=== PATIENT | female | born 1955 | race Caucasian/White ===

== ENCOUNTER 2020-05-20 12:22 | Outpatient (REF) | payer MEDICAID, SELFPAY ==
--- NOTE | 2020-05-20 12:29 | XR_ITS ---
EXAMINATION: XR KNEE, LEFT CLINICAL INFORMATION: Left knee pain COMPARISON: Radiographs left knee 01/16/2016 TECHNIQUE: Four views of the left knee. FINDINGS: There is no fracture, dislocation, or destructive process. There are some small marginal osteophytes femoral condyles and tibial plateau. No joint narrowing or erosive change or visible chondrocalcinosis. Mild thickening distal quadriceps tendon suggested on lateral view with some spurring at the quadriceps insertion. No visible suprapatellar effusion. Hoffa's fat pad appears normal. Again, there is a small mineralized ossicle at the deep infrapatellar recess. Recess preserved XR/XR knee LT 4V IMPRESSION: 1. Small marginal osteophytes without joint narrowing or erosive change. 2. Mild thickening distal quadriceps tendon with spurring at the patellar insertion.
== END 2020-05-20 12:23 | disposition home or self-care (01) ==
LOC: HO.XRAY 12:22
PROVIDERS: Visit Provider Emergency Medicine
DX: M25.562 Pain in left knee (principal)
CPT/HCPCS: 73564

== ENCOUNTER 2020-05-23 10:41 | Outpatient (REF) | payer MEDICAID, SELFPAY | END 2020-05-23 10:42 | disposition home or self-care (01) | LOC: HO.LAB 10:41 | PROVIDERS: Visit Provider Internal Medicine | DX: Z20.822 Contact with and (suspected) exposure to COVID-19 (principal) | CPT/HCPCS: 36415; C9803; U0003 ==

== ENCOUNTER 2020-08-16 09:11 | Emergency (ER) | payer MEDICAID, SELFPAY ==
--- NOTE | ~2020-08-16 | CT_ITS ---
EXAMINATION: CT ANGIOGRAM OF THE CHEST WITH AND WITHOUT CONTRAST (CT PULMONARY ANGIOGRAM FOR PE) CLINICAL INFORMATION: Reason for Exam right sided cp, d dimer >4000, r/o pe COMPARISON: Chest x-ray 08/16/2020 TECHNIQUE: Prior to contrast administration, noncontrast localization images were obtained. Subsequently, multidetector volumetric imaging was performed from the thoracic inlet to below the diaphragms following the administration of 65 mL Omnipaque 350 intravenous contrast. No contrast reaction reported Sagittal, coronal, and MIP oblique sagittal reformatted images were obtained on the CT workstation, uploaded to PACS, and reviewed. This CT examination was performed using dose optimization techniques as appropriate, variously including the following: *Automated exposure control *Adjustment of mA and/or kV according to patient size (this includes techniques or standardized protocols for targeted exams where dose is matched to indication/reason for exam; i.e. extremities or head) *Use of iterative reconstruction technique Total exam dose-length product 213 mGy-cm FINDINGS: QUALITY OF STUDY/CONTRAST BOLUS: Satisfactory. PULMONARY ARTERIES: No central or segmental pulmonary emboli. THORACIC AORTA: No aneurysm or dissection. LUNG: There is a calcified granuloma in the right lower lobe (series 7, image 251). There are subtle groundglass opacities in the right lower lobe. PLEURA: There is a trace right pleural effusion. No pneumothorax. MEDIASTINUM: Normal heart size. No pericardial effusion. No hilar or mediastinal lymphadenopathy. No evidence of septal bowing or right heart strain. CHEST WALL/AXILLA: No axillary or internal mammary lymphadenopathy. OSSEOUS STRUCTURES: No acute or suspicious osseous abnormality. UPPER ABDOMEN:. No reflux of contrast into the hepatic veins to suggest elevated right heart pressures. The spleen appears mildly enlarged, although it is not fully imaged on this study. The maximum transverse dimension of the spleen is 15.[address]/CT angio chest PE protocol IMPRESSION: 1. No evidence of pulmonary embolism. 2. Trace right pleural effusion with associated atelectasis or mild infiltrate at the right lung base. 3. The spleen appears mildly enlarged, although is not fully imaged on current study. VTE: negative
--- NOTE | ~2020-08-16 | XR_ITS ---
EXAMINATION: XR chest 2V CLINICAL INFORMATION: Chest pain COMPARISON: Prior chest x-ray 07/22/2019 TECHNIQUE: XR chest 2V Tubes and lines: None Lungs and Flora: Mild prominence of the pulmonary vasculature without nicolas failure. There is a density projecting over the right lower lobe could be a nipple shadow. Pleura: Normal. Costophrenic angles are sharp. No pneumothorax. Heart and mediastinum: The mediastinum is within normal limits.. Bones: Skeletal structures included are normal for patient's age. XR/XR chest 2V IMPRESSION: Mild vascular congestion without nicolas failure or pleural effusion. Density projecting over the right lower lobe probably a nipple shadow.
[2020-08-16 09:18] VITALS: BP 165/80; PULSE 103; RESP 18; TEMP 37.1; O2SAT 99; BMI 24.2
--- NOTE | 2020-08-16 10:44 | ECG_ITS ---
Test Reason : CHEST PAIN Blood Pressure : / mmHG Vent. Rate : 088 BPM Atrial Rate : 088 BPM P-R Int : 106 ms QRS Dur : 076 ms QT Int : 354 ms P-R-T Axes : 073 048 053 degrees QTc Int : 428 ms Sinus rhythm with short MA Nonspecific ST abnormality Abnormal ECG When compared with ECG of 23-JUL-2019 10:38, No significant change was found Referred By: Katherine Jackson Electronically Signed By:Roverto Allen
--- NOTE | 2020-08-16 10:44 | ED_ITS ---
HPI - General Adult General Chief complaint: General Medical Stated complaint: SHOULDER CHEST NECK PAIN Time Seen by Provider: 08/16/20 10:39 Source: patient Mode of arrival: ambulatory Limitations: no limitations History of Present Illness HPI narrative: 65 yo female with past medical history of asthma, renal colic, RA here with complaints of right sided CP with waking. No heavy lifting or bending. No pain noted yesterday. No shortness of breath, cough, leg swelling or pain. No fevers or chills. No recent travel. No sick contact. Pain is worsened with palpation and movement of the right arm. Unrelieved with home Motrin and tramadol. Related Data Previous Rx's Medication Instructions Recorded azithromycin See Rx Instructions .ROUTE 08/16/20 .COMPLEX #6 tab cyclobenzaprine 10 mg PO TID PRN #10 tab 08/16/20 lidocaine [Lidoderm] 1 patch TOPICAL DAILY #1 ea 08/16/20 Allergies Allergy/AdvReac Type Severity Reaction Status Date / Time No Known Allergies Allergy Verified 08/16/20 09:21 [No Known Allergies*] Review of Systems Review of Systems: Yes all other systems are reviewed and are negative Constitutional: Constitutional: Reports no additional constitutional complaints, Denies body ache(s), Denies chills, Denies fever(s), Denies headache(s) and Denies weakness Eyes: Eyes: Reports no additional eye complaints and Denies change in vision ENT: Reports system reviewed and no additional complaints, except as documente d, Denies dizziness, Denies headache(s), Denies nasal congestion, Denies nasal discharge and Denies neck pain Cardiovascular: Cardiovascular: Reports no additional cardiovascular complaints, Reports chest pain, Denies leg edema and Denies dyspnea Respiratory: Respiratory: Reports no additional respiratory complaints, Denies cough and Denies dyspnea Gastrointestinal: Gastrointestinal: Reports no additional gastrointestinal complaints, Denies abdominal pain, Denies diarrhea, Denies nausea and Denies vomiting Genitourinary: Genitourinary: Reports no additional female genitourinary complaints and Denies urinary incontinence Musculoskeletal: Musculoskeletal: Reports no additional musculoskeletal complaints, Denies back pain, Denies arthralgias, Denies joint swelling, Denies neck pain, Denies numbness and Denies tingling Integumentary/Breasts: Skin/Breast: Reports system reviewed and no additional complaints, except as docu and Denies rash Neurologic: Reports system reviewed and no additional complaints, except as documented, Denies Abnormal speech present, Denies dizziness, Denies headache(s), Denies numbness, Denies tingling and Denies weakness PMFSH Past Medical History Attestation statement: The following information was validated with the patient. Source: old records reviewed and nursing notes reviewed Medical History Asthma Kidney stones Neutropenia Rheumatoid arthritis Surgical History H/O left breast biopsy Family History Family History Sister Hypercholesterolemia HTN (hypertension) Arthritis Brother Pacemaker Social History Social History (Updated 04/02/20 @ 10:26 by Mago Patel) Alcohol intake: never Smoking Status: Never smoker Use of substances other than those prescribed or required for medical reasons: No Advance Directives: Yes Advance Directives Information Provided: No Advance Directives on File: No Physical Exam Vital Signs: Vital Signs: Last Vital Signs Temp 98.5 F 08/16/20 11:21 Pulse 98 08/16/20 14:56 Resp 16 08/16/20 14:56 BP 161/80 H 08/16/20 14:56 Pulse Ox 97 08/16/20 14:56 Body Mass Index 24.2 Const: General: cooperative, healthy appearing, comfortable and no acute distress Orientation/consciousness: patient oriented x3 Limitations: no limitations HENMT: Head: Yes normal to inspection Ears: hearing grossly normal bilaterally General nose exam: Normal external nose present Face and sinus: Yes normal facial exam Mouth: Normal oral and palatal mucosa present Throat: Yes posterior oropharynx normal Eyes: General: appearance normal, both eyes and all related structures Pupils: Equal, round and reactive pupils present Neck: Neck: Yes normal visual inspection Chest: Other: Right-sided chest wall anteriorly tender to palpate, worsened with right arm movement and deep breathing Chest palpation & inspection: normal inspection of the chest Resp: Effort & Inspection: normal respiratory effort Auscultation: clear to auscultation bilaterally Cardio: Rate: regular rate Rhythm: regular rhythm Peripheral pulses: Peripheral pulses 2+ throughout GI: Inspection: Yes normal to inspection Palpation (GI): Soft to palpation and nontender Auscultation: normal bowel sounds Back/Spine/Pelvis: Thoracic/Lumbar Spine: thoracic and lumbar spine normal to inspection Skin: General skin exam: no rashes or lesions noted Neuro: General: patient oriented x3, no focal motor deficits and normal sensation to monofilament Cranial nerves: Yes Equal, round and reactive pupils present Cognition (Neuro): normal cognition Speech: No Abnormal spe ech present Gait exam (Neuro): Normal gait present Motor exam (neuro): 5/5 motor strength present throughout Extrem: General: Yes normal to inspection, Yes no pedal edema and Yes no calf tenderness Course Course Course Narrative: 65-year-old female here with right-sided chest pain which is worsened with deep breathing, movement and palpation since waking this morning. No other associated symptoms. Pain is more musculoskeletal on exam. However due to age will check labs, chest x-ray, EKG. 1220-pain and nausea are improving. D-dimer greater than 4000. Will check CTA to rule out PE. 1500-CTA negative for PE. Shows trace right pleural effusion with a infiltrate at the right lung base. No leukocytosis, fever, tachycardia or tachypnea. No systemic signs symptoms of infection. Stable oxygen saturation greater than 98% on room air. Discussed findings with the patient. Will treat with course of antibiotics. Reviewed worrisome signs and symptoms such as shortness of breath, severe chest pain, fever which is not respond to Motrin Tylenol and when to return to the emergency department. Comfortable discharge home. Medical Decision Making MDM Narrative Medical decision making narrative: ACS, PE, chest wall strain, pneumonia, pneumothorax Less likely ACS with symptoms greater than 8 hours, troponin negative and EKG which shows no ischemic changes. Lab Data Result diagrams: 08/16/20 11:34 08/16/20 11:34 Labs: Lab Results 08/16/20 08/16/20 08/16/20 Range/Units 11:34 11:34 11:34 WBC 4.9 (4.8-10.8) X10*3/uL RBC 5.24 (4.20-5.50) X10*6/uL Hgb 12.6 (12.0-16.0) g/dl Hct 40.2 (37-47) % MCV 76.7 L (80-98) fL MCH 24.0 L (27.0-33.0) pg MCHC 31.3 (31.0-35.0) g/dl RDW 19.8 H (11.0-16.0) % Plt Count 168 (160-400) X10*3/uL MPV 8.2 L (9.4-12.3) fL Immature Gran % (Auto) 0.2 (0.0-0.4) % Neut % (Auto) 16.8 L (45-73) % Lymph % (Auto) 66.6 H (20-40) % [place] % (Auto) 16.0 H (2-11) % Eos % (Auto) 0.0 (0-4) % Baso % (Auto) 0.4 (0-2) % Lymph # (Auto) 3.3 (1.2-4.9) X10*3/uL [place] # (Auto) 0.8 (0.1-1.2) X10*3/uL Eos # (Auto) 0.0 (0.0-0.4) X10*3/uL Baso # (Auto) 0.0 (0.0-0.2) X10*3/uL Abs Immat Gran (auto) 0.01 (0.00-0.03) X10*3/uL Absolute Neuts (auto) 0.8 L (2.0-8.3) X10*3/uL Absolute Nucleated RBC 0.000 (0.0-0.012) X10*3/uL Nucleated RBC % (auto) 0.0 (0.0-0.2) /100WBC PT 11.8 (10.8-13.0) SEC INR 1.0 (0.9-1.1) D-Dimer 4224 NG/ML Sodium 136 (135-145) mmol/L Potassium 3.9 (3.3-5.1) mmol/L Chloride 103 (96-108) mmol/L Carbon Dioxide 24 (22-29) mmol/L Anion Gap 13 (12-20) BUN 11 (9-16) mg/dL Creatinine 0.70 (0.5-1.4) mg/dL Estim Creat Clear Calc 71.0 Estimated GFR > 60 Random Glucose 101 (60-115) mg/dL Calcium 8.9 (8.4-10.2) mg/dL Magnesium 1.9 (1.6-2.6) mg/dL Total Bilirubin 0.6 (0.0-1.0) mg/dL Direct Bilirubin 0.3 (0.0-0.5) mg/dL AST 40 H (5-31) U/L ALT 24 (0-31) U/L Alkaline Phosphatase 146 H (39-117) U/L Troponin I High Sens (<3.5-17.0) ng/L Total Protein 9.1 H (6.5-8.0) g/dL Albumin 3.6 (3.5-5.0) g/dL COVID-19 ([facility]) (Negative) COVID-19 Clin Com 08/16/20 08/16/20 Range/Units 11:34 11:45 WBC (4.8-10.8) X10*3/uL RBC (4.20-5.50) X10*6/uL Hgb (12.0-16.0) g/dl Hct (37-47) % MCV (80-98) fL MCH (27.0-33.0) pg MCHC (31.0-35.0) g/dl RDW (11.0-16.0) % Plt Count (160-400) X10*3/uL MPV (9.4-12.3) fL Immature Gran % (Auto) (0.0-0.4) % Neut % (Auto) (45-73) % Lymph % (Auto) (20-40) % [place] % (Auto) (2-11) % Eos % (Auto) (0-4) % Baso % (Auto) (0-2) % Lymph # (Auto) (1.2-4.9) X10*3/uL [place] # (Auto) (0.1-1.2) X10*3/uL Eos # (Auto) (0.0-0.4) X10*3/uL Baso # (Auto) (0.0-0.2) X10*3/uL Abs Immat Gran (auto) (0.00-0.03) X10*3/uL Absolute Neuts (auto) (2.0-8.3) X10*3/uL Absolute Nucleated RBC (0.0-0.012) X10*3/uL Nucleated RBC % (auto) (0.0-0.2) /100WBC PT (10.8-13.0) SEC INR (0.9-1.1) D-Dimer NG/ML Sodium (135-145) mmol/L Potassium (3.3-5.1) mmol/L Chloride (96-108) mmol/L Carbon Dioxide (22-29) mmol/L Anion Gap (12-20) BUN (9-16) mg/dL Creatinine (0.5-1.4) mg/dL Estim Creat Clear Calc Estimated GFR Random Glucose (60-115) mg/dL Calcium (8.4-10.2) mg/dL Magnesium (1.6-2.6) mg/dL Total Bilirubin (0.0-1.0) mg/dL Direct Bilirubin (0.0-0.5) mg/dL AST (5-31) U/L ALT (0-31) U/L Alkaline Phosphatase (39-117) U/L Troponin I High Sens < 3.5 (<3.5-17.0) ng/L Total Protein (6.5-8.0) g/dL Albumin (3.5-5.0) g/dL COVID-19 ([facility]) Negative (Negative) COVID-19 Clin Com See Note Imaging Data Chest x-ray: Attestation: I personally reviewed and interpreted this imaging study as follows: Radiologist's impression: CLINICAL INFORMATION: Chest pain COMPARISON: Prior chest x-ray 07/22/2019 TECHNIQUE: XR chest 2V Tubes and lines: None Lungs and Flora: Mild prominence of the pulmonary vasculature without nicolas failure. There is a density projecting over the right lower lobe could be a nipple shadow. Pleura: Normal. Costophrenic angles are sharp. No pneumothorax. Heart and mediastinum: The mediastinum is within normal limits.. Bones: Skeletal structures included are normal for patient's age. XR/XR chest 2V IMPRESSION: Mild vascular congestion without nicolas failure or pleural effusion. Density projecting over the right lower lobe probably a nipple shadow. CT scan - chest: Attestation: I personally reviewed and interpreted this imaging study as follows: Radiologist's impression: 1. No evidence of pulmonary embolism. 2. Trace right pleural effusion with associated atelectasis or mild infiltrate at the right lung base. 3. The spleen appears mildly enlarged, although is not fully imaged on current study. ECG Data Attestation: I personally reviewed and interpreted this ECG as follows: Interpretation: SR with short ND, rate 88, normal qrs, normal qtc, nonspecific ST changes Discharge Plan Discharge Clinical Impression: Chest wall muscle strain Pneumonia Qualifiers: Pneumonia type: due to unspecified organism Laterality: right Patient Disposition: Home, Self-Care Instructions: Bacterial Pneumonia (ED), Chest Wall Pain (ED) Additional Instructions: Increase fluids, rest Follow-up with primary care doctor if your symptoms do not improve after several days Prescriptions: New azithromycin 250 mg tablet See Rx Instructions .ROUTE .COMPLEX Qty: 6 RF: 0 cyclobenzaprine 10 mg tablet 10 mg PO TID PRN (Reason: muscle spasm) Qty: 10 RF: 0 lidocaine [Lidoderm] 5 % adhesive patch,medicated 1 patch topical DAILY Qty: 1 RF: 0 Referrals: Physician,Unknown [Primary Care Provider] - 2 days Stand Alone Forms: Work/School Release
[2020-08-16 11:21] VITALS: BP 179/76; PULSE 91; RESP 12; TEMP 36.9; O2SAT 97
[2020-08-16 11:41] VITALS: RESP 18
[2020-08-16] MEDS: 0.9 % Sodium Chloride 1,000 ML 999 ML IV (11:41)
[2020-08-16] MEDS: Morphine Sulfate 4 MG/ML CARTRIDGE IVPUSH (11:41)
[2020-08-16] MEDS: ondansetron HCL 4 MG/2 ML VIAL IVPUSH (11:41)
[2020-08-16 11:44] LABS: Basophils Percent Auto 0.4 % (0-2); Hematocrit 40.2 % (37-47); Hemoglobin 12.6 g/dl (12.0-16.0); Imm Gran Abs Auto 0.01 X10*3/uL (0.00-0.03); Imm Gran Pct Auto 0.2 % (0.0-0.4); Lymphocytes Absolute Auto 3.3 X10*3/uL (1.2-4.9); Lymphocytes Percent Auto 66.6 % (20-40); MANUAL DIFF FLAG NO; Mean Corpuscular HGB Conc 31.3 g/dl (31.0-35.0); Mean Corpuscular Volume 76.7 fL (80-98); Mean Platelet Volume 8.2 fL (9.4-12.3); Monocytes Absolute Auto 0.8 X10*3/uL (0.1-1.2); Neutrophils Absolute Auto 0.8 X10*3/uL (2.0-8.3); Neutrophils Percent Auto 16.8 % (45-73); Platelet Count 168 X10*3/uL (160-400); Red Blood Count 5.24 X10*6/uL (4.20-5.50); Red Cell Distribution Width 19.8 % (11.0-16.0); SCAN SMEAR FLAG 1; White Blood Count 4.9 X10*3/uL (4.8-10.8)
[2020-08-16 11:56] LABS: Prothrombin Time 11.8 SEC (10.8-13.0)
[2020-08-16 12:10] LABS: COVID-19 Test Negative (Negative)
[2020-08-16 12:12] LABS: Alanine Aminotransferase 24 U/L (0-31); Albumin Level 3.6 g/dL (3.5-5.0); Alkaline Phosphatase 146 U/L (39-117); Anion Gap 13 (12-20); Aspartate Amino Transferase 40 U/L (5-31); Bilirubin Direct 0.3 mg/dL (0.0-0.5); Bilirubin Total 0.6 mg/dL (0.0-1.0); Blood Urea Nitrogen 11 mg/dL (9-16); Calcium 8.9 mg/dL (8.4-10.2); Carbon Dioxide 24 mmol/L (22-29); Chloride 103 mmol/L (96-108); D Dimer 4224 NG/ML; Estimated Glomerular Filt Rate > 60; Glucose Random 101 mg/dL (60-115); Magnesium 1.9 mg/dL (1.6-2.6); Potassium 3.9 mmol/L (3.3-5.1); Sodium 136 mmol/L (135-145); Total Protein 9.1 g/dL (6.5-8.0)
[2020-08-16 12:17] LABS: Troponin-I High Sensitivity < 3.5 ng/L (<3.5-17.0)
[2020-08-16] MEDS: iohexoL 350 MG/ML 75 ML INFUS..BTL IV (14:14)
[2020-08-16 14:56] VITALS: BP 161/80; PULSE 98; RESP 16; O2SAT 97
== END 2020-08-16 15:23 | disposition home or self-care (01) ==
PROVIDERS: Nurse Practitioner Family; Emergency Provider Emergency Medicine
DX: J15.9 Unspecified bacterial pneumonia (principal); R07.89 Other chest pain; M54.2 Cervicalgia; M54.5 Low back pain; Z79.899 Other long term (current) drug therapy
CPT/HCPCS: 36415; 71046; 71275; 80048; 80076; 83735; 84484; 85025; 85379; 85610; 87635; 93005; 96361; 96365; 96375; 99284; J2270; J2405; Q9967

== ENCOUNTER 2020-09-25 14:00 | Outpatient (RCR) | payer MEDICAID, SELFPAY | END 2020-09-25 15:27 | disposition other institution (70) | LOC: HO.PT 14:00 | PROVIDERS: PCP Family Medicine; Visit Provider Family Medicine | DX: M25.562 Pain in left knee (principal) | CPT/HCPCS: 97110; 97161; 97530 ==

== ENCOUNTER 2020-12-29 13:28 | Emergency (ER) | payer MEDICAID, SELFPAY ==
--- NOTE | ~2020-12-29 | XR_ITS ---
EXAMINATION: XR CHEST CLINICAL INFORMATION: Question food bolus stuck in esophagus. COMPARISON: Chest x-ray 08/16/2020 TECHNIQUE: Frontal view of the chest was obtained. FINDINGS: The lungs are well-expanded and clear. The heart size and pulmonary vascularity is normal. No soft tissue or radiopaque density seen in the midline.. No gross bony abnormality. XR/XR chest 1V IMPRESSION: Unremarkable chest exam.
[2020-12-29 14:44] VITALS: BP 160/85; PULSE 98; RESP 18; TEMP 36.9; O2SAT 98; BMI 23.4
--- NOTE | 2020-12-29 14:47 | ECG_ITS ---
Test Reason : CHEST PAIN Blood Pressure : / mmHG Vent. Rate : 103 BPM Atrial Rate : 103 BPM P-R Int : 122 ms QRS Dur : 074 ms QT Int : 344 ms P-R-T Axes : 075 043 038 degrees QTc Int : 450 ms Sinus tachycardia with Premature supraventricular complexes Possible Left atrial enlargement Nonspecific ST and T wave abnormality Abnormal ECG When compared with ECG of 16-AUG-2020 11:13, Premature supraventricular complexes are now Present Referred By: Generic ED Physician Electronically Signed By:ERICA QUACH
[2020-12-29 16:01] LABS: Basophils Percent Auto 0.4 % (0-2); Eosinophils Percent Auto 0.1 % (0-4); Hematocrit 38.3 % (37-47); Hemoglobin 11.9 g/dl (12.0-16.0); Lymphocytes Absolute Auto 5.6 X10*3/uL (1.2-4.9); Lymphocytes Percent Auto 83.1 % (20-40); MANUAL DIFF FLAG SCAN; Mean Corpuscular HGB Conc 31.1 g/dl (31.0-35.0); Mean Corpuscular Hemoglobin 23.2 pg (27.0-33.0); Mean Corpuscular Volume 74.8 fL (80-98); Monocytes Absolute Auto 0.9 X10*3/uL (0.1-1.2); Neutrophils Absolute Auto 0.2 X10*3/uL (2.0-8.3); Neutrophils Percent Auto 2.4 % (45-73); Platelet Count 132 X10*3/uL (160-400); Red Blood Count 5.12 X10*6/uL (4.20-5.50); Red Cell Distribution Width 18.2 % (11.0-16.0); SCAN SMEAR FLAG 1; White Blood Count 6.7 X10*3/uL (4.8-10.8)
[2020-12-29 16:20] LABS: SLIDE REVIEW VERIFIED
[2020-12-29 16:21] LABS: Anion Gap 11 (12-20); Blood Urea Nitrogen 7 mg/dL (9-16); Calcium 9.1 mg/dL (8.4-10.2); Carbon Dioxide 24 mmol/L (22-29); Chloride 103 mmol/L (96-108); Creatinine Clr Calc Pharmacy 67.2; Estimated Glomerular Filt Rate > 60; Glucose Random 98 mg/dL (60-115); Potassium 3.5 mmol/L (3.3-5.1); Sodium 134 mmol/L (135-145)
[2020-12-29 16:26] LABS: Troponin-I High Sensitivity < 3.5 ng/L (<3.5-17.0)
--- NOTE | 2020-12-29 18:51 | ED_ITS ---
HPI - General Adult General Chief complaint: General Medical Stated complaint: heartburn Time Seen by Provider: 12/29/20 18:46 Source: patient Mode of arrival: ambulatory Limitations: no limitations History of Present Illness HPI narrative: Patient with difficulty swallowing with food and drink starting 4 days ago. Has not had that problem prior. No vomiting with the problem. Patient is on omeprazol for the problem. Onset (ago): day(s) Severity: moderate Quality: burning Pain Consistency: intermittent Exacerbating factors: eating Related Data Previous Rx's Medication Instructions Recorded azithromycin 250 mg tablet See Rx Instructions .ROUTE 08/16/20 .COMPLEX #6 tab cyclobenzaprine 10 mg tablet 10 mg PO TID PRN #10 tab 08/16/20 lidocaine 5 % topical patch 1 patch TOPICAL DAILY #1 ea 08/16/20 (Lidoderm) sucralfate 100 mg/mL oral 10 ml PO BID #1000 ml 12/29/20 suspension (Carafate) Allergies Allergy/AdvReac Type Severity Reaction Status Date / Time No Known Allergies Allergy Verified 08/16/20 09:21 [No Known Allergies*] Review of Systems Constitutional: Constitutional: Reports no additional constitutional complaints Eyes: Eyes: Reports no additional eye complaints ENT: Denies dizziness Cardiovascular: Cardiovascular: Reports no additional cardiovascular complaints Respiratory: Respiratory: Reports as per HPI Gastrointestinal: Gastrointestinal: Reports no additional gastrointestinal complaints Genitourinary: Genitourinary: Reports no additional female genitourinary complaints Musculoskeletal: Musculoskeletal: Reports no additional musculoskeletal complaints Integumentary/Breasts: Skin/Breast: Denies rash Neurologic: Reports system reviewed and no additional complaints, except as documented, Denies dizziness and Denies Sensory deficit (Neuro) Psychiatric: Psychiatric: Denies anxiety PMFSH Past Medical History Medical History Asthma Kidney stones Neutropenia Rheumatoid arthritis Surgical History H/O left breast biopsy Family History Family History Sister Hypercholesterolemia HTN (hypertension) Arthritis Brother Pacemaker Social History Social History Alcohol intake: never Advance Directives: No Advance Directives Information Provided: Yes Patient : No Physical Exam Vital Signs: Vital Signs: Last Vital Signs Temp 98.4 F 12/29/20 14:44 Pulse 98 12/29/20 14:44 Resp 18 12/29/20 14:44 BP 160/85 H 12/29/20 14:44 Pulse Ox 98 12/29/20 14:44 Body Mass Index 23.4 Const: General: healthy appearing Nutritional Appearance: average body habitus Orientation/consciousness: oriented to person and patient oriented x3 Limitations: no limitations HENMT: Head: Yes normal to inspection Ears: external ears normal General nose exam: Normal external nose present Mouth: Normal oral and palatal mucosa present and oropharynx normal Throat: Yes posterior oropharynx normal Eyes: General: appearance normal, both eyes and all related structures Neck: Other: supple Neck: Yes normal visual inspection Chest: Chest palpation & inspection: normal inspection of the chest Resp: Auscultation: clear to auscultation bilaterally Cardio: Jugular venous distension: no JVD Rate: regular rate Rhythm: regular rhythm Heart sounds: S1 normal heart sound present and S2 normal heart sound present GI: Inspection: Yes normal to inspection Palpation (GI): Soft to palpation, nontender and No hepatosplenomegaly present Auscultation: normal bowel sounds : General: Yes no CVA tenderness Back/Spine/Pelvis: Back: no CVA tenderness Skin: General skin exam: no rashes or lesions noted Neuro: General: oriented to person and patient oriented x3 Cranial nerves: Yes CN's II-XII intact bilaterally Motor exam (neuro): 5/5 motor strength present throughout Sensory Exam: No Sensory deficit (Neuro) Extrem: General: Yes normal to inspection Psych: Appearance: grossly normal Course Course Course Narrative: patient sounds by history to have an esophageal stricture, no evidence of heart related issues. Will refer to GI Medical Decision Making Lab Data Result diagrams: 12/29/20 15:56 12/29/20 15:55 Labs: Lab Results 12/29/20 12/29/20 12/29/20 Range/Units 15:55 15:56 15:56 WBC 6.7 (4.8-10.8) X10*3/uL RBC 5.12 (4.20-5.50) X10*6/uL Hgb 11.9 L (12.0-16.0) g/dl Hct 38.3 (37-47) % MCV 74.8 L (80-98) fL MCH 23.2 L (27.0-33.0) pg MCHC 31.1 (31.0-35.0) g/dl RDW 18.2 H (11.0-16.0) % Plt Count 132 L (160-400) X10*3/uL MPV 8.0 L (9.4-12.3) fL Immature Gran % (Auto) 0.0 (0.0-0.4) % Neut % (Auto) 2.4 L (45-73) % Lymph % (Auto) 83.1 H (20-40) % [place] % (Auto) 14.0 H (2-11) % Eos % (Auto) 0.1 (0-4) % Baso % (Auto) 0.4 (0-2) % Lymph # (Auto) 5.6 H (1.2-4.9) X10*3/uL [place] # (Auto) 0.9 (0.1-1.2) X10*3/uL Eos # (Auto) 0.0 (0.0-0.4) X10*3/uL Baso # (Auto) 0.0 (0.0-0.2) X10*3/uL Abs Immat Gran (auto) 0.00 (0.00-0.03) X10*3/uL Absolute Neuts (auto) 0.2 L (2.0-8.3) X10*3/uL Absolute Nucleated RBC 0.000 (0.0-0.012) X10*3/uL Nucleated RBC % (auto) 0.0 (0.0-0.2) /100WBC Smear Tech's Comments VERIFIED Sodium 134 L (135-145) mmol/L Potassium 3.5 (3.3-5.1) mmol/L Chloride 103 (96-108) mmol/L Carbon Dioxide 24 (22-29) mmol/L Anion Gap 11 L (12-20) BUN 7 L (9-16) mg/dL Creatinine 0.74 (0.5-1.4) mg/dL Estim Creat Clear Calc 67.2 Estimated GFR > 60 Random Glucose 98 (60-115) mg/dL Calcium 9.1 (8.4-10.2) mg/dL Troponin I High Sens < 3.5 (<3.5-17.0) ng/L ECG Data Attestation: I personally reviewed and interpreted this ECG as follows: Interpretation: sinus rate 100, no st or twave changes Discharge Plan Discharge Clinical Impression: Chest pain due to GERD, Esophageal stricture Patient Disposition: Home, Self-Care Instructions: Gastroesophageal Reflux Disease (ED), Esophageal Stricture (ED) Prescriptions: New sucralfate [Carafate] 100 mg/mL suspension 10 ml PO BID Qty: 1000 RF: 0 No Action azithromycin 250 mg tablet See Rx Instructions .ROUTE .COMPLEX Qty: 6 RF: 0 cyclobenzaprine 10 mg tablet 10 mg PO TID PRN (Reason: muscle spasm) Qty: 10 RF: 0 lidocaine [Lidoderm] 5 % adhesive patch,medicated 1 patch topical DAILY Qty: 1 RF: 0 Referrals: Milagros De Leon MD [Primary Care Provider] - 5 days Jose Mcneal MD [Physician] - 5 days
[2020-12-29] MEDS: Sucralfate Oral Suspension 1 GM/10 ML ORAL.SUSP PO (19:14)
== END 2020-12-29 19:27 | disposition home or self-care (01) ==
PROVIDERS: Emergency Provider Emergency Medicine; PCP Internal Medicine
DX: R07.89 Other chest pain (principal); K21.9 Gastro-esophageal reflux disease without esophagitis
CPT/HCPCS: 36415; 71045; 80048; 84484; 85025; 93005; 99283

== ENCOUNTER 2021-02-17 15:35 | Emergency (ER) | payer MEDICAID, SELFPAY ==
--- NOTE | ~2021-02-17 | XR_ITS ---
EXAMINATION: XR TIBIA AND FIBULA, RIGHT CLINICAL INFORMATION: Trauma and pain. COMPARISON: No similar priors. TECHNIQUE: AP and lateral views of the right tibia and fibula were obtained. FINDINGS: No acute fractures or malalignment. Moderate osteoarthritis of the right knee. No radiopaque foreign bodies. XR/XR tibia fibula RT 2V IMPRESSION: No acute fractures or malalignment within the right tibia or fibula.
[2021-02-17 17:36] VITALS: BP 159/81; PULSE 116; RESP 20; TEMP 37.3; O2SAT 100; BMI 22.8
--- NOTE | 2021-02-17 19:59 | ED_ITS ---
HPI - Extremity Injury (Lower) General Chief Complaint: Extremity Injury, Lower Stated Complaint: Leg injury Time Seen by Provider: 02/17/21 18:55 Source: patient Mode of arrival: ambulatory Limitations: no limitations History of Present Illness HPI Narrative: 65-year-old female came in for evaluation of right leg injury. About 30 lb AC fell on the patient leg, causing pain, patient noticed there was redness and hotness in the area, declined any fever chills. Patient otherwise feels fine. Related Data Previous Rx's Medication Instructions Recorded azithromycin 250 mg tablet See Rx Instructions .ROUTE 08/16/20 .COMPLEX #6 tab cyclobenzaprine 10 mg tablet 10 mg PO TID PRN #10 tab 08/16/20 lidocaine 5 % topical patch 1 patch TOPICAL DAILY #1 ea 08/16/20 (Lidoderm) sucralfate 100 mg/mL oral 10 ml PO BID #1000 ml 12/29/20 suspension (Carafate) doxycycline hyclate 100 mg tablet 100 mg PO BID #14 tab 02/17/21 Allergies Allergy/AdvReac Type Severity Reaction Status Date / Time No Known Allergies Allergy Verified 08/16/20 09:21 [No Known Allergies*] Review of Systems Review of Systems: All other systems are reviewed and are negative Constitutional: Reports as per HPI and Reports no additional constitutional complaints Eyes: Reports as per HPI and Reports no additional eye complaints Reports system reviewed and no additional complaints, except as documented Cardiovascular: Reports as per HPI and Reports no additional cardiovascular complaints Respiratory: Reports as per HPI and Reports no additional respiratory complaints Gastrointestinal: Reports as per HPI and Reports no additional gastrointestinal complaints Genitourinary: Reports no additional female genitourinary complaints Musculoskeletal: Reports no additional musculoskeletal complaints Skin/Breast: Reports system reviewed and no additional complaints, except as docu Psychiatric: Reports no additional psychiatric complaints Endocrine: Reports no additional endocrine complaints Hematologic/Lymphatic: Reports no additional hematologic/lymphatic complaints Allergic/Immunologic: Reports no additional allergic/immunologic complaints Reports system reviewed and no additional complaints, except as documented and Reports Abnormal speech present [facility] Past Medical History Medical History Asthma Kidney stones Neutropenia Rheumatoid arthritis Surgical History H/O left breast biopsy Family History Family History Sister Hypercholesterolemia HTN (hypertension) Arthritis Brother Pacemaker Social History Social History Alcohol intake: never Advance Directives: No Advance Directives Information Provided: No Patient : No Physical Exam Vital Signs: Vital Signs: Last Vital Signs Temp 99.1 F 02/17/21 17:36 Pulse 116 H 02/17/21 17:36 Resp 20 02/17/21 17:36 BP 159/81 H 02/17/21 17:36 Pulse Ox 100 02/17/21 17:36 Body Mass Index 22.8 Vital signs have been reviewed as appeared to be correct. Blood pressure normal. Heart rate elevated. Respiration rate normal. Temperature normal. Oxygen saturation normal. Appearance: Alert. Oriented X3. No acute distress. Head: Normal external exam. Normocephalic. Atraumatic. No Valverde signs noted. No raccoon eyes noted Eyes: PERRLA. EOMI. Conjunctiva and sclera normal. Eyelids normal. ENT: TM's Normal. Pharynx normal. Uvula midline. Moist mucous membranes. No trismus noted. No drooling noted. No muffled voice noted. Neck: Normal inspection. Neck supple. FROM. No adenopathy. Thyroid Normal. No meningeal signs. No neck mass noted. CVS: Normal heart rate and rhythm. Heart sound normal. No murmurs noted. Pulses normal throughout. Respiratory: No respiratory distress. Painless inspiration. Breath sounds normal. No wheezes/rales/rhonchi noted. Chest nontender. No accessory muscle usage noted or decreased air movement noted. Abdomen: Soft and nontender. Bowel sounds normal in all 4 quadrants. No distention noted. No organomegaly noted. No visible injury noted. Back: No CVA tenderness. Full range of motion noted. Skin: Skin warm and dry. Normal skin color. Normal skin turgor. No rashes/lesions/lacerations noted. Extremities: Right leg exam: 5 x 5 cm area of redness and hotness and tenderness just below the right knee, not involving the knee joint. No fluctuation, no abscess. Neuro: Oriented X 3. Cranial nerve exam: II-XII are grossly intact No motor deficit. No sensory deficit. Reflexes normal. Course Course Course Narrative: Assessment and plan. 65-year-old female came in with right leg cellulitis start patient on clindamycin. MDM - Extremity Injury (Lower) Imaging Data Right leg x-ray.: Radiologist's impression: No acute fractures or malalignment within the right tibia or fibula. Discharge Plan Discharge Clinical Impression: Cellulitis Qualifiers: Site of cellulitis of extremity: lower extremity Laterality: right Patient Disposition: Home, Self-Care Instructions: Cellulitis (ED) Prescriptions: New doxycycline hyclate 100 mg tablet 100 mg PO BID Qty: 14 RF: 0 No Action sucralfate [Carafate] 100 mg/mL suspension 10 ml PO BID Qty: 1000 RF: 0 azithromycin 250 mg tablet See Rx Instructions .ROUTE .COMPLEX Qty: 6 RF: 0 cyclobenzaprine 10 mg tablet 10 mg PO TID PRN (Reason: muscle spasm) Qty: 10 RF: 0 lidocaine [Lidoderm] 5 % adhesive patch,medicated 1 patch topical DAILY Qty: 1 RF: 0 Referrals: [facility] [Primary Care Provider] - 2 days Stand Alone Forms: Work/School Release
== END 2021-02-17 20:19 | disposition home or self-care (01) ==
PROVIDERS: Emergency Provider Emergency Medicine
DX: L03.115 Cellulitis of right lower limb (principal)
CPT/HCPCS: 73590; 99283

== ENCOUNTER 2021-12-07 13:40 | Outpatient (REF) | payer MEDICAID, SELFPAY ==
--- NOTE | ~2021-12-07 | MM_ITS ---
EXAMINATION: BONE DENSITOMETRY CLINICAL INDICATION: Menopausal. COMPARISON: Baseline BD dated 12/17/2013. TECHNIQUE: Using a [employer] DXA System (software version: 13.1) manufactured by [employer], dual-energy x-ray absorptiometry was performed of the lumbar spine and left hip. The images are of good technical quality. Summary results are attached. FINDINGS: AP SPINE L1-L4: Current: BMD 0.834 g/cm2, Z-score -1.0, T-score -2.9, osteoporosis, 12.2% decrease from baseline (<5% change is not significant). Baseline: BMD 0.950 g/cm2. LEFT FEMUR, NECK: Current: BMD 0.723 g/cm2, Z-score -0.6, T-score -2.3, osteopenia. Baseline: BMD 0.872 g/cm2. LEFT FEMUR, TOTAL: Current: BMD 0.807 g/cm2, Z-score -0.2, T-score -1.6, osteopenia, 12.9% decrease from baseline (<5% change is not significant). Baseline: BMD 0.927 g/cm2. IDENTIFIED RISK FACTORS: Height loss, low body weight, rheumatoid arthritis, menopause. HISTORY OF FRACTURE: None listed. MEDICATIONS: Calcium or multivitamin. MM/XR DEXA axial skeleton IMPRESSION: 1. DIAGNOSIS: Osteoporosis based on the lowest T-score value of -2.9 in the lumbar spine applying World Health Organization criteria. 2. 10-YEAR FRACTURE RISK PREDICTION, FRAX: According to the guidelines, FRAX calculation should only be performed on patients in the osteopenia bone density category. Therefore, FRAX was not performed on this patient. 3. Treatment Recommendations: NOF guidelines recommend consideration for treatment in postmenopausal women and men age 50 and older presenting with the following: -A hip or vertebral (clinical or morphometric) fracture. -T-score less than or equal to -2.5 at the femoral neck or spine after appropriate evaluation to exclude secondary causes. -Low bone mass at the hip or spine and a 10-year fracture probability by FRAX of greater than or equal to 3% for hip fracture or greater than or equal to 20% for major osteoporotic fracture based on the [place] adapted WHO algorithm. 4. Other Recommendations: All treatment decisions require clinical judgment and consideration of individual patient factors, including patient preferences, comorbidities, previous drug use, risk factors not captured in the FRAX model (e.g. frailty, falls, vitamin D deficiency, increased bone turnover, interval significant decline in bone density) and possible under or overestimation of fracture risk by FRAX. Additional medical evaluation for secondary cause of low bone mineral density may be appropriate. FUTURE SCAN RECOMMENDATION: People with diagnosed cases of osteoporosis or at high risk for fracture should have regular bone mineral density tests. For patients eligible for Medicare, routine testing is allowed once every 2 years. The testing frequency can be increased to one year for patients who have rapidly progressing disease, those who are receiving or discontinuing medical therapy to restore bone mass, or have additional risk factors.
--- NOTE | ~2021-12-07 | MM_ITS ---
EXAMINATION: MM SCREENING DIGITAL BREAST TOMOSYNTHESIS, BILATERAL CLINICAL INFORMATION: Screening. Asymptomatic. The lifetime risk of breast cancer based on the Tyrer-Cuzick Model is 4.3%. COMPARISON: Mammography: July 27, 2017 and studies dating back to November 12, 2010 TECHNIQUE: Digital breast tomosynthesis is performed in both the craniocaudal and mediolateral oblique views along with computer-aided detection (CAD). Synthesized 2D images are generated from the tomosynthesis. FINDINGS: The breasts are heterogeneously dense, which may obscure small masses (ACR BI-RADS breast composition Category c). There are no significant masses, abnormal calcifications, or other abnormalities. MM/MM tomosynthesis screening BI IMPRESSION: There are no significant changes from prior study. ASSESSMENT: BI-RADS 1: Negative RECOMMENDATION: Routine annual mammography screening. This patient's information was entered into a reminder system with a target due date for their next mammogram.
== END 2021-12-07 13:41 | disposition home or self-care (01) ==
LOC: HO.MAMMO 13:40
PROVIDERS: PCP Nurse Practitioner Family; Visit Provider Nurse Practitioner Family
DX: Z12.31 Encounter for screening mammogram for malignant neoplasm of breast (principal); Z13.820 Encounter for screening for osteoporosis; Z78.0 Asymptomatic menopausal state
CPT/HCPCS: 77063; 77067; 77080

== ENCOUNTER 2021-12-24 08:46 | Outpatient (REF) | payer MEDICAID, SELFPAY ==
--- NOTE | ~2021-12-24 | US_ITS ---
EXAMINATION: US ABDOMEN COMPLETE CLINICAL INFORMATION: Elevated LFTs. COMPARISON: Renals only ultrasound dated 12/20/2018 and 12/07/2017. CT abdomen and pelvis without contrast dated 03/30/2018. KUB dated 11/02/2011. TECHNIQUE: Real-time imaging of the abdominal viscera. FINDINGS: PANCREAS: Normal. ABDOMINAL AORTA: The proximal, mid, and distal segments are normal in caliber. INFERIOR VENA CAVA: Unremarkable, LIVER: There is a hyperechoic lesion in the right hepatic lobe measuring 1.0 x 1.0 x 1.0 cm likely a small hemangioma. The liver is normal in size. The liver contour is normal. Parenchymal echogenicity is normal. There is no intrahepatic biliary duct dilatation seen. GALLBLADDER: Normal. The gallbladder is physiologically distended without evidence of stones, sludge, polyps, wall thickening or pericholecystic fluid. COMMON BILE DUCT: Normal in caliber measuring 0.5 cm in diameter. RIGHT KIDNEY: There are echogenic stones without caliectasis in the upper pole measuring 0.6 cm and the lower pole measuring 0.3 cm. No hydronephrosis or renal calculi. The kidney measures 11.8 cm in maximum dimension. LEFT KIDNEY: There is echogenic stones without caliectasis in midpole measuring 0.6 cm, 0.2 cm, lower pole measuring 0.2 cm and 0.3 cm. No hydronephrosis or renal calculi. The kidney measures 11.0 cm in maximum dimension. There is an anechoic cyst with septation and slight increased peripheral blood flow suggestive of a complex cyst. It measures 2.3 x 2.1 x 2.5 cm. SPLEEN: The spleen is enlarged and homogeneous in echotexture. The spleen measures 19.7 cm in maximum dimension. FREE FLUID: None. US/US abdomen complete IMPRESSION: Hemangioma right hepatic lobe. No additional lesions seen. Bilateral nonobstructive echogenic renal calculi. No hydronephrosis. Complex cyst upper pole left kidney.
== END 2021-12-24 08:47 | disposition home or self-care (01) ==
LOC: HO.US 08:46
PROVIDERS: Visit Provider Nurse Practitioner Family
DX: R74.01 Elevation of levels of liver transaminase levels (principal)
CPT/HCPCS: 76700

== ENCOUNTER 2022-02-11 06:51 | Emergency (ER) | payer MEDICAID, SELFPAY ==
--- NOTE | ~2022-02-11 | XR_ITS ---
EXAMINATION: XR CHEST CLINICAL INFORMATION: Dyspnea. COMPARISON: 12/29/2020 chest radiograph. Chest CTA dated 08/16/2020 TECHNIQUE: Frontal view of the chest was obtained. FINDINGS: The lungs are clear. Small right lower lung calcified granuloma without interval change. The heart and mediastinal structures are unremarkable. XR/XR chest 1V IMPRESSION: No acute cardiopulmonary process.
--- NOTE | ~2022-02-11 | CT_ITS ---
EXAMINATION: CT ANGIOGRAM OF THE CHEST WITH AND WITHOUT CONTRAST (CT PULMONARY ANGIOGRAM FOR PE) CLINICAL INFORMATION: Reason for Exam dyspnea, elevated ddimer COMPARISON: 08/16/2020 TECHNIQUE: Prior to contrast administration, noncontrast localization images were obtained. Subsequently, multidetector volumetric imaging was performed from the thoracic inlet to below the diaphragms following the administration of 65 mL Omnipaque 350 intravenous contrast. No contrast reaction reported Sagittal, coronal, and MIP oblique sagittal reformatted images were obtained on the CT workstation, uploaded to PACS, and reviewed. This CT examination was performed using dose optimization techniques as appropriate, variously including the following: *Automated exposure control *Adjustment of mA and/or kV according to patient size (this includes techniques or standardized protocols for targeted exams where dose is matched to indication/reason for exam; i.e. extremities or head) *Use of iterative reconstruction technique Total exam dose-length product 199 mGy-cm FINDINGS: QUALITY OF STUDY/CONTRAST BOLUS: Satisfactory. PULMONARY ARTERIES: The main pulmonary artery appears dilated to approximately 3.4 cm, which can be associated with pulmonary artery hypertension. No central or segmental pulmonary emboli. THORACIC AORTA: No aneurysm or dissection. LUNG: Suboptimal parenchymal assessment in some regions due to respiratory motion artifact. No regions of consolidation bilaterally. There is a calcified granuloma in the anterior right lower lobe. PLEURA: No pleural effusion or pneumothorax. MEDIASTINUM: Visualized thyroid gland is grossly unremarkable. No mediastinal lymphadenopathy is seen. Cardiac size appears at the upper limits of normal. No significant pericardial effusion. CHEST WALL/AXILLA: No axillary or internal mammary lymphadenopathy. OSSEOUS STRUCTURES: No acute or suspicious osseous abnormality. UPPER ABDOMEN: Included portion of the spleen appears enlarged. No reflux of contrast into the hepatic veins to suggest elevated right heart pressures. CT/CT angio chest PE protocol IMPRESSION: 1. No pulmonary embolus identified. 2. Dilated main pulmonary artery, which can be seen with pulmonary artery hypertension. 3. Visualized portion of the spleen is enlarged. VTE: negative
--- NOTE | 2022-02-11 06:58 | ECG_ITS ---
Test Reason : sob Blood Pressure : / mmHG Vent. Rate : 098 BPM Atrial Rate : 098 BPM P-R Int : 108 ms QRS Dur : 090 ms QT Int : 336 ms P-R-T Axes : 077 057 050 degrees QTc Int : 428 ms Sinus rhythm with short [place] with Premature atrial complexes Possible Left atrial enlargement Nonspecific ST and T wave abnormality Abnormal ECG When compared with ECG of 29-DEC-2020 15:47, No significant change was found Referred By: Generic ED Physician Electronically Signed By:ERICA QUACH
[2022-02-11 07:00] VITALS: BP 171/90; PULSE 84; RESP 16; TEMP 36.3; O2SAT 97
--- NOTE | 2022-02-11 07:11 | ED.SOB ---
HPI - SOB/Dyspnea General Chief Complaint: Dyspnea Stated Complaint: chest pain Time Seen by Provider: 02/11/22 07:04 Source: patient Mode of arrival: ambulatory Limitations: no limitations History of Present Illness HPI Narrative: 66 yo female with hx of RA, anemia/neutropenia, asthma has been having mucous in her chest, shortness of breath and feels her asthma is worsening since Monday. Tried steroids with little relief took 20mg starting Monday. She was sent by her PCP to the ED for a CXR. She has no chest pain MD elicited complaint: shortness of breath Pertinent past history: asthma Onset (ago): day(s) (5) Context: recent illness Timing: constant Severity: moderate Exacerbating factors: exertion and coughing Relieving factors: bronchodilators Known history of: asthma Associated symptoms: cough and wheezing Treatment prior to arrival: bronchodilator and other (prednisone) Related Data Previous Rx's Medication Instructions Recorded azithromycin 250 mg tablet See Rx Instructions PO .COMPLEX #6 08/16/20 tabs cyclobenzaprine 10 mg tablet 10 mg PO TID PRN muscle spasm #10 08/16/20 tabs lidocaine 5 % topical patch 1 patch topical DAILY #1 ea 08/16/20 (Lidoderm) sucralfate 100 mg/mL oral 10 ml PO BID #1,000 mL 12/29/20 suspension (Carafate) doxycycline hyclate 100 mg tablet 100 mg PO BID #14 tabs 02/17/21 azithromycin 250 mg tablet See Rx Instructions PO .COMPLEX #6 02/11/22 tabs Allergies Allergy/AdvReac Type Severity Reaction Status Date / Time No Known Allergies Allergy Verified 08/16/20 09:21 [No Known Allergies*] Review of Systems Review of Systems: Constitutional : No Fever, No Chills ENT/Mouth : No sore throat, No Rhinorrhea, No Swallowing Difficulty Eyes: No Eye Pain, No Swelling, No Redness Cardiovascular : No Chest Pain, positive SOB, No Orthopnea, no Edema Respiratory : pos Cough, No Sputum, No Wheezing, positive dyspnea Gastrointestinal : No Nausea, No Vomiting, No Diarrhea, No abdominal Pain, No Hematochezia, No Melena Genitourinary : No Dysuria, No Urinary Frequency, No Hematuria Musculoskeletal : No joint pain, No Myalgias Skin : No Skin Lesions, No rash Neuro : No Weakness, No Numbness, No Dizziness, No Headache Psych : No Anxiety/Panic, No Depression Heme/Lymph: No Bruising, No Lymphadenopathy Endocrine : No Polyuria, No Polydipsia All other systems reviewed and are negative [facility] Past Medical History Attestation statement: The following information was validated with the patient. Medical History Asthma Kidney stones Neutropenia Rheumatoid arthritis Surgical History H/O left breast biopsy Family History Family History Sister Hypercholesterolemia HTN (hypertension) Arthritis Brother Pacemaker Social History Social History (Updated 02/11/22 @ 07:11 by Birdie De La Fuente DO) Alcohol intake: never Patient Tobacco Use Status: Never used Tobacco Advance Directives: No Advance Directives Information Provided: Yes Patient : No Physical Exam Vital Signs: Vital Signs: Last Vital Signs Temp 97.4 F 02/11/22 07:00 Pulse 90 02/11/22 07:25 Resp 20 02/11/22 07:25 BP 171/90 H 02/11/22 07:00 Pulse Ox 97 02/11/22 07:00 O2 Del Method 02/11/22 07:00 BMI result Body Mass Index 20.0 Appearance: Alert. Oriented X3. No acute distress. Eyes: Pupils equal, round and reactive to light. ENT: Pharynx normal. Neck: Normal inspection. Neck supple. CVS: Normal heart rate and rhythm. Pulses normal. Respiratory: No respiratory distress. Breath sounds slightly diminished Abdomen: Soft and nontender. Skin: Skin warm and dry. Normal skin color. Normal skin turgor. Extremities: No lower extremity edema. No calf ttp Neuro: Oriented X 3. No motor deficit. No sensory deficit. Course Course Course Narrative: ddimer high - CTA PE ordered no blood clot seen enlarged spleen possibly pulm HTN will refer to oncology and pulmonology MDM - SOB/Dyspnea MDM Narrative Medical decision making narrative: 66 yo female with hx of RA, anemia/neutropenia, asthma here with 5 days of dyspnea and cough. At this time will need labs, EKG, CXR, troponin - will give neb treatment. She has no hypoxia, tachycardia, CP or signs of DVT to suggest PE she has no prior VTE as well. Possible bronchitis vs pneumonia vs RAD. Dispo per results and findings. Lab Data Result diagrams: 02/11/22 07:48 02/11/22 07:48 Labs: Lab Results 02/11/22 02/11/22 02/11/22 Range/Units 07:48 07:48 07:48 WBC 3.3 L (4.8-10.8) X10*3/uL RBC 4.56 (4.20-5.50) X10*6/uL Hgb 11.0 L (12.0-16.0) g/dl Hct 35.5 L (37.0-47.0) % MCV 77.9 L (80.0-98.0) fL MCH 24.1 L (27.0-33.0) pg MCHC 31.0 (31.0-35.0) g/dl RDW 20.4 H (11.0-16.0) % Plt Count 169 (160-400) X10*3/uL MPV 8.1 L (9.4-12.3) fL Immature Gran % (Auto) 0.3 (0.0-0.4) % Neut % (Auto) 23.3 L (45-73) % Lymph % (Auto) 58.3 H (20-40) % Crowley % (Auto) 18.1 H (2-11) % Eos % (Auto) 0.0 (0-4) % Baso % (Auto) 0.0 (0-2) % Lymph # (Auto) 1.9 (1.2-4.9) X10*3/uL Crowley # (Auto) 0.6 (0.1-1.2) X10*3/uL Eos # (Auto) 0.0 (0.0-0.4) X10*3/uL Baso # (Auto) 0.0 (0.0-0.2) X10*3/uL Abs Immat Gran (auto) 0.01 (0.00-0.03) X10*3/uL Absolute Neuts (auto) 0.8 L (2.0-8.3) x10*3/uL Absolute Nucleated RBC 0.000 (0.0-0.012) X10*3/uL Nucleated RBC % (auto) 0.0 (0.0-0.2) /100WBC Smear Tech's Comments VERIFIED PT 10.6 (10.0-13.1) SEC INR 0.9 (0.9-1.1) D-Dimer High Sensitivty Cancelled Sodium 137 (135-145) mmol/L Potassium 3.4 (3.3-5.1) mmol/L Chloride 107 (96-108) mmol/L Carbon Dioxide 21 L (22-29) mmol/L Anion Gap 12 (12-20) BUN 11 (9-16) mg/dL Creatinine 0.68 (0.5-1.4) mg/dL Estim Creat Clear Calc 70.0 Estimated GFR > 60 Random Glucose 84 (60-115) mg/dL Calcium 8.9 (8.4-10.2) mg/dL Magnesium 1.7 (1.6-2.6) mg/dL Total Bilirubin 0.6 (0.0-1.0) mg/dL Direct Bilirubin 0.3 (0.0-0.5) mg/dL AST 49 H (5-31) U/L ALT 29 (0-31) U/L Alkaline Phosphatase 154 H (39-117) U/L Troponin I High Sens (<3.5-17.0) ng/L B-Natriuretic Peptide (<100) pg/mL Total Protein 8.6 H (6.5-8.0) g/dL Albumin 2.8 L D (3.5-5.0) g/dL COVID-19 (MANI) (Negative) COVID-19 Clin Com 02/11/22 02/11/22 02/11/22 Range/Units 07:48 07:48 10:05 WBC (4.8-10.8) X10*3/uL RBC (4.20-5.50) X10*6/uL Hgb (12.0-16.0) g/dl Hct (37.0-47.0) % MCV (80.0-98.0) fL MCH (27.0-33.0) pg MCHC (31.0-35.0) g/dl RDW (11.0-16.0) % Plt Count (160-400) X10*3/uL MPV (9.4-12.3) fL Immature Gran % (Auto) (0.0-0.4) % Neut % (Auto) (45-73) % Lymph % (Auto) (20-40) % Crowley % (Auto) (2-11) % Eos % (Auto) (0-4) % Baso % (Auto) (0-2) % Lymph # (Auto) (1.2-4.9) X10*3/uL Crowley # (Auto) (0.1-1.2) X10*3/uL Eos # (Auto) (0.0-0.4) X10*3/uL Baso # (Auto) (0.0-0.2) X10*3/uL Abs Immat Gran (auto) (0.00-0.03) X10*3/uL Absolute Neuts (auto) (2.0-8.3) x10*3/uL Absolute Nucleated RBC (0.0-0.012) X10*3/uL Nucleated RBC % (auto) (0.0-0.2) /100WBC Smear Tech's Comments PT (10.0-13.1) SEC INR (0.9-1.1) D-Dimer High Sensitivty 2118 Sodium (135-145) mmol/L Potassium (3.3-5.1) mmol/L Chloride (96-108) mmol/L Carbon Dioxide (22-29) mmol/L Anion Gap (12-20) BUN (9-16) mg/dL Creatinine (0.5-1.4) mg/dL Estim Creat Clear Calc Estimated GFR Random Glucose (60-115) mg/dL Calcium (8.4-10.2) mg/dL Magnesium (1.6-2.6) mg/dL Total Bilirubin (0.0-1.0) mg/dL Direct Bilirubin (0.0-0.5) mg/dL AST (5-31) U/L ALT (0-31) U/L Alkaline Phosphatase (39-117) U/L Troponin I High Sens 6.8 (<3.5-17.0) ng/L B-Natriuretic Peptide 145 H (<100) pg/mL Total Protein (6.5-8.0) g/dL Albumin (3.5-5.0) g/dL COVID-19 (MANI) Negative (Negative) COVID-19 Clin Com See Note ECG Data Attestation: I personally reviewed and interpreted this ECG as follows: ECG interpretation date: 02/11/22 ECG interpretation time: 07:14 Interpretation: Rate: 98 Rhythm: NSR with PACs [place]: normal Normal P waves. Normal LUL. Normal QRS complex. ST T wave : normal no RENEE inverted V1 and V2 qTC: normal prior studies: no acute ischemia The study has been interpreted contemporaneously by me. . Discharge Plan Discharge Clinical Impression: Bronchitis Patient Disposition: Home, Self-Care Instructions: Acute Bronchitis (ED) Additional Instructions: return to ED for any worsening symptoms or concerns please follow up with your doctor you should be seeing a lung doctor and a blood doctor given blood clots of chronic anemia and low wbc count with enlarged spleen possible pulmonary hypertension FINDINGS: QUALITY OF STUDY/CONTRAST BOLUS: Satisfactory. PULMONARY ARTERIES: The main pulmonary artery appears dilated to approximately 3.4 cm, which can be associated with pulmonary artery hypertension. No central or segmental pulmonary emboli.? THORACIC AORTA: No aneurysm or dissection. LUNG: Suboptimal parenchymal assessment in some regions due to respiratory motion artifact. No regions of consolidation bilaterally. There is a calcified granuloma in the anterior right lower lobe. PLEURA: No pleural effusion or pneumothorax. MEDIASTINUM: Visualized thyroid gland is grossly unremarkable. No mediastinal lymphadenopathy is seen. Cardiac size appears at the upper limits of normal. No significant pericardial effusion. CHEST WALL/AXILLA: No axillary or internal mammary lymphadenopathy. OSSEOUS STRUCTURES: No acute or suspicious osseous abnormality.? UPPER ABDOMEN: Included portion of the spleen appears enlarged. No reflux of contrast into the hepatic veins to suggest elevated right heart pressures. CT/CT angio chest PE protocol IMPRESSION: 1.? No pulmonary embolus identified. 2.? Dilated main pulmonary artery, which can be seen with pulmonary artery hypertension. 3.? Visualized portion of the spleen is enlarged. ? VTE: negative Prescriptions: New azithromycin 250 mg tablet See Rx Instructions .ROUTE .COMPLEX Qty: 6 0RF Rx Instructions: For 250 mg dose pack: take 500 mg today (day 1), then 250 mg for 4 days (days 2-5) No Action sucralfate [Carafate] 100 mg/mL suspension 10 ml PO BID Qty: 1000 0RF azithromycin 250 mg tablet See Rx Instructions .ROUTE .COMPLEX Qty: 6 0RF Rx Instructions: take 500 mg today (day 1), then 250 mg for 4 days (days 2-5) cyclobenzaprine 10 mg tablet 10 mg PO TID PRN (Reason: muscle spasm) Qty: 10 0RF lidocaine [Lidoderm] 5 % adhesive patch,medicated 1 patch topical DAILY Qty: 1 0RF Rx Instructions: leave on most painful area for up to 12 hrs doxycycline hyclate 100 mg tablet 100 mg PO BID Qty: 14 0RF Referrals: Physician,Unknown J [Primary Care Provider] - 02/14/22 Stand Alone Forms: Work/School Release
[2022-02-11] MEDS: Albuterol/Iprat 2.5/0.5MG 3 ML AMPUL.NEB INHALE (07:23)
[2022-02-11 07:25] VITALS: PULSE 90; RESP 20; O2SAT 100
[2022-02-11 07:54] LABS: Hematocrit 35.5 % (37.0-47.0); Imm Gran Abs Auto 0.01 X10*3/uL (0.00-0.03); Imm Gran Pct Auto 0.3 % (0.0-0.4); Lymphocytes Absolute Auto 1.9 X10*3/uL (1.2-4.9); Lymphocytes Percent Auto 58.3 % (20-40); MANUAL DIFF FLAG SCAN; Mean Corpuscular Hemoglobin 24.1 pg (27.0-33.0); Mean Corpuscular Volume 77.9 fL (80.0-98.0); Mean Platelet Volume 8.1 fL (9.4-12.3); Monocytes Absolute Auto 0.6 X10*3/uL (0.1-1.2); Monocytes Percent Auto 18.1 % (2-11); Neutrophils Absolute Auto 0.8 x10*3/uL (2.0-8.3); Neutrophils Percent Auto 23.3 % (45-73); Platelet Count 169 X10*3/uL (160-400); Red Blood Count 4.56 X10*6/uL (4.20-5.50); Red Cell Distribution Width 20.4 % (11.0-16.0); SCAN SMEAR FLAG 1; White Blood Count 3.3 X10*3/uL (4.8-10.8)
[2022-02-11 08:01] LABS: INTERNATIONAL NORM RATIO 0.9 (0.9-1.1); Prothrombin Time 10.6 SEC (10.0-13.1)
[2022-02-11 08:09] LABS: Alanine Aminotransferase 29 U/L (0-31); Albumin Level 2.8 g/dL (3.5-5.0); Alkaline Phosphatase 154 U/L (39-117); Anion Gap 12 (12-20); Aspartate Amino Transferase 49 U/L (5-31); Bilirubin Direct 0.3 mg/dL (0.0-0.5); Bilirubin Total 0.6 mg/dL (0.0-1.0); Blood Urea Nitrogen 11 mg/dL (9-16); Calcium 8.9 mg/dL (8.4-10.2); Carbon Dioxide 21 mmol/L (22-29); Chloride 107 mmol/L (96-108); Estimated Glomerular Filt Rate > 60; Glucose Random 84 mg/dL (60-115); Magnesium 1.7 mg/dL (1.6-2.6); Potassium 3.4 mmol/L (3.3-5.1); Sodium 137 mmol/L (135-145); Total Protein 8.6 g/dL (6.5-8.0)
[2022-02-11 08:15] LABS: IDNOW Serial# 9DB6401D
[2022-02-11 08:16] LABS: B Type Natriuretic Peptide 145 pg/mL (<100); COVID-19 Test Negative (Negative); Troponin-I High Sensitivity 6.8 ng/L (<3.5-17.0)
[2022-02-11 08:21] LABS: SLIDE REVIEW VERIFIED
[2022-02-11 10:30] LABS: D Dimer High Sensitivity 2118 NG/ML
[2022-02-11] MEDS: iohexoL 350 MG/ML 100 ML INFUS..BTL 65 ML IV (11:28)
--- NOTE | 2022-02-11 12:00 | PC.NURSE ---
Pt V/S are stable, Pt is a/o x4.
[2022-02-11 12:22] VITALS: BP 141/81; PULSE 89; RESP 16; TEMP 36.8; O2SAT 98
== END 2022-02-11 12:29 | disposition home or self-care (01) ==
PROVIDERS: Emergency Provider Emergency Medicine
DX: R06.02 Shortness of breath (principal); R07.89 Other chest pain; Z20.822 Contact with and (suspected) exposure to COVID-19; Z79.899 Other long term (current) drug therapy
CPT/HCPCS: 36415; 71045; 71275; 80048; 80076; 83735; 83880; 84484; 85025; 85379; 85610; 87635; 93005; 94640; 99284; 99285; Q9967

== ENCOUNTER 2022-02-14 02:22 | Inpatient (IN) | payer MEDICAID, SELFPAY ==
[2022-02-14] VITALS (23 sets, daily range): BP systolic 84–168; BP diastolic 48–114; PULSE 90–167; RESP 19–46; TEMP 36.9–41.5; O2SAT 91–100; BMI 22.5
--- NOTE | ~2022-02-14 | US_ITS ---
EXAMINATION: ULTRASOUND RENAL LEFT. CLINICAL INFORMATION: Septic shock and left kidney mass. COMPARISON: CT abdomen 02/14/2022 TECHNIQUE: Routine retroperitoneal ultrasound imaging of left kidney is performed. FINDINGS: The left kidney measures 12.1 cm in length, 6.4 cm in AP and 7.6 cm in transverse dimension. There is a complex septated cystic areas seen within the upper midpole posterior cortex left kidney with increased vascularity measuring 3.8 x 4.5 x 4.2 cm about same size seen on CT. There are 2 echogenic calculi in midpole measuring 2.2 x 2.7 x 2.8 cm and 3.8 x 2.8 x 0.36 cm. The upper pole calculi measures 2.7 x 2.5 x 3.4 cm. There is no caliectasis or hydronephrosis. US/US renal LT IMPRESSION: Complex cystic septated mass with increased vascularity upper/midpole posterior cortex left kidney concordant with CT findings. Differential diagnoses includes complex cyst, mass or an abscess in view of pyelonephritis of the left kidney suspected on CT. Nonobstructive radiopaque calculi upper and midpole left kidney. No hydronephrosis. Right kidney was not imaged.
--- NOTE | ~2022-02-14 | CT_ITS ---
EXAMINATION: CT ABDOMEN WITHOUT AND WITH CONTRAST CLINICAL INFORMATION: Complex left renal cyst workup COMPARISON: Previous CT of the abdomen and pelvis without IV contrast and renal ultrasound from yesterday older CT of the abdomen and pelvis and renal ultrasound from 2018 and 2019. TECHNIQUE: Contiguous axial thin section helical images of the abdomen were performed before and after the administration of oral contrast and 85 mL of Omnipaque 350 intravenous contrast. The data set was reformatted in the coronal and sagittal planes and reviewed on an independent workstation. This CT examination was performed using dose optimization techniques as appropriate, variously including the following: *Automated exposure control *Adjustment of mA and/or kV according to patient size (this includes techniques or standardized protocols for targeted exams where dose is matched to indication/reason for exam; i.e. extremities or head) *Use of iterative reconstruction technique DLP: 5-0 mGy-cm FINDINGS: LUNG BASES: The heart is enlarged. The lung bases are clear. LIVER, GALLBLADDER, AND BILIARY TREE: The liver is enlarged. No focal liver lesion. Normal gallbladder. No biliary duct dilatation. Small amount of ascites. Varices. PANCREAS: Normal SPLEEN: The spleen is enlarged and measures 14 cm in length. ADRENAL GLANDS AND KIDNEYS: The adrenal glands are normal. There is a 4.2 cm complex cyst in the lower pole of the left kidney. This demonstrates wall thickening, wall enhancement and there is abnormal enhancement of the adjacent lower pole of the left kidney. There is also increased perinephric fat stranding. Septations seen by ultrasound are not clearly appreciated by CT. This demonstrates no internal enhancement. This demonstrates a thick enhancing wall. Wall thickness measures up to 1 cm. This is increased in size from 2.5 x 2 x 2.1 cm on previous abdominal ultrasound December 2021. This is new from previous CT March 2018. Given rapid increasing size in a short period of time, this probably represents a renal abscess. There are small bilateral renal stones. There are small simple bilateral renal cysts. BOWEL LOOPS: LYMPH NODES: Normal. VASCULAR: Unremarkable. BONES: Unremarkable. CT/CT abdomen wo/w IV con IMPRESSION: Indeterminant Bosniak type III cystic mass in the posterior left kidney. Given rapid increase in size and history of sepsis, this most likely represents a renal abscess. This would be amenable to aspiration/biopsy if clinically indicated. Small nonobstructing bilateral renal stones. Small simple bilateral renal cysts. Enlarged liver and spleen. Varices. Small amount of ascites. Fleischner guidelines were followed.
--- NOTE | ~2022-02-14 | CT_ITS ---
EXAMINATION CT CHEST, ABDOMEN AND PELVIS WITHOUT CONTRAST CLINICAL INFORMATION: Looking for source of septic shock. COMPARISON: CTA chest dated 02/11/2022 CT abdomen/pelvis dated 03/30/2018 TECHNIQUE: Multidetector volumetric CT imaging of the chest, abdomen and pelvis was obtained without the use of intravenous contrast. Coronal and sagittal reformats were reviewed. This CT examination was performed using dose optimization techniques as appropriate, variously including the following: *Automated exposure control *Adjustment of mA and/or kV according to patient size (this includes techniques or standardized protocols for targeted exams where dose is matched to indication/reason for exam; i.e. extremities or head) *Use of iterative reconstruction technique DLP: 852 mGy-cm. FINDINGS: CHEST LUNGS/PLEURA: The lungs are clear with no evidence of inflammation or nodules. There is no pleural effusion. No pleural mass or thickening. MEDIASTINUM/FABIANA: Mild cardiomegaly. No pericardial effusion. Great vessels normal caliber. Minimal coronary calcifications. CHEST WALL/AXILLA: Unremarkable. ABDOMEN/PELVIS HEPATOBILIARY: Liver normal in size, contour and morphology. No suspicious lesions. No intra or extrahepatic biliary dilation. Gallbladder unremarkable. PANCREAS: Unremarkable. SPLEEN: Enlarged measuring up to 16.7 cm long axis, slightly increased in size since August 2020 but significant size since March 2018.. ADRENAL GLANDS: Unremarkable. KIDNEYS, URETERS AND BLADDER: Left kidney is engorged/edematous associated with perinephric fat stranding. There is a 4.2 cm hypodense structure within the posterior upper pole of the left kidney which was not present March 2018. Stable benign cyst in the lower pole left kidney. A previous left nephroureteral stent has been removed. Multiple bilateral punctate nonobstructive intrarenal calculi are present. No ureteral calculi. Bladder decompressed around a Ortega catheter with nondependent gas. GASTROINTESTINAL TRACT: Scattered left colonic diverticula. No evidence of diverticulitis. Small sliding-type hiatal hernia. Stomach otherwise unremarkable. Normal small bowel. Normal appendix. PELVIC VISCERA: There are couple small uterine fibroid. Uterus and adnexa otherwise unremarkable. Previous tubal ligation. LYMPH NODES: No lymphadenopathy. PERITONEUM/BODY WALL: Unremarkable. VASCULAR STRUCTURES: Aorta is mildly atherosclerotic but normal caliber. OSSEOUS STRUCTURES No acute or suspicious osseous abnormalities. CT/CT abdomen pelvis wo IV con IMPRESSION: * The left kidney is engorged with perinephric fat stranding suspicious for pyelonephritis. There is a 4.2 cm hypodense structure in the posterior upper pole of left kidney which was not present in March 2018. No intervening comparison studies. This could represent a new benign cyst, however focal pyelonephritis/renal abscess is also considered. Consider renal ultrasound for further evaluation. * Bilateral punctate nonobstructive intrarenal calculi. * Splenomegaly increase in size since August 2020 and new since March 2018. * Scattered left colonic diverticula without evidence of diverticulitis. * No source of infection evident within the chest.
--- NOTE | ~2022-02-14 | CT_ITS ---
PROCEDURE: CT-GUIDED DRAINAGE, RETROPERITONEAL ABSCESS CLINICAL INFORMATION: Liver abscess. COMPARISON: Previous CT of the abdomen and pelvis and left renal ultrasound from earlier this month. TECHNIQUE: Procedure and risks and benefits including bleeding, infection and injury to the kidney were discussed with the patient and informed consent was obtained. The patient was positioned in the prone position. Limited axial images through the kidneys were performed. The left flank was prepped and draped in the usual sterile fashion. The skin and soft tissues were anesthetized with 1% lidocaine plain. Using a 4 [employer] catheter, access to the cystic lesion in the lower pole of the left kidney was obtained. 40 mL of brown cloudy fluid was removed. Diagnostic specimen was sent for Gram stain and culture and cytology. The patient received Versed 0.5 mg and fentanyl 25 mcg intravenously during the procedure. Conscious sedation was provided by a registered nurse under my direct supervision. Total sedation time was [address] examination was performed using dose optimization techniques as appropriate, variously including the following: *Automated exposure control *Adjustment of mA and/or kV according to patient size (this includes techniques or standardized protocols for targeted exams where dose is matched to indication/reason for exam; i.e. extremities or head) *Use of iterative reconstruction technique DLP: 141 mGy-cm FINDINGS: There is a 5 x 6 cm cystic lesion in the lower pole of the left kidney that was targeted for aspiration. CT/CT guided aspiration renal IMPRESSION: CT-guided left renal aspiration.
--- NOTE | ~2022-02-14 | CT_ITS ---
EXAMINATION: CT HEAD WITHOUT CONTRAST CLINICAL INFORMATION: Mental status changes COMPARISON: None TECHNIQUE: Contiguous axial imaging was performed from the skull base to vertex without intravenous administration of contrast. This CT examination was performed using dose optimization techniques as appropriate, variously including the following: *Automated exposure control *Adjustment of mA and/or kV according to patient size (this includes techniques or standardized protocols for targeted exams where dose is matched to indication/reason for exam; i.e. extremities or head) *Use of iterative reconstruction technique DLP: 660 mGy-cm FINDINGS: There is no evidence of acute intracranial hemorrhage or territorial infarction. No abnormal mass effect or midline shift is seen. Zimmerman to white matter differentiation is well preserved. No extra-axial fluid collections are identified. No hydrocephalus. No significant volume loss. There is no abnormal attenuation within the brain parenchyma. No acute osseous or soft tissue abnormality. Secretions nearly completely opacified bilateral maxillary sinuses. Scattered secretions throughout the ethmoid air cells chamber. Mastoid air cells are clear. CT/CT head/brain wo IV con IMPRESSION: No acute intracranial pathology.
--- NOTE | 2022-02-14 02:32 | ECG_ITS ---
Test Reason : sepsis Blood Pressure : / mmHG Vent. Rate : 119 BPM Atrial Rate : 119 BPM P-R Int : 122 ms QRS Dur : 078 ms QT Int : 340 ms P-R-T Axes : 084 044 060 degrees QTc Int : 478 ms Sinus tachycardia with Premature atrial complexes Otherwise normal ECG When compared with ECG of 11-FEB-2022 07:00, Heart rate has increased Referred By: Shahnaz Calhoun Electronically Signed By:ERICA QUACH
--- NOTE | 2022-02-14 02:36 | ED.GENADULT ---
HPI - General Adult General Chief complaint: General Medical Stated complaint: Ams/found on floor/?uro sepsis Time Seen by Provider: 02/14/22 02:32 Source: family (Daughter) and EMS Mode of arrival: EMS Limitations: altered mental status History of Present Illness HPI narrative: 66-year-old female brought in by EMS for acute change of mental status. 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 Family called EMS to transport to the hospital for further evaluation. On arrival to the ED patient is incoherent, confused, agitated at times, shivering, appear dry and dehydrated. With a fever above 106. Tylenol was given rectally and ice was applied to her body. Related Data Previous Rx's Medication Instructions Recorded azithromycin 250 mg tablet See Rx Instructions PO .COMPLEX #6 08/16/20 tabs cyclobenzaprine 10 mg tablet 10 mg PO TID PRN muscle spasm #10 08/16/20 tabs lidocaine 5 % topical patch 1 patch topical DAILY #1 ea 08/16/20 (Lidoderm) sucralfate 100 mg/mL oral 10 ml PO BID #1,000 mL 12/29/20 suspension (Carafate) doxycycline hyclate 100 mg tablet 100 mg PO BID #14 tabs 02/17/21 azithromycin 250 mg tablet See Rx Instructions PO .COMPLEX #6 02/11/22 tabs Allergies Allergy/AdvReac Type Severity Reaction Status Date / Time No Known Allergies Allergy Verified 08/16/20 09:21 [No Known Allergies*] Review of Systems Review of Systems: Yes Unobtainable due to mental status PMFSH Past Medical History Medical History Asthma Kidney stones Neutropenia Rheumatoid arthritis Surgical History H/O left breast biopsy Family History Family History Sister Hypercholesterolemia HTN (hypertension) Arthritis Brother Pacemaker Social History Social History Alcohol intake: unknown Patient Tobacco Use Status: Never used Tobacco Use of substances other than those prescribed or required for medical reasons: Unknown Advance Directives: No Physical Exam ED Vital Signs: Vital Signs - 24 hr 02/14/22 02:29 02/14/22 03:01 02/14/22 03:14 Temperature 105 F H 105.6 F H 106.5 F H Pulse Rate 167 H 158 H Respiratory Rate 40 H 38 H Blood Pressure 159/89 H 168/77 H Pulse Oximetry 95 93 Oxygen Delivery Method Room Air Room Air 02/14/22 03:29 02/14/22 03:53 02/14/22 03:58 Temperature 106.7 F H 106.0 F H 105.8 F H Pulse Rate 156 H 150 H 147 H Respiratory Rate 46 H 39 H 24 H Blood Pressure 153/100 H 146/66 H 158/71 H Pulse Oximetry 91 L 96 96 Oxygen Delivery Method Room Air Room Air Room Air 02/14/22 04:13 02/14/22 04:29 02/14/22 04:57 Temperature 105.1 F H 103.6 F H 104.0 F H Pulse Rate 144 H 155 H 133 H Respiratory Rate 29 H 34 H 34 H Blood Pressure 166/70 H 151/114 H 122/64 Pulse Oximetry 96 95 93 Oxygen Delivery Method Room Air Room Air Room Air 02/14/22 05:12 02/14/22 05:27 Temperature 103.6 F H 103.1 F H Pulse Rate 120 H 119 H Respiratory Rate 27 H 25 H Blood Pressure 108/56 L 126/63 Pulse Oximetry 94 97 Oxygen Delivery Method Room Air Nasal Cannula BMI result Body Mass Index 22.5 Vital signs have been reviewed as appeared to be correct. Blood pressure normal. Heart rate normal. Respiration rate normal. Temperature normal. Oxygen saturation normal. Appearance: Mild acute distress. Confused and agitated which is limiting the physical exam. Head: Normal external exam. Normocephalic. Atraumatic. No [place] signs noted. No raccoon eyes noted Eyes: Limited, PERRLA. EOMI. Conjunctiva and sclera normal. Eyelids normal. ENT: Limited, TM's Normal. Pharynx normal. Uvula midline. Moist mucous membranes. No trismus noted. No drooling noted. No muffled voice noted. Neck: Limited, Normal inspection. Neck supple. FROM. No adenopathy. Thyroid Normal. No meningeal signs. No neck mass noted. CVS: Normal heart rate and rhythm. Heart sound normal. No murmurs noted. Pulses normal throughout. Respiratory: Limited, No respiratory distress. Painless inspiration. Breath sounds normal. No wheezes/rales/rhonchi noted. Chest nontender. No accessory muscle usage noted or decreased air movement noted. Abdomen: Limited, Soft and nontender. Bowel sounds normal in all 4 quadrants. No distention noted. No organomegaly noted. No visible injury noted. Back: Limited, left CVA tenderness (facial grimacing). Full range of motion noted. Skin: Skin warm and dry. Normal skin color. Normal skin turgor. No rashes/lesions/lacerations noted. Extremities: No lower extremity edema. Extremities exhibit normal range of motion. Extremities nontender. Neuro: Limited, Disoriented and confused. Course Course Course Narrative: 66-year-old female came in with confusion and severe lactic acidosis meeting criteria for septic shock recently treated with Z-Eduar for bronchitis, patient found to have urosepsis CT of the abdomen pelvis revealed possible left pyelonephritis versus renal abscess. Patient required LP to rule out meningitis. Case discussed with Dr. Astudillo who will consult on the patient. Continue with IV hydration and IV antibiotic. Applying ice to axilla and the groin area and the forehead which is successfully treating the severe hyperthermia. Reevaluation(s) Reevaluation #1: FOCUSED EXAM: PATIENT RECEIVED1,569 cc of normal saline, Zosyn, vancomycin with significant improvement of the lactic acidosis, patient also showed significant improvement in her mental status, patient is more coherent. Continue with the current management awaiting for Urology consult. Time: 05:00 Procedures Lumbar Puncture Time Out Performed: Yes Patient Position: left lateral decubitus Skin Prep: Povidone-Iodine 1% Local Anesthetic: lidocaine 1% Amount of anesthesia used (mL): 3 Spinal Needle Gauge: 20G Interspace Used: L4-L5 Fluid Initially Obtained: bloody Complications: traumatic tap Additional Comments: Do to change mental status and patient's confusion the procedure was difficult, required multiple personal to hold the patient after multiple attempt was successful to accomplish the procedure. No major complication. Medical Decision Making Lab Data Lab results reviewed: Yes I reviewed the patient's lab results. Result diagrams: 02/14/22 02:41 02/14/22 02:42 Labs: Lab Results 02/14/22 02/14/22 02/14/22 Range/Units 02:41 02:41 02:42 WBC 14.7 H (4.8-10.8) X10*3/uL RBC 5.72 H D (4.20-5.50) X10*6/uL Hgb 13.7 D (12.0-16.0) g/dl Hct 43.6 D (37.0-47.0) % MCV 76.2 L (80.0-98.0) fL MCH 24.0 L (27.0-33.0) pg MCHC 31.4 (31.0-35.0) g/dl RDW 20.7 H (11.0-16.0) % Plt Count 166 (160-400) X10*3/uL MPV 8.8 L (9.4-12.3) fL Immature Gran % (Auto) 0.7 H (0.0-0.4) % Neut % (Auto) 67.1 (45-73) % Lymph % (Auto) 27.0 (20-40) % [place] % (Auto) 4.9 (2-11) % Eos % (Auto) 0.0 (0-4) % Baso % (Auto) 0.3 (0-2) % Lymph # (Auto) 4.0 (1.2-4.9) X10*3/uL [place] # (Auto) 0.7 (0.1-1.2) X10*3/uL Eos # (Auto) 0.0 (0.0-0.4) X10*3/uL Baso # (Auto) 0.0 (0.0-0.2) X10*3/uL Abs Immat Gran (auto) 0.11 H (0.00-0.03) X10*3/uL Absolute Neuts (auto) 9.9 H (2.0-8.3) x10*3/uL Absolute Nucleated RBC 0.000 (0.0-0.012) X10*3/uL Nucleated RBC % (auto) 0.0 (0.0-0.2) /100WBC Sodium 132 L (135-145) mmol/L Potassium 4.3 D (3.3-5.1) mmol/L Chloride 95 L (96-108) mmol/L Carbon Dioxide 18 L (22-29) mmol/L Anion Gap 23 H (12-20) BUN 15 (9-16) mg/dL Creatinine 0.87 (0.5-1.4) mg/dL Estim Creat Clear Calc 46.9 Estimated GFR > 60 Random Glucose 138 H (60-115) mg/dL Lactic Acid 11.6 H* (0.5-2.0) mmol/L Lactic Acid F/U @ 2Hr (0.5-2.0) mmol/L Calcium 8.8 (8.4-10.2) mg/dL Total Bilirubin 1.6 H (0.0-1.0) mg/dL Direct Bilirubin 0.9 H (0.0-0.5) mg/dL AST 39 H (5-31) U/L ALT 26 (0-31) U/L Alkaline Phosphatase 124 H (39-117) U/L Troponin I High Sens (<3.5-17.0) ng/L B-Natriuretic Peptide (<100) pg/mL Total Protein 9.4 H (6.5-8.0) g/dL Albumin 3.2 L (3.5-5.0) g/dL Lipase 22 (8-78) U/L Urine Color Urine Appearance Urine pH (5.0-9.0) Ur Specific [place] (1.005-1.025) Urine Protein (Neg-Trace) mg/dL Urine Glucose (UA) (Negative) mg/dL Urine Ketones (Negative) mg/dL Urine Blood (Negative) Urine Nitrite (Negative) Ur Leukocyte Esterase (Negative) Urine RBC (0-2) /HPF Urine WBC (0-5) /HPF Ur Squamous Epith Cells (0-2) /HPF Urine Bacteria (None Seen) Hyaline Casts (0-2) /LPF CSF Tube Number CSF Volume ML CSF Appearance CSF Color CSF WBC MM*3 CSF RBC MM*3 CSF Neutrophils % CSF Lymphocytes % CSF Monocytes % % CSF Appearance (b) CSF Glucose mg/dL CSF Total Protein (15-45) mg/dL CSF C.neoform/gat PCR (Not Detect.) CSF CMV DNA (PCR) (Not Detect.) CSF Enterovirus (PCR) (Not Detect.) CSF E. coli K1 (PCR) (Not Detect.) CSF H. influenzae (PCR) (Not Detect.) CSF HSV I (PCR) (Not Detect.) CSF HSV II (PCR) (Not Detect.) CSF HHV 6 (PCR) (Not Detect.) CSF L.monocytogenes PCR (Not Detect.) CSF N. meningitidis PCR (Not Detect.) CSF Parechovirus (PCR) (Not Detect.) CSF S. agalactiae (PCR) (Not Detect.) CSF S. pneumoniae (PCR) (Not Detect.) CSF VZV (PCR) (Not Detect.) Influenza Type A (PCR) (Negative) Influenza Type B (PCR) (Negative) RSV RNA Qual (PCR) (Negative) SARS-CoV-2 RNA (RT-PCR) (Negative) 02/14/22 02/14/22 02/14/22 Range/Units 02:42 02:42 02:59 WBC (4.8-10.8) X10*3/uL RBC (4.20-5.50) X10*6/uL Hgb (12.0-16.0) g/dl Hct (37.0-47.0) % MCV (80.0-98.0) fL MCH (27.0-33.0) pg MCHC (31.0-35.0) g/dl RDW (11.0-16.0) % Plt Count (160-400) X10*3/uL MPV (9.4-12.3) fL Immature Gran % (Auto) (0.0-0.4) % Neut % (Auto) (45-73) % Lymph % (Auto) (20-40) % [place] % (Auto) (2-11) % Eos % (Auto) (0-4) % Baso % (Auto) (0-2) % Lymph # (Auto) (1.2-4.9) X10*3/uL [place] # (Auto) (0.1-1.2) X10*3/uL Eos # (Auto) (0.0-0.4) X10*3/uL Baso # (Auto) (0.0-0.2) X10*3/uL Abs Immat Gran (auto) (0.00-0.03) X10*3/uL Absolute Neuts (auto) (2.0-8.3) x10*3/uL Absolute Nucleated RBC (0.0-0.012) X10*3/uL Nucleated RBC % (auto) (0.0-0.2) /100WBC Sodium (135-145) mmol/L Potassium (3.3-5.1) mmol/L Chloride (96-108) mmol/L Carbon Dioxide (22-29) mmol/L Anion Gap (12-20) BUN (9-16) mg/dL Creatinine (0.5-1.4) mg/dL Estim Creat Clear Calc Estimated GFR Random Glucose (60-115) mg/dL Lactic Acid (0.5-2.0) mmol/L Lactic Acid F/U @ 2Hr (0.5-2.0) mmol/L Calcium (8.4-10.2) mg/dL Total Bilirubin (0.0-1.0) mg/dL Direct Bilirubin (0.0-0.5) mg/dL AST (5-31) U/L ALT (0-31) U/L Alkaline Phosphatase (39-117) U/L Troponin I High Sens 31.8 H D (<3.5-17.0) ng/L B-Natriuretic Peptide 556 H (<100) pg/mL Total Protein (6.5-8.0) g/dL Albumin (3.5-5.0) g/dL Lipase (8-78) U/L Urine Color Dark Yellow Urine Appearance Clear Urine pH 6.5 (5.0-9.0) Ur Specific [place] 1.015 (1.005-1.025) Urine Protein 300 (3+) H (Neg-Trace) mg/dL Urine Glucose (UA) Negative (Negative) mg/dL Urine Ketones Negative (Negative) mg/dL Urine Blood Small (1+) H (Negative) Urine Nitrite Negative (Negative) Ur Leukocyte Esterase Trace H (Negative) Urine RBC 6-10 H (0-2) /HPF Urine WBC 11-20 H (0-5) /HPF Ur Squamous Epith Cells 0-2 (0-2) /HPF Urine Bacteria 4+ (None Seen) Hyaline Casts 0-2 (0-2) /LPF CSF Tube Number CSF Volume ML CSF Appearance CSF Color CSF WBC MM*3 CSF RBC MM*3 CSF Neutrophils % CSF Lymphocytes % CSF Monocytes % % CSF Appearance (b) CSF Glucose mg/dL CSF Total Protein (15-45) mg/dL CSF C.neoform/gat PCR (Not Detect.) CSF CMV DNA (PCR) (Not Detect.) CSF Enterovirus (PCR) (Not Detect.) CSF E. coli K1 (PCR) (Not Detect.) CSF H. influenzae (PCR) (Not Detect.) CSF HSV I (PCR) (Not Detect.) CSF HSV II (PCR) (Not Detect.) CSF HHV 6 (PCR) (Not Detect.) CSF L.monocytogenes PCR (Not Detect.) CSF N. meningitidis PCR (Not Detect.) CSF Parechovirus (PCR) (Not Detect.) CSF S. agalactiae (PCR) (Not Detect.) CSF S. pneumoniae (PCR) (Not Detect.) CSF VZV (PCR) (Not Detect.) Influenza Type A (PCR) NEGATIVE (Negative) Influenza Type B (PCR) NEGATIVE (Negative) RSV RNA Qual (PCR) NEGATIVE (Negative) SARS-CoV-2 RNA (RT-PCR) NEGATIVE (Negative) 02/14/22 02/14/22 02/14/22 Range/Units 03:51 03:51 03:51 WBC (4.8-10.8) X10*3/uL RBC (4.20-5.50) X10*6/uL Hgb (12.0-16.0) g/dl Hct (37.0-47.0) % MCV (80.0-98.0) fL MCH (27.0-33.0) pg MCHC (31.0-35.0) g/dl RDW (11.0-16.0) % Plt Count (160-400) X10*3/uL MPV (9.4-12.3) fL Immature Gran % (Auto) (0.0-0.4) % Neut % (Auto) (45-73) % Lymph % (Auto) (20-40) % [place] % (Auto) (2-11) % Eos % (Auto) (0-4) % Baso % (Auto) (0-2) % Lymph # (Auto) (1.2-4.9) X10*3/uL [place] # (Auto) (0.1-1.2) X10*3/uL Eos # (Auto) (0.0-0.4) X10*3/uL Baso # (Auto) (0.0-0.2) X10*3/uL Abs Immat Gran (auto) (0.00-0.03) X10*3/uL Absolute Neuts (auto) (2.0-8.3) x10*3/uL Absolute Nucleated RBC (0.0-0.012) X10*3/uL Nucleated RBC % (auto) (0.0-0.2) /100WBC Sodium (135-145) mmol/L Potassium (3.3-5.1) mmol/L Chloride (96-108) mmol/L Carbon Dioxide (22-29) mmol/L Anion Gap (12-20) BUN (9-16) mg/dL Creatinine (0.5-1.4) mg/dL Estim Creat Clear Calc Estimated GFR Random Glucose (60-115) mg/dL Lactic Acid (0.5-2.0) mmol/L Lactic Acid F/U @ 2Hr (0.5-2.0) mmol/L Calcium (8.4-10.2) mg/dL Total Bilirubin (0.0-1.0) mg/dL Direct Bilirubin (0.0-0.5) mg/dL AST (5-31) U/L ALT (0-31) U/L Alkaline Phosphatase (39-117) U/L Troponin I High Sens (<3.5-17.0) ng/L B-Natriuretic Peptide (<100) pg/mL Total Protein (6.5-8.0) g/dL Albumin (3.5-5.0) g/dL Lipase (8-78) U/L Urine Color Urine Appearance Urine pH (5.0-9.0) Ur Specific [place] (1.005-1.025) Urine Protein (Neg-Trace) mg/dL Urine Glucose (UA) (Negative) mg/dL Urine Ketones (Negative) mg/dL Urine Blood (Negative) Urine Nitrite (Negative) Ur Leukocyte Esterase (Negative) Urine RBC (0-2) /HPF Urine WBC (0-5) /HPF Ur Squamous Epith Cells (0-2) /HPF Urine Bacteria (None Seen) Hyaline Casts (0-2) /LPF CSF Tube Number 2 1 CSF Volume 1.0 ML CSF Appearance HAZY CSF Color PINK CSF WBC 5 MM*3 CSF RBC 1500 MM*3 CSF Neutrophils 90 % CSF Lymphocytes % CSF Monocytes % 10 % CSF Appearance (b) Clear, Colorless CSF Glucose 46 mg/dL CSF Total Protein 28.2 (15-45) mg/dL CSF C.neoform/gat PCR Not Detected (Not Detect.) CSF CMV DNA (PCR) Not Detected (Not Detect.) CSF Enterovirus (PCR) Not Detected (Not Detect.) CSF E. coli K1 (PCR) Not Detected (Not Detect.) CSF H. influenzae (PCR) Not Detected (Not Detect.) CSF HSV I (PCR) Not Detected (Not Detect.) CSF HSV II (PCR) Not Detected (Not Detect.) CSF HHV 6 (PCR) Not Detected (Not Detect.) CSF L.monocytogenes PCR Not Detected (Not Detect.) CSF N. meningitidis PCR Not Detected (Not Detect.) CSF Parechovirus (PCR) Not Detected (Not Detect.) CSF S. agalactiae (PCR) Not Detected (Not Detect.) CSF S. pneumoniae (PCR) Not Detected (Not Detect.) CSF VZV (PCR) Not Detected (Not Detect.) Influenza Type A (PCR) (Negative) Influenza Type B (PCR) (Negative) RSV RNA Qual (PCR) (Negative) SARS-CoV-2 RNA (RT-PCR) (Negative) 02/14/22 02/14/22 Range/Units 03:51 04:55 WBC (4.8-10.8) X10*3/uL RBC (4.20-5.50) X10*6/uL Hgb (12.0-16.0) g/dl Hct (37.0-47.0) % MCV (80.0-98.0) fL MCH (27.0-33.0) pg MCHC (31.0-35.0) g/dl RDW (11.0-16.0) % Plt Count (160-400) X10*3/uL MPV (9.4-12.3) fL Immature Gran % (Auto) (0.0-0.4) % Neut % (Auto) (45-73) % Lymph % (Auto) (20-40) % [place] % (Auto) (2-11) % Eos % (Auto) (0-4) % Baso % (Auto) (0-2) % Lymph # (Auto) (1.2-4.9) X10*3/uL [place] # (Auto) (0.1-1.2) X10*3/uL Eos # (Auto) (0.0-0.4) X10*3/uL Baso # (Auto) (0.0-0.2) X10*3/uL Abs Immat Gran (auto) (0.00-0.03) X10*3/uL Absolute Neuts (auto) (2.0-8.3) x10*3/uL Absolute Nucleated RBC (0.0-0.012) X10*3/uL Nucleated RBC % (auto) (0.0-0.2) /100WBC Sodium (135-145) mmol/L Potassium (3.3-5.1) mmol/L Chloride (96-108) mmol/L Carbon Dioxide (22-29) mmol/L Anion Gap (12-20) BUN (9-16) mg/dL Creatinine (0.5-1.4) mg/dL Estim Creat Clear Calc Estimated GFR Random Glucose (60-115) mg/dL Lactic Acid (0.5-2.0) mmol/L Lactic Acid F/U @ 2Hr 2.7 H* (0.5-2.0) mmol/L Calcium (8.4-10.2) mg/dL Total Bilirubin (0.0-1.0) mg/dL Direct Bilirubin (0.0-0.5) mg/dL AST (5-31) U/L ALT (0-31) U/L Alkaline Phosphatase (39-117) U/L Troponin I High Sens (<3.5-17.0) ng/L B-Natriuretic Peptide (<100) pg/mL Total Protein (6.5-8.0) g/dL Albumin (3.5-5.0) g/dL Lipase (8-78) U/L Urine Color Urine Appearance Urine pH (5.0-9.0) Ur Specific [place] (1.005-1.025) Urine Protein (Neg-Trace) mg/dL Urine Glucose (UA) (Negative) mg/dL Urine Ketones (Negative) mg/dL Urine Blood (Negative) Urine Nitrite (Negative) Ur Leukocyte Esterase (Negative) Urine RBC (0-2) /HPF Urine WBC (0-5) /HPF Ur Squamous Epith Cells (0-2) /HPF Urine Bacteria (None Seen) Hyaline Casts (0-2) /LPF CSF Tube Number 4 CSF Volume 1.0 ML CSF Appearance CLEAR CSF Color COLORLESS CSF WBC 5 MM*3 CSF RBC 30 MM*3 CSF Neutrophils 50 % CSF Lymphocytes 50 % CSF Monocytes % % CSF Appearance (b) CSF Glucose mg/dL CSF Total Protein (15-45) mg/dL CSF C.neoform/gat PCR (Not Detect.) CSF CMV DNA (PCR) (Not Detect.) CSF Enterovirus (PCR) (Not Detect.) CSF E. coli K1 (PCR) (Not Detect.) CSF H. influenzae (PCR) (Not Detect.) CSF HSV I (PCR) (Not Detect.) CSF HSV II (PCR) (Not Detect.) CSF HHV 6 (PCR) (Not Detect.) CSF L.monocytogenes PCR (Not Detect.) CSF N. meningitidis PCR (Not Detect.) CSF Parechovirus (PCR) (Not Detect.) CSF S. agalactiae (PCR) (Not Detect.) CSF S. pneumoniae (PCR) (Not Detect.) CSF VZV (PCR) (Not Detect.) Influenza Type A (PCR) (Negative) Influenza Type B (PCR) (Negative) RSV RNA Qual (PCR) (Negative) SARS-CoV-2 RNA (RT-PCR) (Negative) Imaging Data CT scan - head: Attestation: I personally reviewed and interpreted this imaging study as follows: Radiologist's impression: No acute intracranial pathology. Chest CT: Attestation: I personally reviewed and interpreted this imaging study as follows: Radiologist's impression: No intrathoracic pathology. Abdomen and pelvis CT: Attestation: I personally reviewed and interpreted this imaging study as follows: Radiologist's impression: *? The left kidney is engorged with perinephric fat stranding suspicious for pyelonephritis. There is a 4.2 cm hypodense structure in the posterior upper pole of left kidney which was not present in March 2018. No intervening comparison studies. This could represent a new benign cyst, however focal pyelonephritis/renal abscess is also considered. Consider renal ultrasound for further evaluation. *? Bilateral punctate nonobstructive intrarenal calculi. *? Splenomegaly increase in size since August 2020 and new since March 2018. *? Scattered left colonic diverticula without evidence of diverticulitis. *? No source of infection evident within the chest. Critical Care Time Critical Care Time Critical Care Time: Yes Total Critical Care Time: 75 Attestation: I spent 75 minutes providing critical care service to the patient, this including time spent at the bedside to evaluate the patient, reassess the patient, monitoring vital signs, review labs, and radiographic studies, counseling the patient/family, discussing the case with consultants, disposition the patient. Discharge Plan Discharge Clinical Impression: Septic shock, UTI (urinary tract infection), Abscess of left kidney Patient Disposition: Admitted As Inpatient Prescriptions: No Action sucralfate [Carafate] 100 mg/mL suspension 10 ml PO BID Qty: 1000 0RF azithromycin 250 mg tablet See Rx Instructions .ROUTE .COMPLEX Qty: 6 0RF Rx Instructions: take 500 mg today (day 1), then 250 mg for 4 days (days 2-5) cyclobenzaprine 10 mg tablet 10 mg PO TID PRN (Reason: muscle spasm) Qty: 10 0RF lidocaine [Lidoderm] 5 % adhesive patch,medicated 1 patch topical DAILY Qty: 1 0RF Rx Instructions: leave on most painful area for up to 12 hrs doxycycline hyclate 100 mg tablet 100 mg PO BID Qty: 14 0RF azithromycin 250 mg tablet See Rx Instructions .ROUTE .COMPLEX Qty: 6 0RF Rx Instructions: For 250 mg dose pack: take 500 mg today (day 1), then 250 mg for 4 days (days 2-5)
[2022-02-14 02:48] LABS: MANUAL DIFF FLAG NO
[2022-02-14 02:52] LABS: Basophils Percent Auto 0.3 % (0-2); Hematocrit 43.6 % (37.0-47.0); Hemoglobin 13.7 g/dl (12.0-16.0); Imm Gran Abs Auto 0.11 X10*3/uL (0.00-0.03); Imm Gran Pct Auto 0.7 % (0.0-0.4); Mean Corpuscular HGB Conc 31.4 g/dl (31.0-35.0); Mean Corpuscular Volume 76.2 fL (80.0-98.0); Mean Platelet Volume 8.8 fL (9.4-12.3); Monocytes Absolute Auto 0.7 X10*3/uL (0.1-1.2); Monocytes Percent Auto 4.9 % (2-11); Neutrophils Absolute Auto 9.9 x10*3/uL (2.0-8.3); Neutrophils Percent Auto 67.1 % (45-73); Platelet Count 166 X10*3/uL (160-400); Red Blood Count 5.72 X10*6/uL (4.20-5.50); Red Cell Distribution Width 20.7 % (11.0-16.0); White Blood Count 14.7 X10*3/uL (4.8-10.8)
[2022-02-14 03:09] LABS: Appearance Urine Clear; Color Urine Dark Yellow; Glucose Urine UA Negative (Negative); Leukocyte Esterase Urine Trace (Negative); Nitrite Urine Negative (Negative); PH 6.5 (5.0-9.0); Specific Gravity - Urine 1.015 (1.005-1.025); UMIC TRIGGER UACC YES; Urine Blood Small (1+) (Negative); Urine Ketones Negative (Negative); Urine Protein 300 (3+) mg/dL (Neg-Trace)
[2022-02-14 03:09] LABS: Lactic Acid 11.6 mmol/L (0.5-2.0)
[2022-02-14 03:10] LABS: Alanine Aminotransferase 26 U/L (0-31); Albumin Level 3.2 g/dL (3.5-5.0); Alkaline Phosphatase 124 U/L (39-117); Anion Gap 23 (12-20); Aspartate Amino Transferase 39 U/L (5-31); Bilirubin Direct 0.9 mg/dL (0.0-0.5); Bilirubin Total 1.6 mg/dL (0.0-1.0); Blood Urea Nitrogen 15 mg/dL (9-16); Calcium 8.8 mg/dL (8.4-10.2); Carbon Dioxide 18 mmol/L (22-29); Chloride 95 mmol/L (96-108); Creatinine Clr Calc Pharmacy 46.9; Estimated Glomerular Filt Rate > 60; Glucose Random 138 mg/dL (60-115); Lipase 22 U/L (8-78); Potassium 4.3 mmol/L (3.3-5.1); Sodium 132 mmol/L (135-145); Total Protein 9.4 g/dL (6.5-8.0)
[2022-02-14] MEDS: Piperacillin Sodium/Tazobactam 3.375 GM in 0.9 % Sodium Chloride 50 ML IV ×2 (03:11→07:47)
[2022-02-14 03:12] LABS: B Type Natriuretic Peptide 556 pg/mL (<100); Troponin-I High Sensitivity 31.8 ng/L (<3.5-17.0)
[2022-02-14 03:14] LABS: Bacteria Urine 4+ (None Seen); Hyaline Casts Urine 0-2 /LPF (0-2); Squamous Epithelial Cell Urine 0-2 /HPF (0-2); UACC Culture Trigger YES
[2022-02-14 03:26] LABS: Influenza A PCR NEGATIVE (Negative); Influenza B PCR NEGATIVE (Negative); Resp Syncy Virus RNA Qual PCR NEGATIVE (Negative); SARS COV2 PCR INHOUSE NEGATIVE (Negative)
--- NOTE | 2022-02-14 04:13 | PC.NURSE ---
Addendum entered by Gurinder Mcneill RN 02/14/22 05:19: While preparing pt for CT she continues to behave restless and agitated in response to any physical stimulation; pushing staff away from her, pulling at tubes and wires. MD Unique notified and due to urgent need for CT studies he requested IVP Ketamine to be given to assist with CT. This was given and pt was transported to and from CT fully monitored with RN and Caron. At this time she has returned to bed 5. Core temp has to 103.6 via temp sensing Ortega. HR 116, Sinus tach. Room air sat's remain 94% or better. RR 24, non-labored. No cyanosis. Again, family remains at the bedside and has been periodically updated on results and plan of care. Original Note: I assumed nursing care of Jose upon her arrival to ED bed 5 via EMS from home for evaluation of altered mental status and, per EMS, possibly urosepsis. On arrival pt is restless, awake, makes eye contact with staff but is unable to follow commands. there are obvious rigors on arrival, skin cool to the touch and dry, mottling noted to extremities. RR mid 30's, shallow and fast. Room air sat's are 92-95%. No auditory wheezing, no retractions. On arrival pt had one EMS IV access, we obtained 2 additional IV's and labs. Pt was placed on all bedside monitors and MD came to bedside STAT and EKG was obtained. Temp sensing Ortega catheter was placed and core temp was revealed to be 105 on arrival. Within 30 minutes of arrival her core temp increased to 106. Unique CRENSHAW aware and decided to perform LP. This was performed but was very difficult due to pt's inability to follow commands - it took multiple staff members to hold her still in the stretcher. HR 140's-150's, regular rate and rhythm. Icepacks applied to groins, axilla and behind her neck. Pt is resting in bed at this time - she remains still and sleeps unless she is stimulated. Will prepare pt for CT.
[2022-02-14] MEDS: vancomycin HCL 1,000 MG in 0.9 % Sodium Chloride 250 ML 270 MG IV (04:25)
[2022-02-14 04:29] LABS: Appearance CSF HAZY
[2022-02-14 04:30] LABS: Appearance CSF CLEAR; CSF Tube # 1; CSF Tube # 4; Color CSF COLORLESS; Color CSF PINK; Red Blood Cell CSF 1500 MM*3; Red Blood Cell CSF 30 MM*3; White Blood Cell CSF 5 MM*3
[2022-02-14 04:37] LABS: Glucose CSF 46 mg/dL; Total Protein CSF 28.2 mg/dL (15-45)
[2022-02-14 04:43] LABS: CSF Appearance Clear, Colorless; CSF Tube # 2
[2022-02-14 04:45] LABS: CSF Monos 10 %; Lymphocytes CSF 50 %; Neutrophils CSF 50 %; Neutrophils CSF 90 %
[2022-02-14 04:46] LABS: Reflex Lactate? Lactic Acid Added
[2022-02-14] MEDS: Ketamine HCl/NS 50 MG/5 ML SYRINGE 52.3 MG IVPUSH (04:58)
[2022-02-14] MEDS: 0.9 % Sodium Chloride 1,000 ML 999 ML IV (05:00)
[2022-02-14 05:15] LABS: ~Lactic Acid-LAB USE ONLY 2.7 mmol/L (0.5-2.0)
[2022-02-14 05:26] LABS: Cryptococcus neoformans/gattii Not Detected (Not Detect.); Enterovirus Not Detected (Not Detect.); Escherichia coli K1 Not Detected (Not Detect.); Haemophilus influenzae Not Detected (Not Detect.); Herpes simplex virus 1 Not Detected (Not Detect.); Herpes simplex virus 2 Not Detected (Not Detect.); Human herpesvirus 6 Not Detected (Not Detect.); Human parechovirus Not Detected (Not Detect.); Listeria monocytogenes Not Detected (Not Detect.); Neisseria meningitidis Not Detected (Not Detect.); Streptococcus agalactiae Not Detected (Not Detect.); Streptococcus pneumoniae Not Detected (Not Detect.); Varicella zoster virus Not Detected (Not Detect.)
[2022-02-14 06:58] LABS: Reflex Lactate? 2 Y
--- NOTE | 2022-02-14 07:45 | PC.NURSE ---
Pt is A AND O X3, pupils are PERRLA, neuros within normal limit, speech is coherent, speech in full sentences and respiration is even. Lung sounds clear. Skin is warm to touch, no edema noted, large discoloration on the left lower leg noted, which daughter states is old. Bowel sounds positive in all 4 quads. Able to move all extremities, Pt has 500 cc waqar urine in the ch bag. CORE TEMP IS 100.9. Antibiotic hanged. Family at bedside. Pt and family aware of plan of care.
--- NOTE | 2022-02-14 07:46 | PHA.PROG ---
Admission Date/Time: Indication: Weight in k.3 kg Adjusted body weight in K.2 KG Eads body weight in K.5 KG Obesity Dosing Indication % IBW: Serum Creatinine - Last 168 Hours 02/14/22 02:42 Creatinine 0.87 Estimated CrCl and GFR - Last 168 Hours 02/14/22 02:42 Estim Creat Clear Calc 46.9 Estimated GFR > 60 Vancomycin Loading Dose: 1000 MG Current Vancomycin Dosing Regimen: 1250 MG Q24H Vancomycin Monitoring using AUC goal of 400 - 600 range with trough as surrogate marker: PREDICTED AUC 512 Date and Time for next Vancomycin Level to be drawn: RANDOM 02/15/22 @2100 Pharmacist Comments on Vancomycin Plan: Vancomycin dosing will take advantage of [employer] as a clinical decision support tool that uses Bayesian modeling to calculate individual patient's pharmacokinetic parameters and forecast the patient's drug concentration time course with the target goal AUC 24 range of 400 - 600 mg/L/hr.
--- NOTE | 2022-02-14 08:11 | PC.NURSE ---
Bedside ultra sound done.
[2022-02-14 08:14] LABS: ~Lactic Acid-LAB USE ONLY 1.1 mmol/L (0.5-2.0)
--- NOTE | 2022-02-14 08:54 | PM.IMHP ---
History of Present Illness Date of Service: 02/14/22 Chief Complaint: changes in mental status This is a 66 year old female with a PMH of RA on treatment with biologics, prior nephrolithasis, osteoporosis, asthma who presents to ED [facility] in by ambulance. The history is obtained from the ED chart, patients daughter and significant who are bedside as well as from the patient. The patient, who reports she feels fine, appears to be minizing her symptoms. Her daughter reprots that her mother has been losing weight with a decrease in appetite over the last 2 months. She reports that she was seen in the ED several days ago for respiratory / cardiac symptoms and was diagnosed with acute bronchitis. She was doing fairly well, but 2 days prior to admission, the family began noticing that she was starting to deteriorate. She was eating less, had less energy and on the day prior to hospitalization she was found laying on the ground and was confused thinking she was in her bed. Family reports rigors. The patient does not endorse any flank pain, dysuria, frequency, urgeny or other symptoms. The patient was profoundly hypothermic for the first 6 hours of her ED stay with temps greater than 106F. She as given cooling blankets, tylenol and work up was initiated. This included a CT of the abd/pelvis which showed a grossly abnormal L kidney with signs of pyelonephritis and cyst vs abscess. She underwent LP (Meningitis/Encephalitis PCR negative thus far). She met severe sepsis criteria with lactate significant elevated. She was given IVF/IV antibiotics and the ED provider discussed the case with urology who recommended admission to medicine and they will consult. Review of Systems Review of Systems: negative except HPI PMFSH Medical History Asthma Kidney stones Neutropenia Rheumatoid arthritis Family History Sister Hypercholesterolemia HTN (hypertension) Arthritis Brother Pacemaker Surgical History H/O left breast biopsy Social History (Updated 02/14/22 @ 09:21 by Barney Eduardo MD) Alcohol intake: never Patient Tobacco Use Status: Never used Tobacco Use of substances other than those prescribed or required for medical reasons: Unknown Advance Directives: No Meds Allergies Allergy/AdvReac Type Severity Reaction Status Date / Time No Known Allergies Allergy Verified 08/16/20 09:21 [No Known Allergies*] Active Medications: Current Medications Vancomycin HCl 1,250 mg/ (Sodium Chloride) 250 mls @ 166.667 mls/hr IV Q24H [facility] Piperacillin Sod/Tazobactam (Sod 4.5 gm/ Sodium Chloride) 100 mls @ 200 mls/hr IV Q6H [facility] Pharmacy Consult (Consult Rx Perform Med Rec) 1 each MISCELLANE ONCE PRN PRN Reason: Consult order Pharmacy Consult (Consult Rx Vancomycin Dosing) 1 each MISCELLANE DAILY PRN PRN Reason: Consult order Home Medications Medication Instructions Recorded Confirmed Last Taken Type albuterol sulfate 90 mcg/actuation 2 puff inhalation Q6H PRN Wheezing 02/14/22 Unknown History aerosol inhaler alendronate 70 mg tablet 1 tab PO QWEEK 02/14/22 Unknown History benzonatate 100 mg capsule 1 cap PO TID PRN cough 02/14/22 Unknown History calcium carbonate 600 mg-vitamin 1 tab PO DAILY 02/14/22 Unknown History D3 10 mcg (400 unit) tablet ferrous sulfate 325 mg (65 mg 1 tab PO Q OTHER DAY anemia 02/14/22 Unknown History iron) tablet hydroxychloroquine 200 mg tablet 1 tab PO BID 02/14/22 Unknown History ibuprofen 800 mg tablet 1 tab PO TID 02/14/22 Unknown History mometasone 100 mcg/actuation HFA 2 puff inhalation 02/14/22 Unknown History aerosol inhaler (Asmanex HFA) montelukast 10 mg tablet 1 tab PO QPM 02/14/22 Unknown History omeprazole 20 mg capsule,delayed 1 cap PO DAILY 02/14/22 Unknown History release tramadol 50 mg tablet 1 - 2 tab PO TID PRN pain 02/14/22 Unknown History triamcinolone acetonide 0.1 % appl topical BID 02/14/22 Unknown History topical cream Physical Exam Vital Signs and Narrative: Vital Signs: Last Vital Signs Temp 100.4 F 02/14/22 08:46 Pulse 106 H 02/14/22 08:46 Resp 25 H 02/14/22 08:46 BP 101/58 L 02/14/22 08:46 Pulse Ox 98 02/14/22 08:46 O2 Del Method 02/14/22 08:46 BMI result Body Mass Index 22.5 Const: Other: Constitutional - somnolent but arouses to verbal stimuli; slow to respond, but after multiple prompts -- oriented to location, time and self Eyes - PERRLA, EOMI Cardiovascular - S1S2; rates in the 110s Respiratory - dim sounds, RR mid 20s Gastrointestinal - NT / ND; +BS; No rebound or guarding - No CVA tenderness Extremities - no calf tenderness bilaterally, no swelling Musculoskeletal - Normal inspection, normal ROM Skin - Warm/Dry Neurological - Somnolent; moves all 4 extremities; CN 2-12 intact b/l; no focal motor deficits Psychological - Appropriate affect Results Labs CBC and Chem 7: 02/14/22 02:41 02/14/22 02:42 Labs: Laboratory Results - last 24 hr 02/14/22 02/14/22 02/14/22 02:41 02:41 02:42 MCV 76.2 L MCH 24.0 L MCHC 31.4 RDW 20.7 H Plt Count 166 MPV 8.8 L Immature Gran % (Auto) 0.7 H Neut % (Auto) 67.1 Lymph % (Auto) 27.0 [place] % (Auto) 4.9 Eos % (Auto) 0.0 Baso % (Auto) 0.3 Lymph # (Auto) 4.0 [place] # (Auto) 0.7 Eos # (Auto) 0.0 Baso # (Auto) 0.0 Abs Immat Gran (auto) 0.11 H Absolute Neuts (auto) 9.9 H Absolute Nucleated RBC 0.000 Nucleated RBC % (auto) 0.0 Anion Gap 23 H Estim Creat Clear Calc 46.9 Estimated GFR > 60 Random Glucose 138 H Lactic Acid 11.6 H* Lactic Acid F/U @ 2Hr Lactic Acid F/U @ 4Hr Calcium 8.8 Total Bilirubin 1.6 H Direct Bilirubin 0.9 H AST 39 H ALT 26 Alkaline Phosphatase 124 H Troponin I High Sens B-Natriuretic Peptide Total Protein 9.4 H Albumin 3.2 L Lipase 22 Urine Color Urine Appearance Urine pH Ur Specific [place] Urine Protein Urine Glucose (UA) Urine Ketones Urine Blood Urine Nitrite Ur Leukocyte Esterase Urine RBC Urine WBC Ur Squamous Epith Cells Urine Bacteria Hyaline Casts CSF Tube Number CSF Volume CSF Appearance CSF Color CSF WBC CSF RBC CSF Neutrophils CSF Lymphocytes CSF Monocytes % CSF Appearance (b) CSF Glucose CSF Total Protein CSF C.neoform/gat PCR CSF CMV DNA (PCR) CSF Enterovirus (PCR) CSF E. coli K1 (PCR) CSF H. influenzae (PCR) CSF HSV I (PCR) CSF HSV II (PCR) CSF HHV 6 (PCR) CSF L.monocytogenes PCR CSF N. meningitidis PCR CSF Parechovirus (PCR) CSF S. agalactiae (PCR) CSF S. pneumoniae (PCR) CSF VZV (PCR) Influenza Type A (PCR) Influenza Type B (PCR) RSV RNA Qual (PCR) SARS-CoV-2 RNA (RT-PCR) 02/14/22 02/14/22 02/14/22 02:42 02:42 02:59 MCV MCH MCHC RDW Plt Count MPV Immature Gran % (Auto) Neut % (Auto) Lymph % (Auto) [place] % (Auto) Eos % (Auto) Baso % (Auto) Lymph # (Auto) [place] # (Auto) Eos # (Auto) Baso # (Auto) Abs Immat Gran (auto) Absolute Neuts (auto) Absolute Nucleated RBC Nucleated RBC % (auto) Anion Gap Estim Creat Clear Calc Estimated GFR Random Glucose Lactic Acid Lactic Acid F/U @ 2Hr Lactic Acid F/U @ 4Hr Calcium Total Bilirubin Direct Bilirubin AST ALT Alkaline Phosphatase Troponin I High Sens 31.8 H D B-Natriuretic Peptide 556 H Total Protein Albumin Lipase Urine Color Dark Yellow Urine Appearance Clear Urine pH 6.5 Ur Specific [place] 1.015 Urine Protein 300 (3+) H Urine Glucose (UA) Negative Urine Ketones Negative Urine Blood Small (1+) H Urine Nitrite Negative Ur Leukocyte Esterase Trace H Urine RBC 6-10 H Urine WBC 11-20 H Ur Squamous Epith Cells 0-2 Urine Bacteria 4+ Hyaline Casts 0-2 CSF Tube Number CSF Volume CSF Appearance CSF Color CSF WBC CSF RBC CSF Neutrophils CSF Lymphocytes CSF Monocytes % CSF Appearance (b) CSF Glucose CSF Total Protein CSF C.neoform/gat PCR CSF CMV DNA (PCR) CSF Enterovirus (PCR) CSF E. coli K1 (PCR) CSF H. influenzae (PCR) CSF HSV I (PCR) CSF HSV II (PCR) CSF HHV 6 (PCR) CSF L.monocytogenes PCR CSF N. meningitidis PCR CSF Parechovirus (PCR) CSF S. agalactiae (PCR) CSF S. pneumoniae (PCR) CSF VZV (PCR) Influenza Type A (PCR) NEGATIVE Influenza Type B (PCR) NEGATIVE RSV RNA Qual (PCR) NEGATIVE SARS-CoV-2 RNA (RT-PCR) NEGATIVE 02/14/22 02/14/22 02/14/22 03:51 03:51 03:51 MCV MCH MCHC RDW Plt Count MPV Immature Gran % (Auto) Neut % (Auto) Lymph % (Auto) [place] % (Auto) Eos % (Auto) Baso % (Auto) Lymph # (Auto) [place] # (Auto) Eos # (Auto) Baso # (Auto) Abs Immat Gran (auto) Absolute Neuts (auto) Absolute Nucleated RBC Nucleated RBC % (auto) Anion Gap Estim Creat Clear Calc Estimated GFR Random Glucose Lactic Acid Lactic Acid F/U @ 2Hr Lactic Acid F/U @ 4Hr Calcium Total Bilirubin Direct Bilirubin AST ALT Alkaline Phosphatase Troponin I High Sens B-Natriuretic Peptide Total Protein Albumin Lipase Urine Color Urine Appearance Urine pH Ur Specific [place] Urine Protein Urine Glucose (UA) Urine Ketones Urine Blood Urine Nitrite Ur Leukocyte Esterase Urine RBC Urine WBC Ur Squamous Epith Cells Urine Bacteria Hyaline Casts CSF Tube Number 2 1 CSF Volume 1.0 CSF Appearance HAZY CSF Color PINK CSF WBC 5 CSF RBC 1500 CSF Neutrophils 90 CSF Lymphocytes CSF Monocytes % 10 CSF Appearance (b) Clear, Colorless CSF Glucose 46 CSF Total Protein 28.2 CSF C.neoform/gat PCR Not Detected CSF CMV DNA (PCR) Not Detected CSF Enterovirus (PCR) Not Detected CSF E. coli K1 (PCR) Not Detected CSF H. influenzae (PCR) Not Detected CSF HSV I (PCR) Not Detected CSF HSV II (PCR) Not Detected CSF HHV 6 (PCR) Not Detected CSF L.monocytogenes PCR Not Detected CSF N. meningitidis PCR Not Detected CSF Parechovirus (PCR) Not Detected CSF S. agalactiae (PCR) Not Detected CSF S. pneumoniae (PCR) Not Detected CSF VZV (PCR) Not Detected Influenza Type A (PCR) Influenza Type B (PCR) RSV RNA Qual (PCR) SARS-CoV-2 RNA (RT-PCR) 02/14/22 02/14/22 02/14/22 03:51 04:55 07:57 MCV MCH MCHC RDW Plt Count MPV Immature Gran % (Auto) Neut % (Auto) Lymph % (Auto) [place] % (Auto) Eos % (Auto) Baso % (Auto) Lymph # (Auto) [place] # (Auto) Eos # (Auto) Baso # (Auto) Abs Immat Gran (auto) Absolute Neuts (auto) Absolute Nucleated RBC Nucleated RBC % (auto) Anion Gap Estim Creat Clear Calc Estimated GFR Random Glucose Lactic Acid Lactic Acid F/U @ 2Hr 2.7 H* Lactic Acid F/U @ 4Hr 1.1 Calcium Total Bilirubin Direct Bilirubin AST ALT Alkaline Phosphatase Troponin I High Sens B-Natriuretic Peptide Total Protein Albumin Lipase Urine Color Urine Appearance Urine pH Ur Specific [place] Urine Protein Urine Glucose (UA) Urine Ketones Urine Blood Urine Nitrite Ur Leukocyte Esterase Urine RBC Urine WBC Ur Squamous Epith Cells Urine Bacteria Hyaline Casts CSF Tube Number 4 CSF Volume 1.0 CSF Appearance CLEAR CSF Color COLORLESS CSF WBC 5 CSF RBC 30 CSF Neutrophils 50 CSF Lymphocytes 50 CSF Monocytes % CSF Appearance (b) CSF Glucose CSF Total Protein CSF C.neoform/gat PCR CSF CMV DNA (PCR) CSF Enterovirus (PCR) CSF E. coli K1 (PCR) CSF H. influenzae (PCR) CSF HSV I (PCR) CSF HSV II (PCR) CSF HHV 6 (PCR) CSF L.monocytogenes PCR CSF N. meningitidis PCR CSF Parechovirus (PCR) CSF S. agalactiae (PCR) CSF S. pneumoniae (PCR) CSF VZV (PCR) Influenza Type A (PCR) Influenza Type B (PCR) RSV RNA Qual (PCR) SARS-CoV-2 RNA (RT-PCR) Imaging Radiologist's Impressions: Impressions Chest CT 02/14/22 04:59 IMPRESSION: * The left kidney is engorged with perinephric fat stranding suspicious for pyelonephritis. There is a 4.2 cm hypodense structure in the posterior upper pole of left kidney which was not present in March 2018. No intervening comparison studies. This could represent a new benign cyst, however focal pyelonephritis/renal abscess is also considered. Consider renal ultrasound for further evaluation. * Bilateral punctate nonobstructive intrarenal calculi. * Splenomegaly increase in size since August 2020 and new since March 2018. * Scattered left colonic diverticula without evidence of diverticulitis. * No source of infection evident within the chest. Abdomen/Pelvis CT 02/14/22 05:00 IMPRESSION: * The left kidney is engorged with perinephric fat stranding suspicious for pyelonephritis. There is a 4.2 cm hypodense structure in the posterior upper pole of left kidney which was not present in March 2018. No intervening comparison studies. This could represent a new benign cyst, however focal pyelonephritis/renal abscess is also considered. Consider renal ultrasound for further evaluation. * Bilateral punctate nonobstructive intrarenal calculi. * Splenomegaly increase in size since August 2020 and new since March 2018. * Scattered left colonic diverticula without evidence of diverticulitis. * No source of infection evident within the chest. Head CT 02/14/22 05:00 IMPRESSION: No acute intracranial pathology. Renal Ultrasound 02/14/22 07:40 IMPRESSION: Complex cystic septated mass with increased vascularity upper/midpole posterior cortex left kidney concordant with CT findings. Differential diagnoses includes complex cyst, mass or an abscess in view of pyelonephritis of the left kidney suspected on CT. Nonobstructive radiopaque calculi upper and midpole left kidney. No hydronephrosis. Right kidney was not imaged. Assessment and Plan (1) Severe sepsis: Status: Acute Plan 66 yo F with a PMH of RA (chronically immunosuppresed secondary to her RA treatment), prior nephrolithiasis, asthma, osteoporosis who presents to the ED with a several day history of mental status changes. She is diagnosed with severe sepsis secondary to source. She will be admitted for further work up and treatment. 1. Severe sepsis and toxic/metabolic encephalopathy secondary to pyelonephritis, possible renal abscess Meets sepsis criteria with fevers, tachycardia, tachypnea, leukocytosis; severe features including elevated T. Bili + elevated lactate IV zosyn + vancomcyin IVF -- received sepsis fluid bolus -- but still appears volume depleted -- LR @ 125 cc/hr x 2L I/O, monitor mental status Consult urology 2. Significant lactic acidosis due to severe sepsis, now improving 3. Hyperbilirubinemia likely secondary to severe sepsis; will trend if remains elevated as her sepsis improves, may need further evaluation 4. RA hold all her meds 5. Asthma continue her baseline inhalers Full Code DVT pptx -- high risk, will use lovenox Due to her severe sepsis which will require aggressive IVF, IV antibiotics and abnromal CT scan which will require expert consultation -- I anticipate a medically necessary inpatient hospitalization which is likely to span at least 2 midnights for close monitoring and treatment. This cannot be accomplished in a less acute setting. Quality Stroke Does the patient have a stroke diagnosis?: No VTE Prior VTE?: No VTE Risk Level:: Medical - moderate - high VTE Device Contraindication: Treatment Not Indicated VTE Drug Contraindication: N/A - Med Ordered
--- NOTE | 2022-02-14 10:27 | PHA.MEDREC ---
Pharmacy Consult ? Medication Reconciliation Pharmacy has completed the medication reconciliation. Pt's children at bedside but they were not able to confirm all medications, only a few. Used recent claim history
[2022-02-14] MEDS: Lactated Ringers 1,000 ML 125 ML IVCONT (10:57)
[2022-02-14] MEDS: Enoxaparin Sodium 40 MG/0.4 ML SYRINGE SUBCUT (10:58)
--- NOTE | 2022-02-14 11:12 | PC.NURSE ---
Pt is alert, speaking in full sentences. Temperature is trending down 99 F. Pt a bowel incontinent, pt is cleaned and bed changed. Mouth care provided, daughter at bedside.
[2022-02-14] MEDS: Piperacillin Sodium/Tazobactam 4.5 GM in 0.9 % Sodium Chloride 100 ML IV ×2 (13:22→18:53)
[2022-02-14] MEDS: 0.9 % Sodium Chloride Flush 3 ML SYRINGE IVFLUSH (13:23)
[2022-02-14] MEDS: Lactated Ringers 1,000 ML 999 ML IV (14:30)
[2022-02-14] MEDS: Albumin Human 25 % 100 ML IV ×2 (14:50→21:32)
[2022-02-14 15:13] LABS: Hematocrit 29.8 % (37.0-47.0); Hemoglobin 9.7 g/dl (12.0-16.0); Mean Corpuscular HGB Conc 32.6 g/dl (31.0-35.0); Mean Corpuscular Hemoglobin 24.5 pg (27.0-33.0); Mean Corpuscular Volume 75.3 fL (80.0-98.0); Mean Platelet Volume 9.1 fL (9.4-12.3); Platelet Count 106 X10*3/uL (160-400); Red Blood Count 3.96 X10*6/uL (4.20-5.50); Red Cell Distribution Width 19.7 % (11.0-16.0); White Blood Count 7.2 X10*3/uL (4.8-10.8)
[2022-02-14 15:29] LABS: Troponin-I High Sensitivity 25.9 ng/L (<3.5-17.0)
[2022-02-14 15:33] LABS: Blood Urea Nitrogen 14 mg/dL (9-16); Creatinine Clr Calc Pharmacy 59.2; Estimated Glomerular Filt Rate > 60; Glucose Random 109 mg/dL (60-115)
--- NOTE | 2022-02-14 15:35 | PC.NURSE ---
assumed care of pt, pt a&ox3, hypotensive - provider aware, other vss, LR running @ 125ml/hr, 1 out of 4 albumin running @ 90ml/hr. mikel and Dr Rosa at bedside. no new orders at this time.
[2022-02-14 15:43] LABS: Anion Gap 12 (12-20); Calcium 7.1 mg/dL (8.4-10.2); Carbon Dioxide 20 mmol/L (22-29); Chloride 107 mmol/L (96-108); Sodium 136 mmol/L (135-145)
--- NOTE | 2022-02-14 16:33 | PC.NURSE ---
1800ml, clear concentrated urine output from ch cath, patent and draining.
[2022-02-14] MEDS: Acetaminophen 325 MG TABLET 650 MG PO (18:53)
[2022-02-14] MEDS: Montelukast Sodium 10 MG TABLET PO (21:40)
[2022-02-15] VITALS (10 sets, daily range): BP systolic 101–133; BP diastolic 53–70; PULSE 80–101; RESP 17–28; TEMP 36–37.3; O2SAT 98–99; BMI 24.0
[2022-02-15] MEDS: Piperacillin Sodium/Tazobactam 4.5 GM in 0.9 % Sodium Chloride 100 ML IV ×4 (00:31→21:36)
[2022-02-15] MEDS: vancomycin HCL 1,250 MG in 0.9 % Sodium Chloride 250 ML 166.67 MG IV (00:31)
[2022-02-15] MEDS: Lactated Ringers 1,000 ML 125 ML IVCONT (00:31)
--- NOTE | 2022-02-15 01:19 | PC.NURSE ---
pt sleeping, rr even and unlabored, vss, no new orders at this time.
[2022-02-15] MEDS: Albumin Human 25 % 100 ML IV ×2 (02:13→07:42)
[2022-02-15] MEDS: Acetaminophen 325 MG TABLET 650 MG PO ×2 (04:30→19:59)
[2022-02-15 04:57] LABS: Hematocrit 29.3 % (37.0-47.0); Hemoglobin 9.4 g/dl (12.0-16.0); Mean Corpuscular HGB Conc 32.1 g/dl (31.0-35.0); Mean Corpuscular Hemoglobin 24.4 pg (27.0-33.0); Mean Corpuscular Volume 76.1 fL (80.0-98.0); Mean Platelet Volume 8.9 fL (9.4-12.3); Red Blood Count 3.85 X10*6/uL (4.20-5.50); Red Cell Distribution Width 19.9 % (11.0-16.0); White Blood Count 4.6 X10*3/uL (4.8-10.8)
[2022-02-15 05:14] LABS: Platelet Count 98 X10*3/uL (160-400)
[2022-02-15 05:19] LABS: Creatinine Clr Calc Pharmacy 61.8; Estimated Glomerular Filt Rate > 60
[2022-02-15 05:23] LABS: Anion Gap 14 (12-20); Blood Urea Nitrogen 12 mg/dL (9-16); Calcium 8.2 mg/dL (8.4-10.2); Carbon Dioxide 17 mmol/L (22-29); Chloride 113 mmol/L (96-108); Creatinine Clr Calc Pharmacy 60.9; Estimated Glomerular Filt Rate > 60; Glucose Random 124 mg/dL (60-115); Potassium 2.8 mmol/L (3.3-5.1); Sodium 141 mmol/L (135-145)
[2022-02-15] MEDS: Omeprazole 20 MG CAPSULE.DR PO (06:27)
[2022-02-15] MEDS: 0.9 % Sodium Chloride Flush 3 ML SYRINGE IVFLUSH ×2 (07:42→21:36)
--- NOTE | 2022-02-15 08:28 | PC.NURSE ---
pt states this is the first time she's been able to eat, eating about half of her breakfast. pt was cleaned, bathed, and bedding changed.
--- NOTE | 2022-02-15 08:35 | PC.NURSE ---
pt ate about half of her breakfast, stating this is the first time she has been able to or felt up to eating. pt cleaned, bathed, and bedding changed.
--- NOTE | 2022-02-15 09:41 | MHC.CM.PN ---
Attempted to meet with patient in regards to discharge planning. Dr Chung with patient. Will attempt to meet again. Continue to monitor for d/c needs.
[2022-02-15] MEDS: Potassium Chloride ER 20 MEQ TAB.ER.PRT 60 MEQ PO (09:51)
--- NOTE | 2022-02-15 11:52 | P.PNIM_ITS ---
Subjective Subjective Date of Service: 02/15/22 Interval History: being followed for severe sepsis patient awake alert feeling better had 4 episode of loose stools since admission, was having diarrhea before arriving to hospital, denies abdominal pain, no fevers, no chills tolerated breakfast denies back pain. 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 Neck no JVD. CVS regular rate rhythm, Respiratory lungs clear to auscultation, no respiratory distress, no wheeze, no rhonchi. Gastrointestinal abdomen soft, nontender, bowel sounds audible,no guarding , no rigidity. Extremities no edema. back no CVA tenderness Neuro nonfocal, speech clear. Skin no rash psych appropriate affect Objective Data Active Medications Acetaminophen (Acetaminophen 325 Mg Tablet) 650 mg PO Q6H PRN PRN Reason: Pain, Mild (Pain Scale 1-3) Last Admin: 02/15/22 04:30 Dose: 650 mg Documented By: GOSIA Enoxaparin Sodium (Enoxaparin Sodium 40 Mg/0.4 Ml Syringe) 40 mg SUBCUT Q24H [facility] Last Admin: 02/15/22 09:52 Dose: Not Given Documented By: MIROSLAVA Non-Admin Reason: Physician Approved Vancomycin HCl 1,250 mg/ (Sodium Chloride) 250 mls @ 166.667 mls/hr IV Q24H [facility] Last Infusion: 02/15/22 02:09 Dose: 0 mls/hr Documented By: SEVEN Piperacillin Sod/Tazobactam (Sod 4.5 gm/ Sodium Chloride) 100 mls @ 200 mls/hr IV Q6H [facility] Last Infusion: 02/15/22 09:22 Dose: 0 mls/hr Documented By: MIROSLAVA Montelukast Sodium (Montelukast Sodium 10 Mg Tablet) 10 mg PO BEDTIME [facility] Last Admin: 02/14/22 21:40 Dose: 10 mg Documented By: GOSIA Omeprazole (Omeprazole 20 Mg Capsule.Dr) 20 mg PO DAILY@0630 [facility] Last Admin: 02/15/22 06:27 Dose: 20 mg Documented By: GOSIA Ondansetron HCl (Ondansetron Hcl 4 Mg/2 Ml Vial) 4 mg IVPUSH Q8H PRN PRN Reason: Nausea and Vomiting Pharmacy Consult (Consult Rx Perform Med Rec) 1 each MISCELLANE ONCE PRN PRN Reason: Consult order Pharmacy Consult (Consult Rx Vancomycin Dosing) 1 each MISCELLANE DAILY PRN PRN Reason: Consult order Sodium Chloride (0.9 % Sodium Chloride Flush 3 Ml Syringe) 3 ml IVFLUSH QSHIFT [facility] Last Admin: 02/15/22 07:42 Dose: 3 ml Documented By: MIROSLAVA Labs CBC & Chem 7: 02/15/22 04:39 02/15/22 04:39 Labs: Laboratory Results - last 24 hr 02/14/22 02/14/22 02/14/22 15:00 15:00 15:00 MCV 75.3 L MCH 24.5 L MCHC 32.6 RDW 19.7 H Plt Count 106 L D MPV 9.1 L Absolute Nucleated RBC 0.000 Nucleated RBC % (auto) 0.0 Anion Gap 12 Estim Creat Clear Calc 59.2 Estimated GFR > 60 Random Glucose 109 Calcium 7.1 L D Troponin I High Sens 25.9 H 02/15/22 02/15/22 02/15/22 04:39 04:39 04:39 MCV 76.1 L MCH 24.4 L MCHC 32.1 RDW 19.9 H Plt Count 98 L MPV 8.9 L Absolute Nucleated RBC 0.000 Nucleated RBC % (auto) 0.0 Anion Gap 14 Estim Creat Clear Calc 61.8 60.9 Estimated GFR > 60 > 60 Random Glucose 124 H Calcium 8.2 L D Troponin I High Sens Microbiology Microbiology Results: Microbiology 02/14/22 02:42 Blood Culture - Preliminary Blood - Venous Gram negative michelle 02/14/22 02:42 Blood Culture - Preliminary Blood - Venous Gram negative michelle 02/14/22 03:51 Gram Stain - Final Cerebrospinal Fluid CSF Examination - Final Fluid Description - Final CSF Culture - Preliminary No growth after 1 day Assessment and Plan (1) Severe sepsis: Status: Acute (2) UTI (urinary tract infection): Status: Acute (3) Hypokalemia: Status: Acute Plan 66 yo F with a PMH of RA (chronically immunosuppresed secondary to her RA treatment), prior nephrolithiasis, asthma, osteoporosis who presents to the ED with a several day history of mental status changes. She is diagnosed with severe sepsis secondary to source. She will be admitted for further work up and treatment. 1. Severe sepsis and toxic/metabolic encephalopathy secondary to pyelonephritis, possible renal abscess all features of severe sepsis resolved, except mild tachypnea, mental status back to normal, awake alert answering questions appropriately on IV zosyn + vancomcyin day 2, will DC vancomycin blood cultures 2/2 positive for Gram-negative michelle, urine culture pending, CSF Gram stain and culture showed no growth will DC IV fluids await Urology input in regard to left renal complex cyst also noted on abdominal ultrasound from on 12/24/2021 with increase in size 2. Significant lactic acidosis due to severe sepsis, resolved with IV fluids 3. Hyperbilirubinemia likely secondary to severe sepsis, no abdominal pain will follow LFTs, CT abdomen and pelvis showed no intra or extrahepatic biliary dilatation, normal appearing liver. 4. RA hold all her meds 5. hypokalemia will replace by mouth and IV follow BMP 6. Mild persistent Asthma continue baseline inhalers 7. thrombocytopenia patient on Lovenox, follow CBC hold Lovenox question related to sepsis Full Code DVT pptx -- high risk, will use compression boots will need continued inpatient hospitalization due to severe sepsis and bacteremia will need IV antibiotics and close follow-up on cultures and further workup for left renal cyst. Quality Stroke Does the patient have a stroke diagnosis?: No VTE Prior VTE?: No VTE Risk Level:: Medical - moderate - high VTE Device Contraindication: Treatment Not Indicated VTE Drug Contraindication: N/A - Med Ordered
--- NOTE | 2022-02-15 12:55 | MHC.CM.PN ---
Attempted to meet with patient again in regards to discharge planning. Nursing care being provided. Will attempt to meet again. Continue to monitor for d/c needs.
[2022-02-15] MEDS: Potassium Chloride/H20 10 MEQ/100 ML PIGGYBACK 100 MEQ IV (15:52)
--- NOTE | 2022-02-15 15:55 | PC.NURSE ---
Diarrhea x 4, brown. Pt also noted with bruising and petechiae to general body. Dr Chung updated
--- NOTE | 2022-02-15 19:16 | PC.NURSE ---
Assumed care of pt. at 1900. Pt. incont of stool. Changed her bedding and applied barrier cream to her buttocks as it is red and irritated from the prolonged diarrhea. Pt. resting in bed.
[2022-02-15] MEDS: Montelukast Sodium 10 MG TABLET PO (21:30)
--- NOTE | 2022-02-15 23:18 | PC.NURSE ---
ch catheter removed at 2200.
[2022-02-16 03:11] VITALS: BP 133/75; PULSE 80; RESP 18; TEMP 36.6; O2SAT 98
[2022-02-16] MEDS: Piperacillin Sodium/Tazobactam 4.5 GM in 0.9 % Sodium Chloride 100 ML IV ×3 (04:08→14:54)
[2022-02-16] MEDS: Omeprazole 20 MG CAPSULE.DR PO (05:51)
[2022-02-16 07:12] LABS: Hematocrit 32.1 % (37.0-47.0); Hemoglobin 10.1 g/dl (12.0-16.0); Mean Corpuscular HGB Conc 31.5 g/dl (31.0-35.0); Mean Corpuscular Hemoglobin 23.8 pg (27.0-33.0); Mean Corpuscular Volume 75.5 fL (80.0-98.0); Platelet Count 127 X10*3/uL (160-400); Red Blood Count 4.25 X10*6/uL (4.20-5.50); Red Cell Distribution Width 20.3 % (11.0-16.0); White Blood Count 4.4 X10*3/uL (4.8-10.8)
[2022-02-16] MEDS: 0.9 % Sodium Chloride Flush 3 ML SYRINGE IVFLUSH ×3 (07:19→19:33)
[2022-02-16 07:37] LABS: Alanine Aminotransferase 14 U/L (0-31); Albumin Level 2.8 g/dL (3.5-5.0); Alkaline Phosphatase 79 U/L (39-117); Anion Gap 13 (12-20); Aspartate Amino Transferase 21 U/L (5-31); Bilirubin Direct 0.5 mg/dL (0.0-0.5); Bilirubin Total 0.9 mg/dL (0.0-1.0); Blood Urea Nitrogen 8 mg/dL (9-16); Calcium 8.2 mg/dL (8.4-10.2); Carbon Dioxide 20 mmol/L (22-29); Chloride 108 mmol/L (96-108); Estimated Glomerular Filt Rate > 60; Glucose Random 84 mg/dL (60-115); Potassium 3.9 mmol/L (3.3-5.1); Sodium 137 mmol/L (135-145); Total Protein 6.7 g/dL (6.5-8.0)
[2022-02-16 07:43] VITALS: BP 156/76; PULSE 94; RESP 18; TEMP 37.5; O2SAT 99
[2022-02-16 11:26] VITALS: BP 132/62; PULSE 96; RESP 16; TEMP 37.7; O2SAT 98
--- NOTE | 2022-02-16 11:55 | MHC.CM.PN ---
EMR REVIEWED CM MET WITH PATIENT, LIVES ALONE IN AN APARTMENT, HAS BOYFRIEND WHO VISITS FREQUENTLY. NO PRIOR SERVICES OR DME. DOES NOT HAVE A HCP BUT WOULD LIKE TO FILL ONE OUT WHILE INPATIENT. WILL PROVIDE THE INFORMATION. 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 PCP DR. TRICIA ROLLE AT [facility]. COVID VAX X 3 WITH [facility]. FAMILY WILL TRANSPORT HOME.
[2022-02-16] MEDS: iohexoL 350 MG/ML 100 ML INFUS..BTL IV (12:46)
--- NOTE | 2022-02-16 15:09 | MHC.CLN ---
NUTRITION CONSULT FOR RECENT WEIGHT LOSS. PATIENT WITH 10# WEIGHT LOSS X 1 YEAR. REPORTS THAT ATE VERY WELL AT BREAKFAST AND LUNCH TODAY. NO ADDITIONAL NUTRITION INTERVENTIONS AT THIS TIME BASED ON CONVERSATION WITH PATIENT.
--- NOTE | 2022-02-16 15:15 | HO.PM.IMPN ---
Subjective Subjective Date of Service: 02/16/22 Interval History: feeling better this morning tolerating diet no nausea, no vomiting no fevers, no chills no abdominal pain, no back discomfort slept well last night, no acute issues overnight accept had 2 loose bowel movement. 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 awake viola rt x3, no acute di stress.? Neck no J VD. CVS? regular r ate rhythm, Respir atory lungs clear to auscultation, n o respiratory dist ress, no wheeze, n o rhonchi. Gastroi ntestinal abdomen soft, nontender, b owel sounds audibl e,no guarding , no rigidity. Extremi ties no edema. misty k no CVA tendernes s Neuro nonfocal, speech clear. Skin no rash psych manoj ropriate affect Objective Data Active Medications Acetaminophen (Acetaminophen 325 Mg Tablet) 650 mg PO Q6H PRN PRN Reason: Pain, Mild (Pain Scale 1-3) Last Admin: 02/15/22 19:59 Dose: 650 mg Documented By: STERLING Piperacillin Sod/Tazobactam (Sod 4.5 gm/ Sodium Chloride) 100 mls @ 200 mls/hr IV Q6H [facility] Last Admin: 02/16/22 14:54 Dose: 200 mls/hr Documented By: JUN Montelukast Sodium (Montelukast Sodium 10 Mg Tablet) 10 mg PO BEDTIME [facility] Last Admin: 02/15/22 21:30 Dose: 10 mg Documented By: CARLA Omeprazole (Omeprazole 20 Mg Capsule.) 20 mg PO DAILY@0630 [facility] Last Admin: 02/16/22 05:51 Dose: 20 mg Documented By: CARLA Ondansetron HCl (Ondansetron Hcl 4 Mg/2 Ml Vial) 4 mg IVPUSH Q8H PRN PRN Reason: Nausea and Vomiting Pharmacy Consult (Consult Rx Perform Med Rec) 1 each MISCELLANE ONCE PRN PRN Reason: Consult order Pharmacy Consult (Consult Rx Vancomycin Dosing) 1 each MISCELLANE DAILY PRN PRN Reason: Consult order Sodium Chloride (0.9 % Sodium Chloride Flush 3 Ml Syringe) 3 ml IVFLUSH QSHIFT [facility] Last Admin: 02/16/22 14:54 Dose: 3 ml Documented By: JUN Labs CBC & Chem 7: 02/16/22 05:51 02/16/22 05:51 Labs: Laboratory Results - last 24 hr 02/16/22 02/16/22 05:51 05:51 MCV 75.5 L MCH 23.8 L MCHC 31.5 RDW 20.3 H Plt Count 127 L D MPV 10.0 Absolute Nucleated RBC 0.000 Nucleated RBC % (auto) 0.0 Anion Gap 13 Estim Creat Clear Calc 73.0 Estimated GFR > 60 Random Glucose 84 Calcium 8.2 L Total Bilirubin 0.9 Direct Bilirubin 0.5 AST 21 D ALT 14 Alkaline Phosphatase 79 D Total Protein 6.7 D Albumin 2.8 L Microbiology Microbiology Results: Microbiology 02/14/22 02:42 Blood Culture - Final Blood - Venous Klebsiella pneumoniae 02/14/22 02:42 Blood Culture - Final Blood - Venous Klebsiella pneumoniae 02/14/22 03:51 Gram Stain - Final Cerebrospinal Fluid CSF Examination - Final Fluid Description - Final CSF Culture - Preliminary No growth after 2 days 02/14/22 00:00 Urine Culture - Preliminary Urine clean catch - Urine pacheco top Klebsiella pneumoniae Assessment and Plan (1) Hypokalemia: Status: Acute (2) Severe sepsis: Status: Acute (3) UTI (urinary tract infection): Status: Acute Plan 66 yo F with a PMH of RA (chronically immunosuppresed secondary to her RA treatment), prior nephrolithiasis, asthma, osteoporosis who presents to the ED with a several day history of mental status changes. She is diagnosed with severe sepsis secondary to source. She will be admitted for further work up and treatment. 1. Severe sepsis and toxic/metabolic encephalopathy secondary to pyelonephritis, possible renal abscess all features of severe sepsis resolved, mental status back to normal on IV zosyn day 3 blood cultures 2/2 and urine culture positive for Klebsiella pneumoniae sensitive to ceftriaxone ESBL negative, CSF Gram stain and culture showed no growth will change IV antibiotic to ceftriaxone DC IV Zosyn ? case discussed with Dr. Astudillo will obtain a CT abdomen with and without contrast to further evaluate left renal complex cyst 2. Significant lactic acidosis due to severe sepsis,? resolved with IV fluids 3. Hyperbilirubinemia likely secondary to severe sepsis, no abdominal pain reviewed repeat LFTs returned to baseline, CT abdomen and pelvis showed no intra or extrahepatic biliary dilatation, normal appearing liver. 4. RA hold all home meds 5.? hypokalemia repleted repeat potassium 3.9 6. Mild persistent Asthma no acute exacerbation continue baseline inhalers 7. thrombocytopenia repeat platelet count improved, likely related to sepsis 8. diarrhea present prior to admission and start of antibiotics likely part of sepsis will follow clinical course of persist will check C diff Full Code DVT pptx -- high risk, on compression boots ?will need continued inpatient hospitalization due to severe sepsis and bacteremia will need IV antibiotics and close follow-up on cultures and further workup for left renal cyst. Quality Stroke Does the patient have a stroke diagnosis?: No VTE Prior VTE?: No VTE Risk Level:: Medical - moderate - high VTE Device Contraindication: Treatment Not Indicated VTE Drug Contraindication: N/A - Med Ordered
[2022-02-16 15:20] VITALS: BP 167/81; PULSE 104; RESP 17; TEMP 37.3; O2SAT 98
[2022-02-16] MEDS: cefTRIAXone sodium 2 GM in 0.9 % Sodium Chloride 50 ML IV (16:13)
[2022-02-16 19:07] VITALS: BP 160/79; PULSE 90; RESP 17; TEMP 37.3; O2SAT 100
[2022-02-16] MEDS: Montelukast Sodium 10 MG TABLET PO (19:32)
[2022-02-16] MEDS: Acetaminophen 325 MG TABLET 650 MG PO (19:32)
[2022-02-16 23:29] VITALS: BP 133/74; PULSE 92; RESP 16; TEMP 36.6; O2SAT 98
[2022-02-17] VITALS (7 sets, daily range): BP systolic 119–151; BP diastolic 72–85; PULSE 86–101; RESP 15–18; TEMP 36.6–37.8; O2SAT 97–100
[2022-02-17] MEDS: Omeprazole 20 MG CAPSULE.DR PO (05:12)
[2022-02-17 08:57] LABS: Prothrombin Time 11.6 SEC (10.0-13.1)
[2022-02-17] MEDS: 0.9 % Sodium Chloride Flush 3 ML SYRINGE IVFLUSH ×3 (09:26→21:00)
--- NOTE | 2022-02-17 13:42 | HO.RADPN ---
RADIOLOGY Narrative Narrative: CT guided left renal abscess aspiration using 4 fr needle. 40 mL brown cloudy fluid aspirated. No drain placed. Specimen sent for gram stain, culture and cytology.
--- NOTE | 2022-02-17 13:46 | HO.PM.IMPN ---
Subjective Subjective Date of Service: 02/17/22 Interval History: Patient feeling better this morning denies abdominal pain, no nausea, no vomiting denies back pain, diarrhea less frequent, overall feeling significantly better since admission, no acute events overnight. Review of Systems [employer] no headache no dizziness CVS no chest pain Skin no rash Review of Systems: Yes all other systems are reviewed and are negative Physical Exam Vital Signs: Vital Signs: Last Vital Signs Temp 99.4 F 02/17/22 07:51 Pulse 101 H 02/17/22 07:51 Resp 18 02/17/22 07:51 BP 119/74 02/17/22 07:51 Pulse Ox 99 02/17/22 07:51 O2 Del Method 02/17/22 07:51 BMI result Body Mass Index 24.0 Const: Other: General? awake alert x3, no acute distress.? Neck no JVD. CVS? regular rate rhythm, Respiratory lungs clear to auscultation, no respiratory distress, no wheeze, no rhonchi. Gastrointestinal abdomen soft, nontender, bowel sounds audible,no guarding , no rigidity. Extremities no edema. back no CVA tenderness Neuro nonfocal, speech clear. Skin no rash psych appropriate affect Objective Data Active Medications Acetaminophen (Acetaminophen 325 Mg Tablet) 650 mg PO Q6H PRN PRN Reason: Pain, Mild (Pain Scale 1-3) Last Admin: 02/16/22 19:32 Dose: 650 mg Documented By: KATHY Ceftriaxone Sodium 2 gm/ (Sodium Chloride) 50 mls @ 100 mls/hr IV Q24H [facility] Last Infusion: 02/16/22 16:59 Dose: 0 mls/hr Documented By: DAVID Montelukast Sodium (Montelukast Sodium 10 Mg Tablet) 10 mg PO BEDTIME [facility] Last Admin: 02/16/22 19:32 Dose: 10 mg Documented By: KATHY Omeprazole (Omeprazole 20 Mg Capsule.) 20 mg PO DAILY@0630 [facility] Last Admin: 02/17/22 05:12 Dose: 20 mg Documented By: KATHY Ondansetron HCl (Ondansetron Hcl 4 Mg/2 Ml Vial) 4 mg IVPUSH Q8H PRN PRN Reason: Nausea and Vomiting Pharmacy Consult (Consult Rx Perform Med Rec) 1 each MISCELLANE ONCE PRN PRN Reason: Consult order Pharmacy Consult (Consult Rx Vancomycin Dosing) 1 each MISCELLANE DAILY PRN PRN Reason: Consult order Sodium Chloride (0.9 % Sodium Chloride Flush 3 Ml Syringe) 3 ml IVFLUSH QSHIFT [facility] Last Admin: 02/17/22 09:26 Dose: 3 ml Documented By: DAVID Labs CBC & Chem 7: 02/16/22 05:51 02/16/22 05:51 Labs: Laboratory Results - last 24 hr 02/17/22 08:22 PT 11.6 INR 1.0 APTT 31.0 Microbiology Microbiology Results: Microbiology 02/14/22 02:42 Blood Culture - Final Blood - Venous Klebsiella pneumoniae 02/14/22 03:51 Gram Stain - Final Cerebrospinal Fluid CSF Examination - Final Fluid Description - Final CSF Culture - Final No growth after 3 days. 02/14/22 00:00 Urine Culture - Final Urine clean catch - Urine pacheco top Klebsiella pneumoniae Assessment and Plan (1) Hypokalemia: Status: Acute (2) Severe sepsis: Status: Acute (3) UTI (urinary tract infection): Status: Acute Plan 66 yo F with a PMH of RA (chronically immunosuppresed secondary to her RA treatment), prior nephrolithiasis, asthma, osteoporosis who presents to the ED with a several day history of mental status changes. She is diagnosed with severe sepsis secondary to source. She will be admitted for further work up and treatment. 1. Severe sepsis and toxic/metabolic encephalopathy secondary to pyelonephritis, possible renal abscess severe sepsis resolved, mental status back to normal s/p IV zosyn x 3 days now on iv ceftriaxone day 2, blood cultures 2/2 and urine culture positive for Klebsiella pneumoniae sensitive to ceftriaxone ESBL negative, CSF Gram stain and culture showed no growth CT abdomen with and without contrast showed left renal cysts likely abscess since grew rapidly has thick wall Will arrange for CT-guided IR drainage, informed results to Dr. Astudillo 2. Significant lactic acidosis due to severe sepsis,? resolved with IV fluids 3. Hyperbilirubinemia likely secondary to severe sepsis, no abdominal pain reviewed repeat LFTs returned to baseline, CT abdomen and pelvis showed no intra or extrahepatic biliary dilatation, normal appearing liver. 4. RA hold all home meds 5.? hypokalemia repleted repeat potassium normalized 6. Mild persistent Asthma no acute exacerbation continue baseline inhalers 7. thrombocytopenia repeat platelet count improved, likely related to sepsis 8. diarrhea present prior to admission and start of antibiotics likely part of sepsis , diarrhea improving normal WBC and no fevers. Full Code DVT pptx -- high risk, on compression boots ?will need continued inpatient hospitalization due to bacteremia on IV antibiotics , undergo going CT-guided drainage of left renal abscess. Quality Stroke Does the patient have a stroke diagnosis?: No VTE Prior VTE?: No VTE Risk Level:: Medical - moderate - high VTE Device Contraindication: Treatment Not Indicated VTE Drug Contraindication: N/A - Med Ordered
[2022-02-17] MEDS: cefTRIAXone sodium 2 GM in 0.9 % Sodium Chloride 50 ML IV (14:42)
[2022-02-17] MEDS: Acetaminophen 325 MG TABLET 650 MG PO (14:42)
[2022-02-17] MEDS: Montelukast Sodium 10 MG TABLET PO (20:54)
[2022-02-18] VITALS: BP 132/64; PULSE 94; RESP 16; TEMP 37.2; O2SAT 99
[2022-02-18 03:52] VITALS: BP 142/71; PULSE 103; RESP 16; TEMP 37.3; O2SAT 98
[2022-02-18] MEDS: Omeprazole 20 MG CAPSULE.DR PO (06:10)
[2022-02-18 06:29] LABS: Hematocrit 30.1 % (37.0-47.0); Hemoglobin 9.6 g/dl (12.0-16.0); Mean Corpuscular HGB Conc 31.9 g/dl (31.0-35.0); Mean Corpuscular Hemoglobin 23.9 pg (27.0-33.0); Mean Corpuscular Volume 75.1 fL (80.0-98.0); Mean Platelet Volume 9.2 fL (9.4-12.3); Platelet Count 155 X10*3/uL (160-400); Red Blood Count 4.01 X10*6/uL (4.20-5.50); Red Cell Distribution Width 19.7 % (11.0-16.0)
[2022-02-18 06:35] LABS: White Blood Count 2.5 X10*3/uL (4.8-10.8)
[2022-02-18 06:48] LABS: Anion Gap 13 (12-20); Blood Urea Nitrogen 4 mg/dL (9-16); Calcium 8.1 mg/dL (8.4-10.2); Carbon Dioxide 19 mmol/L (22-29); Chloride 104 mmol/L (96-108); Creatinine Clr Calc Pharmacy 79.6; Estimated Glomerular Filt Rate > 60; Glucose Random 94 mg/dL (60-115); Potassium 3.4 mmol/L (3.3-5.1); Sodium 133 mmol/L (135-145)
[2022-02-18 07:33] VITALS: BP 144/85; PULSE 93; RESP 18; TEMP 36.7; O2SAT 98
[2022-02-18] MEDS: 0.9 % Sodium Chloride Flush 3 ML SYRINGE IVFLUSH ×2 (08:19→16:13)
[2022-02-18] MEDS: Acetaminophen 325 MG TABLET 650 MG PO (09:44)
[2022-02-18 12:00] VITALS: BP 141/78; PULSE 85; RESP 18; TEMP 36.3; O2SAT 98
--- NOTE | 2022-02-18 13:07 | HO.PM.IMPN ---
Subjective Subjective Date of Service: 02/18/22 Physical Exam Vital Signs: Vital Signs: Last Vital Signs Temp 97.4 F 02/18/22 12:00 Pulse 85 02/18/22 12:00 Resp 18 02/18/22 12:00 BP 141/78 H 02/18/22 12:00 Pulse Ox 98 02/18/22 12:00 O2 Del Method 02/18/22 12:00 BMI result Body Mass Index 24.0 Objective Data Active Medications Acetaminophen (Acetaminophen 325 Mg Tablet) 650 mg PO Q6H PRN PRN Reason: Pain, Mild (Pain Scale 1-3) Last Admin: 02/18/22 09:44 Dose: 650 mg Documented By: VIOLA Ceftriaxone Sodium 2 gm/ (Sodium Chloride) 50 mls @ 100 mls/hr IV Q24H [facility] Last Infusion: 02/17/22 16:13 Dose: 0 mls/hr Documented By: DAVID Montelukast Sodium (Montelukast Sodium 10 Mg Tablet) 10 mg PO BEDTIME [facility] Last Admin: 02/17/22 20:54 Dose: 10 mg Documented By: CARLA Omeprazole (Omeprazole 20 Mg Capsule.Dr) 20 mg PO DAILY@0630 [facility] Last Admin: 02/18/22 06:10 Dose: 20 mg Documented By: CARLA Ondansetron HCl (Ondansetron Hcl 4 Mg/2 Ml Vial) 4 mg IVPUSH Q8H PRN PRN Reason: Nausea and Vomiting Pharmacy Consult (Consult Rx Perform Med Rec) 1 each MISCELLANE ONCE PRN PRN Reason: Consult order Pharmacy Consult (Consult Rx Vancomycin Dosing) 1 each MISCELLANE DAILY PRN PRN Reason: Consult order Sodium Chloride (0.9 % Sodium Chloride Flush 3 Ml Syringe) 3 ml IVFLUSH QSHIFT [facility] Last Admin: 02/18/22 08:19 Dose: 3 ml Documented By: VIOLA Labs CBC & Chem 7: 02/18/22 05:43 02/18/22 05:43 Labs: Laboratory Results - last 24 hr 02/18/22 02/18/22 05:43 05:43 MCV 75.1 L MCH 23.9 L MCHC 31.9 RDW 19.7 H Plt Count 155 L MPV 9.2 L Absolute Nucleated RBC 0.000 Nucleated RBC % (auto) 0.0 Anion Gap 13 Estim Creat Clear Calc 79.6 Estimated GFR > 60 Random Glucose 94 Calcium 8.1 L Microbiology Microbiology Results: Microbiology 02/17/22 13:39 Gram Stain - Final Kidney - Abscess Routine Culture - Preliminary Culture in progress. Anaerobic Culture - Preliminary Culture in progress. 02/14/22 02:42 Blood Culture - Final Blood - Venous Klebsiella pneumoniae Quality Stroke Does the patient have a stroke diagnosis?: No VTE Prior VTE?: No VTE Risk Level:: Medical - moderate - high VTE Device Contraindication: Treatment Not Indicated VTE Drug Contraindication: N/A - Med Ordered
--- NOTE | 2022-02-18 13:48 | P.DS_ITS ---
DS: Providers Provider Date of Service: 02/18/22 Date of admission: 02/14/22 08:51 Primary care physician: Unknown Physician Consults: 02/14/22 07:03 Consult to Urology Routine Consulting Provider: Evens Astudillo Reason for consultation: left renal abscess? 02/18/22 12:05 Consult to Infectious Diseases Routine Consulting Provider: Jaqueline Kowalski Reason for consultation: kleibsiella pneumonia bacteremia Has provider been notified: No DS: Diagnosis Discharge Diagnosis (1) Hypokalemia: Status: Acute (2) Severe sepsis: Status: Acute (3) UTI (urinary tract infection): Status: Acute DS: Summary Hospital Course Hospital Course: Date of Service: 02/14/22 Chief Complaint: changes in mental status This is a 66 year old female with a PMH of RA on treatment with biologics, prior nephrolithasis, osteoporosis, asthma who presents to ED [facility] in by ambulance. The history is obtained from the ED chart, patients daughter and significant who are bedside as well as from the patient. The patient, who reports she feels fine, appears to be minizing her symptoms. Her daughter reprots that her mother has been losing weight with a decrease in appetite over the last 2 months. She reports that she was seen in the ED several days ago for respiratory / cardiac symptoms and was diagnosed with acute bronchitis. She was doing fairly well, but 2 days prior to admission, the family began noticing that she was starting to deteriorate. She was eating less, had less energy and on the day prior to hospitalization she was found laying on the ground and was confused thinking she was in her bed. Family reports rigors. The patient does not endorse any flank pain, dysuria, frequency, urgeny or other symptoms. The patient was profoundly hypothermic for the first 6 hours of her ED stay with temps greater than 106F. She as given cooling blankets, tylenol and work up was initiated. This included a CT of the abd/pelvis which showed a grossly abnormal L kidney with signs of pyelonephritis and cyst vs abscess. She underwent LP (Meningitis/Encephalitis PCR negative thus far). She met severe sepsis criteria with lactate significant elevated. She was given IVF/IV antibiotics and the ED provider discussed the case with urology who recommended admission to medicine and they will consult. hospital course 66 yo F with a PMH of RA (chronically immunosuppresed secondary to her RA treatment), prior nephrolithiasis, asthma, osteoporosis who presents to the ED with a several day history of mental status changes. She is diagnosed with severe sepsis secondary to source and will be admitted to [facility] for further treatment. 1. patient admitted to medical floor with a diagnosis of Severe sepsis due to acute pyelonephritis and left renal abscess patient was placed on broad-spectrum antibiotic IV Zosyn and vancomycin later blood cultures grew Klebsiella pneumonia sensitive to ceftriaxone ESBL negative therefore patient antibiotic was transition to IV ceftriaxone as part of workup patient also underwent LP CSF Gram stain and culture showed no growth patient was noted to have a left renal cyst on abdominal ultrasound therefore CT abdomen with and without contrast was obtained for follow-up that showed left renal cyst, since it was growing rapidly it was considered to be an abscess therefore patient underwent left renal cyst aspiration by IR 40 mL of brown cloudy urine was removed and sent to cytology and Gram stain, gm stain is showing 4+ polys and no organisms so far but since patient is hemodynamically stable with no recurrent fevers chills no back pain normal WBC count therefore she is being discharged home with strong recommendation to have outpatient follow-up with Dr. Evens Astudillo in 2 weeks patient is being discharged home on Levaquin 750 mg daily for 2 weeks as per ID recommendation ? 2. Significant lactic acidosis due to severe sepsis,? resolved with IV fluids 3. Hyperbilirubinemia likely secondary to severe sepsis, resolved CT abdomen showed no intra and extrahepatic biliary dilatation. 4. RA No acute flare noted resume home medications 5.? hypokalemia? repleted repeat potassium normalized 6. Mild persistent Asthma no acute exacerbation continue baseline inhalers 7. thrombocytopenia? repeat platelet count improved, likely related to sepsis 8. diarrhea resolved likely related to sepsis. Time Spent with Patient Time attestation: Total time spent providing and/or coordinating discharge services: Discharge coordination time: Greater than 30 minutes Quality: Safe Use of Opioids Does Pt have an Active Cancer Diagnosis on the Problem List?: No Quality: Stroke Does the patient have a stroke diagnosis?: No Physical Exam Vital Signs: Vital Signs: Last Vital Signs Temp 97.4 F 02/18/22 12:00 Pulse 85 02/18/22 12:00 Resp 18 02/18/22 12:00 BP 141/78 H 02/18/22 12:00 Pulse Ox 98 02/18/22 12:00 O2 Del Method 02/18/22 12:00 BMI result Body Mass Index 24.0 Const: Other: General? awake alert x3, no acute distress.? Neck no JVD. CVS? regular rate rhythm, Respiratory lungs clear to auscultation, no respiratory distress, no wheeze, no rhonchi. Gastrointestinal abdomen soft, nontender, bowel sounds audible,no guarding , no rigidity. Extremities no edema. back no CVA tenderness Neuro nonfocal, speech clear. Skin no rash psych appropriate affect DS: Data Data Completed and Pending Pending studies at discharge: Pending at discharge 02/17/22 13:39 Cytology [PTH] Routine Labs on day of discharge: Laboratory Results - last 24 hr 02/18/22 02/18/22 05:43 05:43 WBC 2.5 L RBC 4.01 L Hgb 9.6 L Hct 30.1 L MCV 75.1 L MCH 23.9 L MCHC 31.9 RDW 19.7 H Plt Count 155 L MPV 9.2 L Absolute Nucleated RBC 0.000 Nucleated RBC % (auto) 0.0 Sodium 133 L Potassium 3.4 Chloride 104 Carbon Dioxide 19 L Anion Gap 13 BUN 4 L Creatinine 0.56 Estim Creat Clear Calc 79.6 Estimated GFR > 60 Random Glucose 94 Calcium 8.1 L Preliminary micro results at discharge 02/17/22 13:39 Routine Culture - Preliminary Kidney - Abscess Culture in progress. Anaerobic Culture - Preliminary Culture in progress. Discharge Plan Discharge Anticipated Discharge Date/Time: 02/18/22 13:48 Patient Disposition: Home, Self-Care Discharge Diagnosis: severe sepsis due to acute pyelonephritis/left renal abscess acute toxic metabolic encephalopathy hypokalemia diarrhea thrombocytopenia Referrals: Physician,Unknown J [Primary Care Provider] - 1 Week Discharge Medications: New levofloxacin 750 mg tablet 750 mg PO DAILY 14 Days Qty: 14 0RF Continued alendronate 70 mg tablet 1 tab PO QWEEK tramadol 50 mg tablet 1 - 2 tab PO TID PRN (Reason: pain) triamcinolone acetonide 0.1 % cream 1 appl topical BID benzonatate 100 mg capsule 1 cap PO TID PRN (Reason: cough) ferrous sulfate 325 mg (65 mg iron) tablet 1 tab PO Q OTHER DAY omeprazole 20 mg capsule,delayed release(DR/EC) 1 cap PO DAILY@0630 montelukast 10 mg tablet 1 tab PO BEDTIME hydroxychloroquine 200 mg tablet 1 tab PO BID albuterol sulfate 90 mcg/actuation HFA aerosol inhaler 2 puff INHALATION Q6H PRN (Reason: Wheezing) calcium carbonate-vitamin D3 600 mg-10 mcg (400 unit) tablet 1 tab PO DAILY Asmanex HFA 100 mcg/actuation HFA aerosol inhaler 2 puff INHALATION BID Discontinued azithromycin 250 mg tablet See Rx Instructions .ROUTE .COMPLEX Qty: 6 0RF Rx Instructions: take 500 mg today (day 1), then 250 mg for 4 days (days 2-5) ibuprofen 800 mg tablet 1 tab PO TID Discharge Orders: Discharge Order (Routine); Ordered 02/18/22 Ordered By: Bruno Chung Diet: Advance to usual diet Activity on Discharge: As tolerated Stand Alone Forms: Patient Portal Discharge page Care Plan Goals: take Levaquin 750 mg once daily for 14 days return to [place] [facility] with worsening fever chills back pain Health Concerns: resume all home medications as before, minimize use of NSAIDs Plan of Treatment: outpatient follow-up with Dr. Evens Astudillo call to make an appointment in 2 weeks to follow up on kidney studies, follow-up with primary care physician call to make an appointment in 1-2 weeks. Assessment: as above
--- NOTE | 2022-02-18 14:22 | P.CNUR_ITS ---
History of Present Illness Consult details Consult date: 02/16/22 Narrative: Consulting complaint left renal abscess Pleasant 66-year-old female. Known prior nephrolithiasis. Brought to emergency room by ambulance. Has had recent weight loss decrease in appetite over the past 2 months Had noted mental status changes in past 2 days Previously treated for bronchitis few days ago Denies dysuria, urgency, frequency UA shows protein, trace blood, negative nitrite Imaging with 4.2 cm complex cystic structure left lower pole. Contrast shows question of renal abscess Recommendation for abscess drainage given immunosuppression with biologics for rheumatoid arthritis Review of Systems Constitutional: Constitutional: Reports as per HPI and Reports no additional constitutional complaints Cardiovascular: Cardiovascular: Reports as per HPI and Reports no additional cardiovascular complaints Respiratory: Respiratory: Reports as per HPI and Reports no additional respi ratory complaints Gastrointestinal: Gastrointestinal: Reports as per HPI and Reports no additional gastrointestinal complaints Genitourinary: Genitourinary: Reports as per HPI Musculoskeletal: Musculoskeletal: Reports no additional musculoskeletal complaints and Reports as per HPI Neurologic: Reports system reviewed and no additional complaints, except as documented and Reports as per HPI [facility] Past Medical History Medical History Asthma Kidney stones Neutropenia Rheumatoid arthritis Family History Family History Sister Hypercholesterolemia HTN (hypertension) Arthritis Brother Pacemaker Surgical History Surgical History H/O left breast biopsy Social History Social History (Updated 02/14/22 @ 09:21 by Barney Eduardo MD) Household Members: Spouse Housing: Apartment Do you presently have visiting nurse or other home services: No Alcohol intake: never Patient Tobacco Use Status: Never used Tobacco Substance Use Type: Marijuana service: No Current occupational status: employed Meds Allergies Allergy/AdvReac Type Severity Reaction Status Date / Time No Known Allergies Allergy Verified 08/16/20 09:21 [No Known Allergies*] Active Medications: Current Medications Acetaminophen (Acetaminophen 325 Mg Tablet) 650 mg PO Q6H PRN PRN Reason: Pain, Mild (Pain Scale 1-3) Last Admin: 02/18/22 09:44 Dose: 650 mg Ceftriaxone Sodium 2 gm/ (Sodium Chloride) 50 mls @ 100 mls/hr IV Q24H [facility] Last Infusion: 02/17/22 16:13 Dose: Infused Montelukast Sodium (Montelukast Sodium 10 Mg Tablet) 10 mg PO BEDTIME [facility] Last Admin: 02/17/22 20:54 Dose: 10 mg Omeprazole (Omeprazole 20 Mg Capsule.Dr) 20 mg PO DAILY@0630 [facility] Last Admin: 02/18/22 06:10 Dose: 20 mg Ondansetron HCl (Ondansetron Hcl 4 Mg/2 Ml Vial) 4 mg IVPUSH Q8H PRN PRN Reason: Nausea and Vomiting Pharmacy Consult (Consult Rx Perform Med Rec) 1 each MISCELLANE ONCE PRN PRN Reason: Consult order Pharmacy Consult (Consult Rx Vancomycin Dosing) 1 each MISCELLANE DAILY PRN PRN Reason: Consult order Sodium Chloride (0.9 % Sodium Chloride Flush 3 Ml Syringe) 3 ml IVFLUSH QSHIFT [facility] Last Admin: 02/18/22 08:19 Dose: 3 ml Home Medications Medication Instructions Recorded Confirmed Last Taken Type albuterol sulfate 90 mcg/actuation 2 puff inhalation Q6H PRN Wheezing 02/14/22 02/14/22 Unknown History aerosol inhaler alendronate 70 mg tablet 1 tab PO QWEEK 02/14/22 02/14/22 Unknown History benzonatate 100 mg capsule 1 cap PO TID PRN cough 02/14/22 02/14/22 Unknown History calcium carbonate 600 mg-vitamin 1 tab PO DAILY 02/14/22 02/14/22 Unknown History D3 10 mcg (400 unit) tablet ferrous sulfate 325 mg (65 mg 1 tab PO Q OTHER DAY anemia 02/14/22 02/14/22 Unknown History iron) tablet hydroxychloroquine 200 mg tablet 1 tab PO BID 02/14/22 02/14/22 Unknown History mometasone 100 mcg/actuation HFA 2 puff inhalation BID 02/14/22 02/14/22 Unknown History aerosol inhaler (Asmanex HFA) montelukast 10 mg tablet 1 tab PO BEDTIME 02/14/22 02/14/22 Unknown History omeprazole 20 mg capsule,delayed 1 cap PO DAILY@0630 02/14/22 02/14/22 Unknown History release tramadol 50 mg tablet 1 - 2 tab PO TID PRN pain 02/14/22 02/14/22 Unknown Histor y triamcinolone acetonide 0.1 % 1 appl topical BID 02/14/22 02/14/22 Unknown History topical cream Physical Exam Vital Signs: Vital Signs: Last Vital Signs Temp 97.4 F 02/18/22 12:00 Pulse 85 02/18/22 12:00 Resp 18 02/18/22 12:00 BP 141/78 H 02/18/22 12:00 Pulse Ox 98 02/18/22 12:00 O2 Del Method 02/18/22 12:00 BMI result Body Mass Index 24.0 Const: General: cooperative, healthy appearing, comfortable and no acute distress Orientation/consciousness: patient oriented x3 HEENT: Face and sinus: Yes normal facial exam Mouth: moist mucous membranes Neck: Neck: Yes normal visual inspection, Yes full ROM and Yes trachea midline Chest: Chest palpation & inspection: normal inspection of the chest Resp: Effort & Inspection: normal respiratory effort, able to speak in comp lete sentences and no respiratory distress GI: Inspection: Yes normal to inspection Back/Spine/Pelvis: Cervical Spine: normal cervical lordosis Thoracic/Lumbar Spine: thoracic and lumbar spine normal to inspection Skin: General skin exam: no rashes or lesions noted Neuro: General: patient oriented x3, tone normal and moves all extremities Extrem: General: Yes normal to inspection and Yes capillary refill normal Results Labs Result diagrams: 02/18/22 05:43 02/18/22 05:43 Labs: Abnormal lab results 02/18/22 02/18/22 Range/Units 05:43 05:43 WBC 2.5 L (4.8-10.8) X10*3/uL RBC 4.01 L (4.20-5.50) X10*6/uL Hgb 9.6 L (12.0-16.0) g/dl Hct 30.1 L (37.0-47.0) % MCV 75.1 L (80.0-98.0) fL MCH 23.9 L (27.0-33.0) pg RDW 19.7 H (11.0-16.0) % Plt Count 155 L (160-400) X10*3/uL MPV 9.2 L (9.4-12.3) fL Sodium 133 L (135-145) mmol/L Carbon Dioxide 19 L (22-29) mmol/L BUN 4 L (9-16) mg/dL Calcium 8.1 L (8.4-10.2) mg/dL Short CBC 02/18/22 Range/Units 05:43 WBC 2.5 L (4.8-10.8) X10*3/uL Hgb 9.6 L (12.0-16.0) g/dl Hct 30.1 L (37.0-47.0) % Plt Count 155 L (160-400) X10*3/uL BMP 02/18/22 05:43 Sodium 133 L Potassium 3.4 Chloride 104 Carbon Dioxide 19 L BUN 4 L Creatinine 0.56 Calcium 8.1 L Urine 02/14/22 Range/Units 02:59 Urine Color Dark Yellow Urine Appearance Clear Urine pH 6.5 (5.0-9.0) Ur Specific [place] 1.015 (1.005-1.025) Urine Protein 300 (3+) H (Neg-Trace) mg/dL Urine Glucose (UA) Negative (Negative) mg/dL All other labs normal. Assessment and Plan (1) Abscess of left kidney: Status: Acute Plan Abscess drainage Antibiotics for 2 weeks Will need infectious disease overview Procedures Date of Service Date of Service: 02/16/22
--- NOTE | 2022-02-18 15:05 | MHC.CM.PN ---
HOME - SELF CARE RN AWARE
[2022-02-18 15:59] VITALS: BP 143/81; PULSE 86; RESP 18; TEMP 36.8; O2SAT 99
[2022-02-18] MEDS: cefTRIAXone sodium 2 GM in 0.9 % Sodium Chloride 50 ML IV (16:10)
--- NOTE | 2022-02-18 16:13 | P.CNID_ITS ---
History of Present Illness Data of Consult Service Date: 02/18/22 Requesting physician: Bruno Chung Primary Care Provider: Unknown Physician HPI Reason for consult: renal infection She has had flank and back pain ,crampy one week. SHe has felt chilled. She has a renal abscess 6 cm Review of Systems Review of Systems: Yes all other systems are reviewed and are negative PMFSH Past Medical History Medical History Asthma Kidney stones Neutropenia Rheumatoid arthritis Family History Family History Sister Hypercholesterolemia HTN (hypertension) Arthritis Brother Pacemaker Family history: reviewed and not pertinent Surgical History Surgical History H/O left breast biopsy Social History Social History Household Members: Spouse Housing: Apartment Do you presently have visiting nurse or other home services: No Alcohol intake: never Patient Tobacco Use Status: Never used Tobacco Substance Use Type: Marijuana service: No Current occupational status: employed Meds Allergies Allergy/AdvReac Type Severity Reaction Status Date / Time No Known Allergies Allergy Verified 08/16/20 09:21 [No Known Allergies*] Active Medications: Current Medications Acetaminophen (Acetaminophen 325 Mg Tablet) 650 mg PO Q6H PRN PRN Reason: Pain, Mild (Pain Scale 1-3) Last Admin: 02/18/22 09:44 Dose: 650 mg Ceftriaxone Sodium 2 gm/ (Sodium Chloride) 50 mls @ 100 mls/hr IV Q24H [facility] Last Infusion: 02/17/22 16:13 Dose: Infused Montelukast Sodium (Montelukast Sodium 10 Mg Tablet) 10 mg PO BEDTIME [facility] Last Admin: 02/17/22 20:54 Dose: 10 mg Omeprazole (Omeprazole 20 Mg Capsule.Dr) 20 mg PO DAILY@0630 [facility] Last Admin: 02/18/22 06:10 Dose: 20 mg Ondansetron HCl (Ondansetron Hcl 4 Mg/2 Ml Vial) 4 mg IVPUSH Q8H PRN PRN Reason: Nausea and Vomiting Pharmacy Consult (Consult Rx Perform Med Rec) 1 each MISCELLANE ONCE PRN PRN Reason: Consult order Pharmacy Consult (Consult Rx Vancomycin Dosing) 1 each MISCELLANE DAILY PRN PRN Reason: Consult order Sodium Chloride (0.9 % Sodium Chloride Flush 3 Ml Syringe) 3 ml IVFLUSH [facility] Last Admin: 02/18/22 08:19 Dose: 3 ml Home Medications Medication Instructions Recorded Confirmed Last Taken Type albuterol sulfate 90 mcg/actuation 2 puff inhalation Q6H PRN Wheezing 02/14/22 02/14/22 Unknown History aerosol inhaler alendronate 70 mg tablet 1 tab PO QWEEK 02/14/22 02/14/22 Unknown History benzonatate 100 mg capsule 1 cap PO TID PRN cough 02/14/22 02/14/22 Unknown History calcium carbonate 600 mg-vitamin 1 tab PO DAILY 02/14/22 02/14/22 Unknown History D3 10 mcg (400 unit) tablet ferrous sulfate 325 mg (65 mg 1 tab PO Q OTHER DAY anemia 02/14/22 02/14/22 Unknown History iron) tablet hydroxychloroquine 200 mg tablet 1 tab PO BID 02/14/22 02/14/22 Unknown History mometasone 100 mcg/actuation HFA 2 puff inhalation BID 02/14/22 02/14/22 Unknown History aerosol inhaler (Asmanex HFA) montelukast 10 mg tablet 1 tab PO BEDTIME 02/14/22 02/14/22 Unknown History omeprazole 20 mg capsule,delayed 1 cap PO DAILY@0630 02/14/22 02/14/22 Unknown History release tramadol 50 mg tablet 1 - 2 tab PO TID PRN pain 02/14/22 02/14/22 Unknown History triamcinolone acetonide 0.1 % 1 appl topical BID 02/14/22 02/14/22 Unknown History topical cream Physical Exam Vital Signs: Vital Signs: Last Vital Signs Temp 98.3 F 02/18/22 15:59 Pulse 86 02/18/22 15:59 Resp 18 02/18/22 15:59 BP 143/81 H 02/18/22 15:59 Pulse Ox 99 02/18/22 15:59 O2 Del Method 02/18/22 15:59 BMI result Body Mass Index 24.0 Const: General: cooperative HEENT: Head: Yes normal to inspection Face and sinus: Yes normal facial exam Mouth: Normal oral and palatal mucosa present Teeth and gingiva: dentition normal Eyes: General: appearance normal, both eyes and all related structures Pupils: Equal, round and reactive pupils present Resp: Effort & Inspection: normal respiratory effort Cardio: Rate: regular rate Rhythm: regular rhythm GI: Palpation (GI): Soft to palpation and nontender : General: Yes no CVA tenderness Back/Spine/Pelvis: Back: no CVA tenderness Skin: General skin exam: no rashes or lesions noted Neuro: Other: sleepy Cranial nerves: Yes Equal, round and reactive pupils present Extrem: General: Yes normal to inspection Psych: Appearance: grossly normal Results Labs CBC & Chem 7: 02/18/22 05:43 02/18/22 05:43 Labs: Short CBC 02/18/22 Range/Units 05:43 WBC 2.5 L (4.8-10.8) X10*3/uL Hgb 9.6 L (12.0-16.0) g/dl Hct 30.1 L (37.0-47.0) % Plt Count 155 L (160-400) X10*3/uL BMP 02/18/22 05:43 Sodium 133 L Potassium 3.4 Chloride 104 Carbon Dioxide 19 L BUN 4 L Creatinine 0.56 Calcium 8.1 L Microbiology Microbiology Results: Microbiology 02/17/22 13:39 Kidney - Abscess Gram Stain - Final 02/17/22 13:39 Kidney - Abscess Routine Culture - Preliminary Culture in progress. 02/17/22 13:39 Kidney - Abscess Anaerobic Culture - Preliminary Culture in progress. 02/14/22 02:42 Blood - Venous Blood Culture - Final Klebsiella pneumoniae 02/14/22 03:51 Cerebrospinal Fluid Gram Stain - Final 02/14/22 03:51 Cerebrospinal Fluid CSF Examination - Final 02/14/22 03:51 Cerebrospinal Fluid Fluid Description - Final 02/14/22 03:51 Cerebrospinal Fluid CSF Culture - Final No growth after 3 days. 02/14/22 00:00 Urine clean catch - Urine pacheco top Urine Culture - Final Klebsiella pneumoniae 02/14/22 02:42 Blood - Venous Blood Culture - Final Klebsiella pneumoniae Assessment and Plan (1) Septic shock: Status: Acute (2) UTI (urinary tract infection): Status: Acute (3) Abscess of left kidney: Status: Acute She has abscess ,concern Pseudomonas Plan Levaquin for 14 days. Hold hydroxychloroquine for now
== END 2022-02-18 18:00 | disposition home or self-care (01) | DRG 720 ==
LOC: HO.ED 06:07 → HO.EDOVER 08:57 → HO.S3 02-15 19:55
PROVIDERS: Internal Medicine; Radiology Diagnostic Radiology; Admitting Provider Family Medicine; Emergency Provider Emergency Medicine; PCP Nurse Practitioner Family; Visit Provider Hospitalist
PROC: 0T913ZZ Drainage of Left Kidney, Percutaneous Approach (ICD-10-PCS; principal; 2022-02-17 12:00)
DX: A41.9 Sepsis, unspecified organism (principal); N15.1 Renal and perinephric abscess; G92.8 Other toxic encephalopathy; D69.6 Thrombocytopenia, unspecified; D84.821 Immunodeficiency due to drugs; J45.31 Mild persistent asthma with (acute) exacerbation; N39.0 Urinary tract infection, site not specified; N10 Acute pyelonephritis; B96.1 Klebsiella pneumoniae [K. pneumoniae] as the cause of diseases classified elsewhere; M06.9 Rheumatoid arthritis, unspecified; E87.6 Hypokalemia; R68.0 Hypothermia, not associated with low environmental temperature; R65.20 Severe sepsis without septic shock; Z23 Encounter for immunization; Z20.822 Contact with and (suspected) exposure to COVID-19; Z87.442 Personal history of urinary calculi; Z79.899 Other long term (current) drug therapy
CPT/HCPCS: 0241U; 10009; 36415; 70450; 71250; 74170; 74176; 76775; 80048; 80076; 81001; 82565; 82945; 83605; 83690; 83880; 84157; 84484; 85025; 85027; 85610; 85730; 87015; 87040; 87070; 87073; 87077; 87086; 87088; 87186; 87205; 87483; 88112; 88305; 89051; 90686; 93005; 99152; 99285; C1729; C1758; J0696; J1650; J2543; J3370; P9047; Q9967

== ENCOUNTER → 2022-03-02 13:18 | Outpatient (BNVA) | payer MEDICAID, SELFPAY | PROVIDERS: PCP Nurse Practitioner Family; Visit Provider Urology | DX: N15.1 Renal and perinephric abscess (principal); R53.83 Other fatigue; N39.0 Urinary tract infection, site not specified; N20.0 Calculus of kidney | CPT/HCPCS: 99212 ==

== ENCOUNTER 2022-03-14 10:00 | Outpatient (REF) | payer MEDICAID, SELFPAY ==
--- NOTE | ~2022-03-14 | XR_ITS ---
EXAMINATION: XR CHEST CLINICAL INFORMATION: Sepsis COMPARISON: February 11, 2022 and December 29, 2020 TECHNIQUE: 2 views of the chest were obtained. FINDINGS: No significant abnormality is noted involving the heart, lungs, mediastinum, bony thorax or soft tissues. There is some linear scarring/atelectasis seen at both lung bases. XR/XR chest 2V IMPRESSION: No significant acute parenchymal disease.
== END 2022-03-14 10:01 | disposition home or self-care (01) ==
LOC: HO.XRAY 10:00
PROVIDERS: PCP General Practice; Visit Provider General Practice
DX: A41.4 Sepsis due to anaerobes (principal); R50.9 Fever, unspecified
CPT/HCPCS: 71046

== ENCOUNTER 2022-06-06 08:47 | Outpatient (REF) | payer MEDICARE, MEDICAID, SELFPAY ==
--- NOTE | ~2022-06-06 | US_ITS ---
EXAMINATION: US RETROPERITONEAL LIMITED (RENAL ONLY) CLINICAL INFORMATION: Renal and perinephric abscess. COMPARISON: CT abdomen 02/16/2022. Renal ultrasound 02/14/2022. Ultrasound abdomen complete 12/24/2021. TECHNIQUE: Real-time imaging of the kidneys. FINDINGS: RIGHT KIDNEY: 11.5 x 4.5 x 5.3 cm (SAG x AP x TRV). The kidney is normal in size, contour, and echogenicity. Renal cortical thickness is normal. No focal parenchymal lesions or hydronephrosis. Nonobstructing stones measuring up to 3 mm in the upper and lower pole. LEFT KIDNEY: 9.6 x 5.4 x 4.9 cm (SAG x AP x TRV). The kidney is normal in size, contour, and echogenicity. Renal cortical thickness is normal. No focal parenchymal lesions or hydronephrosis. Nonobstructing stones measuring up to 3 mm in the upper and midpole. Resolution of the previously seen left renal abscess. ADDITIONAL FINDINGS: Spleen is enlarged measuring 18.6 cm in span. A 1.1 cm hyperechoic liver lesion in the right hepatic lobe without internal vascularity, previously measured 1.0 cm. US/US renal BI IMPRESSION: Resolution of the previously seen left renal abscess. Bilateral nonobstructing stones measuring up to 3 mm. Splenomegaly. A circumscribed, echogenic, avascular liver lesion measuring 1.1 cm, similar to prior In the absence of known malignancy or risk factors for hepatic malignancy this likely reflects a hemangioma. If known malignancy or risk factors for hepatic malignancy and MR abdomen could be obtained for definitive characterization.
== END 2022-06-06 08:48 | disposition home or self-care (01) ==
LOC: HO.US 08:47
PROVIDERS: PCP General Practice; Visit Provider Urology
DX: N15.1 Renal and perinephric abscess (principal)
CPT/HCPCS: 76775

== ENCOUNTER 2022-07-11 09:10 | Outpatient (REF) | payer MEDICARE, MEDICAID, SELFPAY ==
--- NOTE | ~2022-07-11 | MR_ITS ---
EXAMINATION: MR ABDOMEN WITHOUT AND WITH CONTRAST CLINICAL INFORMATION: Prior abnormal imaging. COMPARISON: 06/06/2022 and 02/16/2022 TECHNIQUE: MR abdomen was performed without and with use of 6 mL intravenous Gadavist gadolinium contrast. Postcontrast images are performed in multiphase dynamic sequences. Imaging was performed in 3 planes. FINDINGS: LUNG BASES: The visualized lung bases are unremarkable. LIVER, GALLBLADDER, AND BILIARY TREE: The liver is enlarged and measures 23.3 cm in sagittal dimension. Normal signal intensity. 1.0 cm T2 hyperintense T1 hypointense lesion in the inferior right lobe. The lesion demonstrates progressive nodular discontinuous enhancement. No biliary ductal dilatation is present. The gallbladder is unremarkable with no evidence of gallbladder wall thickening, or obvious pericholecystic inflammatory changes. PANCREAS: Unremarkable. SPLEEN: Enlarged. Measures 16.6 cm in sagittal dimension. ADRENAL GLANDS: No adrenal masses. KIDNEYS AND URETERS: The left kidney is ptotic. The kidneys are symmetric in size. 1.3 cm cyst lower pole left kidney No hydronephrosis or perinephric stranding. GASTROINTESTINAL TRACT: No small bowel bowel obstruction. No ascites or fluid collection. ABDOMINAL WALL: No significant hernia is appreciated. LYMPH NODES: No bulky abdominal lymphadenopathy. VASCULAR: Normal caliber abdominal aorta. MR/MR abdomen wo/w con IMPRESSION: 1.0 cm right hepatic lesion likely representing hepatic hemangioma. Hepatosplenomegaly.
== END 2022-07-11 09:11 | disposition home or self-care (01) ==
LOC: HO.MRI 09:10
PROVIDERS: PCP General Practice; Visit Provider Internal Medicine Medical Oncology
DX: K76.9 Liver disease, unspecified (principal)
CPT/HCPCS: 74183; A9585

== ENCOUNTER 2022-08-09 12:36 | Inpatient (IN) | payer MEDICARE, MEDICAID, SELFPAY ==
--- NOTE | ~2022-08-09 | XR_ITS ---
EXAMINATION: XR CHEST CLINICAL INFORMATION: Fever COMPARISON: 03/14/2022 chest radiographs. TECHNIQUE: Frontal view of the chest was obtained. FINDINGS: No significant abnormality is noted involving the heart, lungs, mediastinum, bony thorax or soft tissues. XR/XR chest 1V IMPRESSION: No acute cardiopulmonary process.
--- NOTE | ~2022-08-09 | CT_ITS ---
EXAMINATION: CT ABDOMEN AND PELVIS WITHOUT CONTRAST CLINICAL INFORMATION: Abdominal pain. Chills. History of kidney abscess. COMPARISON: MR abdomen 07/11/2022. CT abdomen 02/16/2022, 02/14/2022. Renal ultrasound 06/06/2022 TECHNIQUE: Multidetector volumetric imaging was performed from the superior aspect of the liver through the pubic symphysis. Sagittal and coronal reformatted images were obtained on the technologist's workstation. This CT examination was performed using dose optimization techniques as appropriate, variously including the following: *Automated exposure control *Adjustment of mA and/or kV according to patient size (this includes techniques or standardized protocols for targeted exams where dose is matched to indication/reason for exam; i.e. extremities or head) *Use of iterative reconstruction technique DLP: 355 mGy-cm FINDINGS: LUNG BASES: Trace pericardial effusion. Lung bases normally aerated. LIVER, GALLBLADDER, AND BILIARY TREE: Hepatomegaly. Liver measures 22 cm superior-inferior. No focal liver lesion or intrahepatic bile duct dilatation. The gallbladder is unremarkable with no evidence of radiopaque gallstones, gallbladder wall thickening, or obvious pericholecystic inflammatory changes. PANCREAS: Unremarkable. SPLEEN: Splenomegaly. Spleen measures 14.1 cm superior-inferior. ADRENAL GLANDS: Unremarkable. KIDNEYS AND URETERS: Multiple small less than 3 mm size stones in both the right and the left kidney. There is no hydronephrosis. There is no ureteral calculus. BLADDER: Unremarkable. GASTROINTESTINAL TRACT: There are scattered diverticula of the sigmoid and descending colon. There is focal bowel wall thickening and pericolonic edema stranding densities in the pericolonic fat at the junction of the descending colon and sigmoid colon consistent with a mild diverticulitis. No evidence of perforation or abscess. No obstruction. There is a moderate volume of stool in the colon. The appendix is nonvisualized . The small bowel loops are unremarkable. The stomach is normal. There is no hiatal hernia. ABDOMINAL WALL: No significant hernia is appreciated. LYMPH NODES: Normal. VASCULAR: Unremarkable. PELVIC VISCERA: Unremarkable. OSSEOUS STRUCTURES: Multilevel degenerative spondylosis spine. CT/CT abdomen pelvis wo IV con IMPRESSION: 1. Mild diverticulitis of the junction of the descending colon and sigmoid colon. 2. Hepatosplenomegaly. 3. Small nonobstructive bilateral renal stones. Fleischner guidelines were followed.
[2022-08-09 12:41] VITALS: BP 131/92; PULSE 111; RESP 22; TEMP 36.7; O2SAT 98; BMI 25.7
--- NOTE | 2022-08-09 12:44 | ED_ITS ---
HPI - Abdominal Pain General Chief Complaint: Abdominal Pain <JEAN Alvardao - Last Filed: 08/09/22 12:50> Stated Complaint: abd pain diarrhea <JEAN Alvarado - Last Filed: 08/09/22 12:50> Time Seen by Provider: 08/09/22 14:25 <JEAN Alvarado - Last Filed: 08/09/22 12:50> Source: patient and family (Daughter.) <Shahnaz Calhoun MD - Last Filed: 08/09/22 15:46> Mode of arrival: ambulatory <Shahnaz Calhoun MD - Last Filed: 08/09/22 15:46> Limitations: no limitations <Shahnaz Calhoun MD - Last Filed: 08/09/22 15:46> History of Present Illness HPI narrative: - 67yoF with a PMHx of neutropenia, kidney stones, , renal abscess, UTI x presenting to the ER with complaints of acute onset of nausea/vomiting/diarrhea and diffuse abdominal pain that started around 10:00. Reports that she is vomited 10 times. Denies fevers, dizziness, CP/SOB, back pain, black or bloody emesis, black or bloody stools, constipation, recent travel or sick contacts, recent antibiotic usage, bad food exposure, recent hospitalization, <Shahnaz Calhoun MD - Last Filed: 08/09/22 15:46> Related Data Home Medications: Home Medications Medication Instructions Recorded Confirmed albuterol sulfate 90 mcg/actuation 2 puff inhalation Q6H PRN Wheezing 02/14/22 06/21/22 aerosol inhaler alendronate 70 mg tablet 1 tab PO QWEEK 02/14/22 06/21/22 benzonatate 100 mg capsule 1 cap PO TID PRN cough 02/14/22 06/21/22 calcium carbonate 600 mg-vitamin 1 tab PO DAILY 02/14/22 06/21/22 D3 10 mcg (400 unit) tablet ferrous sulfate 325 mg (65 mg 1 tab PO Q OTHER DAY anemia 02/14/22 06/21/22 iron) tablet mometasone 100 mcg/actuation HFA 2 puff inhalation BID 02/14/22 06/21/22 aerosol inhaler (Asmanex HFA) montelukast 10 mg tablet 1 tab PO BEDTIME 02/14/22 06/21/22 omeprazole 20 mg capsule,delayed 1 cap PO DAILY@0630 02/14/22 06/21/22 release tramadol 50 mg tablet 1 - 2 tab PO TID PRN pain 02/14/22 06/21/22 triamcinolone acetonide 0.1 % 1 appl topical BID 02/14/22 06/21/22 topical cream etanercept 50 mg/mL (1 mL) 50 mg subcut QWEEK 03/04/22 06/21/22 subcutaneous pen injector (Enbrel SureClick) ibuprofen 800 mg tablet 1 tab PO TID 03/04/22 06/21/22 loratadine 10 mg tablet 1 tab PO DAILY 03/04/22 06/21/22 prednisone 10 mg tablet 10 mg PO DIRECTED 06/21/22 06/21/22 Previous Rx's Medication Instructions Recorded levofloxacin 750 mg tablet 750 mg PO DAILY 14 days #14 tabs 02/18/22 <JEAN Alvarado - Last Filed: 08/09/22 12:50> Allergies/Adverse Reactions: Allergies Allergy/AdvReac Type Severity Reaction Status Date / Time No Known Allergies Allergy Verified 06/21/22 09:05 [No Known Allergies*] <JEAN Alvarado - Last Filed: 08/09/22 12:50> Review of Systems Review of Systems All other systems are reviewed and are negative Constitutional: Reports as per HPI and Reports no additional constitutional complaints Eyes: Reports as per HPI and Reports no additional eye complaints Reports system reviewed and no additional complaints, except as documented Cardiovascular: Reports as per HPI and Reports no additional cardiovascular c omplaints Respiratory: Reports as per HPI and Reports no additional respiratory complaints Gastrointestinal: Reports as per HPI and Reports no additional gastrointestinal complaints Genitourinary: Reports no additional female genitourinary complaints Musculoskeletal: Reports no additional musculoskeletal complaints Skin/Breast: Reports system reviewed and no additional complaints, except as docu Psychiatric: Reports no additional psychiatric complaints Endocrine: Reports no additional endocrine complaints Hematologic/Lymphatic: Reports no additional hematologic/lymphatic complaints Allergic/Immunologic: Reports no additional allergic/immunologic complaints Reports system reviewed and no additional complaints, except as documented and Reports Abnormal speech present <Shahnaz Calhoun MD - Last Filed: 08/09/22 15:46> [facility] Past Medical History Medical History: Medical History Asthma Kidney stones Neutropenia Rheumatoid arthritis <JEAN Alvarado - Last Filed: 08/09/22 12:50> Surgical History: Surgical History H/O left breast biopsy <JEAN Alvarado - Last Filed: 08/09/22 12:50> Family History Family History: Family History Sister Arthritis Hypercholesterolemia HTN (hypertension) Brother Pacemaker Colon cancer Family/Other Breast cancer <JEAN Alvarado - Last Filed: 08/09/22 12:50> Social History Social History: Social History Household Members: Significant Other Housing: House Are you a primary healthcare interpreter to a significant other at home: No Do you presently have visiting nurse or other home services: No Alcohol intake: never Patient Tobacco Use Status: Never used Tobacco Substance Use Type: Marijuana Advance Directives: No Advance Directives Information Provided: Yes Advance Directives on File: No service: No Current occupational status: employed <JEAN Alvarado - Last Filed: 08/09/22 12:50> Physical Exam ED Vital Signs: Vital Signs - 24 hr 08/09/22 12:41 08/09/22 14:41 08/09/22 14:51 Temperature 98.0 F 100.8 F H Pulse Rate 111 H Respiratory Rate 22 H 16 Blood Pressure 131/92 H Pulse Oximetry 98 Oxygen Delivery Method Room Air 08/09/22 14:57 08/09/22 16:44 Temperature Pulse Rate 120 H 118 H Respiratory Rate 38 H 16 Blood Pressure 145/78 H 127/75 Pulse Oximetry 97 Oxygen Delivery Method Room Air Room Air BMI result Body Mass Index 25.7 <JEAN Alvarado - Last Filed: 08/09/22 12:50> Vital Signs - 24 hr 08/09/22 12:41 08/09/22 14:41 08/09/22 14:51 Temperature 98.0 F 100.8 F H Pulse Rate 111 H Respiratory Rate 22 H 16 Blood Pressure 131/92 H Pulse Oximetry 98 Oxygen Delivery Method Room Air 08/09/22 14:57 08/09/22 16:44 Temperature Pulse Rate 120 H 118 H Respiratory Rate 38 H 16 Blood Pressure 145/78 H 127/75 Pulse Oximetry 97 Oxygen Delivery Method Room Air Room Air BMI result Body Mass Index 25.7 Vital signs have been reviewed as appeared to be correct. Blood pressure elevated. Heart rate elevated. Respiration rate normal. Temperature normal. Oxygen saturation normal. <Shahnaz Calhoun MD - Last Filed: 08/09/22 15:46> Vital Signs - 24 hr 08/09/22 12:41 08/09/22 14:41 08/09/22 14:51 Temperature 98.0 F 100.8 F H Pulse Rate 111 H Respiratory Rate 22 H 16 Blood Pressure 131/92 H Pulse Oximetry 98 Oxygen Delivery Method Room Air 08/09/22 14:57 08/09/22 16:44 Temperature Pulse Rate 120 H 118 H Respiratory Rate 38 H 16 Blood Pressure 145/78 H 127/75 Pulse Oximetry 97 Oxygen Delivery Method Room Air Room Air BMI result Body Mass Index 25.7 <Willy Pepe MD - Last Filed: 08/09/22 18:01> Appearance: Alert. Oriented X3. No acute distress. Head: Normal external exam. Normocephalic. Atraumatic. No Valverde signs noted. No raccoon eyes noted Eyes: PERRLA. EOMI. Conjunctiva and sclera normal. Eyelids normal. ENT: TM's Normal. Pharynx normal. Uvula midline. Moist mucous membranes. No trismus noted. No drooling noted. No muffled voice noted. Neck: Normal inspection. Neck supple. FROM. No adenopathy. Thyroid Normal. No meningeal signs. No neck mass noted. CVS: Normal heart rate and rhythm. Heart sound normal. No murmurs noted. Pulses normal throughout. Respiratory: No respiratory distress. Painless inspiration. Breath sounds normal. No wheezes/rales/rhonchi noted. Chest nontender. No accessory muscle usage noted or decreased air movement noted. Abdomen: Soft, diffuse abdominal tenderness. Bowel sounds normal in all 4 quadrants. No distention noted. No organomegaly noted. No visible injury noted. Back: No CVA tenderness. Full range of motion noted. Skin: Skin warm and dry. Normal skin color. Normal skin turgor. No rashes/lesions/lacerations noted. Extremities: No lower extremity edema. Extremities exhibit normal range of motion. Extremities nontender. Neuro: Oriented X 3. Cranial nerve exam: II-XII are grossly intact No motor deficit. No sensory deficit. Reflexes normal. <Shahnaz Calhoun MD - L ast Filed: 08/09/22 15:46> Course Course Course Narrative: ISIDRO- 12:45pm - 67yoF with a PMHx of neutropenia, kidney stones, , renal abscess, UTI x presenting to the ER with complaints of acute onset of nausea/vomiting/diarrhea and diffuse abdominal pain that started around 10:00. Reports that she is vomited 10 times. Denies fevers, dizziness, CP/SOB, back pain, black or bloody emesis, black or bloody stools, constipation, recent travel or sick contacts, recent antibiotic usage, bad food exposure, recent hospitalization, others with similar symptoms or any other symptoms complaints or concerns at this time. Plan: Will obtain labs, COVID/RSV/flu swab, UA. Patient will be sent back to the waiting room to be evaluated in the ED. <JEAN Alvarado - Last Filed: 08/09/22 12:50> This 67-year-old female came in with a sudden onset of chills, nausea, multiple nonbloody watery diarrhea, patient initially in the emergency department was shivering with multiple diarrhea, patient had history of bacteremia and a renal abscess awaiting for the CT of the abdomen and pelvis. Patient will receive hydration IV, will try p.o. challenge. Signed out to Dr. Vega to recheck on the patient and his poor accordingly. <Shahnaz Calhoun MD - Last Filed: 08/09/22 15:46> This 67-year-old female came in with a sudden onset of chills, nausea, multiple nonbloody watery diarrhea, patient initially in the emergency department was shivering with multiple diarrhea, patient had history of bacteremia and a renal abscess awaiting for the CT of the abdomen and pelvis. Patient will receive hydration IV, will try p.o. challenge. Signed out to Dr. Vega to recheck on the patient and his poor accordingly. 1747: I assumed care of this patient from my colleague, Dr. Calhoun at 16:00 hours. The patient presented to the emergency department for evaluation of lower abdominal pain that came on suddenly at all [facility] 100 hours. She states she had at least 19 episodes of watery, diarrhea and multiple episodes of emesis. There was no blood in the diarrhea or emesis she was also having severe lower abdominal pain. The patient was recently started on prednisone for her rheumatoid arthritis , she has not been on antibiotics recently on and has not traveled outside of the counter She was treated with normal saline IV x2 L, Imodium 2 mg orally, 2 mg IV, Zofran 4 mg ODT and 4 mg IV. At the time my evaluation the patient states she is feeling significantly better. On her abdominal exam she did have epigastric and left sided abdominal tenderness. Laboratory evaluation revealed a normal CBC. At an elevated AST of 38 and an elevated alk-phos of 142. Bilirubin was elevated 1.1. Lactic acid was elevated at 3.8, lipase was normal. Patient has not been able to give a stool sample for C diff. CT scan of the abdomen pelvis with IV contrast is consistent with descending and itis which the radiologist described as mild. Bilateral, small, nonobstructive bilateral renal stones as well. The patient has not had any epi sodes of hypotension. She did meet SIRS criteria but I do not think that she has sepsis and that her elevated lactic acid is secondary to starvation ketosis and dehydration. The patient's elevated bilirubin does not reflect liver failure given her normal LFTs. Patient was ordered to get Zosyn 4.0 mg IV and lactated Ringer's at 150 cc/hour pain. I did discuss the admission with the covering hospitalist, Dr. Mendez. <Willy Pepe MD - Last Filed: 08/09/22 18:01> Medical Decision Making Differential Diagnosis Differential Diagnoses: The differential diagnosis associated with the presentation includes (Gastroenteritis, dehydration, electrolyte disturbance, rule out intra-abdominal pathology.) <Shahnaz Calhoun MD - Last Filed: 08/09/22 15:46> Differential diagnosis includes was not limited to viral gastroenteritis , colitis, diverticulitis, pancreatitis, dehydration, viral syndrome <Willy Pepe MD - Last Filed: 08/09/22 18:01> Admission/Observation Consideration of admission/observation: Escalation of care including admission/observation considered <Shahnaz Calhoun MD - Last Filed: 08/09/22 15:46> Consult Healthcare Provider Management of the patient was discussed with: Hospitalist <Willy Pepe MD - Last Filed: 08/09/22 18:01> Lab Data MDM Lab Attestation statement: I reviewed the patient's lab results. <Shahnaz Calhoun MD - Last Filed: 08/09/22 15:46> Please see my laboratory interpretation/discussion under course <Willy Pepe MD - Last Filed: 08/09/22 18:01> Result Diagrams: 08/09/22 13:05 08/09/22 13:05 <JEAN Alvarado - Last Filed: 08/09/22 12:50> Labs: Lab Results 08/09/22 08/09/22 08/09/22 Range/Units 13:05 13:05 13:05 WBC 5.0 (4.8-10.8) X10*3/uL RBC 6.46 H D (4.20-5.50) X10*6/uL Hgb 15.3 D (12.0-16.0) g/dl Hct 48.5 H D (37.0-47.0) % MCV 75.1 L (80.0-98.0) fL MCH 23.7 L (27.0-33.0) pg MCHC 31.5 (31.0-35.0) g/dl RDW 19.7 H (11.0-16.0) % Plt Count 276 D (160-400) X10*3/uL MPV 8.3 L (9.4-12.3) fL Immature Gran % (Auto) 0.2 (0.0-0.4) % Neut % (Auto) 61.4 (45-73) % Lymph % (Auto) 28.1 (20-40) % Harnett % (Auto) 9.7 (2-11) % Eos % (Auto) 0.2 (0-4) % Baso % (Auto) 0.4 (0-2) % Lymph # (Auto) 1.4 (1.2-4.9) X10*3/uL Harnett # (Auto) 0.5 (0.1-1.2) X10*3/uL Eos # (Auto) 0.0 (0.0-0.4) X10*3/uL Baso # (Auto) 0.0 (0.0-0.2) X10*3/uL Abs Immat Gran (auto) 0.01 (0.00-0.03) X10*3/uL Absolute Neuts (auto) 3.0 (2.0-8.3) x10*3/uL Absolute Nucleated RBC 0.000 (0.0-0.012) X10*3/uL Nucleated RBC % (auto) 0.0 (0.0-0.2) /100WBC PT 10.3 (10.0-13.1) SEC INR 0.9 (0.9-1.1) Sodium 143 (135-145) mmol/L Potassium 3.8 (3.3-5.1) mmol/L Chloride 105 (96-108) mmol/L Carbon Dioxide 26 (22-29) mmol/L Anion Gap 16 (12-20) BUN 18 H (9-16) mg/dL Creatinine 0.90 (0.5-1.4) mg/dL Estim Creat Clear Calc 59.0 Estimated GFR > 60 Random Glucose 122 H (60-115) mg/dL Lactic Acid (0.5-2.0) mmol/L Calcium 10.4 H D (8.4-10.2) mg/dL Magnesium 2.1 (1.6-2.6) mg/dL Total Bilirubin 1.1 H (0.0-1.0) mg/dL AST 38 H (5-31) U/L ALT 31 (0-31) U/L Alkaline Phosphatase 142 H (39-117) U/L Total Protein 10.4 H (6.5-8.0) g/dL Albumin 4.2 (3.5-5.0) g/dL Lipase 26 (8-78) U/L Influenza Type A (PCR) (Negative) Influenza Type B (PCR) (Negative) RSV RNA Qual (PCR) (Negative) SARS-CoV-2 RNA (RT-PCR) (Negative) 08/09/22 08/09/22 Range/Units 13:05 15:30 WBC (4.8-10.8) X10*3/uL RBC (4.20-5.50) X10*6/uL Hgb (12.0-16.0) g/dl Hct (37.0-47.0) % MCV (80.0-98.0) fL MCH (27.0-33.0) pg MCHC (31.0-35.0) g/dl RDW (11.0-16.0) % Plt Count (160-400) X10*3/uL MPV (9.4-12.3) fL Immature Gran % (Auto) (0.0-0.4) % Neut % (Auto) (45-73) % Lymph % (Auto) (20-40) % Harnett % (Auto) (2-11) % Eos % (Auto) (0-4) % Baso % (Auto) (0-2) % Lymph # (Auto) (1.2-4.9) X10*3/uL Harnett # (Auto) (0.1-1.2) X10*3/uL Eos # (Auto) (0.0-0.4) X10*3/uL Baso # (Auto) (0.0-0.2) X10*3/uL Abs Immat Gran (auto) (0.00-0.03) X10*3/uL Absolute Neuts (auto) (2.0-8.3) x10*3/uL Absolute Nucleated RBC (0.0-0.012) X10*3/uL Nucleated RBC % (auto) (0.0-0.2) /100WBC PT (10.0-13.1) SEC INR (0.9-1.1) Sodium (135-145) mmol/L Potassium (3.3-5.1) mmol/L Chloride (96-108) mmol/L Carbon Dioxide (22-29) mmol/L Anion Gap (12-20) BUN (9-16) mg/dL Creatinine (0.5-1.4) mg/dL Estim Creat Clear Calc Estimated GFR Random Glucose (60-115) mg/dL Lactic Acid 3.8 H* (0.5-2.0) mmol/L Calcium (8.4-10.2) mg/dL Magnesium (1.6-2.6) mg/dL Total Bilirubin (0.0-1.0) mg/dL AST (5-31) U/L ALT (0-31) U/L Alkaline Phosphatase (39-117) U/L Total Protein (6.5-8.0) g/dL Albumin (3.5-5.0) g/dL Lipase (8-78) U/L Influenza Type A (PCR) NEGATIVE (Negative) Influenza Type B (PCR) NEGATIVE (Negative) RSV RNA Qual (PCR) NEGATIVE (Negative) SARS-CoV-2 RNA (RT-PCR) NEGATIVE (Negative) <JEAN Alvarado - Last Filed: 08/09/22 12:50> Lab Results 08/09/22 08/09/22 08/09/22 Range/Units 13:05 13:05 13:05 WBC 5.0 (4.8-10.8) X10*3/uL RBC 6.46 H D (4.20-5.50) X10*6/uL Hgb 15.3 D (12.0-16.0) g/dl Hct 48.5 H D (37.0-47.0) % MCV 75.1 L (80.0-98.0) fL MCH 23.7 L (27.0-33.0) pg MCHC 31.5 (31.0-35.0) g/dl RDW 19.7 H (11.0-16.0) % Plt Count 276 D (160-400) X10*3/uL MPV 8.3 L (9.4-12.3) fL Immature Gran % (Auto) 0.2 (0.0-0.4) % Neut % (Auto) 61.4 (45-73) % Lymph % (Auto) 28.1 (20-40) % Harnett % (Auto) 9.7 (2-11) % Eos % (Auto) 0.2 (0-4) % Baso % (Auto) 0.4 (0-2) % Lymph # (Auto) 1.4 (1.2-4.9) X10*3/uL Harnett # (Auto) 0.5 (0.1-1.2) X10*3/uL Eos # (Auto) 0.0 (0.0-0.4) X10*3/uL Baso # (Auto) 0.0 (0.0-0.2) X10*3/uL Abs Immat Gran (auto) 0.01 (0.00-0.03) X10*3/uL Absolute Neuts (auto) 3.0 (2.0-8.3) x10*3/uL Absolute Nucleated RBC 0.000 (0.0-0.012) X10*3/uL Nucleated RBC % (auto) 0.0 (0.0-0.2) /100WBC PT 10.3 (10.0-13.1) SEC INR 0.9 (0.9-1.1) Sodium 143 (135-145) mmol/L Potassium 3.8 (3.3-5.1) mmol/L Chloride 105 (96-108) mmol/L Carbon Dioxide 26 (22-29) mmol/L Anion Gap 16 (12-20) BUN 18 H (9-16) mg/dL Creatinine 0.90 (0.5-1.4) mg/dL Estim Creat Clear Calc 59.0 Estimated GFR > 60 Random Glucose 122 H (60-115) mg/dL Lactic Acid (0.5-2.0) mmol/L Calcium 10.4 H D (8.4-10.2) mg/dL Magnesium 2.1 (1.6-2.6) mg/dL Total Bilirubin 1.1 H (0.0-1.0) mg/dL AST 38 H (5-31) U/L ALT 31 (0-31) U/L Alkaline Phosphatase 142 H (39-117) U/L Total Protein 10.4 H (6.5-8.0) g/dL Albumin 4.2 (3.5-5.0) g/dL Lipase 26 (8-78) U/L Influenza Type A (PCR) (Negative) Influenza Type B (PCR) (Negative) RSV RNA Qual (PCR) (Negative) SARS-CoV-2 RNA (RT-PCR) (Negative) 08/09/22 08/09/22 Range/Units 13:05 15:30 WBC (4.8-10.8) X10*3/uL RBC (4.20-5.50) X10*6/uL Hgb (12.0-16.0) g/dl Hct (37.0-47.0) % MCV (80.0-98.0) fL MCH (27.0-33.0) pg MCHC (31.0-35.0) g/dl RDW (11.0-16.0) % Plt Count (160-400) X10*3/uL MPV (9.4-12.3) fL Immature Gran % (Auto) (0.0-0.4) % Neut % (Auto) (45-73) % Lymph % (Auto) (20-40) % Harnett % (Auto) (2-11) % Eos % (Auto) (0-4) % Baso % (Auto) (0-2) % Lymph # (Auto) (1.2-4.9) X10*3/uL Harnett # (Auto) (0.1-1.2) X10*3/uL Eos # (Auto) (0.0-0.4) X10*3/uL Baso # (Auto) (0.0-0.2) X10*3/uL Abs Immat Gran (auto) (0.00-0.03) X10*3/uL Absolute Neuts (auto) (2.0-8.3) x10*3/uL Absolute Nucleated RBC (0.0-0.012) X10*3/uL Nucleated RBC % (auto) (0.0-0.2) /100WBC PT (10.0-13.1) SEC INR (0.9-1.1) Sodium (135-145) mmol/L Potassium (3.3-5.1) mmol/L Chloride (96-108) mmol/L Carbon Dioxide (22-29) mmol/L Anion Gap (12-20) BUN (9-16) mg/dL Creatinine (0.5-1.4) mg/dL Estim Creat Clear Calc Estimated GFR Random Glucose (60-115) mg/dL Lactic Acid 3.8 H* (0.5-2.0) mmol/L Calcium (8.4-10.2) mg/dL Magnesium (1.6-2.6) mg/dL Total Bilirubin (0.0-1.0) mg/dL AST (5-31) U/L ALT (0-31) U/L Alkaline Phosphatase (39-117) U/L Total Protein (6.5-8.0) g/dL Albumin (3.5-5.0) g/dL Lipase (8-78) U/L Influenza Type A (PCR) NEGATIVE (Negative) Influenza Type B (PCR) NEGATIVE (Negative) RSV RNA Qual (PCR) NEGATIVE (Negative) SARS-CoV-2 RNA (RT-PCR) NEGATIVE (Negative) <Shahnaz Calhoun MD - Last Filed: 08/09/22 15:46> Lab Results 08/09/22 08/09/22 08/09/22 Range/Units 13:05 13:05 13:05 WBC 5.0 (4.8-10.8) X10*3/uL RBC 6.46 H D (4.20-5.50) X10*6/uL Hgb 15.3 D (12.0-16.0) g/dl Hct 48.5 H D (37.0-47.0) % MCV 75.1 L (80.0-98.0) fL MCH 23.7 L (27.0-33.0) pg MCHC 31.5 (31.0-35.0) g/dl RDW 19.7 H (11.0-16.0) % Plt Count 276 D (160-400) X10*3/uL MPV 8.3 L (9.4-12.3) fL Immature Gran % (Auto) 0.2 (0.0-0.4) % Neut % (Auto) 61.4 (45-73) % Lymph % (Auto) 28.1 (20-40) % Harnett % (Auto) 9.7 (2-11) % Eos % (Auto) 0.2 (0-4) % Baso % (Auto) 0.4 (0-2) % Lymph # (Auto) 1.4 (1.2-4.9) X10*3/uL Harnett # (Auto) 0.5 (0.1-1.2) X10*3/uL Eos # (Auto) 0.0 (0.0-0.4) X10*3/uL Baso # (Auto) 0.0 (0.0-0.2) X10*3/uL Abs Immat Gran (auto) 0.01 (0.00-0.03) X10*3/uL Absolute Neuts (auto) 3.0 (2.0-8.3) x10*3/uL Absolute Nucleated RBC 0.000 (0.0-0.012) X10*3/uL Nucleated RBC % (auto) 0.0 (0.0-0.2) /100WBC PT 10.3 (10.0-13.1) SEC INR 0.9 (0.9-1.1) Sodium 143 (135-145) mmol/L Potassium 3.8 (3.3-5.1) mmol/L Chloride 105 (96-108) mmol/L Carbon Dioxide 26 (22-29) mmol/L Anion Gap 16 (12-20) BUN 18 H (9-16) mg/dL Creatinine 0.90 (0.5-1.4) mg/dL Estim Creat Clear Calc 59.0 Estimated GFR > 60 Random Glucose 122 H (60-115) mg/dL Lactic Acid (0.5-2.0) mmol/L Calcium 10.4 H D (8.4-10.2) mg/dL Magnesium 2.1 (1.6-2.6) mg/dL Total Bilirubin 1.1 H (0.0-1.0) mg/dL AST 38 H (5-31) U/L ALT 31 (0-31) U/L Alkaline Phosphatase 142 H (39-117) U/L Total Protein 10.4 H (6.5-8.0) g/dL Albumin 4.2 (3.5-5.0) g/dL Lipase 26 (8-78) U/L Influenza Type A (PCR) (Negative) Influenza Type B (PCR) (Negative) RSV RNA Qual (PCR) (Negative) SARS-CoV-2 RNA (RT-PCR) (Negative) 08/09/22 08/09/22 Range/Units 13:05 15:30 WBC (4.8-10.8) X10*3/uL RBC (4.20-5.50) X10*6/uL Hgb (12.0-16.0) g/dl Hct (37.0-47.0) % MCV (80.0-98.0) fL MCH (27.0-33.0) pg MCHC (31.0-35.0) g/dl RDW (11.0-16.0) % Plt Count (160-400) X10*3/uL MPV (9.4-12.3) fL Immature Gran % (Auto) (0.0-0.4) % Neut % (Auto) (45-73) % Lymph % (Auto) (20-40) % Harnett % (Auto) (2-11) % Eos % (Auto) (0-4) % Baso % (Auto) (0-2) % Lymph # (Auto) (1.2-4.9) X10*3/uL H[place]ett # (Auto) (0.1-1.2) X10*3/uL Eos # (Auto) (0.0-0.4) X10*3/uL Baso # (Auto) (0.0-0.2) X10*3/uL Abs Immat Gran (auto) (0.00-0.03) X10*3/uL Absolute Neuts (auto) (2.0-8.3) x10*3/uL Absolute Nucleated RBC (0.0-0.012) X10*3/uL Nucleated RBC % (auto) (0.0-0.2) /100WBC PT (10.0-13.1) SEC INR (0.9-1.1) Sodium (135-145) mmol/L Potassium (3.3-5.1) mmol/L Chloride (96-108) mmol/L Carbon Dioxide (22-29) mmol/L Anion Gap (12-20) BUN (9-16) mg/dL Creatinine (0.5-1.4) mg/dL Estim Creat Clear Calc Estimated GFR Random Glucose (60-115) mg/dL Lactic Acid 3.8 H* (0.5-2.0) mmol/L Calcium (8.4-10.2) mg/dL Magnesium (1.6-2.6) mg/dL Total Bilirubin (0.0-1.0) mg/dL AST (5-31) U/L ALT (0-31) U/L Alkaline Phosphatase (39-117) U/L Total Protein (6.5-8.0) g/dL Albumin (3.5-5.0) g/dL Lipase (8-78) U/L Influenza Type A (PCR) NEGATIVE (Negative) Influenza Type B (PCR) NEGATIVE (Negative) RSV RNA Qual (PCR) NEGATIVE (Negative) SARS-CoV-2 RNA (RT-PCR) NEGATIVE (Negative) <Willy Pepe MD - Last Filed: 08/09/22 18:01> Independent Interpretation I performed an independent interpretation of an: CT Scan (Abdomen and pelvis: Pending) <Shahnaz Calhoun MD - Last Filed: 08/09/22 15:46> Radiology Impression Discussion of test interpretation with radiology: I have reviewed the radiologist's reading. <Willy Pepe MD - Last Filed: 08/09/22 18:01> Radiologist Impression: CT abdomen pelvis wo IV con IMPRESSION: 1. Mild diverticulitis of the junction of the descending colon and sigmoid colon. 2. Hepatosplenomegaly. 3. Small nonobstructive bilateral renal stones. Fleischner guidelines were followed. Dictated By:Yobani Lott MDSigned By:<Electronically signed by Yobani Lott MD in [place]>08/09/22 1633 XR chest 1V IMPRESSION: No acute cardiopulmonary process. Dictated By:Cornelio Harrison MDSigned By:<Electronically signed by Cornelio Harrison MD in [place]>08/09/22 1631 <Willy Pepe MD - Last Filed: 08/09/22 18:01> Independent Historian Clinical information obtained from an independent historian. History obtained from or confirmed by: Other (History was obtained from the patient's 2 daughters were at the bedside) <Willy Pepe MD - Last Filed: 08/09/22 18:01> External Record Review External record reviewed: Inpatient record <Willy Pepe MD - Last Filed: 08/09/22 18:01> Medications Administered Discontinued Medications Generic Name Dose Route Start Last Admin Trade Name Freq PRN Reason Stop Dose Admin Sodium Chloride 1,000 mls @ 999 mls/hr 08/09/22 14:15 08/09/22 17:26 Ns IVCONT 08/09/22 15:15 Infused .Q1H1M CHRISTINA Infusion Sodium Chloride 1,000 mls @ 999 mls/hr 08/09/22 14:32 08/09/22 16:19 Ns IV 08/09/22 15:32 Infused .Q1H1M ONE Infusion Loperamide HCl 2 mg 08/09/22 14:31 08/09/22 14:51 Loperamide Hcl 2 Mg Capsule PO 08/09/22 14:32 2 mg ONCE ONE Administration Morphine Sulfate 2 mg 08/09/22 14:31 08/09/22 14:51 Morphine Sulfate 2 Mg/Ml Cartridge IVPUSH 08/09/22 14:32 2 mg ONCE ONE Administration Protocol Ondansetron HCl 4 mg 08/09/22 14:11 08/09/22 14:48 Ondansetron Odt 4 Mg Tab.Rapdis TRANSLINGU 08/09/22 14:12 Not Given ONCE ONE Ondansetron HCl 4 mg 08/09/22 14:31 08/09/22 14:51 Ondansetron Hcl 4 Mg/2 Ml Vial IVPUSH 08/09/22 14:32 4 mg ONCE ONE Administration <JEAN Alvarado - Last Filed: 08/09/22 12:50> Medications Administered Discontinued Medications Generic Name Dose Route Start Last Admin Trade Name Freq PRN Reason Stop Dose Admin Sodium Chloride 1,000 mls @ 999 mls/hr 08/09/22 14:15 08/09/22 17:26 Ns IVCONT 08/09/22 15:15 Infused .Q1H1M CHRISTINA Infusion Sodium Chloride 1,000 mls @ 999 mls/hr 08/09/22 14:32 08/09/22 16:19 Ns IV 08/09/22 15:32 Infused .Q1H1M ONE Infusion Loperamide HCl 2 mg 08/09/22 14:31 08/09/22 14:51 Loperamide Hcl 2 Mg Capsule PO 08/09/22 14:32 2 mg ONCE ONE Administration Morphine Sulfate 2 mg 08/09/22 14:31 08/09/22 14:51 Morphine Sulfate 2 Mg/Ml Cartridge IVPUSH 08/09/22 14:32 2 mg ONCE ONE Administration Protocol Ondansetron HCl 4 mg 08/09/22 14:11 08/09/22 14:48 Ondansetron Odt 4 Mg Tab.Rapdis TRANSLINGU 08/09/22 14:12 Not Given ONCE ONE Ondansetron HCl 4 mg 08/09/22 14:31 08/09/22 14:51 Ondansetron Hcl 4 Mg/2 Ml Vial IVPUSH 08/09/22 14:32 4 mg ONCE ONE Administration <Shahnaz Calhoun MD - Last Filed: 08/09/22 15:46> Medications Administered Discontinued Medications Generic Name Dose Route Start Last Admin Trade Name Freq PRN Reason Stop Dose Admin Sodium Chloride 1,000 mls @ 999 mls/hr 08/09/22 14:15 08/09/22 17:26 Ns IVCONT 08/09/22 15:15 Infused .Q1H1M CHRISTINA Infusion Sodium Chloride 1,000 mls @ 999 mls/hr 08/09/22 14:32 08/09/22 16:19 Ns IV 08/09/22 15:32 Infused .Q1H1M ONE Infusion Loperamide HCl 2 mg 08/09/22 14:31 08/09/22 14:51 Loperamide Hcl 2 Mg Capsule PO 08/09/22 14:32 2 mg ONCE ONE Administration Morphine Sulfate 2 mg 08/09/22 14:31 08/09/22 14:51 Morphine Sulfate 2 Mg/Ml Cartridge IVPUSH 08/09/22 14:32 2 mg ONCE ONE Administration Protocol Ondansetron HCl 4 mg 08/09/22 14:11 08/09/22 14:48 Ondansetron Odt 4 Mg Tab.Rapdis TRANSLINGU 08/09/22 14:12 Not Given ONCE ONE Ondansetron HCl 4 mg 08/09/22 14:31 08/09/22 14:51 Ondansetron Hcl 4 Mg/2 Ml Vial IVPUSH 08/09/22 14:32 4 mg ONCE ONE Administration <Willy Pepe MD - Last Filed: 08/09/22 18:01> Discharge Plan Discharge Prescriptions: No Action alendronate 70 mg tablet 1 tab PO QWEEK tramadol 50 mg tablet 1 - 2 tab PO TID PRN (Reason: pain) triamcinolone acetonide 0.1 % cream 1 appl topical BID benzonatate 100 mg capsule 1 cap PO TID PRN (Reason: cough) ferrous sulfate 325 mg (65 mg iron) tablet 1 tab PO Q OTHER DAY omeprazole 20 mg capsule,delayed release(DR/EC) 1 cap PO DAILY@0630 montelukast 10 mg tablet 1 tab PO BEDTIME albuterol sulfate 90 mcg/actuation HFA aerosol inhaler 2 puff INHALATION Q6H PRN (Reason: Wheezing) calcium carbonate-vitamin D3 600 mg-10 mcg (400 unit) tablet 1 tab PO DAILY Asmanex HFA 100 mcg/actuation HFA aerosol inhaler 2 puff INHALATION BID levofloxacin 750 mg tablet 750 mg PO DAILY 14 Days Qty: 14 0RF ibuprofen 800 mg tablet 1 tab PO TID loratadine 10 mg tablet 1 tab PO DAILY Enbrel SureClick 50 mg/mL (1 mL) pen injector 50 mg subcut QWEEK prednisone 10 mg tablet 10 mg PO DIRECTED <JEAN Alvarado - Last Filed: 08/09/22 12:50>
[2022-08-09 13:09] LABS: MANUAL DIFF FLAG NO
[2022-08-09 13:12] LABS: Basophils Percent Auto 0.4 % (0-2); Eosinophils Percent Auto 0.2 % (0-4); Hematocrit 48.5 % (37.0-47.0); Hemoglobin 15.3 g/dl (12.0-16.0); Imm Gran Abs Auto 0.01 X10*3/uL (0.00-0.03); Imm Gran Pct Auto 0.2 % (0.0-0.4); Lymphocytes Absolute Auto 1.4 X10*3/uL (1.2-4.9); Lymphocytes Percent Auto 28.1 % (20-40); Mean Corpuscular HGB Conc 31.5 g/dl (31.0-35.0); Mean Corpuscular Hemoglobin 23.7 pg (27.0-33.0); Mean Corpuscular Volume 75.1 fL (80.0-98.0); Mean Platelet Volume 8.3 fL (9.4-12.3); Monocytes Absolute Auto 0.5 X10*3/uL (0.1-1.2); Monocytes Percent Auto 9.7 % (2-11); Neutrophils Percent Auto 61.4 % (45-73); Platelet Count 276 X10*3/uL (160-400); Red Blood Count 6.46 X10*6/uL (4.20-5.50); Red Cell Distribution Width 19.7 % (11.0-16.0)
[2022-08-09 13:22] LABS: INTERNATIONAL NORM RATIO 0.9 (0.9-1.1); Prothrombin Time 10.3 SEC (10.0-13.1)
[2022-08-09 13:25] LABS: Alanine Aminotransferase 31 U/L (0-31); Albumin Level 4.2 g/dL (3.5-5.0); Alkaline Phosphatase 142 U/L (39-117); Anion Gap 16 (12-20); Aspartate Amino Transferase 38 U/L (5-31); Bilirubin Total 1.1 mg/dL (0.0-1.0); Blood Urea Nitrogen 18 mg/dL (9-16); Calcium 10.4 mg/dL (8.4-10.2); Carbon Dioxide 26 mmol/L (22-29); Chloride 105 mmol/L (96-108); Estimated Glomerular Filt Rate > 60; Glucose Random 122 mg/dL (60-115); Lipase 26 U/L (8-78); Magnesium 2.1 mg/dL (1.6-2.6); Potassium 3.8 mmol/L (3.3-5.1); Sodium 143 mmol/L (135-145); Total Protein 10.4 g/dL (6.5-8.0)
[2022-08-09 13:50] LABS: Influenza A PCR NEGATIVE (Negative); Influenza B PCR NEGATIVE (Negative); Resp Syncy Virus RNA Qual PCR NEGATIVE (Negative); SARS COV2 PCR INHOUSE NEGATIVE (Negative)
[2022-08-09 14:41] VITALS: TEMP 38.2
[2022-08-09] MEDS: 0.9 % Sodium Chloride 1,000 ML 999 ML IV (14:48)
[2022-08-09 14:51] VITALS: RESP 16
[2022-08-09] MEDS: Loperamide HCl 2 MG CAPSULE PO (14:51)
[2022-08-09] MEDS: ondansetron HCL 4 MG/2 ML VIAL IVPUSH (14:51)
[2022-08-09] MEDS: Morphine Sulfate 2 MG/ML CARTRIDGE IVPUSH (14:51)
[2022-08-09 14:57] VITALS: BP 145/78; PULSE 120; RESP 38
[2022-08-09 15:58] LABS: Lactic Acid 3.8 mmol/L (0.5-2.0)
[2022-08-09] MEDS: 0.9 % Sodium Chloride 1,000 ML 999 ML IVCONT (16:18)
[2022-08-09 16:44] VITALS: BP 127/75; PULSE 118; RESP 16; O2SAT 97
[2022-08-09 17:34] LABS: Reflex Lactate? Lactic Acid Added
[2022-08-09] MEDS: Piperacillin Sodium/Tazobactam 4.5 GM in 0.9 % Sodium Chloride 100 ML IV (18:18)
[2022-08-09] MEDS: Lactated Ringers 1,000 ML 150 ML IVCONT (18:22)
--- NOTE | 2022-08-09 18:43 | P.HPHOSP_ITS ---
History of Present Illness Date of Service: 08/09/22 Chief Complaint: abd pain A 67 years s old lady with PMH of RA on biological, Osteoporosis, asthma presents to ED with LLQ pain. The patient reports nausea, vomiting and diarriea that started earlier today. she had 10 bouts of vomiting. reports chills but no fever. denies any chest pain, palpitations, change in bowel habit, blood with stool or urinary symptoms. In ED a CT scan was consistent with Diverticulitis. started on Abx and admitted for further eval and treatment. Review of Systems Review of Systems: Yes all other systems are reviewed and are negative [facility] Medical History Asthma Kidney stones Neutropenia Rheumatoid arthritis Family History Sister Arthritis Hypercholesterolemia HTN (hypertension) Brother Pacemaker Colon cancer Family/Other Breast cancer Surgical History H/O left breast biopsy Social History Household Members: Significant Other Housing: House Are you a primary mall plant caretaker to a significant other at home: No Do you presently have visiting nurse or other home services: No Alcohol intake: never Patient Tobacco Use Status: Never used Tobacco Substance Use Type: Marijuana Advance Directives: No Advance Directives Information Provided: Yes Advance Directives on File: No service: No Current occupational status: employed Meds Allergies Allergy/AdvReac Type Severity Reaction Status Date / Time No Known Allergies Allergy Verified 06/21/22 09:05 [No Known Allergies*] Active Medications: Current Medications Acetaminophen (Acetaminophen 325 Mg Tablet) 650 mg PO Q6H PRN PRN Reason: Pain, Mild (Pain Scale 1-3) Enoxaparin Sodium (Enoxaparin Sodium 40 Mg/0.4 Ml Syringe) 40 mg SUBCUT Q24H SC H Lactated Ringer's (Lr) 1,000 mls @ 150 mls/hr IVCONT .Q6H40M CHRISTINA Last Admin: 08/09/22 18:22 Dose: 150 mls/hr Ceftriaxone Sodium 1 gm/ (Sodium Chloride) 50 mls @ 100 mls/hr IV Q24H [facility] Metronidazole (Flagyl) 500 mg in 100 mls @ 100 mls/hr IV Q8H [facility] Sodium Chloride (Sodium Chloride 0.45 %) 1,000 mls @ 100 mls/hr IVCONT .Q10H [facility] Pharmacy Consult (Consult Rx Perform Med Rec) 1 each MISCELLANE ONCE PRN PRN Reason: Consult order Sodium Chloride (0.9 % Sodium Chloride Flush 3 Ml Syringe) 3 ml IVFLUSH QSHIFT [facility] Home Medications Medication Instructions Recorded Confirmed Last Taken Type albuterol sulfate 90 mcg/actuation 2 puff inhalation Q6H PRN Wheezing 02/14/22 06/21/22 Unknown History aerosol inhaler alendronate 70 mg tablet 1 tab PO QWEEK 02/14/22 06/21/22 Unknown History ferrous sulfate 325 mg (65 mg 1 tab PO Q OTHER DAY anemia 02/14/22 06/21/22 Un known History iron) tablet mometasone 100 mcg/actuation HFA 2 puff inhalation BID 02/14/22 06/21/22 Unknown History aerosol inhaler (Asmanex HFA) montelukast 10 mg tablet 1 tab PO BEDTIME 02/14/22 06/21/22 Unknown History omeprazole 20 mg capsule,delayed 1 cap PO DAILY@0630 02/14/22 06/21/22 Unknown History release tramadol 50 mg tablet 1 - 2 tab PO TID PRN pain 02/14/22 06/21/22 Unknown History triamcinolone acetonide 0.1 % 1 appl topical BID 02/14/22 06/21/22 Unknown History topical cream etanercept 50 mg/mL (1 mL) 50 mg subcut QWEEK 03/04/22 06/21/22 Unknown History subcutaneous pen injector (Nneka Sheffield) ibuprofen 800 mg tablet 1 tab PO TID 03/04/22 06/21/22 Unknown History loratadine 10 mg tablet 1 tab PO DAILY 03/04/22 06/21/22 Unknown History prednisone 10 mg tablet 10 mg PO DIRECTED 06/21/22 06/21/22 Unknown History hydroxychloroquine 200 mg tablet 200 mg PO BID 08/09/22 Unknown History lidocaine 5 % topical patch 1 patch topical DAILY 08/09/22 Unknown History ondansetron HCl 4 mg tablet 4 mg PO Q8H PRN nausea/vomiting 08/09/22 Unknown History Physical Exam Vital Signs and Narrative: Vital Signs: Last Vital Signs Temp 100.8 F H 08/09/22 14:41 Pulse 118 H 08/09/22 16:44 Resp 16 08/09/22 16:44 BP 127/75 08/09/22 16:44 Pulse Ox 97 08/09/22 16:44 O2 Del Method Room Air 08/09/22 16:44 BMI result Body Mass Index 25.7 Const: Other: Constitutional : Awake, interactive, not in distress Neck : Normal inspection, Supple Cardiovascular : RRR, no JVP, no lower extremity edema Respiratory : good bilateral air entry, no crackles, wheezes or rhonchi Gastrointestinal: soft, lax, Normal bowel sounds, LLQ tenderness Skin : Warm, Dry Neurological : Alert & oriented x3, No focal deficit Results Labs 08/09/22 13:05 08/09/22 13:05 Labs: Laboratory Results - last 24 hr 08/09/22 08/09/22 08/09/22 13:05 13:05 13:05 MCV 75.1 L MCH 23.7 L MCHC 31.5 RDW 19.7 H Plt Count 276 D MPV 8.3 L Immature Gran % (Auto) 0.2 Neut % (Auto) 61.4 Lymph % (Auto) 28.1 [place] % (Auto) 9.7 Eos % (Auto) 0.2 Baso % (Auto) 0.4 Lymph # (Auto) 1.4 [place] # (Auto) 0.5 Eos # (Auto) 0.0 Baso # (Auto) 0.0 Abs Immat Gran (auto) 0.01 Absolute Neuts (auto) 3.0 Absolute Nucleated RBC 0.000 Nucleated RBC % (auto) 0.0 PT 10.3 INR 0.9 Anion Gap 16 Estim Creat Clear Calc 59.0 Estimated GFR > 60 Random Glucose 122 H Lactic Acid Calcium 10.4 H D Magnesium 2.1 Total Bilirubin 1.1 H AST 38 H ALT 31 Alkaline Phosphatase 142 H Total Protein 10.4 H Albumin 4.2 Lipase 26 Influenza Type A (PCR) Influenza Type B (PCR) RSV RNA Qual (PCR) SARS-CoV-2 RNA (RT-PCR) 08/09/22 08/09/22 13:05 15:30 MCV MCH MCHC RDW Plt Count MPV Immature Gran % (Auto) Neut % (Auto) Lymph % (Auto) [place] % (Auto) Eos % (Auto) Baso % (Auto) Lymph # (Auto) [place] # (Auto) Eos # (Auto) Baso # (Auto) Abs Immat Gran (auto) Absolute Neuts (auto) Absolute Nucleated RBC Nucleated RBC % (auto) PT INR Anion Gap Estim Creat Clear Calc Estimated GFR Random Glucose Lactic Acid 3.8 H* Calcium Magnesium Total Bilirubin AST ALT Alkaline Phosphatase Total Protein Albumin Lipase Influenza Type A (PCR) NEGATIVE Influenza Type B (PCR) NEGATIVE RSV RNA Qual (PCR) NEGATIVE SARS-CoV-2 RNA (RT-PCR) NEGATIVE Imaging Radiologist's Impressions: Impressions Abdomen/Pelvis CT 08/09/22 15:06 IMPRESSION: 1. Mild diverticulitis of the junction of the descending colon and sigmoid colon. 2. Hepatosplenomegaly. 3. Small nonobstructive bilateral renal stones. Fleischner guidelines were followed. Chest X-Ray 08/09/22 15:39 IMPRESSION: No acute cardiopulmonary process. Assessment and Plan (1) Acute diverticulitis: Status: Acute (2) Lactic acid acidosis: Status: Acute Plan A 41 years old male with PMh of IDDM, substance abuse on methadone, Hx OM post Lt BKA, Rt transmetatarsal amp who presents to the hospital with RLE pain and swelling. Acute diverticulitis confirmed by CT pending cultures Ceftriaxone and Flagyl clear diet IVF pain meds Lactic acidosis 2/2 dehydration not sepsis IVF asthma intermittent PRN albuterol RA home meds DVT PPx Lovenox The patient will need 2 overnight hospital stay for IV Abx pending improvement and final blood cultures Time Spent With Patient Time: Total time managing care of this patient today ____ minutes. Quality Stroke Does the patient have a stroke diagnosis?: No VTE Prior VTE?: No VTE Risk Level:: Medical - moderate - high VTE Device Contraindication: Treatment Not Indicated VTE Drug Contraindication: N/A - Med Ordered
--- NOTE | 2022-08-09 19:12 | PHA.MEDREC ---
Pharmacy Consult ? Medication Reconciliation Pharmacy has completed the medication reconciliation. Patient states she has not taken enbrel for >2 months due to low wbc count. She states that normally she is on plaquenil but stopped it at the discretion of her doctor when she started her steroid taper. On the taper she is currently on the 20mg per day portion which she splits to BID dosing. Omar
[2022-08-09] MEDS: Enoxaparin Sodium 40 MG/0.4 ML SYRINGE SUBCUT (19:35)
[2022-08-09] MEDS: metroNIDAZOLE/NS 500 MG/100 ML PIGGYBACK 100 MG IV (19:36)
[2022-08-09 21:32] VITALS: BP 108/57; PULSE 105; RESP 19; TEMP 36.7; O2SAT 98
[2022-08-09 21:55] LABS: Appearance Urine Clear; Color Urine Yellow; Glucose Urine UA Negative (Negative); Leukocyte Esterase Urine Negative (Negative); Nitrite Urine Negative (Negative); PH 6.5 (5.0-9.0); Urine Blood Negative (Negative); Urine Ketones Negative (Negative); Urine Protein Negative (Neg-Trace)
[2022-08-09] MEDS: cefTRIAXone sodium 1 GM in 0.9 % Sodium Chloride 50 ML IV (23:32)
[2022-08-09] MEDS: Acetaminophen 325 MG TABLET 650 MG PO (23:36)
--- NOTE | 2022-08-09 23:37 | PC.NURSE ---
medicated pt per mar.
[2022-08-10 00:12] VITALS: BMI 23.8
[2022-08-10 00:17] VITALS: BP 140/80; PULSE 88; RESP 16; TEMP 36.7; O2SAT 98
[2022-08-10] MEDS: 0.9 % Sodium Chloride Flush 3 ML SYRINGE IVFLUSH (00:30)
[2022-08-10] MEDS: Lactated Ringers 1,000 ML 150 ML IVCONT ×2 (01:43→09:14)
[2022-08-10] MEDS: metroNIDAZOLE/NS 500 MG/100 ML PIGGYBACK 100 MG IV ×2 (03:56→10:00)
[2022-08-10 06:25] LABS: Mean Corpuscular HGB Conc 31.5 g/dl (31.0-35.0); Mean Corpuscular Hemoglobin 23.7 pg (27.0-33.0); Mean Corpuscular Volume 75.2 fL (80.0-98.0); Mean Platelet Volume 8.9 fL (9.4-12.3); Platelet Count 163 X10*3/uL (160-400); Red Blood Count 4.48 X10*6/uL (4.20-5.50); Red Cell Distribution Width 18.6 % (11.0-16.0); White Blood Count 3.9 X10*3/uL (4.8-10.8)
[2022-08-10 06:36] LABS: Anion Gap 13 (12-20); Blood Urea Nitrogen 14 mg/dL (9-16); Calcium 8.7 mg/dL (8.4-10.2); Carbon Dioxide 19 mmol/L (22-29); Chloride 112 mmol/L (96-108); Creatinine Clr Calc Pharmacy 78.1; Estimated Glomerular Filt Rate > 60; Glucose Random 89 mg/dL (60-115); Potassium 4.1 mmol/L (3.3-5.1); Sodium 140 mmol/L (135-145)
[2022-08-10 07:36] VITALS: BP 127/78; PULSE 77; RESP 16; TEMP 36.6; O2SAT 98
[2022-08-10 07:48] LABS: Hematocrit 33.7 % (37.0-47.0); Hemoglobin 10.6 g/dl (12.0-16.0)
[2022-08-10] MEDS: Acetaminophen 325 MG TABLET 650 MG PO (09:14)
[2022-08-10] MEDS: Loratadine 10 MG TABLET PO (09:14)
[2022-08-10] MEDS: predniSONE 10 MG TABLET PO (10:00)
[2022-08-10 11:01] LABS: OBS Int Ctl Valid YES; OBS1 NEGATIVE (NEGATIVE)
[2022-08-10 11:31] LABS: CDiff Gene PCR NEGATIVE (Negative)
--- NOTE | 2022-08-10 13:03 | P.DS_ITS ---
DS: Providers Provider Date of Service: 08/10/22 Date of admission: 08/09/22 18:39 Primary care physician: Donna Landa MD DS: Diagnosis Discharge Diagnosis (1) Acute diverticulitis: Status: Acute (2) Lactic acid acidosis: Status: Acute DS: Summary Hospital Course Hospital Course: from initial hpi: 67 years s old lady with PMH of RA on biological, Osteoporosis, asthma presents to ED with LLQ pain. The patient reports nausea, vomiting and diarriea that started earlier today. she had 10 bouts of vomiting. reports chills but no fever. denies any chest pain, palpitations, change in bowel habit, blood with stool or urinary symptoms. In ED a CT scan was consistent with Diverticulitis. started on Abx and admitted for further eval and treatment. hospital course: Patient was admitted for acute diverticulitis. She was treated ceftriaxone and Flagyl and pain and improved. She was advanced to solids and tolerated well. A lactic acidosis with due to dehydration not sepsis. For mild intermittent asthma she has continue albuterol as needed. For history of rheumatoid arthritis she was continued on a prednisone taper. Patient is feeling better will be discharged home. Time Spent with Patient Time attestation: Total time managing care of this patient today ____ minutes. Discharge coordination time: Greater than 30 minutes Quality: Safe Use of Opioids Does Pt have an Active Cancer Diagnosis on the Problem List?: No Quality: Stroke Does the patient have a stroke diagnosis?: No Physical Exam Vital Signs: Vital Signs: Last Vital Signs Temp 97.8 F 08/10/22 07:36 Pulse 77 08/10/22 07:36 Resp 16 08/10/22 07:36 BP 127/78 08/10/22 07:36 Pulse Ox 98 08/10/22 07:36 O2 Del Method Room Air 08/10/22 07:36 BMI result Body Mass Index 23.8 General: AO X 3, no acute distress Resp: CTA bilateral, no accessory muscles used CVS: S1,S2,RRR GI: soft, non tender, non distended Neuro: motor grossly intact, alert Psych: appropriate affect, appropriate insight DS: Data Data Completed and Pending Completed studies during hospitalization [Text1]: Procedures Drainage of Left Kidney, Percutaneous Approach (02/14/22) Drainage of Spinal Canal, Percutaneous Approach, Diagnostic (02/14/22) Labs on day of discharge: Laboratory Results - last 24 hr 08/09/22 08/09/22 08/09/22 13:05 13:05 13:05 WBC 5.0 RBC 6.46 H D Hgb 15.3 D Hct 48.5 H D MCV 75.1 L MCH 23.7 L MCHC 31.5 RDW 19.7 H Plt Count 276 D MPV 8.3 L Immature Gran % (Auto) 0.2 Neut % (Auto) 61.4 Lymph % (Auto) 28.1 [place] % (Auto) 9.7 Eos % (Auto) 0.2 Baso % (Auto) 0.4 Lymph # (Auto) 1.4 [place] # (Auto) 0.5 Eos # (Auto) 0.0 Baso # (Auto) 0.0 Abs Immat Gran (auto) 0.01 Absolute Neuts (auto) 3.0 Absolute Nucleated RBC 0.000 Nucleated RBC % (auto) 0.0 PT 10.3 INR 0.9 Sodium 143 Potassium 3.8 Chloride 105 Carbon Dioxide 26 Anion Gap 16 BUN 18 H Creatinine 0.90 Estim Creat Clear Calc 59.0 Estimated GFR > 60 Random Glucose 122 H Lactic Acid Lactic Acid F/U @ 2Hr Calcium 10.4 H D Magnesium 2.1 Total Bilirubin 1.1 H AST 38 H ALT 31 Alkaline Phosphatase 142 H Total Protein 10.4 H Albumin 4.2 Lipase 26 Urine Color Urine Appearance Urine pH Ur Specific [place] Urine Protein Urine Glucose (UA) Urine Ketones Urine Blood Urine Nitrite Ur Leukocyte Esterase Stool Occult Blood C. difficile Tox B Gene Influenza Type A (PCR) Influenza Type B (PCR) RSV RNA Qual (PCR) SARS-CoV-2 RNA (RT-PCR) 08/09/22 08/09/22 08/09/22 13:05 15:30 18:07 WBC RBC Hgb Hct MCV MCH MCHC RDW Plt Count MPV Immature Gran % (Auto) Neut % (Auto) Lymph % (Auto) [place] % (Auto) Eos % (Auto) Baso % (Auto) Lymph # (Auto) [place] # (Auto) Eos # (Auto) Baso # (Auto) Abs Immat Gran (auto) Absolute Neuts (auto) Absolute Nucleated RBC Nucleated RBC % (auto) PT INR Sodium Potassium Chloride Carbon Dioxide Anion Gap BUN Creatinine Estim Creat Clear Calc Estimated GFR Random Glucose Lactic Acid 3.8 H* Lactic Acid F/U @ 2Hr 1.0 Calcium Magnesium Total Bilirubin AST ALT Alkaline Phosphatase Total Protein Albumin Lipase Urine Color Urine Appearance Urine pH Ur Specific [place] Urine Protein Urine Glucose (UA) Urine Ketones Urine Blood Urine Nitrite Ur Leukocyte Esterase Stool Occult Blood C. difficile Tox B Gene Influenza Type A (PCR) NEGATIVE Influenza Type B (PCR) NEGATIVE RSV RNA Qual (PCR) NEGATIVE SARS-CoV-2 RNA (RT-PCR) NEGATIVE 08/09/22 08/10/22 08/10/22 21:45 05:36 05:36 WBC 3.9 L RBC 4.48 D Hgb 10.6 L D Hct 33.7 L D MCV 75.2 L MCH 23.7 L MCHC 31.5 RDW 18.6 H Plt Count 163 D MPV 8.9 L Immature Gran % (Auto) Neut % (Auto) Lymph % (Auto) [place] % (Auto) Eos % (Auto) Baso % (Auto) Lymph # (Auto) [place] # (Auto) Eos # (Auto) Baso # (Auto) Abs Immat Gran (auto) Absolute Neuts (auto) Absolute Nucleated RBC 0.000 Nucleated RBC % (auto) 0.0 PT INR Sodium 140 Potassium 4.1 Chloride 112 H Carbon Dioxide 19 L Anion Gap 13 BUN 14 Creatinine 0.62 Estim Creat Clear Calc 78.1 Estimated GFR > 60 Random Glucose 89 Lactic Acid Lactic Acid F/U @ 2Hr Calcium 8.7 D Magnesium Total Bilirubin AST ALT Alkaline Phosphatase Total Protein Albumin Lipase Urine Color Yellow Urine Appearance Clear Urine pH 6.5 Ur Specific [place] 1.010 Urine Protein Negative Urine Glucose (UA) Negative Urine Ketones Negative Urine Blood Negative Urine Nitrite Negative Ur Leukocyte Esterase Negative Stool Occult Blood C. difficile Tox B Gene Influenza Type A (PCR) Influenza Type B (PCR) RSV RNA Qual (PCR) SARS-CoV-2 RNA (RT-PCR) 08/10/22 08/10/22 Unknown Unknown WBC RBC Hgb Hct MCV MCH MCHC RDW Plt Count MPV Immature Gran % (Auto) Neut % (Auto) Lymph % (Auto) [place] % (Auto) Eos % (Auto) Baso % (Auto) Lymph # (Auto) [place] # (Auto) Eos # (Auto) Baso # (Auto) Abs Immat Gran (auto) Absolute Neuts (auto) Absolute Nucleated RBC Nucleated RBC % (auto) PT INR Sodium Potassium Chloride Carbon Dioxide Anion Gap BUN Creatinine Estim Creat Clear Calc Estimated GFR Random Glucose Lactic Acid Lactic Acid F/U @ 2Hr Calcium Magnesium Total Bilirubin AST ALT Alkaline Phosphatase Total Protein Albumin Lipase Urine Color Urine Appearance Urine pH Ur Specific [place] Urine Protein Urine Glucose (UA) Urine Ketones Urine Blood Urine Nitrite Ur Leukocyte Esterase Stool Occult Blood NEGATIVE C. difficile Tox B Gene NEGATIVE Influenza Type A (PCR) Influenza Type B (PCR) RSV RNA Qual (PCR) SARS-CoV-2 RNA (RT-PCR) Discharge Plan Discharge Anticipated Discharge Date/Time: 08/10/22 12:57 Patient Disposition: Home, Self-Care Discharge Diagnosis: diverticulitis Referrals: Donna Landa MD [Primary Care Provider] - 1 Week Discharge Medications: New amoxicillin-pot clavulanate 875-125 mg tablet 1 tab PO Q12H Qty: 14 0RF Continued tramadol 50 mg tablet 100 mg PO BID PRN (Reason: pain) triamcinolone acetonide 0.1 % cream 1 appl topical BID ferrous sulfate 325 mg (65 mg iron) tablet 1 tab PO DAILY omeprazole 20 mg capsule,delayed release(DR/EC) 1 cap PO DAILY@0630 montelukast 10 mg tablet 1 tab PO BEDTIME albuterol sulfate 90 mcg/actuation HFA aerosol inhaler 2 puff INHALATION Q6H PRN (Reason: Wheezing) Asmanex HFA 100 mcg/actuation HFA aerosol inhaler 2 puff INHALATION BID loratadine 10 mg tablet 1 tab PO DAILY prednisone 10 mg tablet 10 mg PO BID ondansetron HCl 4 mg tablet 4 mg PO Q8H PRN (Reason: nausea/vomiting) lidocaine 5 % adhesive patch,medicated 1 patch topical DAILY tramadol 50 mg tablet 50 mg PO DAILY@1200 PRN (Reason: pain) Discontinued ibuprofen 800 mg tablet 1 tab PO TID PRN (Reason: Pain) Discharge Orders: Discharge Order (Routine); Ordered 08/10/22 Ordered By: Shen Vargas Diet: Advance to usual diet Activity on Discharge: As tolerated Stand Alone Forms: Patient Portal Discharge page Care Plan Goals: recovery Health Concerns: dvierticulits Plan of Treatment: augmentin Assessment: see above
--- NOTE | 2022-08-10 13:35 | MHC.CM.PN ---
pt is dcd she is independent cm intervention is not idicated
== END 2022-08-10 14:20 | disposition home or self-care (01) | DRG 244 ==
LOC: HO.ED 18:00 → HO.EDOVER 18:53 → HO.S3 21:05
PROVIDERS: Emergency Medicine; Physician Assistant Medical; Admitting Provider Student in an Organized Health Care Education/Training Program; Emergency Provider Emergency Medicine Emergency Medical Services; PCP General Practice; Visit Provider Internal Medicine
DX: K57.32 Diverticulitis of large intestine without perforation or abscess without bleeding (principal); E87.20 Acidosis, unspecified; M06.9 Rheumatoid arthritis, unspecified; E86.0 Dehydration; F11.20 Opioid dependence, uncomplicated; J45.20 Mild intermittent asthma, uncomplicated; Z20.822 Contact with and (suspected) exposure to COVID-19; Z89.512 Acquired absence of left leg below knee; Z89.431 Acquired absence of right foot; Z79.620 Long term (current) use of immunosuppressive biologic; Z79.899 Other long term (current) drug therapy
CPT/HCPCS: 0241U; 36415; 71045; 74176; 80048; 80053; 81003; 82272; 83605; 83690; 83735; 85025; 85027; 85610; 87040; 87493; 99285; J0696; J1650; J2270; J2405; J2543

== ENCOUNTER 2022-11-08 07:27 | Emergency (ER) | payer OTHER, SELFPAY ==
[2022-11-08 07:33] VITALS: BP 147/79; PULSE 109; RESP 19; TEMP 36.6; O2SAT 99; BMI 25.6
[2022-11-08 07:48] VITALS: BP 132/79; PULSE 97; RESP 20; TEMP 36.6; O2SAT 96
--- NOTE | 2022-11-08 07:55 | ED.ABDPAIN ---
HPI - Abdominal Pain General Chief Complaint: Abdominal Pain Stated Complaint: R Low Abdominal Pain Time Seen by Provider: 11/08/22 07:38 Source: patient Mode of arrival: ambulatory Limitations: no limitations History of Present Illness HPI narrative: 67 year old female with history of diverticulitis presenting today with N/V, diarrhea, and abdominal pain since 1700 last night after eating beef stew. Patient has been evaluated in this ED for the same presentation multiple times and treated for diverticulitis. No fever, chills, or urinary symptoms. Related Data Home Medications Medication Instructions Recorded Confirmed albuterol sulfate 90 mcg/actuation 2 puff inhalation Q6H PRN Wheezing 02/14/22 08/09/22 aerosol inhaler ferrous sulfate 325 mg (65 mg 1 tab PO DAILY anemia 02/14/22 08/09/22 iron) tablet mometasone 100 mcg/actuation HFA 2 puff inhalation BID 02/14/22 08/09/22 aerosol inhaler (Asmanex HFA) montelukast 10 mg tablet 1 tab PO BEDTIME 02/14/22 08/09/22 omeprazole 20 mg capsule,delayed 1 cap PO DAILY@0630 02/14/22 08/09/22 release tramadol 50 mg tablet 100 mg PO BID PRN pain 02/14/22 08/09/22 triamcinolone acetonide 0.1 % 1 appl topical BID 02/14/22 06/21/22 topical cream loratadine 10 mg tablet 1 tab PO DAILY 03/04/22 08/09/22 prednisone 10 mg tablet 10 mg PO BID 06/21/22 08/09/22 lidocaine 5 % topical patch 1 patch topical DAILY 08/09/22 08/09/22 ondansetron HCl 4 mg tablet 4 mg PO Q8H PRN nausea/vomiting 08/09/22 08/09/22 tramadol 50 mg tablet 50 mg PO DAILY@1200 PRN pain 08/09/22 08/09/22 Previous Rx's Medication Instructions Recorded amoxicillin 875 mg-potassium 1 tab PO Q12H #14 tabs 08/10/22 clavulanate 125 mg tablet amoxicillin 875 mg-potassium 1 tab PO BID #14 tabs 11/08/22 clavulanate 125 mg tablet ondansetron HCl 4 mg tablet 4 mg PO BEDTIME PRN nausea and 06/27/23 vomiting 5 days #20 tabs Allergies Allergy/AdvReac Type Severity Reaction Status Date / Time No Known Allergies Allergy Verified 11/08/22 07:32 [No Known Allergies*] Review of Systems Review of Systems Yes all other systems are reviewed and are negative [facility] Past Medical History Medical History Asthma Kidney stones Neutropenia Rheumatoid arthritis Surgical History H/O left breast biopsy Family History Family History Sister Arthritis Hypercholesterolemia HTN (hypertension) Brother Pacemaker Colon cancer Family/Other Breast cancer Social History Social History Household Members: None Housing: House Are you a primary respiratory care technician to a significant other at home: No Do you presently have visiting nurse or other home services: No Alcohol intake: former Patient Tobacco Use Status: Never used Tobacco Smoked in Last 30 Days: No Use of substances other than those prescribed or required for medical reasons: Yes Substance Use Type: Marijuana Substance Use Frequency: Occasionally Advance Directives: No service: No Current occupational status: employed Physical Exam ED Vital Signs: Vital Signs - 24 hr 11/08/22 07:33 11/08/22 07:48 11/08/22 09:03 Temperature 98 F 97.8 F 97.9 F Pulse Rate 109 H 97 96 Respiratory Rate 19 20 22 H Blood Pressure 147/79 H 132/79 159/85 H Pulse Oximetry 99 96 93 Oxygen Delivery Method Room Air Room Air Room Air 11/08/22 09:47 11/08/22 12:00 Temperature 97.8 F Pulse Rate 107 H 115 H Respiratory Rate 26 H 30 H Blood Pressure 161/84 H 131/75 Pulse Oximetry 97 96 Oxygen Delivery Method Room Air Room Air BMI result Body Mass Index 25.6 Const Other: very anxious, crying General: alert and awake Nutritional Appearance: average body habitus Orientation/consciousness: oriented to person and patient oriented x3 Limitations: no limitations HENMT Head: Yes normal to inspection Ears: external ears normal General nose exam: Normal external nose present Mouth: Normal oral and palatal mucosa present and oropharynx normal Throat: Yes posterior oropharynx normal Eyes General: appearance normal, both eyes and all related structures Neck Neck: Yes normal visual inspection Chest Chest palpation & inspection: normal inspection of the chest Resp Auscultation: clear to auscultation bilaterally Cardio Jugular venous distension: no JVD Rate: regular rate Rhythm: regular rhythm Heart sounds: S1 normal heart sound present and S2 normal heart sound present GI Other: diffusely soft, mildly tender to palpation of the lower abdomen Inspection: Yes normal to inspection Palpation (GI): Soft to palpation, nontender and No hepatosplenomegaly present Auscultation: normal bowel sounds General: Yes no CVA tenderness Back/Spine/Pelvis Back: no CVA tenderness Skin General skin exam: no rashes or lesions noted Neuro General: oriented to person and patient oriented x3 Cranial nerves: Yes CN's II-XII intact bilaterally Motor exam (neuro): 5/5 motor strength present throughout Extrem General: Yes normal to inspection Psych Appearance: grossly normal Course Reevaluation(s) Reevaluation #1: Patient with known diverticulitis presents with abd pain/ diarrhea. Labs significant for chronic LFT abdnormalities. No white count elevation. No fever. Patient given augmentin for likely diverticulitis. Patient is now calm. Abd soft. Will d/c. Time: 12:07 Medical Decision Making Differential Diagnosis Differential Diagnoses: The differential diagnosis associated with the presentation includes (diverticulitis, hepatitis, pancreatitis, gastroenteritis were all considered.) Admission/Observation Consideration of admission/observation: Escalation of care including admission/observation considered (In this 67 yo with severe abd pain and diarrhea, admission was considered) Lab Data MDM Lab Attestation statement: I reviewed the patient's lab results. (No WBC elevation, no LFT elevation) 11/08/22 08:14 11/08/22 08:14 Labs: Lab Results 11/08/22 11/08/22 Range/Units 08:14 08:14 WBC 4.3 L (4.8-10.8) X10*3/uL RBC 5.43 D (4.20-5.50) X10*6/uL Hgb 13.6 D (12.0-16.0) g/dl Hct 41.5 D (37.0-47.0) % MCV 76.4 L (80.0-98.0) fL MCH 25.0 L (27.0-33.0) pg MCHC 32.8 (31.0-35.0) g/dl RDW 19.4 H (11.0-16.0) % Plt Count 193 (160-400) X10*3/uL MPV 8.4 L (9.4-12.3) fL Immature Gran % (Auto) 0.2 (0.0-0.4) % Neut % (Auto) 53.4 (45-73) % Lymph % (Auto) 38.5 (20-40) % [place] % (Auto) 7.0 (2-11) % Eos % (Auto) 0.2 (0-4) % Baso % (Auto) 0.7 (0-2) % Lymph # (Auto) 1.7 (1.2-4.9) X10*3/uL [place] # (Auto) 0.3 (0.1-1.2) X10*3/uL Eos # (Auto) 0.0 (0.0-0.4) X10*3/uL Baso # (Auto) 0.0 (0.0-0.2) X10*3/uL Abs Immat Gran (auto) 0.01 (0.00-0.03) X10*3/uL Absolute Neuts (auto) 2.3 (2.0-8.3) x10*3/uL Absolute Nucleated RBC 0.000 (0.0-0.012) X10*3/uL Nucleated RBC % (auto) 0.0 (0.0-0.2) /100WBC Sodium 141 (135-145) mmol/L Potassium 3.2 L D (3.3-5.1) mmol/L Chloride 108 (96-108) mmol/L Carbon Dioxide 21 L (22-29) mmol/L Anion Gap 15 (12-20) BUN 17 H (9-16) mg/dL Creatinine 0.85 (0.5-1.4) mg/dL Estim Creat Clear Calc 62.3 Estimated GFR > 60 Random Glucose 115 (60-115) mg/dL Calcium 10.4 H D (8.4-10.2) mg/dL Magnesium 1.8 (1.6-2.6) mg/dL Total Bilirubin 1.4 H (0.0-1.0) mg/dL Direct Bilirubin 0.4 (0.0-0.5) mg/dL AST 31 (5-31) U/L ALT 25 (0-31) U/L Alkaline Phosphatase 165 H (39-117) U/L Total Protein 9.3 H (6.5-8.0) g/dL Albumin 4.1 (3.5-5.0) g/dL Independent Historian Clinical information obtained from an independent historian. History obtained from or confirmed by: Other (daughters) External Record Review External record reviewed: Outpatient record Tests considered The following testing was considered but not selected: Ct abd/pelvis was considered however patient afebrile, normal white count, soft abd, nonfocal, so CT was not performed. Chronic Conditions Patient?s care impacted by: Other (diverticulitis) Medications Administered Discontinued Medications Generic Name Dose Route Start Last Admin Trade Name Freq PRN Reason Stop Dose Admin Amoxicillin/Clavulanate Potassium 875 mg 11/08/22 08:44 11/08/22 08:55 Amoxicillin/Potassium Clav 875 Mg Tablet PO 11/08/22 08:45 875 mg ONCE ONE Administration Sodium Chloride 500 mls @ 250 mls/hr 11/08/22 08:00 11/08/22 08:56 Ns IVCONT 11/08/22 09:59 250 mls/hr .Q2H CHRISTINA Administration Lorazepam 2 mg 11/08/22 08:42 11/08/22 08:55 Lorazepam 2 Mg/Ml Vial IVPUSH 11/08/22 08:43 2 mg ONCE ONE Administration Morphine Sulfate 4 mg 11/08/22 08:43 11/08/22 08:55 Morphine Sulfate 4 Mg/Ml Cartridge IVPUSH 11/08/22 08:44 4 mg ONCE ONE Administration Protocol Ondansetron HCl 4 mg 11/08/22 07:56 11/08/22 08:55 Ondansetron Hcl 4 Mg/2 Ml Vial IVPUSH 11/08/22 07:57 4 mg ONCE ONE Administration Potassium Chloride 20 meq 11/08/22 08:44 11/08/22 08:56 Potassium Chloride Er 20 Meq Tab.Er.Prt PO 11/08/22 08:45 20 meq ONCE ONE Administration Discharge Plan Discharge Clinical Impression: Acute diverticulitis, Diarrhea Patient Disposition: Home, Self-Care Instructions: Diverticulitis (ED), Acute Diarrhea (ED) Additional Instructions: Clear liquid diet for 48 hours. Prescriptions: New ondansetron HCl 4 mg tablet 4 mg PO BEDTIME PRN (Reason: nausea and vomiting) 5 Days Qty: 20 0RF amoxicillin-pot clavulanate 875-125 mg tablet 1 tab PO BID Qty: 14 0RF No Action tramadol 50 mg tablet 100 mg PO BID PRN (Reason: pain) triamcinolone acetonide 0.1 % cream 1 appl topical BID ferrous sulfate 325 mg (65 mg iron) tablet 1 tab PO DAILY omeprazole 20 mg capsule,delayed release(DR/EC) 1 cap PO DAILY@0630 montelukast 10 mg tablet 1 tab PO BEDTIME albuterol sulfate 90 mcg/actuation HFA aerosol inhaler 2 puff INHALATION Q6H PRN (Reason: Wheezing) Asmanex HFA 100 mcg/actuation HFA aerosol inhaler 2 puff INHALATION BID loratadine 10 mg tablet 1 tab PO DAILY prednisone 10 mg tablet 10 mg PO BID ondansetron HCl 4 mg tablet 4 mg PO Q8H PRN (Reason: nausea/vomiting) lidocaine 5 % adhesive patch,medicated 1 patch topical DAILY tramadol 50 mg tablet 50 mg PO DAILY@1200 PRN (Reason: pain) amoxicillin-pot clavulanate 875-125 mg tablet 1 tab PO Q12H Qty: 14 0RF Referrals: Donna Landa MD [Primary Care Provider] - 3 days
--- NOTE | 2022-11-08 08:00 | PC.NURSE ---
in room doing initial assessment when provider walks in to ask questions, pt states that she is in excruciating pain and requesting pain killers, pt states that she can't hold her diarrhea in so commode placed bedside as well as emesis bag due to patient constantly throwing up, provider stepped out to give privacy, will go back in to finish assessment when pt finishes going to the bathroom.
[2022-11-08 08:19] LABS: MANUAL DIFF FLAG NO
[2022-11-08 08:21] LABS: Basophils Percent Auto 0.7 % (0-2); Eosinophils Percent Auto 0.2 % (0-4); Hematocrit 41.5 % (37.0-47.0); Hemoglobin 13.6 g/dl (12.0-16.0); Imm Gran Abs Auto 0.01 X10*3/uL (0.00-0.03); Imm Gran Pct Auto 0.2 % (0.0-0.4); Lymphocytes Absolute Auto 1.7 X10*3/uL (1.2-4.9); Lymphocytes Percent Auto 38.5 % (20-40); Mean Corpuscular HGB Conc 32.8 g/dl (31.0-35.0); Mean Corpuscular Volume 76.4 fL (80.0-98.0); Mean Platelet Volume 8.4 fL (9.4-12.3); Monocytes Absolute Auto 0.3 X10*3/uL (0.1-1.2); Neutrophils Absolute Auto 2.3 x10*3/uL (2.0-8.3); Neutrophils Percent Auto 53.4 % (45-73); Platelet Count 193 X10*3/uL (160-400); Red Blood Count 5.43 X10*6/uL (4.20-5.50); Red Cell Distribution Width 19.4 % (11.0-16.0); White Blood Count 4.3 X10*3/uL (4.8-10.8)
[2022-11-08 08:38] LABS: Alanine Aminotransferase 25 U/L (0-31); Albumin Level 4.1 g/dL (3.5-5.0); Alkaline Phosphatase 165 U/L (39-117); Anion Gap 15 (12-20); Aspartate Amino Transferase 31 U/L (5-31); Bilirubin Direct 0.4 mg/dL (0.0-0.5); Bilirubin Total 1.4 mg/dL (0.0-1.0); Blood Urea Nitrogen 17 mg/dL (9-16); Calcium 10.4 mg/dL (8.4-10.2); Carbon Dioxide 21 mmol/L (22-29); Chloride 108 mmol/L (96-108); Creatinine Clr Calc Pharmacy 62.3; Estimated Glomerular Filt Rate > 60; Glucose Random 115 mg/dL (60-115); Potassium 3.2 mmol/L (3.3-5.1); Sodium 141 mmol/L (135-145); Total Protein 9.3 g/dL (6.5-8.0)
--- NOTE | 2022-11-08 08:52 | PC.NURSE ---
PT UP TO COMMODE, HAVING MULTIPLE EPISODES OF DIARRHEA,VOMITING. PT NOTED TO BE MOTTLED AWARE.
[2022-11-08] MEDS: Morphine Sulfate 4 MG/ML CARTRIDGE IVPUSH (08:55)
[2022-11-08] MEDS: LORazepam 2 MG/ML VIAL IVPUSH (08:55)
[2022-11-08] MEDS: ondansetron HCL 4 MG/2 ML VIAL IVPUSH (08:55)
[2022-11-08] MEDS: Amoxicillin/Potassium Clav 875 MG TABLET PO (08:55)
[2022-11-08] MEDS: 0.9 % Sodium Chloride 500 ML 250 ML IVCONT (08:56)
[2022-11-08] MEDS: Potassium Chloride ER 20 MEQ TAB.ER.PRT PO (08:56)
[2022-11-08 09:03] VITALS: BP 159/85; PULSE 96; RESP 22; TEMP 36.6; O2SAT 93
--- NOTE | 2022-11-08 09:08 | PC.NURSE ---
Addendum entered by Sherrie Phoenix RN 11/08/22 09:13: pts skin noted to be mottled Original Note: patient a&ox3, c/o 10/ abd pain, pt family upset as patient hadnt been medicated- dr. danielson was notified requesting pain meds, upon pain meds being ordered they were administered- pts family apologized for being upset. patient has been getting oob to commode with diarrhea, patient placed on nuclear monitoring technician-nsr, vss, iv inserted labs drawn, as stated pt medicated per order- pt stated her pain reduced fro 10 to an 8. call roman within reach, will continue to monitor.
[2022-11-08 09:33] LABS: Magnesium 1.8 mg/dL (1.6-2.6)
[2022-11-08 09:47] VITALS: BP 161/84; PULSE 107; RESP 26; TEMP 36.6; O2SAT 97
--- NOTE | 2022-11-08 09:48 | PC.NURSE ---
pt's pain level reassessed stating 8/10 pain but starting to feel a little bit better, vital signs out of range - htn, tachy, tachypnea, pt resting with the lights dimmed and noise minimized showing no apparent distress, call roman placed within reach, will continue to monitor.
[2022-11-08 12:00] VITALS: BP 131/75; PULSE 115; RESP 30; O2SAT 96
--- NOTE | 2022-11-08 12:16 | PC.NURSE ---
pt reassessed stating no pain relief rating her pain at a 8/10, pt shows tachycardia and tachypneic on monitor, pt lying comfortably with noise minimized and lights dimmed, pt denies any vomting/diarrheal episodes, pt consuming ice chips, call roman within reach, will continue to monitor.
== END 2022-11-08 13:23 | disposition home or self-care (01) ==
PROVIDERS: Physician Assistant Medical; Emergency Provider Emergency Medicine; PCP General Practice
DX: K57.32 Diverticulitis of large intestine without perforation or abscess without bleeding (principal); R19.7 Diarrhea, unspecified; Z79.899 Other long term (current) drug therapy
CPT/HCPCS: 36415; 80048; 80076; 83735; 85025; 96361; 96374; 96375; 99284; J2060; J2270; J2405

== ENCOUNTER 2022-12-08 13:57 | Emergency (ER) | payer OTHER, SELFPAY ==
--- NOTE | ~2022-12-08 | CT_ITS ---
EXAMINATION: CT ABDOMEN AND PELVIS WITHOUT CONTRAST CLINICAL INFORMATION: Left lower quadrant pain question diverticulitis COMPARISON: CT abdomen and pelvis from 08/09/2022 TECHNIQUE: Multidetector volumetric imaging was performed from the superior aspect of the liver through the pubic symphysis. Sagittal and coronal reformatted images were obtained on the technologist's workstation. This CT examination was performed using dose optimization techniques as appropriate, variously including the following: *Automated exposure control *Adjustment of mA and/or kV according to patient size (this includes techniques or standardized protocols for targeted exams where dose is matched to indication/reason for exam; i.e. extremities or head) *Use of iterative reconstruction technique DLP: 442 mGy-cm FINDINGS: LUNG BASES: Bibasilar atelectasis versus scarring. No pneumothorax. LIVER, GALLBLADDER, AND BILIARY TREE: Liver is enlarged measuring up to 21.3 cm. No focal hepatic lesion or biliary ductal dilatation is present. The gallbladder is unremarkable with no evidence of radiopaque gallstones, gallbladder wall thickening, or obvious pericholecystic inflammatory changes. PANCREAS: Unremarkable. SPLEEN: Splenomegaly measuring up to 16.2 cm. A 8 mm splenule is noted. ADRENAL GLANDS: Unremarkable. KIDNEYS AND URETERS: Right-sided nephrolithiasis the largest in the lower pole measuring up to 5 mm without hydronephrosis. Left-sided nephrolithiasis the largest in the interpolar/upper pole region measuring up to 5 mm without hydronephrosis. BLADDER: Unremarkable. GASTROINTESTINAL TRACT: Colonic diverticulosis with slight pericolonic inflammatory changes and bowel wall thickening at the distal descending colon/sigmoid colon junction suggesting elements of diverticulitis. The small and large bowel are unremarkable. The appendix is unremarkable. ABDOMINAL WALL: No significant hernia is appreciated. LYMPH NODES: No enlarged lymph nodes per size criteria. A few mildly prominent though nonenlarged periaortic and aortocaval and portacaval lymph nodes are noted. VASCULAR: Abdominal aorta is nonaneurysmal. PELVIC VISCERA: Anteverted uterus with a few calcified uterine fibroids redemonstrated. OSSEOUS STRUCTURES: Osteopenia. Multilevel degenerative changes of the thoracolumbar lumbosacral spine. Sclerotic focus in the left femoral head nonspecific though statistically representing a bone island. CT/CT abdomen pelvis wo IV con IMPRESSION: 1. Colonic diverticulosis with slight pericolonic inflammatory changes and bowel wall thickening at the distal descending colon/sigmoid colon junction suggesting elements of diverticulitis. 2. Hepatomegaly measuring up to 21.3 cm. 3. Splenomegaly measuring up to 16.2 cm. 4. Bilateral nephrolithiasis without hydronephrosis. 5. Calcified uterine fibroids. 6. Osteopenia.
[2022-12-08 14:02] VITALS: BP 161/93; PULSE 100; O2SAT 98
[2022-12-08 14:07] VITALS: BP 154/81; PULSE 95; RESP 20; TEMP 36.6; O2SAT 98; BMI 25.9
[2022-12-08 15:45] VITALS: RESP 18
[2022-12-08] MEDS: Morphine Sulfate 4 MG/ML CARTRIDGE IVPUSH (15:45)
[2022-12-08] MEDS: ondansetron HCL 4 MG/2 ML VIAL IVPUSH (15:46)
[2022-12-08] MEDS: 0.9 % Sodium Chloride 1,000 ML 999 ML IV (15:46)
--- NOTE | 2022-12-08 15:47 | ED_ITS ---
HPI - Abdominal Pain General Chief Complaint: Abdominal Pain Stated Complaint: ABD PAIN,N/V/D Time Seen by Provider: 12/08/22 15:41 Source: patient History of Present Illness HPI narrative: Patient is 67 years old with history of rheumatoid arthritis on Enbrel, ne phrolithiasis, asthma, osteoporosis, history of diverticulitis in 08/04 comes here for increased abdominal pain since last night localized mostly to left lower quadrant with nausea and vomiting also having watery diarrhea Related Data Home Medications Medication Instructions Recorded Confirmed albuterol sulfate 90 mcg/actuation 2 puff inhalation Q6H PRN Wheezing 02/14/22 08/09/22 aerosol inhaler ferrous sulfate 325 mg (65 mg 1 tab PO DAILY anemia 02/14/22 08/09/22 iron) tablet mometasone 100 mcg/actuation HFA 2 puff inhalation BID 02/14/22 08/09/22 aerosol inhaler (Asmanex HFA) montelukast 10 mg tablet 1 tab PO BEDTIME 02/14/22 08/09/22 omeprazole 20 mg capsule,delayed 1 cap PO DAILY@0630 02/14/22 08/09/22 release tramadol 50 mg tablet 100 mg PO BID PRN pain 02/14/22 08/09/22 triamcinolone acetonide 0.1 % 1 appl topical BID 02/14/22 06/21/22 topical cream loratadine 10 mg tablet 1 tab PO DAILY 03/04/22 08/09/22 prednisone 10 mg tablet 10 mg PO BID 06/21/22 08/09/22 lidocaine 5 % topical patch 1 patch topical DAILY 08/09/22 08/09/22 ondansetron HCl 4 mg tablet 4 mg PO Q8H PRN nausea/vomiting 08/09/22 08/09/22 tramadol 50 mg tablet 50 mg PO DAILY@1200 PRN pain 08/09/22 08/09/22 Previous Rx's Medication Instructions Recorded amoxicillin 875 mg-potassium 1 tab PO Q12H #14 tabs 08/10/22 clavulanate 125 mg tablet amoxicillin 875 mg-potassium 1 tab PO BID #14 tabs 11/08/22 clavulanate 125 mg tablet ondansetron HCl 4 mg tablet 4 mg PO BEDTIME PRN nausea and 11/08/22 vomiting 5 days #20 tabs amoxicillin 875 mg-potassium 1 tab PO BID #20 tabs 12/08/22 clavulanate 125 mg tablet ondansetron 4 mg disintegrating 4 mg PO Q6-8H PRN nausea and 12/08/22 tablet vomiting #7 tabs Allergies Allergy/AdvReac Type Severity Reaction Status Date / Time No Known Allergies Allergy Verified 11/08/22 07:32 [No Known Allergies*] Review of Systems Review of Systems Yes all other systems are reviewed and are negative [facility] Past Medical History Medical History Asthma Kidney stones Neutropenia Rheumatoid arthritis Surgical History H/O left breast biopsy Family History Family History Sister Arthritis Hypercholesterolemia HTN (hypertension) Brother Pacemaker Colon cancer Family/Other Breast cancer Social History Social History Household Members: None Housing: House Are you a primary career placement services counselor to a significant other at home: No Do you presently have visiting nurse or other home services: No Alcohol intake: former Patient Tobacco Use Status: Never used Tobacco Smoked in Last 30 Days: No Use of substances other than those prescribed or required for medical reasons: No Substance Use Type: Marijuana Advance Directives: No service: No Current occupational status: employed Physical Exam ED Vital Signs: Vital Signs - 24 hr 12/08/22 14:07 12/08/22 15:45 12/08/22 17:20 Temperature 97.8 F 98.2 F Pulse Rate 95 88 Respiratory Rate 20 18 17 Blood Pressure 154/81 H 148/63 H Pulse Oximetry 98 97 Oxygen Delivery Method Room Air Room Air BMI result Body Mass Index 25.9 Appearance: Alert. Oriented X3. No acute distress. Eyes: PERRLA, No Nystagmus ENT: Pharynx normal. Oral Mucosa moist Neck: Normal inspection. Neck supple. CVS: Normal heart rate and rhythm. Pulses normal. Respiratory: No respiratory distress. Equal air entry bilateral, no wheezing/rales/rhonchi Abdomen: Soft and nontender. Bowel sounds are present, no mass palpable, no CVA tenderness Skin: Skin warm and dry. Normal skin color. Normal skin turgor. Extremities: No lower extremity edema. No calf tenderness Neuro: Oriented X 3. No motor deficit. No sensory deficit.No cerebellar signs , cranial nerves II-XII intact Medical Decision Making Medical Decision Making MDM Narrative: patient with uncomplicated diverticulitis feeling much better at this time was given IV Zosyn in the ER discharge patient home on Augmentin advised to follow up with PCP have clear liquids advanced slowly Differential Diagnosis Differential Diagnoses: The differential diagnosis associated with the presentation includes colitis/diverticulitis Lab Data MDM Lab Attestation statement: I reviewed the patient's lab results. 12/08/22 16:24 12/08/22 16:24 Labs: Lab Results 12/08/22 12/08/22 12/08/22 Range/Units 16:24 16:24 16:24 WBC 3.6 L (4.8-10.8) X10*3/uL RBC 4.48 (4.20-5.50) X10*6/uL Hgb 11.4 L (12.0-16.0) g/dl Hct 35.2 L (37.0-47.0) % MCV 78.6 L (80.0-98.0) fL MCH 25.4 L (27.0-33.0) pg MCHC 32.4 (31.0-35.0) g/dl RDW 17.8 H (11.0-16.0) % Plt Count 153 L (160-400) X10*3/uL MPV 8.6 L (9.4-12.3) fL Immature Gran % (Auto) 0.3 (0.0-0.4) % Neut % (Auto) 43.4 L (45-73) % Lymph % (Auto) 44.2 H (20-40) % [place] % (Auto) 11.5 H (2-11) % Eos % (Auto) 0.3 (0-4) % Baso % (Auto) 0.3 (0-2) % Lymph # (Auto) 1.6 (1.2-4.9) X10*3/uL [place] # (Auto) 0.4 (0.1-1.2) X10*3/uL Eos # (Auto) 0.0 (0.0-0.4) X10*3/uL Baso # (Auto) 0.0 (0.0-0.2) X10*3/uL Abs Immat Gran (auto) 0.01 (0.00-0.03) X10*3/uL Absolute Neuts (auto) 1.5 L (2.0-8.3) x10*3/uL Absolute Nucleated RBC 0.000 (0.0-0.012) X10*3/uL Nucleated RBC % (auto) 0.0 (0.0-0.2) /100WBC Sodium 140 (135-145) mmol/L Potassium 3.4 (3.3-5.1) mmol/L Chloride 111 H (96-108) mmol/L Carbon Dioxide 20 L (22-29) mmol/L Anion Gap 12 (12-20) BUN 10 (9-16) mg/dL Creatinine 0.68 (0.5-1.4) mg/dL Estim Creat Clear Calc 78.4 Estimated GFR > 60 Random Glucose 97 (60-115) mg/dL Lactic Acid 0.8 (0.5-2.0) mmol/L Calcium 9.1 D (8.4-10.2) mg/dL Total Bilirubin 0.8 (0.0-1.0) mg/dL Direct Bilirubin 0.3 (0.0-0.5) mg/dL AST 23 (5-31) U/L ALT 19 (0-31) U/L Alkaline Phosphatase 120 H (39-117) U/L Total Protein 7.9 (6.5-8.0) g/dL Albumin 3.4 L (3.5-5.0) g/dL Lipase 16 (8-78) U/L Urine Color Urine Appearance Urine pH (5.0-9.0) Ur Specific [place] (1.005-1.025) Urine Protein (Neg-Trace) mg/dL Urine Glucose (UA) (Negative) mg/dL Urine Ketones (Negative) mg/dL Urine Blood (Negative) Urine Nitrite (Negative) Ur Leukocyte Esterase (Negative) Urine RBC (0-2) /HPF Urine WBC (0-5) /HPF Ur Squamous Epith Cells (0-2) /HPF Urine Bacteria (None Seen) Hyaline Casts (0-2) /LPF 12/08/22 Range/Units 17:13 WBC (4.8-10.8) X10*3/uL RBC (4.20-5.50) X10*6/uL Hgb (12.0-16.0) g/dl Hct (37.0-47.0) % MCV (80.0-98.0) fL MCH (27.0-33.0) pg MCHC (31.0-35.0) g/dl RDW (11.0-16.0) % Plt Count (160-400) X10*3/uL MPV (9.4-12.3) fL Immature Gran % (Auto) (0.0-0.4) % Neut % (Auto) (45-73) % Lymph % (Auto) (20-40) % [place] % (Auto) (2-11) % Eos % (Auto) (0-4) % Baso % (Auto) (0-2) % Lymph # (Auto) (1.2-4.9) X10*3/uL [place] # (Auto) (0.1-1.2) X10*3/uL Eos # (Auto) (0.0-0.4) X10*3/uL Baso # (Auto) (0.0-0.2) X10*3/uL Abs Immat Gran (auto) (0.00-0.03) X10*3/uL Absolute Neuts (auto) (2.0-8.3) x10*3/uL Absolute Nucleated RBC (0.0-0.012) X10*3/uL Nucleated RBC % (auto) (0.0-0.2) /100WBC Sodium (135-145) mmol/L Potassium (3.3-5.1) mmol/L Chloride (96-108) mmol/L Carbon Dioxide (22-29) mmol/L Anion Gap (12-20) BUN (9-16) mg/dL Creatinine (0.5-1.4) mg/dL Estim Creat Clear Calc Estimated GFR Random Glucose (60-115) mg/dL Lactic Acid (0.5-2.0) mmol/L Calcium (8.4-10.2) mg/dL Total Bilirubin (0.0-1.0) mg/dL Direct Bilirubin (0.0-0.5) mg/dL AST (5-31) U/L ALT (0-31) U/L Alkaline Phosphatase (39-117) U/L Total Protein (6.5-8.0) g/dL Albumin (3.5-5.0) g/dL Lipase (8-78) U/L Urine Color Yellow Urine Appearance Clear Urine pH 6.0 (5.0-9.0) Ur Specific [place] 1.015 (1.005-1.025) Urine Protein Negative (Neg-Trace) mg/dL Urine Glucose (UA) Negative (Negative) mg/dL Urine Ketones Negative (Negative) mg/dL Urine Blood Negative (Negative) Urine Nitrite Negative (Negative) Ur Leukocyte Esterase Trace H (Negative) Urine RBC 0-2 (0-2) /HPF Urine WBC 0-5 (0-5) /HPF Ur Squamous Epith Cells 3-5 (0-2) /HPF Urine Bacteria None Seen (None Seen) Hyaline Casts 0-2 (0-2) /LPF Radiology Impression Discussion of test interpretation with radiology: I have reviewed the radiologist's reading. Radiologist Impression: [place] [id number] CT Scan Report Signed Patient: Jose Maravilla MR#: [id number] : 1955 Acct:[id number] Age/Sex: 67 / F ADM Date: 12/08/22 Loc: .ED Attending Dr: Ordering Physician: Rufino Emmanuel MD Date of Service: 12/08/22 Procedure(s): CT abdomen pelvis wo IV con Accession Number(s): [id number] cc: Rufino Emmanuel MD~ EXAMINATION: CT ABDOMEN AND PELVIS WITHOUT CONTRAST? CLINICAL INFORMATION: Left lower quadrant pain question diverticulitis? COMPARISON: CT abdomen and pelvis from 08/09/2022 TECHNIQUE: Multidetector volumetric imaging was performed from the superior aspect of the liver through the pubic symphysis. Sagittal and coronal reformatted images were obtained on the technologist's workstation.? This CT examination was performed using dose optimization techniques as appropriate, variously including the following: *Automated exposure control *Adjustment of mA and/or kV according to patient size (this includes techniques or standardized protocols for targeted exams where dose is matched to indication/reason for exam; i.e. extremities or head) *Use of iterative reconstruction technique DLP: 442 mGy-cm FINDINGS: LUNG BASES: Bibasilar atelectasis versus scarring. No pneumothorax.? LIVER, GALLBLADDER, AND BILIARY TREE: Liver is enlarged measuring up to 21.3 cm. No focal hepatic lesion or biliary ductal dilatation is present. The gallbladder is unremarkable with no evidence of radiopaque gallstones, gallbladder wall thickening, or obvious pericholecystic inflammatory changes.? PANCREAS: Unremarkable.? SPLEEN: Splenomegaly measuring up to 16.2 cm. A 8 mm splenule is noted. ? ADRENAL GLANDS: Unremarkable.? KIDNEYS AND URETERS: Right-sided nephrolithiasis the largest in the lower pole measuring up to 5 mm without hydronephrosis. Left-sided nephrolithiasis the largest in the interpolar/upper pole region measuring up to 5 mm without hydronephrosis.? BLADDER: Unremarkable.? GASTROINTESTINAL TRACT: Colonic diverticulosis with slight pericolonic inflammatory changes and bowel wall thickening at the distal descending colon/sigmoid colon junction suggesting elements of diverticulitis. The small and large bowel are unremarkable. The appendix is unremarkable.? ABDOMINAL WALL: No significant hernia is appreciated.? LYMPH NODES: No enlarged lymph nodes per size criteria. A few mildly prominent though nonenlarged periaortic and aortocaval and portacaval lymph nodes are noted. VASCULAR: Abdominal aorta is nonaneurysmal. PELVIC VISCERA: Anteverted uterus with a few calcified uterine fibroids redemonstrated.? OSSEOUS STRUCTURES: Osteopenia. Multilevel degenerative changes of the thoracolumbar lumbosacral spine. Sclerotic focus in the left femoral head nonspecific though statistically representing a bone island.? CT/CT abdomen pelvis wo IV con IMPRESSION: 1.? Colonic diverticulosis with slight pericolonic inflammatory changes and bowel wall thickening at the distal descending colon/sigmoid colon junction suggesting elements of diverticulitis. 2.? Hepatomegaly measuring up to 21.3 cm. 3.? Splenomegaly measuring up to 16.2 cm. 4.? Bilateral nephrolithiasis without hydronephrosis. 5.? Calcified uterine fibroids. 6.? Osteopenia. Medications Administered Discontinued Medications Generic Name Dose Route Start Last Admin Trade Name Freq PRN Reason Stop Dose Admin Sodium Chloride 1,000 mls @ 999 mls/hr 12/08/22 15:45 12/08/22 18:11 Ns IV 12/08/22 16:45 Infused .Q1H1M CHRISTINA Infusion Piperacillin Sod/Tazobactam 50 mls @ 100 mls/hr 12/08/22 18:00 12/08/22 18:10 Sod 3.375 gm/ Sodium Chloride IV 12/08/22 18:29 100 mls/hr ONCE ONE Administration Morphine Sulfate 4 mg 12/08/22 15:36 12/08/22 15:45 Morphine Sulfate 4 Mg/Ml Cartridge IVPUSH 12/08/22 15:37 4 mg ONCE ONE Administration Protocol Ondansetron HCl 4 mg 12/08/22 15:36 12/08/22 15:46 Ondansetron Hcl 4 Mg/2 Ml Vial IVPUSH 12/08/22 15:37 4 mg ONCE ONE Administration Discharge Plan Discharge Clinical Impression: Diverticulitis of descending colon Patient Disposition: Home, Self-Care Instructions: Diverticulitis (ED), Diverticulitis Diet (ED) Additional Instructions: Clear liquids advance slowly if pain improved Antibiotic as prescribed Follow-up with PCP Prescriptions: New amoxicillin-pot clavulanate 875-125 mg tablet 1 tab PO BID Qty: 20 0RF ondansetron 4 mg tablet,disintegrating 4 mg PO Q6-8H PRN (Reason: nausea and vomiting) Qty: 7 0RF No Action tramadol 50 mg tablet 100 mg PO BID PRN (Reason: pain) triamcinolone acetonide 0.1 % cream 1 appl topical BID ferrous sulfate 325 mg (65 mg iron) tablet 1 tab PO DAILY omeprazole 20 mg capsule,delayed release(DR/EC) 1 cap PO DAILY@0630 montelukast 10 mg tablet 1 tab PO BEDTIME albuterol sulfate 90 mcg/actuation HFA aerosol inhaler 2 puff INHALATION Q6H PRN (Reason: Wheezing) Asmanex HFA 100 mcg/actuation HFA aerosol inhaler 2 puff INHALATION BID loratadine 10 mg tablet 1 tab PO DAILY prednisone 10 mg tablet 10 mg PO BID ondansetron HCl 4 mg tablet 4 mg PO Q8H PRN (Reason: nausea/vomiting) lidocaine 5 % adhesive patch,medicated 1 patch topical DAILY tramadol 50 mg tablet 50 mg PO DAILY@1200 PRN (Reason: pain) amoxicillin-pot clavulanate 875-125 mg tablet 1 tab PO Q12H Qty: 14 0RF ondansetron HCl 4 mg tablet 4 mg PO BEDTIME PRN (Reason: nausea and vomiting) 5 Days Qty: 20 0RF amoxicillin-pot clavulanate 875-125 mg tablet 1 tab PO BID Qty: 14 0RF Interventions: ED Discharge Assessment Last Done: 12/08/22 19:04 Discharge Date/Time: 12/08/22 19:05
[2022-12-08 16:29] LABS: MANUAL DIFF FLAG NO
[2022-12-08 16:34] LABS: Basophils Percent Auto 0.3 % (0-2); Eosinophils Percent Auto 0.3 % (0-4); Hematocrit 35.2 % (37.0-47.0); Hemoglobin 11.4 g/dl (12.0-16.0); Imm Gran Abs Auto 0.01 X10*3/uL (0.00-0.03); Imm Gran Pct Auto 0.3 % (0.0-0.4); Lymphocytes Absolute Auto 1.6 X10*3/uL (1.2-4.9); Lymphocytes Percent Auto 44.2 % (20-40); Mean Corpuscular HGB Conc 32.4 g/dl (31.0-35.0); Mean Corpuscular Hemoglobin 25.4 pg (27.0-33.0); Mean Corpuscular Volume 78.6 fL (80.0-98.0); Mean Platelet Volume 8.6 fL (9.4-12.3); Monocytes Absolute Auto 0.4 X10*3/uL (0.1-1.2); Monocytes Percent Auto 11.5 % (2-11); Neutrophils Absolute Auto 1.5 x10*3/uL (2.0-8.3); Neutrophils Percent Auto 43.4 % (45-73); Platelet Count 153 X10*3/uL (160-400); Red Blood Count 4.48 X10*6/uL (4.20-5.50); Red Cell Distribution Width 17.8 % (11.0-16.0); White Blood Count 3.6 X10*3/uL (4.8-10.8)
[2022-12-08 16:45] LABS: Lactic Acid 0.8 mmol/L (0.5-2.0)
[2022-12-08 16:48] LABS: Alanine Aminotransferase 19 U/L (0-31); Albumin Level 3.4 g/dL (3.5-5.0); Alkaline Phosphatase 120 U/L (39-117); Anion Gap 12 (12-20); Aspartate Amino Transferase 23 U/L (5-31); Bilirubin Direct 0.3 mg/dL (0.0-0.5); Bilirubin Total 0.8 mg/dL (0.0-1.0); Blood Urea Nitrogen 10 mg/dL (9-16); Calcium 9.1 mg/dL (8.4-10.2); Carbon Dioxide 20 mmol/L (22-29); Chloride 111 mmol/L (96-108); Creatinine Clr Calc Pharmacy 78.4; Estimated Glomerular Filt Rate > 60; Glucose Random 97 mg/dL (60-115); Lipase 16 U/L (8-78); Potassium 3.4 mmol/L (3.3-5.1); Sodium 140 mmol/L (135-145); Total Protein 7.9 g/dL (6.5-8.0)
[2022-12-08 17:20] VITALS: BP 148/63; PULSE 88; RESP 17; TEMP 36.8; O2SAT 97
[2022-12-08 17:24] LABS: Appearance Urine Clear; Color Urine Yellow; Glucose Urine UA Negative (Negative); Leukocyte Esterase Urine Trace (Negative); Nitrite Urine Negative (Negative); Specific Gravity - Urine 1.015 (1.005-1.025); UMIC TRIGGER UACC YES; Urine Blood Negative (Negative); Urine Ketones Negative (Negative); Urine Protein Negative (Neg-Trace)
[2022-12-08 17:29] LABS: Bacteria Urine None Seen (None Seen); Hyaline Casts Urine 0-2 /LPF (0-2); RBC Urine 0-2 /HPF (0-2); WBC Urine 0-5 /HPF (0-5)
[2022-12-08] MEDS: Piperacillin Sodium/Tazobactam 3.375 GM in 0.9 % Sodium Chloride 50 ML IV (18:10)
== END 2022-12-08 19:05 | disposition home or self-care (01) ==
PROVIDERS: Nurse Practitioner Family; Emergency Provider Internal Medicine; PCP General Practice
DX: K57.32 Diverticulitis of large intestine without perforation or abscess without bleeding (principal); R10.32 Left lower quadrant pain; R11.2 Nausea with vomiting, unspecified; Z79.899 Other long term (current) drug therapy
CPT/HCPCS: 36415; 74176; 80048; 80076; 81001; 83605; 83690; 85025; 87040; 96361; 96374; 96375; 99284; J2270; J2405; J2543

== ENCOUNTER 2023-04-13 12:42 | Outpatient (REF) | payer OTHER, SELFPAY ==
[2023-04-13 16:06] LABS: Hematocrit 38.4 % (37.0-47.0); Hemoglobin 12.3 g/dl (12.0-16.0); Mean Corpuscular Hemoglobin 24.8 pg (27.0-33.0); Mean Corpuscular Volume 77.4 fL (80.0-98.0); Mean Platelet Volume 8.7 fL (9.4-12.3); Platelet Count 200 X10*3/uL (160-400); Red Blood Count 4.96 X10*6/uL (4.20-5.50); Red Cell Distribution Width 16.6 % (11.0-16.0); White Blood Count 3.4 X10*3/uL (4.8-10.8)
[2023-04-13 16:30] LABS: Anion Gap 12 (12-20); Blood Urea Nitrogen 9 mg/dL (9-16); Calcium 9.7 mg/dL (8.4-10.2); Carbon Dioxide 21 mmol/L (22-29); Chloride 107 mmol/L (96-108); Estimated Glomerular Filt Rate > 60; Glucose Random 106 mg/dL (60-115); Potassium 4.1 mmol/L (3.3-5.1); Sodium 136 mmol/L (135-145)
[2023-04-19 03:43] LABS: HPV 16 RNA NOT DETECTED (NOT DETECTED); HPV mRNA E6/E7 rflx Detected (Not Detected)
== END 2023-04-13 12:43 | disposition home or self-care (01) ==
LOC: HO.HHCL 12:42
PROVIDERS: PCP Advanced Practice Midwife; Visit Provider Internal Medicine
DX: Z12.4 Encounter for screening for malignant neoplasm of cervix (principal); Z11.51 Encounter for screening for human papillomavirus (HPV); N90.89 Other specified noninflammatory disorders of vulva and perineum; I16.0 Hypertensive urgency; R30.0 Dysuria
CPT/HCPCS: 36415; 80048; 85027; 87086; 87624; 87625; 88142

== ENCOUNTER 2023-05-24 11:52 | Outpatient (REF) | payer OTHER, SELFPAY | END 2023-05-24 11:53 | disposition home or self-care (01) | LOC: HO.MAMMO 11:52 | PROVIDERS: PCP General Practice; Visit Provider General Practice | DX: Z12.31 Encounter for screening mammogram for malignant neoplasm of breast (principal) | CPT/HCPCS: 77063; 77067 ==

== ENCOUNTER → 2023-05-24 12:30 | Outpatient (BNV) | payer OTHER, SELFPAY | PROVIDERS: PCP General Practice; Visit Provider Radiology Diagnostic Radiology | DX: Z12.31 Encounter for screening mammogram for malignant neoplasm of breast (principal) | CPT/HCPCS: 77063; 77067 ==

== ENCOUNTER 2023-08-17 13:42 | Outpatient (REF) | payer OTHER, SELFPAY ==
--- NOTE | ~2023-08-17 | XR_ITS ---
EXAMINATION: XR CHEST CLINICAL INFORMATION: 3 week history of productive cough COMPARISON: None available. TECHNIQUE: 2 views of the chest were obtained. FINDINGS: No significant abnormality is noted involving the heart, lungs, mediastinum, bony thorax or soft tissues. XR/XR chest 2V IMPRESSION: Unremarkable examination.
== END 2023-08-17 13:43 | disposition home or self-care (01) ==
LOC: HO.HHCX 13:42
PROVIDERS: Visit Provider Emergency Medicine
DX: J45.31 Mild persistent asthma with (acute) exacerbation (principal); R68.89 Other general symptoms and signs
CPT/HCPCS: 71046

== ENCOUNTER 2024-02-27 10:31 | Outpatient (REF) | payer OTHER, SELFPAY ==
--- NOTE | ~2024-02-27 | XR_ITS ---
EXAMINATION: XR KNEE LEFT 4 VIEWS CLINICAL INFORMATION: Pain in left knee (standing pain). COMPARISON: XR Left knee 05/20/2020 TECHNIQUE: Four views of the left knee. FINDINGS: There is mild tricompartmental osteoarthritis manifested by marginal osteophytes without joint space narrowing overall unchanged. No effusion. XR/XR knee LT 4V IMPRESSION: Mild osteoarthritis of the left knee unchanged. Electronically signed by: Ricardo Zimmer MD 04/30/2024 09:23 AM MICHEAL FOFANA
== END 2024-02-27 10:32 | disposition home or self-care (01) ==
LOC: HO.XRAY 10:31
PROVIDERS: PCP General Practice; Visit Provider Internal Medicine Rheumatology
DX: M25.562 Pain in left knee (principal)
CPT/HCPCS: 73564

== ENCOUNTER 2024-04-12 05:55 | Inpatient (IN) | payer OTHER, SELFPAY ==
--- NOTE | ~2024-04-12 | CT_ITS ---
EXAMINATION: CT ABDOMEN AND PELVIS WITH CONTRAST CLINICAL INFORMATION: Severe left lower quadrant pain. COMPARISON: CT scans dating between December 08, 2022 and June 06, 2010. TECHNIQUE: Multidetector volumetric images were obtained from the superior aspect of the liver through the pubic symphysis following administration 85 mL of Omnipaque 350 intravenous contrast. Sagittal and coronal reformatted images were obtained on the technologist's workstation. Oral contrast: No This CT examination was performed using dose optimization techniques as appropriate, variously including the following: *Automated exposure control *Adjustment of mA and/or kV according to patient size (this includes techniques or standardized protocols for targeted exams where dose is matched to indication/reason for exam; i.e. extremities or head) *Use of iterative reconstruction technique DLP: 541 mGy-cm FINDINGS: LUNG BASES: Mild bibasilar dependent atelectasis and/or fibrotic changes. No consolidation or pleural effusion identified. Heart normal in size. No pericardial effusion. LIVER, GALLBLADDER, AND BILIARY TREE: The liver measures approximately 19.5 cm in sagittal dimension. Appears unremarkable in shape and attenuation. No focal hepatic lesion or biliary ductal dilatation is appreciated. Unremarkable appearance of the gallbladder. PANCREAS: Unremarkable SPLEEN: Measures approximately 14 cm in sagittal dimension. No focal splenic mass identified. ADRENAL GLANDS: Unremarkable KIDNEYS AND URETERS: Normal variant ptotic right kidney. The kidneys otherwise appear unremarkable in size and shape. 0.6 cm left ureteral stones (image 57, axial series 3; image 55, coronal series 6) with associated mild left hydronephrosis, hydroureter, perinephric stranding, and delayed enhancement. 0.1 cm, nonobstructing right lower pole collecting system stone. No hydronephrosis or hydroureter appreciated on the right. The kidneys appear unremarkable in size, shape, and attenuation. No hydronephrosis, hydroureter, or calculi seen. BLADDER: Unremarkable GASTROINTESTINAL TRACT: Diverticulosis predominantly involving the sigmoid and descending colon. An approximately 2.3 cm diverticulum involving the proximal sigmoid colon contains inspissated material, possibly oral contrast . Normal-appearing appendix. Unremarkable appearance of the stomach and small bowel. Normal-appearing distal ileum. ABDOMINAL WALL: No significant hernia is appreciated. LYMPH NODES: No evidence of adenopathy by size criteria. VASCULAR: Unremarkable PELVIC VISCERA: 1.7 cm, partially calcified, degenerated, pedunculated leiomyoma involving the posterior aspect of the uterine fundus toward the right. OSSEOUS STRUCTURES: Cortical and trabecular thickening involving the left iliac bone, gradually worsening over the study prior 6 years. Mild osteoarthritis of the hips. CT/CT abdomen pelvis w IV con IMPRESSION: 0.6 cm left ureteral stones with associated mild left hydronephrosis, hydroureter, perinephric stranding, and delayed enhancement. Mild hepatosplenomegaly. 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 Additional findings as above. Electronically signed by: Bud Da Silva MD 04/12/2024 10:27 AM [facility]
--- NOTE | ~2024-04-12 | FL_ITS ---
EXAMINATION: FLUOROSCOPY GUIDANCE FOR NEEDLE PLACEMENT CLINICAL INFORMATION: Cysto Left Stent COMPARISON: CT abdomen and pelvis on 04/12/2024 TECHNIQUE: Fluoroscopy during ureteral stent placement. FINDINGS: Left ureteral stent placement FLUOROSCOPY TIME: 13.6 seconds DOSE AREA PRODUCT: 2 images FL/FL guidance in OR IMPRESSION: Fluoroscopy during ureteral stent placement. Please see operative report for additional information. Electronically signed by: Gabrielle Peña MD 04/14/2024 09:08 AM [facility]
[2024-04-12 05:59] VITALS: BP 156/81; PULSE 114; RESP 22; TEMP 37.1; O2SAT 99; BMI 32.5
[2024-04-12 06:19] LABS: Hemoglobin 13.4 g/dl (12.0-16.0); Mean Corpuscular HGB Conc 34.4 g/dl (31.0-35.0); Mean Corpuscular Hemoglobin 26.4 pg (27.0-33.0); Mean Corpuscular Volume 76.9 fL (80.0-98.0); Mean Platelet Volume 8.1 fL (9.4-12.3); Platelet Count 201 X10*3/uL (160-400); Red Blood Count 5.07 X10*6/uL (4.20-5.50); Red Cell Distribution Width 15.9 % (11.0-16.0)
[2024-04-12] MEDS: 0.9 % Sodium Chloride 1,000 ML 999 ML IV (06:26)
[2024-04-12] MEDS: ondansetron HCL 4 MG/2 ML VIAL IVPUSH ×3 (06:28→17:15)
[2024-04-12] MEDS: Morphine Sulfate 4 MG/ML CARTRIDGE IVPUSH (06:29)
[2024-04-12 06:36] LABS: Alanine Aminotransferase 26 U/L (0-31); Albumin Level 3.9 g/dL (3.5-5.0); Alkaline Phosphatase 125 U/L (39-117); Anion Gap 14 (12-20); Aspartate Amino Transferase 36 U/L (5-31); Bilirubin Total 1.1 mg/dL (0.0-1.0); Blood Urea Nitrogen 11 mg/dL (9-16); Calcium 9.5 mg/dL (8.4-10.2); Carbon Dioxide 18 mmol/L (22-29); Chloride 112 mmol/L (96-108); Creatinine Clr Calc Pharmacy 69.8; Estimated Glomerular Filt Rate > 60; Glucose Random 132 mg/dL (60-115); Lipase 17 U/L (8-78); Magnesium 1.9 mg/dL (1.6-2.6); Potassium 3.7 mmol/L (3.3-5.1); Sodium 140 mmol/L (135-145); Total Protein 8.4 g/dL (6.5-8.0)
--- NOTE | 2024-04-12 06:37 | ED.ABDPAIN ---
HPI - Abdominal Pain General Chief Complaint: Abdominal Pain Stated Complaint: left side pain Time Seen by Provider: 04/12/24 06:36 Source: patient Mode of arrival: ambulatory Limitations: no limitations History of Present Illness HPI narrative: Patient is a 69-year-old female presents emergency department for evaluation. She reports 03:00 sudden onset of severe left lower quadrant abdominal pain with associated nausea and dry heaving but no vomiting. Pain is described to be very sharp in nature. She is very anxious yelling out and crying. She does admit that she has been having urinary frequency. Denies fevers, chills, chest pain, vomiting, hematemesis, diarrhea, constipation, hematochezia, melena, dysuria, urinary urgency, hesitancy, hematuria, denies pelvic pain or abnormal vaginal discharge Related Data Home Medications ?Medication ?Instructions ?Recorded ?Confirmed albuterol sulfate 90 mcg/actuation 2 puff inhalation Q6H PRN Wheezing 02/14/22 04/12/24 aerosol inhaler ferrous sulfate 325 mg (65 mg 1 tab PO DAILY anemia 02/14/22 04/12/24 iron) tablet montelukast 10 mg tablet 1 tab PO BEDTIME 02/14/22 04/12/24 omeprazole 20 mg capsule,delayed 1 cap PO DAILY PRN Acid Reflux 02/14/22 04/12/24 release tramadol 50 mg tablet 100 mg PO BID PRN pain 02/14/22 04/12/24 triamcinolone acetonide 0.1 % 1 appl topical BID PRN Rash 02/14/22 04/12/24 topical cream loratadine 10 mg tablet 1 tab PO DAILY 03/04/22 04/12/24 prednisone 10 mg tablet 10 mg PO DAILY@0800 06/21/22 04/12/24 ondansetron HCl 4 mg tablet 4 mg PO Q8H PRN nausea/vomiting 08/09/22 04/12/24 diphenhydramine HCl 25 mg tablet 25 mg PO BEDTIME PRN itch 04/12/24 04/12/24 (Marilynn-Dryl) ibuprofen 800 mg tablet 800 mg PO TID PRN pain 04/12/24 04/12/24 tocilizumab 162 mg/0.9 mL 162 mg subcut TH 04/12/24 04/12/24 subcutaneous pen injector (Actemra ACTPen) Allergies Allergy/AdvReac Type Severity Reaction Status Date / Time No Known Allergies Allergy Verified 04/12/24 06:01 [No Known Allergies*] Review of Systems Review of Systems Yes all other systems are reviewed and are negative [facility] Past Medical History Attestation statement: The following information was validated with the patient. Source: old records reviewed Medical History Kidney stones Asthma Rheumatoid arthritis Neutropenia Surgical History H/O left breast biopsy Family History Family History Sister Arthritis Hypercholesterolemia HTN (hypertension) Brother Pacemaker Colon cancer Family/Other Breast cancer Social History Social History Household Members: None Housing: House Are you a primary child care centre director to a significant other at home: No Do you presently have visiting nurse or other home services: No Alcohol intake: former Patient Tobacco Use Status: Never used Tobacco Substance Use Type: Marijuana Advance Directives: No Advance Directives Information Provided: Yes service: No Current occupational status: employed Physical Exam ED Vital Signs: Vital Signs - 24 hr 04/12/24 05:59 04/12/24 09:54 04/12/24 10:41 Temperature 98.7 F 98.1 F Pulse Rate 114 H 96 Respiratory Rate 22 H 16 Blood Pressure 156/81 H 172/88 H 165/85 H Pulse Oximetry 99 95 Oxygen Delivery Method Room Air Room Air 04/12/24 10:58 Temperature Pulse Rate Respiratory Rate Blood Pressure 148/87 H Pulse Oximetry Oxygen Delivery Method BMI result Body Mass Index 32.5 Appearance: Alert.?Oriented to person, place and time. Yelling out in pain, crying Neck: Normal inspection.? Neck supple.?? CVS: Heart sounds normal. Tachycardic? Pulses normal.?? Respiratory: No respiratory distress.? Lung sounds clear to auscultation bilaterally?? Abdomen: Soft with left lower quadrant tenderness upon palpation No rebound tenderness at McBurney's point. Negative psoas sign. Negative Rovsing sign. Negative Gonzales sign. No CVAT. Normoactive bowel sounds. No pulsatile mass.?? Skin: Skin warm and dry.? Normal skin color.? Extremities: No lower extremity edema.? Neuro: Moves all extremities spontaneously. Sensation intact bilaterally. Ambulates with normal steady gait. Course Reevaluation(s) Reevaluation #1: At this time infection suspected, urinalysis positive nitrites, hematuria, bacteria. Blood cultures and lactic acid ordered, ceftriaxone IV ordered, she is afebrile, no leukocytosis, less far she has received 1 L normal saline IV fluid, she is not hypotensive, would defer full sepsis fluid bolus pending lactic acid. Sepsis alert, notified ANITHA Blake. Time: 08:07 Reevaluation #2: Prior urine cultures grew Klebsiella, ESBL negative, susceptible to ceftriaxone. My personal interpretation of CT abdomen pelvis is concerning for pyelonephrosis. Patient & family updated. CBC is without leukocytosis no she is immunosuppressed on biologics, no anemia or thrombocytopenia. No electrolyte derangement. No JOVAN. Elevated LFTs. Time: 08:27 Reevaluation #3: CT revealing a 6 mm left ureteral stone with mild left hydronephrosis, hydroureter and perinephric stranding and delayed enhancement. I have consulted with Dr. Astudillo, recommends admission to medicine service, she will require stenting. Time: 10:33 Medical Decision Making Medical Decision Making [facility] Narrative: Patient is a 69-year-old female with past medical history of kidney stones, diverticulitis, rheumatoid arthritis on biologics , prior left renal abscess drained by Interventional Radiology in February of 2022 who presents emergency department for evaluation of sudden onset severe left lower quadrant abdominal pain earlier this morning associated nausea but no vomiting. On evaluation she has left lower quadrant tenderness upon palpation, she is yelling out in pain tearful and crying. She is afebrile no hypotension. Will obtain CBC to evaluate for leukocytosis/ anemia, CMP and lipase to evaluate for abnormal electrolytes /abnormal renal function/ abnormal hepatic/biliary function, CT of the abdomen and pelvis, and Urinalysis. Patient to be medicated with 1 L normal saline IV fluid, Zofran IV for nausea, morphine IV for pain. Differential Diagnosis Differential Diagnoses: The differential diagnosis associated with the presentation includes (See narrative above and course narrative for further detail) Admission/Observation Consideration of admission/observation: Escalation of care including admission/observation considered (See narrative above ) Lab Data [facility] Lab Attestation statement: I reviewed the patient's lab results. 04/12/24 06:15 04/12/24 06:15 Labs: Lab Results 04/12/24 04/12/24 04/12/24 Range/Units 06:15 07:39 08:27 WBC 6.0 (4.8-10.8) X10*3/uL RBC 5.07 (4.20-5.50) X10*6/uL Hgb 13.4 (12.0-16.0) g/dl Hct 39.0 (37.0-47.0) % MCV 76.9 L (80.0-98.0) fL MCH 26.4 L (27.0-33.0) pg MCHC 34.4 (31.0-35.0) g/dl RDW 15.9 (11.0-16.0) % Plt Count 201 (160-400) X10*3/uL MPV 8.1 L (9.4-12.3) fL Absolute Nucleated RBC 0.000 (0.0-0.012) X10*3/uL Nucleated RBC % (auto) 0.0 (0.0-0.2) /100WBC Sodium 140 (135-145) mmol/L Potassium 3.7 (3.3-5.1) mmol/L Chloride 112 H (96-108) mmol/L Carbon Dioxide 18 L (22-29) mmol/L Anion Gap 14 (12-20) BUN 11 (9-16) mg/dL Creatinine 0.83 (0.5-1.4) mg/dL Estim Creat Clear Calc 69.8 Estimated GFR > 60 Random Glucose 132 H (60-115) mg/dL Lactic Acid 0.9 (0.5-2.0) mmol/L Calcium 9.5 (8.4-10.2) mg/dL Magnesium 1.9 (1.6-2.6) mg/dL Total Bilirubin 1.1 H (0.0-1.0) mg/dL AST 36 H (5-31) U/L ALT 26 (0-31) U/L Alkaline Phosphatase 125 H (39-117) U/L Total Protein 8.4 H (6.5-8.0) g/dL Albumin 3.9 (3.5-5.0) g/dL Lipase 17 (8-78) U/L Urine Color Yellow Urine Appearance Clear Urine pH 7.5 (5.0-9.0) Ur Specific [place] <= 1.005 (1.005-1.025) Urine Protein Trace (Neg-Trace) mg/dL Urine Glucose (UA) Negative (Negative) mg/dL Urine Ketones Negative (Negative) mg/dL Urine Blood Large (3+) H (Negative) Urine Nitrite Positive H (Negative) Ur Leukocyte Esterase Large (3+) H (Negative) Urine RBC 11-20 H (0-2) /HPF Urine WBC 21-50 H (0-5) /HPF Ur Squamous Epith Cells 0-2 (0-2) /HPF Urine Bacteria 4+ (None Seen) Hyaline Casts 0-2 (0-2) /LPF Radiology Impression Discussion of test interpretation with radiology: I have reviewed the radiologist's reading. Radiologist Impression: CT/CT abdomen pelvis w IV con IMPRESSION: 0.6 cm left ureteral stones with associated mild left hydronephrosis, hydroureter, perinephric stranding, and delayed enhancement. Mild hepatosplenomegaly. 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 Medications Administered Generic Name Dose Route Start Last Admin Trade Name Freq PRN Reason Stop Dose Admin Ferrous Sulfate 324 mg 04/12/24 14:15 04/12/24 14:23 Ferrous Sulfate 324 Mg Tablet.Dr PO 324 mg DAILY CHRISTINA Administration Hydromorphone HCl 0.5 mg 04/12/24 13:13 04/12/24 14:23 Hydromorphone Hcl 1 Mg/Ml Syringe IVPUSH 0.5 mg Q4H PRN Administration Pain, Severe (Pain Scale 7-10) Protocol Sodium Chloride 1,000 mls @ 100 mls/hr 04/12/24 13:30 04/12/24 14:14 Ns IVCONT 04/13/24 09:29 100 mls/hr .Q10H CHRISTINA Administration Loratadine 10 mg 04/12/24 14:05 04/12/24 14:23 Loratadine 10 Mg Tablet PO 10 mg DAILY CHRISTINA Administration Prednisone 10 mg 04/12/24 14:00 04/12/24 14:23 Prednisone 10 Mg Tablet PO 10 mg DAILY@0800 CHRISTINA Administration Discontinued Medications Generic Name Dose Route Start Last Admin Trade Name Freq PRShawn Reason Stop Dose Admin Ceftriaxone Sodium 1 gm 04/12/24 08:06 04/12/24 08:43 Ceftriaxone Sodium 1 Gm Vial IVPUSH 04/12/24 08:07 1 gm ONCE ONE Administration Hydromorphone HCl 0.5 mg 04/12/24 06:44 04/12/24 06:51 Hydromorphone Hcl 0.5 Mg/0.5 Ml Syringe IVPUSH 04/12/24 06:45 0.5 mg ONCE ONE Administration Protocol Hydromorphone HCl 0.5 mg 04/12/24 09:51 04/12/24 09:56 Hydromorphone Hcl 0.5 Mg/0.5 Ml Syringe IVPUSH 04/12/24 09:52 0.5 mg ONCE ONE Administration Protocol Sodium Chloride 1,000 mls @ 999 mls/hr 04/12/24 06:20 04/12/24 10:27 Ns IV 04/12/24 07:20 Infused .Q1H1M ONE Infusion Iohexol 100 ml 04/12/24 08:26 04/12/24 08:27 Iohexol 350 Mg/Ml 100 Ml Infus..Btl IV 04/12/24 08:27 85 ml ONCE ONE Administration Lorazepam 1 mg 04/12/24 07:15 04/12/24 07:20 Lorazepam 2 Mg/Ml Vial IVPUSH 04/12/24 07:16 1 mg ONCE ONE Administration Morphine Sulfate 4 mg 04/12/24 06:20 04/12/24 06:29 Morphine Sulfate 4 Mg/Ml Cartridge IVPUSH 04/12/24 06:21 4 mg ONCE ONE Administration Protocol Ondansetron HCl 4 mg 04/12/24 06:20 04/12/24 06:28 Ondansetron Hcl 4 Mg/2 Ml Vial IVPUSH 04/12/24 06:21 4 mg ONCE ONE Administration Ondansetron HCl 4 mg 04/12/24 09:25 04/12/24 09:28 Ondansetron Hcl 4 Mg/2 Ml Vial IVPUSH 04/12/24 09:26 4 mg ONCE ONE Administration Critical Care Time Critical Care Time Critical Care Time: Yes Total Critical Care Time: 45 Attestation: I personally attest to this critical care time spent taking care of the patient exclusive of all other billable procedures was approximately 45 minutes including initial evaluation of patient, ordering tests, CT interpretation, IV opioid analgesics and re-evaluation, EKG interpretation, medical consultation, documentation, re-evaluation. Discharge Plan Discharge Clinical Impression: Ureterolithiasis Patient Disposition: Admitted As Inpatient Interventions: Admission Worksheet (ED) Last Done: 04/12/24 14:51
[2024-04-12] MEDS: HYDROmorphone HCl 0.5 MG/0.5 ML SYRINGE IVPUSH ×2 (06:51→09:56)
[2024-04-12] MEDS: LORazepam 2 MG/ML VIAL 1 MG IVPUSH (07:20)
[2024-04-12 07:46] LABS: Appearance Urine Clear; Color Urine Yellow; Glucose Urine UA Negative (Negative); Leukocyte Esterase Urine Large (3+) (Negative); Nitrite Urine Positive (Negative); PH 7.5 (5.0-9.0); Specific Gravity - Urine <= 1.005 (1.005-1.025); UMIC TRIGGER UACC YES; Urine Blood Large (3+) (Negative); Urine Ketones Negative (Negative); Urine Protein Trace mg/dL (Neg-Trace)
[2024-04-12 07:51] LABS: Bacteria Urine 4+ (None Seen); Hyaline Casts Urine 0-2 /LPF (0-2); Squamous Epithelial Cell Urine 0-2 /HPF (0-2); UACC Culture Trigger YES; WBC Urine 21-50 /HPF (0-5)
[2024-04-12] MEDS: iohexoL 350 MG/ML 100 ML INFUS..BTL IV (08:27)
[2024-04-12] MEDS: cefTRIAXone sodium 1 GM VIAL IVPUSH (08:43)
[2024-04-12 08:52] LABS: Lactic Acid 0.9 mmol/L (0.5-2.0)
[2024-04-12 09:54] VITALS: BP 172/88; PULSE 96; RESP 16; TEMP 36.7; O2SAT 95
[2024-04-12 10:41] VITALS: BP 165/85
[2024-04-12 10:58] VITALS: BP 148/87
--- NOTE | 2024-04-12 11:43 | PM.IMHP ---
History of Present Illness Date of Service: 04/12/24 Attending physician on admission: Barney Eduardo Chief Complaint: LLQ abd pain Pt is a 69-year-old female with a PMH significant for?rheumatoid arthritis, moderate persistant asthma, kidney stones, diverticulitis, hx of left renal abscess in 2021, and GERD who presents to the ED for evaluation of left lower abdominal pain x1. Patient reports symptoms began last night at around 18:00 and were accompanied by nausea and ?gagging? but no vomiting. Patient also reports has been experiencing increased urinary frequency but denies dysuria. No fever, chills, or diarrhea. Denies chest pain/pressure, palpitations. No shortness a breath or difficulty breathing. Pain became increasingly severe and unbearable during the night which prompted ED visit. In the ED pt was tachycardic up to 114, tachypneic up to 22, and hypertensive up to 172/88. Labs were grossly unremarkable and around baseline for patient, including mild transaminitis with bilirubin 1.1, AST 36, and alk-phos 195. No leukocytosis. Stable H&H. No significant electrolyte abnormalities. Renal function around baseline. UA positive for UTI. CT?of abdomen/pelvis found 0.6 cm left ureteral stone associated with mild left hydronephrosis, hydroureter, perinephric stranding, and delayed enhancement. 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 Pt was treated with IVF, ondansetron, morphine, Ativan, hydromorphone, and ceftriaxone. ED clinician reached out to Urology who recommended patient being admitted to hospital under Medicine for treatment and further evaluation of acute UTI and hydronephrosis in the setting of ureterolithiasis requiring stenting. Review of Systems Review of Systems: Negative except for that which is stated in the [facility] Medical History Kidney stones Asthma Rheumatoid arthritis Neutropenia Family History Sister Arthritis Hypercholesterolemia HTN (hypertension) Brother Pacemaker Colon cancer Family/Other Breast cancer Surgical History H/O left breast biopsy Social History Household Members: None Housing: House Are you a primary life care planner to a significant other at home: No Do you presently have visiting nurse or other home services: No Alcohol intake: former Patient Tobacco Use Status: Never used Tobacco Substance Use Type: Marijuana Advance Directives: No Advance Directives Information Provided: Yes service: No Current occupational status: employed Meds Allergies Allergy/AdvReac Type Severity Reaction Status Date / Time No Known Allergies Allergy Verified 04/12/24 06:01 [No Known Allergies*] Home Medications ?Medication ?Instructions ?Recorded ?Confirmed ?Last Taken ?Type albuterol sulfate 90 mcg/actuation 2 puff inhalation Q6H PRN Wheezing 02/14/22 04/12/24 04/10/24 History aerosol inhaler ferrous sulfate 325 mg (65 mg 1 tab PO DAILY anemia 02/14/22 04/12/24 04/10/24 History iron) tablet montelukast 10 mg tablet 1 tab PO BEDTIME 02/14/22 04/12/24 04/10/24 History omeprazole 20 mg capsule,delayed 1 cap PO DAILY PRN Acid Reflux 02/14/22 04/12/24 04/10/24 History release tramadol 50 mg tablet 100 mg PO BID PRN pain 02/14/22 04/12/24 04/11/24 History triamcinolone acetonide 0.1 % 1 appl topical BID PRN Rash 02/14/22 04/12/24 04/10/24 History topical cream loratadine 10 mg tablet 1 tab PO DAILY 03/04/22 04/12/24 04/10/24 History prednisone 10 mg tablet 10 mg PO DAILY@0800 06/21/22 04/12/24 04/11/24 History ondansetron HCl 4 mg tablet 4 mg PO Q8H PRN nausea/vomiting 08/09/22 04/12/24 04/10/24 History diphenhydramine HCl 25 mg tablet 25 mg PO BEDTIME PRN itch 04/12/24 04/12/24 04/10/24 History (Marilynn-Dryl) ibuprofen 800 mg tablet 800 mg PO TID PRN pain 04/12/24 04/12/24 04/10/24 History tocilizumab 162 mg/0.9 mL 162 mg subcut TH 04/12/24 04/12/24 04/04/24 History subcutaneous pen injector (Actemra ACTPen) Physical Exam Vital Signs and Narrative: Vital Signs: Last Vital Signs Temp 98.1 F 04/12/24 09:54 Pulse 96 04/12/24 09:54 Resp 16 04/12/24 09:54 BP 148/87 H 04/12/24 10:58 Pulse Ox 95 04/12/24 09:54 O2 Del Method Room Air 04/12/24 09:54 BMI result Body Mass Index 32.5 General: AOx3, appears uncomfortable, no acute distress Resp: CTA bilaterally CVS: S1, S2, RRR GI: +BS, no distention, left-sided abd tenderness Skin: Warm, dry Neuro: Cranial nerves II-XII grossly intact bilaterally. Motor grossly intact bilaterally Extremities: No edema Psych: Appropriate affect Results Labs 04/12/24 06:15 04/12/24 06:15 Labs: Laboratory Results - last 24 hr 04/12/24 04/12/24 04/12/24 06:15 07:39 08:27 MCV 76.9 L MCH 26.4 L MCHC 34.4 RDW 15.9 Plt Count 201 MPV 8.1 L Absolute Nucleated RBC 0.000 Nucleated RBC % (auto) 0.0 Anion Gap 14 Estim Creat Clear Calc 69.8 Estimated GFR > 60 Random Glucose 132 H Lactic Acid 0.9 Calcium 9.5 Magnesium 1.9 Total Bilirubin 1.1 H AST 36 H ALT 26 Alkaline Phosphatase 125 H Total Protein 8.4 H Albumin 3.9 Lipase 17 Urine Color Yellow Urine Appearance Clear Urine pH 7.5 Ur Specific [place] <= 1.005 Urine Protein Trace Urine Glucose (UA) Negative Urine Ketones Negative Urine Blood Large (3+) H Urine Nitrite Positive H Ur Leukocyte Esterase Large (3+) H Urine RBC 11-20 H Urine WBC 21-50 H Ur Squamous Epith Cells 0-2 Urine Bacteria 4+ Hyaline Casts 0-2 Imaging Radiologist's Impressions: Impressions Abdomen/Pelvis CT 04/12/24 07:40 IMPRESSION: 0.6 cm left ureteral stones with associated mild left hydronephrosis, hydroureter, perinephric stranding, and delayed enhancement. Mild hepatosplenomegaly. 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 Additional findings as above. Electronically signed by: Bud Da Silva MD 04/12/2024 10:27 AM [facility] Assessment and Plan (1) Ureterolithiasis: Status: Acute Plan Pt is a 69-year-old female with a PMH significant for?rheumatoid arthritis, moderate persistant asthma, kidney stones, diverticulitis, hx of left renal abscess in 2021, and GERD who presents to the ED for evaluation of left lower abdominal pain x1. PT will be admitted to hospital under Medicine for treatment and further evaluation of acute UTI and hydronephrosis in the setting of ureterolithiasis requiring stenting. Left ureterolithiasis Patient with severe LLQ abdominal pain since last night CT of abdomen and pelvis found 0.6cm left ureteral stones with associated mild left hydronephrosis, hydroureter, perinephric standing, and delayed enhancement Analgesics for pain management Urology plans on stenting tomorrow NPO past midnight Acute UTI Patient with polyuria, UA positive No sepsis: Tachycardia and tachypnea secondary to pain; no fever or leukocytosis; lactic acid WNL Will treat with ceftriaxone, started 04/12/2024 Follow urine cultures Rheumatoid arthritis Continue prednisone ?Paget's disease CT of abdomen/pelvis found worsening cortical and trabecular thickening of left iliac bone, brain likely representing Paget's disease Follow-up outpatient with rheumatology Moderate persistent asthma Continue home inhalers monitoring GERD PPI Full Code Attending:?Dr. Eduardo DVT Prophylaxis: Pneumatic compression due to impending surgical intervention Pt will require a hospitalization of at least two nights for treatment of left ureterolithiasis involving 0.6cm stones requiring stenting. Quality Stroke Does the patient have a stroke diagnosis?: No VTE Prior VTE?: No VTE Risk Level:: Medical - moderate - high VTE Device Contraindication: N/A - Device Ordered VTE Drug Contraindication: Treatment Not Indicated
--- NOTE | 2024-04-12 12:13 | PHA.MEDREC ---
Pharmacy Consult ? Medication Reconciliation Pharmacy has completed the medication reconciliation. Confirmed medications with patient. Patient has her Albuterol Inhaler in her bag she brought from home. She confirmed she takes Omeprazole 20mg tabs and states she is taking them 1TIDWM as needed for Acid Reflux, and when I asked if it was only once daily with a meal like it is written in claims she stated shes been taking it like that for a while. She confirmed she is taking the Prednisone 10mg tab once daily with breakfast and she states she took it last yesterday. She confirmed she is taking a Tocilizumab injection once a week and states she takes it on but was not able to do it yesterday 04/11 due to not feeling well but she took it last 04/04. She states she took one of the Prednisone 10mg tab and 2 tabs of the Trazodone 50mg tabs yesterday morning and that was it, she claims she took everything else 2 days ago.
--- NOTE | 2024-04-12 12:24 | PHA.MEDREC ---
Addendum entered by Humza [place] [facility] 04/12/24 12:37: Med rec reviewed. Pt states she no longer takes lisinopril/hctz 20/25 mg, told to stop per pcp Original Note: Pharmacy Consult ? Medication Reconciliation Pharmacy has completed the medication reconciliation. Confirmed medications with patient. Patient has her Albuterol Inhaler in her bag she brought from home. She confirmed she takes Omeprazole 20mg tabs and states she is taking them 1 TIDWM as needed for Acid Reflux, and when I asked if it was only once daily with a meal like it is written in claims she stated shes doesn't always take it TID but if needed she will do it and she states shes been taking it like this for a while. She confirmed she is taking the Prednisone 10mg tab once daily with breakfast and she states she took it last yesterday. She confirmed she is taking a Tocilizumab injection once a week and states she takes it on but was not able to do it yesterday 04/11 due to not feeling well but she took it last 04/04. She states she took one of the Prednisone 10mg tab and 2 tabs of the Trazodone 50mg tabs yesterday morning and that was it, she claims she took everything else Monday.
[2024-04-12 14:10] VITALS: BP 164/86; PULSE 91; RESP 20; TEMP 36.9; O2SAT 96
[2024-04-12] MEDS: 0.9 % Sodium Chloride 1,000 ML 100 ML IVCONT ×2 (14:14→23:25)
[2024-04-12] MEDS: predniSONE 10 MG TABLET PO (14:23)
[2024-04-12] MEDS: HYDROmorphone HCl 1 MG/ML SYRINGE 0.5 MG IVPUSH (14:23)
[2024-04-12] MEDS: Loratadine 10 MG TABLET PO (14:23)
[2024-04-12] MEDS: Ferrous Sulfate 324 MG TABLET.DR PO (14:23)
[2024-04-12 16:50] VITALS: BP 148/80; PULSE 92; RESP 20; TEMP 36.6; O2SAT 96
[2024-04-12] MEDS: oxyCODONE HCl Immed Release 5 MG TABLET PO (16:57)
[2024-04-12] MEDS: Acetaminophen 325 MG TABLET 650 MG PO (16:58)
--- NOTE | 2024-04-12 19:28 | P.CNUR_ITS ---
History of Present Illness Consult details Consult date: 04/12/24 Narrative: CC: Left flank pain 69-year-old female. Past medical history significant for rheumatoid arthritis on immune modifying agents. History of left renal abscess 2021. Reports overnight symptoms of increasing urinary frequency and left lower abdominal pain. Denies fever, chills or dysuria. Pain reaching 10/10 and unresponsive to oral nonsteroidals. UA positive for blood and nitrites. Prior urinary tract infection with Klebsiella ampicillin resistant. Creatinine 0.83, WBC 6.0. Patient hypertensive and tachycardic at presentation to emergency room. This has come under control with administration of pain medication, IV fluids and antibiotics. Imaging - CT images reviewed personally - 0.6 cm left ureteral stones with associated mild left hydronephrosis, hydroureter, perinephric stranding, and delayed enhancement Based on imaging findings and urinary tract infection recommend admission with IV antibiotics for 24 hours followed by cystoscopy, left retrograde, left ureteroscopy with laser lithotripsy and stenting. The patient is agreeable to this plan Review of Systems 2 Constitutional: Constitutional: Reports as per HPI and Reports no additional constitutional complaints Cardiovascular: Cardiovascular: Reports as per HPI and Reports no additional cardiovascular complaints Respiratory: Respiratory: Reports as per HPI and Reports no additional respiratory complaints Gastrointestinal: Gastrointestinal: Reports as per HPI and Reports no additional gastrointestinal complaints Genitourinary: Genitourinary: Reports as per HPI Musculoskeletal: Musculoskeletal: Reports no additional musculoskeletal complaints and Reports as per HPI Neurologic: Reports system reviewed and no additional complaints, except as documented and Reports as per HPI [facility] Past Medical History Medical History Kidney stones Asthma Rheumatoid arthritis Neutropenia Family History Family History Sister Arthritis Hypercholesterolemia HTN (hypertension) Brother Pacemaker Colon cancer Family/Other Breast cancer Surgical History Surgical History H/O left breast biopsy Social History Social History Household Members: Children Housing: House Are you a primary child care director to a significant other at home: No Do you presently have visiting nurse or other home services: Yes (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 If so, by whom?: No Do you feel safe in your current relationship?: No Current Relationship Is there a partner from a previous relationship who is making you feel unsafe now?: No Are you made to feel afraid or neglected: No Advance Directives: No Advance Directives Information Provided: Yes Do you have a plan to hurt others: No Plan Recently lost weight without trying: No Nutrition Risks: No Nutritional Risk Patient : No : No Poor oral hygiene: No service: No Current occupational status: employed Meds Allergies Allergy/AdvReac Type Severity Reaction Status Date / Time No Known Allergies Allergy Verified 04/12/24 06:01 [No Known Allergies*] Active Medications: Current Medications Acetaminophen (Acetaminophen 325 Mg Tablet) 650 mg PO Q6H [facility] Last Admin: 04/12/24 17:21 Dose: Not Given Albuterol Sulfate (Albuterol Sulfate 90 Mcg 8 Gm Inhaler) 2 puff INHALE Q6H PRN PRN Reason: Wheezing Calcium Carbonate (Calcium Carbonate 750 Mg Tab.Chew) 750 mg PO Q4H PRN PRN Reason: Heartburn Ceftriaxone Sodium (Ceftriaxone Sodium 1 Gm Vial) 1 gm IVPUSH Q24H [facility] Diphenhydramine HCl (Diphenhydramine Hcl 25 Mg Capsule) 25 mg PO BEDTIME PRN PRN Reason: itch Docusate Sodium (Docusate Sodium 100 Mg Capsule) 100 mg PO BID [facility] Ferrous Sulfate (Ferrous Sulfate 324 Mg Tablet.) 324 mg PO DAILY [facility] Last Admin: 04/12/24 14:23 Dose: 324 mg Hydromorphone HCl (Hydromorphone Hcl 1 Mg/Ml Syringe) 1 mg IVPUSH Q4H PRN; Protocol PRN Reason: Pain, Severe (Pain Scale 7-10) Sodium Chloride (Ns) 1,000 mls @ 100 mls/hr IVCONT .Q10H [facility] Stop: 04/13/24 09:29 Last Admin: 04/12/24 14:14 Dose: 100 mls/hr Loratadine (Loratadine 10 Mg Tablet) 10 mg PO DAILY [facility] Last Admin: 04/12/24 14:23 Dose: 10 mg Magnesium Hydroxide (Milk Of Magnesia 30 Ml Oral.Susp) 30 ml PO DAILY PRN PRN Reason: Constipation Melatonin (Melatonin 3 Mg Tablet) 6 mg PO BEDTIME PRN PRN Reason: Insomnia Montelukast Sodium (Montelukast Sodium 10 Mg Tablet) 10 mg PO BEDTIME [facility] Omeprazole (Omeprazole 20 Mg Capsule.Dr) 20 mg PO DAILY PRN PRN Reason: Acid Reflux Ondansetron HCl (Ondansetron Hcl 4 Mg/2 Ml Vial) 4 mg IVPUSH Q8H PRN PRN Reason: Nausea and Vomiting Last Admin: 04/12/24 17:15 Dose: 4 mg Oxycodone HCl (Oxycodone Hcl Immed Release 5 Mg Tablet) 5 mg PO Q6H PRN PRN Reason: Pain, Moderate(Pain Scale 4-6) Last Admin: 04/12/24 16:57 Dose: 5 mg Polyethylene Glycol (Polyethylene Glycol 3350 17 Gm Powd.Pack) 17 gm PO DAILY [facility] Prednisone (Prednisone 10 Mg Tablet) 10 mg PO DAILY@0800 [facility] Last Admin: 04/12/24 14:23 Dose: 10 mg Sodium Chloride (0.9 % Sodium Chloride Flush 3 Ml Syringe) 3 ml IVFLUSH QSHIFT [facility] Last Admin: 04/12/24 16:53 Dose: Not Given Home Medications ?Medication ?Instructions ?Recorded ?Confirmed ?Last Taken ?Type albuterol sulfate 90 mcg/actuation 2 puff inhalation Q6H PRN Wheezing 02/14/22 04/12/24 04/10/24 History aerosol inhaler ferrous sulfate 325 mg (65 mg 1 tab PO DAILY anemia 02/14/22 04/12/24 04/10/24 History iron) tablet montelukast 10 mg tablet 1 tab PO BEDTIME 02/14/22 04/12/24 04/10/24 History omeprazole 20 mg capsule,delayed 1 cap PO DAILY PRN Acid Reflux 02/14/22 04/12/24 04/10/24 History release tramadol 50 mg tablet 100 mg PO BID PRN pain 02/14/22 04/12/24 04/11/24 History triamcinolone acetonide 0.1 % 1 appl topical BID PRN Rash 02/14/22 04/12/24 04/10/24 History topical cream loratadine 10 mg tablet 1 tab PO DAILY 03/04/22 04/12/24 04/10/24 History prednisone 10 mg tablet 10 mg PO DAILY@0800 06/21/22 04/12/24 04/11/24 History ondansetron HCl 4 mg tablet 4 mg PO Q8H PRN nausea/vomiting 08/09/22 04/12/24 04/10/24 History diphenhydramine HCl 25 mg tablet 25 mg PO BEDTIME PRN itch 04/12/24 04/12/24 04/10/24 History (Marilynn-Dryl) ibuprofen 800 mg tablet 800 mg PO TID PRN pain 04/12/24 04/12/24 04/10/24 History tocilizumab 162 mg/0.9 mL 162 mg subcut TH 04/12/24 04/12/24 04/04/24 History subcutaneous pen injector (Actemra ACTPen) Physical Exam 2 Vital Signs: Vital Signs: Last Vital Signs Temp 98 F 04/12/24 16:50 Pulse 92 04/12/24 16:50 Resp 20 04/12/24 16:50 BP 148/80 H 04/12/24 16:50 Pulse Ox 96 04/12/24 16:50 O2 Del Method Room Air 04/12/24 16:50 BMI result Body Mass Index 32.5 Const: General: cooperative, healthy appearing, comfortable and no acute distress Orientation/consciousness: patient oriented x3 HEENT: Face and sinus: Yes normal facial exam Mouth: moist mucous membranes Neck: Neck: Yes normal visual inspection, Yes full ROM and Yes trachea midline Chest: Chest palpation & inspection: normal inspection of the chest Resp: Effort & Inspection: normal respiratory effort, able to speak in complete sentences and no respiratory distress GI: Inspection: Yes normal to inspection Back/Spine/Pelvis: Cervical Spine: normal cervical lordosis Thoracic/Lumbar Spine: thoracic and lumbar spine normal to inspection Skin: General skin exam: no rashes or lesions noted Neuro: General: patient oriented x3, tone normal and moves all extremities Extrem: General: Yes normal to inspection and Yes capillary refill normal Results Labs 04/12/24 06:15 04/12/24 06:15 Labs: Abnormal lab results 04/12/24 04/12/24 Range/Units 06:15 07:39 MCV 76.9 L (80.0-98.0) fL MCH 26.4 L (27.0-33.0) pg MPV 8.1 L (9.4-12.3) fL Chloride 112 H (96-108) mmol/L Carbon Dioxide 18 L (22-29) mmol/L Random Glucose 132 H (60-115) mg/dL Total Bilirubin 1.1 H (0.0-1.0) mg/dL AST 36 H (5-31) U/L Alkaline Phosphatase 125 H (39-117) U/L Total Protein 8.4 H (6.5-8.0) g/dL Urine Blood Large (3+) H (Negative) Urine Nitrite Positive H (Negative) Ur Leukocyte Esterase Large (3+) H (Negative) Urine RBC 11-20 H (0-2) /HPF Urine WBC 21-50 H (0-5) /HPF Short CBC 04/12/24 Range/Units 06:15 WBC 6.0 (4.8-10.8) X10*3/uL Hgb 13.4 (12.0-16.0) g/dl Hct 39.0 (37.0-47.0) % Plt Count 201 (160-400) X10*3/uL BMP 04/12/24 06:15 Sodium 140 Potassium 3.7 Chloride 112 H Carbon Dioxide 18 L BUN 11 Creatinine 0.83 Calcium 9.5 Liver Function 04/12/24 Range/Units 06:15 Total Bilirubin 1.1 H (0.0-1.0) mg/dL AST 36 H (5-31) U/L ALT 26 (0-31) U/L Alkaline Phosphatase 125 H (39-117) U/L Albumin 3.9 (3.5-5.0) g/dL Urine 04/12/24 Range/Units 07:39 Urine Color Yellow Urine Appearance Clear Urine pH 7.5 (5.0-9.0) Ur Specific [place] <= 1.005 (1.005-1.025) Urine Protein Trace (Neg-Trace) mg/dL Urine Glucose (UA) Negative (Negative) mg/dL All other labs normal. Assessment and Plan (1) UTI (urinary tract infection): Status: Acute (2) Ureterolithiasis: Status: Acute Plan Ureteroscopy We discussed the nature of the decision and reasonable alternatives for performing ureteroscopy. Options such as medical therapy were discussed. Interventions include chemical dissolution, ESWL, ureteroscopy with laser lithotripsy and stent placement, PCNL. The relative uncertainties and benefits related to each alternate procedure were adequately discussed. General surgical risks including, but not limited to - pain, bleeding, infection, myocardial infarction, pulmonary embolus, deep vein thrombosis and cerebrovascular accident which may result in further hospitalization were discussed. Full disclosure of the procedure as well as all major risks, benefits and complications were discussed including but not limited to damage to the urethra, bladder and kidney infection, damage to the ureter, stent migration or malposition, scarring to the renal pelvis, remnant stone fragments, subsequent stone passage with need for secondary procedures. The overall secondary procedure rate is approximately 10-15%. The overall clearance rate is approximately 90-95%. Success of the procedure in the short-term does not necessarily guarantee that long-term success will be maintained. Suitable follow up will need to be maintained. The patient showed understanding of discussion and wishes to proceed with - cystoscopy, retrograde, ureteroscopy, possible lithotripsy/stone basketing and stent on the left side Procedures Date of Service Date of Service: 04/12/24
[2024-04-12] MEDS: HYDROmorphone HCl 1 MG/ML SYRINGE IVPUSH (21:05)
[2024-04-12] MEDS: Docusate Sodium 100 MG CAPSULE PO (21:06)
[2024-04-12] MEDS: Montelukast Sodium 10 MG TABLET PO (21:06)
[2024-04-13] VITALS (13 sets, daily range): BP systolic 114–190; BP diastolic 65–90; PULSE 70–111; RESP 16–20; TEMP 36–37.7; O2SAT 96–100
[2024-04-13] MEDS: Acetaminophen 325 MG TABLET 650 MG PO ×3 (04:23→23:47)
[2024-04-13 06:29] LABS: Anion Gap 11 (12-20); Blood Urea Nitrogen 9 mg/dL (9-16); Calcium 8.7 mg/dL (8.4-10.2); Carbon Dioxide 20 mmol/L (22-29); Chloride 114 mmol/L (96-108); Creatinine Clr Calc Pharmacy 75.2; Estimated Glomerular Filt Rate > 60; Glucose Random 114 mg/dL (60-115); Potassium 3.4 mmol/L (3.3-5.1); Sodium 142 mmol/L (135-145)
[2024-04-13] MEDS: cefTRIAXone sodium 1 GM VIAL IVPUSH (08:21)
[2024-04-13] MEDS: HYDROmorphone HCl 1 MG/ML SYRINGE IVPUSH ×2 (08:22→15:23)
--- NOTE | 2024-04-13 08:55 | HO.ANESPROP2 ---
HPI - Anesthesia Eval Consult details Narrative: Left ureter stone PMFSH Active Problems Active Problems: All Active Problems Ureterolithiasis (Acute) Lactic acid acidosis (Acute) Neutropenia (Acute) Acute diverticulitis (Acute) Acute dehydration (Acute) Vomiting (Acute) Diarrhea (Acute) Bilateral kidney stones (Acute) UTI (urinary tract infection) (Acute) Fatigue (Acute) Renal abscess, left (Acute) UTI (urinary tract infection) (Acute) Past Medical History Medical History (Updated 04/13/24 @ 09:42 by Donnie Tijerina DO) Kidney stones Asthma Rheumatoid arthritis Neutropenia Family History Family History Sister Arthritis Hypercholesterolemia HTN (hypertension) Brother Pacemaker Colon cancer Family/Other Breast cancer Family history of problems with anesthesia: No Surgical History Surgical History H/O left breast biopsy History of Problems with Anesthesia: No Social History Social History Household Members: Children Housing: House Are you a primary care transport nurse to a significant other at home: No Do you presently have visiting nurse or other home services: Yes (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 If so, by whom?: No Do you feel safe in your current relationship?: No Current Relationship Is there a partner from a previous relationship who is making you feel unsafe now?: No Are you made to feel afraid or neglected: No Advance Directives: No Advance Directives Information Provided: Yes Do you have a plan to hurt others: No Plan Recently lost weight without trying: No Nutrition Risks: No Nutritional Risk Patient : No : No Poor oral hygiene: No service: No Current occupational status: employed Meds Allergies Allergy/AdvReac Type Severity Reaction Status Date / Time No Known Allergies Allergy Verified 04/12/24 06:01 [No Known Allergies*] Active Medications: Current Medications Acetaminophen (Acetaminophen 325 Mg Tablet) 650 mg PO Q6H [facility] Last Admin: 04/13/24 04:23 Dose: 650 mg Albuterol Sulfate (Albuterol Sulfate 90 Mcg 8 Gm Inhaler) 2 puff INHALE Q6H PRN PRN Reason: Wheezing Calcium Carbonate (Calcium Carbonate 750 Mg Tab.Chew) 750 mg PO Q4H PRN PRN Reason: Heartburn Ceftriaxone Sodium (Ceftriaxone Sodium 1 Gm Vial) 1 gm IVPUSH Q24H [facility] Last Admin: 04/13/24 08:21 Dose: 1 gm Diphenhydramine HCl (Diphenhydramine Hcl 25 Mg Capsule) 25 mg PO BEDTIME PRN PRN Reason: itch Docusate Sodium (Docusate Sodium 100 Mg Capsule) 100 mg PO BID [facility] Last Admin: 04/13/24 08:38 Dose: Not Given Ferrous Sulfate (Ferrous Sulfate 324 Mg Tablet.Dr) 324 mg PO DAILY [facility] Last Admin: 04/13/24 08:38 Dose: Not Given Hydromorphone HCl (Hydromorphone Hcl 1 Mg/Ml Syringe) 1 mg IVPUSH Q4H PRN; Protocol PRN Reason: Pain, Severe (Pain Scale 7-10) Last Admin: 04/13/24 08:22 Dose: 1 mg Sodium Chloride (Ns) 1,000 mls @ 100 mls/hr IVCONT .Q10H [facility] Stop: 04/13/24 09:29 Last Admin: 04/12/24 23:25 Dose: 100 mls/hr Loratadine (Loratadine 10 Mg Tablet) 10 mg PO DAILY [facility] Last Admin: 04/13/24 08:38 Dose: Not Given Magnesium Hydroxide (Milk Of Magnesia 30 Ml Oral.Susp) 30 ml PO DAILY PRN PRN Reason: Constipation Melatonin (Melatonin 3 Mg Tablet) 6 mg PO BEDTIME PRN PRN Reason: Insomnia Montelukast Sodium (Montelukast Sodium 10 Mg Tablet) 10 mg PO BEDTIME [facility] Last Admin: 04/12/24 21:06 Dose: 10 mg Omeprazole (Omeprazole 20 Mg Capsule.Dr) 20 mg PO DAILY PRN PRN Reason: Acid Reflux Ondansetron HCl (Ondansetron Hcl 4 Mg/2 Ml Vial) 4 mg IVPUSH Q8H PRN PRN Reason: Nausea and Vomiting Last Admin: 04/12/24 17:15 Dose: 4 mg Oxycodone HCl (Oxycodone Hcl Immed Release 5 Mg Tablet) 5 mg PO Q6H PRN PRN Reason: Pain, Moderate(Pain Scale 4-6) Last Admin: 04/12/24 16:57 Dose: 5 mg Polyethylene Glycol (Polyethylene Glycol 3350 17 Gm Powd.Pack) 17 gm PO DAILY [facility] Last Admin: 04/13/24 08:37 Dose: Not Given Prednisone (Prednisone 10 Mg Tablet) 10 mg PO DAILY@0800 [facility] Last Admin: 04/13/24 08:38 Dose: Not Given Sodium Chloride (0.9 % Sodium Chloride Flush 3 Ml Syringe) 3 ml IVFLUSH QSHIFT [facility] Last Admin: 04/13/24 08:36 Dose: Not Given Home Medications ?Medication ?Instructions ?Recorded ?Confirmed ?Last Taken ?Type albuterol sulfate 90 mcg/actuation 2 puff inhalation Q6H PRN Wheezing 02/14/22 04/12/24 04/10/24 History aerosol inhaler ferrous sulfate 325 mg (65 mg 1 tab PO DAILY anemia 02/14/22 04/12/24 04/10/24 History iron) tablet montelukast 10 mg tablet 1 tab PO BEDTIME 02/14/22 04/12/24 04/10/24 History omeprazole 20 mg capsule,delayed 1 cap PO DAILY PRN Acid Reflux 02/14/22 04/12/24 04/10/24 History release tramadol 50 mg tablet 100 mg PO BID PRN pain 02/14/22 04/12/24 04/11/24 History triamcinolone acetonide 0.1 % 1 appl topical BID PRN Rash 02/14/22 04/12/24 04/10/24 History topical cream loratadine 10 mg tablet 1 tab PO DAILY 03/04/22 04/12/24 04/10/24 History prednisone 10 mg tablet 10 mg PO DAILY@0800 06/21/22 04/12/24 04/11/24 History ondansetron HCl 4 mg tablet 4 mg PO Q8H PRN nausea/vomiting 08/09/22 04/12/24 04/10/24 History diphenhydramine HCl 25 mg tablet 25 mg PO BEDTIME PRN itch 04/12/24 04/12/24 04/10/24 History (Marilynn-Dryl) ibuprofen 800 mg tablet 800 mg PO TID PRN pain 04/12/24 04/12/2424 History tocilizumab 162 mg/0.9 mL 162 mg subcut TH 04/12/24 04/12/24 04/04/24 History subcutaneous pen injector (Actemra ACTPen) Exam Height,Weight and Vital Signs: Height 5 ft 4 in Weight 86 kg Last Vital Signs Temp 98.0 F 04/13/24 08:14 Pulse 87 04/13/24 08:14 Resp 18 04/13/24 08:14 BP 190/90 H 04/13/24 08:14 Pulse Ox 98 04/13/24 08:14 O2 Del Method Room Air 04/13/24 08:14 Pertinent Lab Results Pertinent Lab Results: Laboratory Tests 04/12/24 04/12/24 04/12/24 06:15 07:39 08:27 WBC 6.0 RBC 5.07 Hgb 13.4 Hct 39.0 MCV 76.9 L MCH 26.4 L MCHC 34.4 RDW 15.9 Plt Count 201 MPV 8.1 L Absolute Nucleated RBC 0.000 Nucleated RBC % (auto) 0.0 Hold Purple Top Sodium 140 Potassium 3.7 Chloride 112 H Carbon Dioxide 18 L Anion Gap 14 BUN 11 Creatinine 0.83 Estim Creat Clear Calc 69.8 Estimated GFR > 60 Random Glucose 132 H Lactic Acid 0.9 Calcium 9.5 Magnesium 1.9 Total Bilirubin 1.1 H AST 36 H ALT 26 Alkaline Phosphatase 125 H Total Protein 8.4 H Albumin 3.9 Lipase 17 Urine Color Yellow Urine Appearance Clear Urine pH 7.5 Ur Specific [place] <= 1.005 Urine Protein Trace Urine Glucose (UA) Negative Urine Ketones Negative Urine Blood Large (3+) H Urine Nitrite Positive H Ur Leukocyte Esterase Large (3+) H Urine RBC 11-20 H Urine WBC 21-50 H Ur Squamous Epith Cells 0-2 Urine Bacteria 4+ Hyaline Casts 0-2 04/13/24 05:36 WBC RBC Hgb Hct MCV MCH MCHC RDW Plt Count MPV Absolute Nucleated RBC Nucleated RBC % (auto) Hold Purple Top SEE NOTE Sodium 142 Potassium 3.4 Chloride 114 H Carbon Dioxide 20 L Anion Gap 11 L BUN 9 Creatinine 0.77 Estim Creat Clear Calc 75.2 Estimated GFR > 60 Random Glucose 114 Lactic Acid Calcium 8.7 D Magnesium Total Bilirubin AST ALT Alkaline Phosphatase Total Protein Albumin Lipase Urine Color Urine Appearance Urine pH Ur Specific [place] Urine Protein Urine Glucose (UA) Urine Ketones Urine Blood Urine Nitrite Ur Leukocyte Esterase Urine RBC Urine WBC Ur Squamous Epith Cells Urine Bacteria Hyaline Casts Airway Mallampati Class: II TM Dist: >3cm Neck ROM: Full Denture: Lower Loose/Missing/Broken Teeth: No Heart: RRR Lungs: CTA Assessment and Plan Assessment Anesthesia Assessment: Anesthesia Plan Discussed and Chart Reviewed Final Anesthetic Review Family History of Problems with Anesthesia: No History of Problems with Anesthesia: No NPO: Yes ASA Class: II Final Preanesthetic Review: No Changes in Pt Med Stat, Meds/Allgs Chart Reviewed, Consent Obtained/Reviewed and Anes Risks/Benef Reviewed Patient Risk: Intermediate Procedure Risk: Low Anesthetic Plan Anesthetic Plan: GA Disposition: Standard PACU
--- NOTE | 2024-04-13 09:39 | P.PNIM_ITS ---
Subjective Subjective Date of Service: 04/13/24 Interval History: No acute distress. Pain control adequate. Feels somewhat better since admission Review of Systems Denies chest exertional chest pain pain Denies shortness of breath that is worse than baseline (history of asthma) Denies nausea vomiting diarrhea Denies fever chills Physical Exam 2 Vital Signs: Vital Signs: Last Vital Signs Temp 98.0 F 04/13/24 08:14 Pulse 88 04/13/24 09:27 Resp 18 04/13/24 08:14 BP 133/79 04/13/24 09:27 Pulse Ox 98 04/13/24 08:14 O2 Del Method Room Air 04/13/24 08:14 BMI result Body Mass Index 32.5 Const: Other: Awake alert oriented x3 in no acute distress Resp: Other: Clear to auscultation bilaterally no rales rhonchi or wheezes Cardio: Other: No S4; positive S1-S2; no S3 murmurs rubs or gallops GI: Other: Soft nontender nondistended normoactive bowel sounds Neuro: Other: Cranial nerves 2-12 grossly intact as tested. Motor is 5/5 all extremities. Sensation is intact. Cognition appropriate. Gait not observed Extrem: Other: No edema bilaterally Objective Data Active Medications Acetaminophen (Acetaminophen 325 Mg Tablet) 650 mg PO Q6H [facility] Last Admin: 04/13/24 04:23 Dose: 650 mg Documented By: JESSICA Albuterol Sulfate (Albuterol Sulfate 90 Mcg 8 Gm Inhaler) 2 puff INHALE Q6H PRN PRN Reason: Wheezing Calcium Carbonate (Calcium Carbonate 750 Mg Tab.Chew) 750 mg PO Q4H PRN PRN Reason: Heartburn Ceftriaxone Sodium (Ceftriaxone Sodium 1 Gm Vial) 1 gm IVPUSH Q24H [facility] Last Admin: 04/13/24 08:21 Dose: 1 gm Documented By: BROOKLYNN Diphenhydramine HCl (Diphenhydramine Hcl 25 Mg Capsule) 25 mg PO BEDTIME PRN PRN Reason: itch Docusate Sodium (Docusate Sodium 100 Mg Capsule) 100 mg PO BID [facility] Last Admin: 04/13/24 08:38 Dose: Not Given Documented By: BROOKLYNN Non-Admin Reason: NPO Fentanyl (Fentanyl Citrate/Pf 100 Mcg/2 Ml Vial) 25 mcg IVPUSH Q5M PRN PRN Reason: Pain, Moderate(Pain Scale 4-6) Stop: 04/13/24 14:57 Ferrous Sulfate (Ferrous Sulfate 324 Mg Tablet.) 324 mg PO DAILY [facility] Last Admin: 04/13/24 08:38 Dose: Not Given Documented By: BROOKLYNN Non-Admin Reason: NPO Hydromorphone HCl (Hydromorphone Hcl 1 Mg/Ml Syringe) 1 mg IVPUSH Q4H PRN; Protocol PRN Reason: Pain, Severe (Pain Scale 7-10) Last Admin: 04/13/24 08:22 Dose: 1 mg Documented By: BROOKLYNN Hydromorphone HCl (Hydromorphone Hcl 0.5 Mg/0.5 Ml Syringe) 0.5 mg IVPUSH Q5M PRN PRN Reason: Pain, Moderate to Severe (Pain Scale 4-10) Stop: 04/13/24 14:57 Ketorolac Tromethamine (Ketorolac Tromethamine 30 Mg/Ml Vial) 30 mg IVPUSH ONCE PRN PRN Reason: Pain, Severe (Pain Scale 7-10) Stop: 04/13/24 14:58 Loratadine (Loratadine 10 Mg Tablet) 10 mg PO DAILY [facility] Last Admin: 04/13/24 08:38 Dose: Not Given Documented By: BROOKLYNN Non-Admin Reason: NPO Magnesium Hydroxide (Milk Of Magnesia 30 Ml Oral.Susp) 30 ml PO DAILY PRN PRN Reason: Constipation Melatonin (Melatonin 3 Mg Tablet) 6 mg PO BEDTIME PRN PRN Reason: Insomnia Montelukast Sodium (Montelukast Sodium 10 Mg Tablet) 10 mg PO BEDTIME [facility] Last Admin: 04/12/24 21:06 Dose: 10 mg Documented By: JESSICA Naloxone HCl (Naloxone Hcl 0.4 Mg/Ml Vial) 0.04 mg IVPUSH Q5M PRN PRN Reason: Excessive sedation or RR < 8 Omeprazole (Omeprazole 20 Mg Capsule.) 20 mg PO DAILY PRN PRN Reason: Acid Reflux Ondansetron HCl (Ondansetron Hcl 4 Mg/2 Ml Vial) 4 mg IVPUSH Q8H PRN PRN Reason: Nausea and Vomiting Last Admin: 04/12/24 17:15 Dose: 4 mg Documented By: JUDSON Ondansetron HCl (Ondansetron Hcl 4 Mg/2 Ml Vial) 4 mg IVPUSH ONCE PRN PRN Reason: Nausea and Vomiting Stop: 04/13/24 14:58 Oxycodone HCl (Oxycodone Hcl Immed Release 5 Mg Tablet) 5 mg PO Q6H PRN PRN Reason: Pain, Moderate(Pain Scale 4-6) Last Admin: 04/12/24 16:57 Dose: 5 mg Documented By: JULI Polyethylene Glycol (Polyethylene Glycol 3350 17 Gm Powd.Pack) 17 gm PO DAILY [facility] Last Admin: 04/13/24 08:37 Dose: Not Given Documented By: BROOKLYNN Non-Admin Reason: NPO Prednisone (Prednisone 10 Mg Tablet) 10 mg PO DAILY@0800 [facility] Last Admin: 04/13/24 08:38 Dose: Not Given Documented By: BROOKLYNN Non-Admin Reason: NPO Sodium Chloride (0.9 % Sodium Chloride Flush 3 Ml Syringe) 3 ml IVFLUSH QSHIFT [facility] Last Admin: 04/13/24 08:36 Dose: Not Given Documented By: BROOKLYNN Non-Admin Reason: IV Running Labs 04/12/24 06:15 04/13/24 05:36 Labs: Laboratory Results - last 24 hr 04/13/24 05:36 Hold Purple Top SEE NOTE Anion Gap 11 L Estim Creat Clear Calc 75.2 Estimated GFR > 60 Random Glucose 114 Calcium 8.7 D Assessment and Plan (1) Ureterolithiasis: Status: Acute (2) Asthma: Status: Acute (3) Rheumatoid arthritis: Status: Acute Plan Pt is a 69-year-old female with a PMH significant for?rheumatoid arthritis, moderate persistant asthma, kidney stones, diverticulitis, hx of left renal abscess in 2021, and GERD who presents to the ED for evaluation of left lower abdominal pain x1. PT will be admitted to hospital under Medicine for treatment and further evaluation of acute UTI and hydronephrosis in the setting of ureterolithiasis requiring stenting. 1.Left ureterolithiasis -pain control adequate -NPO pending stenting this a.m. Patient is a moderate but acceptable cardiovascular risk for planned procedure. There are no medically prohibitive issues 2.Acute UTI -empiric ceftriaxone -await cultures 3.Rheumatoid arthritis -continue prednisone 10 daily -given nature of procedure and risk; no need for stress dose steroids 3.Moderate persistent asthma -stable and well compensated -continue home inhalers monitoring Full Code Pneumatic compression due to impending surgical intervention Patient will require ongoing hospitalization for specialist intervention and empiric antibiotics pending urine culture Quality Stroke Does the patient have a stroke diagnosis?: No VTE Prior VTE?: No VTE Risk Level:: Medical - moderate - high VTE Device Contraindication: N/A - Device Ordered VTE Drug Contraindication: Treatment Not Indicated
--- NOTE | 2024-04-13 10:10 | MHC.SHP ---
Pre-Procedural Eval Section A - 24 Hr Update-Section A only Date of Service: 04/13/24 The patient is an INPATIENT: Yes Changes since office visit: No Cold of Flu in the past 2 weeks, No New Medical Problems, No Changes in Medication and No Patient answered all questions The patient has been examined within 24 hours of the surgical procedure. The History & Physical has been completed within 30 days and I have reviewed it.: Yes Section B - Complete if H&P > 30 days Chief Complaint: Left ureterolithiasis Details of Present Illness: cysto, left retrograde, uerteroscopy, laser stent Allergies: Allergies Allergy/AdvReac Type Severity Reaction Status Date / Time No Known Allergies Allergy Verified 04/12/24 06:01 [No Known Allergies*] Plan I have reviewed the history and physical and performed a pertinent physical examination on my patient. No changes have occurred unless specified. Time Spent With Patient Time: Total time managing care of this patient today ____ minutes.
--- NOTE | 2024-04-13 10:35 | MHC.CM.PN ---
PT REPORTS SHE LIVES ALONE AND HAS DAILY [employer] [employer] TO ASSIST WITH PERSONAL AND HOME CARE SHE USES A CANE AND A WALKER DEPENDING ON HOW FAR SHE IS GOING AND HOW SHE IS FEELING SHE HAS A HCP ON FILE SHE CONFIRMS IS ACCURATE PCP: ANDERSON ROMEO IMM DELIVERED DCP: HOME, RESUME [employer] FAMILY TO TRANSPORT
--- NOTE | 2024-04-13 11:01 | W.PM.OPN ---
Operative Note Operative Note Date of Service: 04/13/24 Narrative: PreOperative Diagnosis: left distal ureteric stones Post Operative Diagnosis: left distal ureteric stones Procedure: - cystoscopy, left retrograde - left dilatation of ureteric orifice under fluoroscopy - left ureteroscopy, laser lithotripsy, stone basketing - left stent placement Surgeon: Dr Evens Astudillo Anesthesia: General Indications for procedure: Distal left ureteric stone, presents with elevated white count. Immunosuppression. Recommend stone intervention Procedure: After informed consent was verified the patient was brought to the operating room and placed in a supine position. Anesthesia was administered per protocol. The patient was placed in a modified dorsal lithotomy position and prepped and draped in a sterile fashion. Safety pause time-out and side of surgery were confirmed. Images were available for review. Antibiotic administration confirmed. A 22 [place] cystoscope was inserted per urethra. The urethra was without abnormality. The bladder was normal in its entirety. Both ureteric orifices were seen in normal position. The left ureteric orifice was cannulated and a retrograde examination was performed. Filling defect in junction between distal and mid 3rd . A Sensor guidewire was placed up to the level of the renal pelvis under fluoroscopy. The rigid cystoscope was removed. A Stewart dilator was placed over the Sensor guidewire and used to dilate the ureteric orifice under fluoroscopy. The dilator was removed. The semi rigid ureteral scope was placed alongside the Sensor guidewire. Stone was encountered.. Using a 270 micro holmium laser fiber the stone was broken into small pieces using a combination of hammer and dusting techiques. Stone fragments were removed from the ureter using a 2.4 Fr ZeroTip basket. Once the fragments were removed a decision was made to place a ureteric stent. Based on the height of the patient a 6 Fr x 24 stent was used. The string was removed prior to stent placement A 6 [place]se by 24 cm double-J stent was placed into the renal pelvis and bladder under a combination of fluoroscopy and direct visualization. The symphisis pubis was used as a radiographic marker to release the stent and good coil was seen within the bladder confirming position The bladder was emptied. The patient tolerated the procedure well and was extubated in the operating room. They were transferred in stable condition to the recovery area. Pathology: stones Drains: Double J stent as described above
[2024-04-13] MEDS: Phenazopyridine HCL 100 MG TABLET PO (11:27)
[2024-04-13] MEDS: Ketorolac Tromethamine 15 MG/ML VIAL IVPUSH (11:39)
[2024-04-13] MEDS: levoFLOXacin/D5W 500 MG/100 ML PIGGYBACK 100 MG IV (11:39)
[2024-04-13] MEDS: 0.9 % Sodium Chloride Flush 3 ML SYRINGE IVFLUSH ×2 (15:32→20:28)
[2024-04-13] MEDS: Montelukast Sodium 10 MG TABLET PO (20:23)
[2024-04-13] MEDS: Docusate Sodium 100 MG CAPSULE PO (20:24)
[2024-04-13] MEDS: Melatonin 3 MG TABLET 6 MG PO (20:24)
[2024-04-14 00:53] VITALS: TEMP 36.7
[2024-04-14 04:00] VITALS: BP 133/65; PULSE 94; RESP 18; TEMP 36.8; O2SAT 97
[2024-04-14 08:09] VITALS: BP 105/58; PULSE 79; RESP 18; TEMP 36.4; O2SAT 99
[2024-04-14] MEDS: Ferrous Sulfate 324 MG TABLET.DR PO (08:12)
[2024-04-14] MEDS: oxyCODONE HCl Immed Release 5 MG TABLET PO (08:12)
[2024-04-14] MEDS: Loratadine 10 MG TABLET PO (08:12)
[2024-04-14] MEDS: Docusate Sodium 100 MG CAPSULE PO (08:12)
[2024-04-14] MEDS: predniSONE 10 MG TABLET PO (08:13)
[2024-04-14] MEDS: cefTRIAXone sodium 1 GM VIAL IVPUSH (08:13)
[2024-04-14] MEDS: 0.9 % Sodium Chloride Flush 3 ML SYRINGE IVFLUSH (08:13)
--- NOTE | 2024-04-14 12:25 | P.DS_ITS ---
DS: Providers Provider Date of Service: 04/14/24 Date of admission: 04/12/24 13:13 Date of discharge: 04/14/24 Primary care physician: Donna Landa MD Consults: 04/12/24 13:13 Consult to Urology Routine Consulting Provider: [facility] Reason for consultation: 0.6cm left ureteral stone Has provider been notified: Yes DS: Diagnosis Discharge Diagnosis (1) Ureterolithiasis: Status: Acute (2) Asthma: Status: Acute (3) Rheumatoid arthritis: Status: Acute DS: Summary Hospital Course Hospital Course: 69-year-old female with a PMH significant for?rheumatoid arthritis, moderate persistant asthma, kidney stones, diverticulitis, hx of left renal abscess in 2021, and GERD who presents to the ED for evaluation of left lower abdominal pain x1. Patient reports symptoms began last night at around 18:00 and were accompanied by nausea and ?gagging? but no vomiting. Patient also reports has been experiencing increased urinary frequency but denies dysuria. No fever, chills, or diarrhea. Denies chest pain/pressure, palpitations. No shortness a breath or difficulty breathing. Pain became increasingly severe and unbearable during the night which prompted ED visit. In the ED pt was tachycardic up to 114, tachypneic up to 22, and hypertensive up to 172/88. Labs were grossly unremarkable and around baseline for patient, including mild transaminitis with bilirubin 1.1, AST 36, and alk-phos 195. No leukocytosis. Stable H&H. No significant electrolyte abnormalities. Renal function around baseline. UA positive for UTI. CT?of abdomen/pelvis found 0.6 cm left ureteral stone associated with mild left hydronephrosis, hydroureter, perinephric stranding, and delayed enhancement. 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 Pt was treated with IVF, ondansetron, morphine, Ativan, hydromorphone, and ceftriaxone. ED clinician reached out to Urology who recommended patient being admitted to hospital under Medicine for treatment and further evaluation of acute UTI and hydronephrosis in the setting of ureterolithiasis requiring stenting Hospital course Admitted to general medical floor and seen in consultation by Urology. Luke 04/13/2024 patient underwent left dilation of ureter with laser lithotripsy and stone basketing with out issue. She remained in-house overnight in the morning of discharge her pain is well control and she is medically acceptable for discharge. Home on a course of Levaquin and Flomax as outlined by Dr. Astudillo. She is given a script for oxycodone 5 mg 20. That she can use as needed. She will follow up with Dr. Astudillo in office Time Attestation Discharge Coordination Time (in mins): 35 Quality: Safe Use of Opioids Does Pt have an Active Cancer Diagnosis on the Problem List?: No Quality: Stroke Does the patient have a stroke diagnosis?: No Physical Exam Vital Signs: Vital Signs: Last Vital Signs Temp 97.6 F 04/14/24 08:09 Pulse 79 04/14/24 08:09 Resp 18 04/14/24 08:09 BP 105/58 L 04/14/24 08:09 Pulse Ox 99 04/14/24 08:09 O2 Del Method Room Air 04/14/24 08:57 O2 Flow Rate 6 04/13/24 11:06 BMI result Body Mass Index 32.5 Const: Other: Awake alert oriented x3 in no acute distress Resp: Other: Clear to auscultation bilaterally no rales rhonchi or wheezes Cardio: Other: No S4; positive S1-S2; no S3 murmurs rubs or gallops GI: Other: Soft nontender nondistended normoactive bowel sounds Neuro: Other: Cranial nerves 2-12 grossly intact as tested. Motor is 5/5 all extremities. Sensation is intact. Cognition appropriate. Gait not observed Extrem: Other: No edema bilaterally DS: Data Data Completed and Pending Completed studies during hospitalization [Text1]: Procedures Drainage of Left Kidney, Percutaneous Approach (02/14/22) Drainage of Spinal Canal, Percutaneous Approach, Diagnostic (02/14/22) Pending studies at discharge: Pending at discharge 04/13/24 10:52 Surgical [PTH] Routine Labs on day of discharge: Preliminary micro results at discharge 04/12/24 08:42 Blood Culture - Preliminary Blood - Venous No growth after 48 hours. 04/12/24 08:28 Blood Culture - Preliminary Blood - Venous No growth after 48 hours. Discharge Plan Discharge Anticipated Discharge Date/Time: 04/14/24 12:21 Patient Disposition: Home, Self-Care Discharge Diagnosis: Ureterolithiasis Referrals: Donna Landa MD [Primary Care Provider] - 1 Week Discharge Medications: New sulfamethoxazole-trimethoprim [Bactrim DS] 800-160 mg tablet 1 tab PO BID 5 Days Qty: 10 0RF tamsulosin 0.4 mg capsule 0.4 mg PO BEDTIME 14 Days Qty: 14 0RF phenazopyridine [Pyridium] 100 mg tablet 100 mg PO TID PRN (Reason: Spasm) 4 Days Qty: 12 0RF naproxen 500 mg tablet 500 mg PO BID PRN (Reason: pain) 7 Days Qty: 14 0RF oxycodone 5 mg Tablet 5 mg PO Q6H PRN (Reason: Pain, Moderate(Pain Scale 4-6)) Qty: 20 0RF Rx Instructions: Partial Fill upon patient request. Continued tramadol 50 mg tablet 100 mg PO BID PRN (Reason: pain) triamcinolone acetonide 0.1 % cream 1 appl topical BID PRN (Reason: Rash) ferrous sulfate 325 mg (65 mg iron) tablet 1 tab PO DAILY omeprazole 20 mg capsule,delayed release(DR/EC) 1 cap PO DAILY PRN (Reason: Acid Reflux) montelukast 10 mg tablet 1 tab PO BEDTIME albuterol sulfate 90 mcg/actuation HFA aerosol inhaler 2 puff INHALATION Q6H PRN (Reason: Wheezing) loratadine 10 mg tablet 1 tab PO DAILY prednisone 10 mg tablet 10 mg PO DAILY@0800 ondansetron HCl 4 mg tablet 4 mg PO Q8H PRN (Reason: nausea/vomiting) ibuprofen 800 mg tablet 800 mg PO TID PRN (Reason: pain) diphenhydramine HCl [Marilynn-Dryl] 25 mg tablet 25 mg PO BEDTIME PRN (Reason: itch) Actemra ACTPen 162 mg/0.9 mL pen injector 162 mg subcut TH Discharge Orders: Discharge Order (Routine); Ordered 04/14/24 Ordered By: Donnie Tijerina Diet: Advance to usual diet Activity on Discharge: As tolerated Stand Alone Forms: Patient Portal Discharge page Print Language: Ukrainian Care Plan Goals: Resume all medications as taken before hospital; take Flomax and Naprosyn as ordered by Dr. Astudillo Health Concerns: Complete Levaquin as ordered. Plan of Treatment: Follow up with Dr. Astudillo as scheduled; his office will call to make appointment Assessment: See discharge summary Patient Instructions: Ureteroscopy (DC)
--- NOTE | 2024-04-14 16:55 | HO.POSTANES ---
Post Anesthesia Evaluation Post Anesthesia Evaluation Date of Service: 04/14/24 Vital Signs: Vital Signs Temp Pulse Resp BP Pulse Ox O2 Del Method 04/14/24 08:57 Room Air 04/14/24 08:09 97.6 F 79 18 105/58 L 99 Room Air Anesthesia: General LMA Mental Status: Awake Pain Control: Satisfactory Nausea/Vomiting: None Hydration: Adequate Anesthesia-Related Issues: No Anes. Related Issues
[2024-04-23 20:47] LABS: Stone Source URETERAL STONE
== END 2024-04-14 13:02 | disposition home or self-care (01) | DRG 661 ==
LOC: HO.ED 07:20 → HO.EDOVER 13:23 → HO.S3 14:48
PROVIDERS: Nurse Practitioner Family; Urology; Admitting Provider Student in an Organized Health Care Education/Training Program; Emergency Provider Emergency Medicine; PCP General Practice; Visit Provider Hospitalist
PROC: 0T778DZ Dilation of Left Ureter with Intraluminal Device, Via Natural or Artificial Opening Endoscopic (ICD-10-PCS; principal; 2024-04-13 10:00)
DX: N13.6 Pyonephrosis (principal); J45.40 Moderate persistent asthma, uncomplicated; K21.9 Gastro-esophageal reflux disease without esophagitis; M06.9 Rheumatoid arthritis, unspecified; M88.88 Osteitis deformans of other bones; Z79.52 Long term (current) use of systemic steroids; Z79.899 Other long term (current) drug therapy
CPT/HCPCS: 36415; 74177; 80048; 80053; 81001; 82365; 83605; 83690; 83735; 85027; 87040; 87086; 87088; 87186; 88300; 99285; C1758; C1769; C2617; J0696; J1171; J1885; J1956; J2003; J2060; J2270; J2405; J2704; J3010; Q9967

== ENCOUNTER → 2024-04-12 13:13 | Outpatient (BNV) | payer OTHER, SELFPAY | PROVIDERS: Admitting Provider Student in an Organized Health Care Education/Training Program; Emergency Provider Emergency Medicine; PCP General Practice; Visit Provider Hospitalist | DX: N20.1 Calculus of ureter (principal); J45.901 Unspecified asthma with (acute) exacerbation; M06.9 Rheumatoid arthritis, unspecified | CPT/HCPCS: 99222; 99232; 99239 ==

== ENCOUNTER → 2024-04-12 13:13 | Outpatient (BNV) | payer OTHER, SELFPAY | PROVIDERS: Admitting Provider Student in an Organized Health Care Education/Training Program; Emergency Provider Emergency Medicine; PCP General Practice; Visit Provider Urology | DX: N20.1 Calculus of ureter (principal) | CPT/HCPCS: 52356; 74420; 99223 ==

== ENCOUNTER 2024-04-25 13:08 | Outpatient (AMB) | payer OTHER, SELFPAY ==
--- OUTSIDE RECORDS SUMMARY | 2024-04-25 13:11 | XMS_ITS | Data Portability ---
Author Organization [facility] [place] Address [address] [place] [id number] Care Team Providers Care Regulatory And Compliance Technician Name Role Phone [facility] Referring Provider ANDERSON ROMEO Primary Care Provider Assessment Encounter Date Assessment Date Assessment LastModified by Organization Details LastModified Time 12/08/2022 12/08/2022 I provided real -time medical direction via phone for this encounter, and was available for additional phone based assistance as needed. I have reviewed and agree with the Assessment and Plan as documented by the Cheesemaker. Patient given the opportunity to ask questions. Not available 12/08/2022 13:38:04 12/26/2022 12/26/2022 I have reviewed and agree with the assessment and plan as documented by the pneudraulic systems mechanic. I provided real time medical direction for this encounter and was immediately available to provide additional phone based assistance as needed. History as noted by pneudraulic systems mechanic. Pt with history of asthma, HTN on amlodipine, tramadol. Reports URI symptoms started 2 days ago with fatigue, non productive cough and myalgia. She tested positive for Covid-19 yesterday. She denies any dyspnea or chest pain. On exam, she appears comfortable, no respiratory distress. Vitals with elevated BP, O2 sat normal. Lungs clear. Impression: Pt with Covid-19, today is day #2 of symptoms. Given her history of asthma, we discuss Paxlovid therapy including potential side effects. Pt would like to take the paxlovid. She denies any history of renal disease. Pt is told to monitor her BP while on amlodipine and to cut her tramadol dosage in half while taking the paxlovid since the paxlovid can potentiate the effects of those medications. I prescribe 5 day dose pack of Paxlovid as well as benzonatate prn. Pt instructed to seek medical attention right away with any worsening or new symptoms, which are reviewed with her. [facility] Not available 12/26/2022 10:38:18 Plan of Treatment Reminders Order Date Submit Date Provider Last Modified By Organization Details Last Modified Time Details Appointments None recorded. Lab None recorded. Referral None recorded. Procedures None recorded. Surgeries None recorded. Imaging None recorded. Medication Orders Paxlovid 300 mg (150 mg x 2)-100 mg tablets in a dose pack 2022 023 [facility][id number], [address] [place], [id number], 3 10:28:02 benzonatate 100 mg capsule 2022 023 [facility][id number], [address] [place], [address], 3 10:28:03 benzonatate 100 mg capsule 2022 023 [facility]/Pharmacy #[id number], [address] [place], [address], 3 10:27:56 Patient TargetsNo targets recorded. Patient InstructionsNo instructions recorded. Reason for Referral None Reported. Medical Equipment None Reported. Allergies No known drug allergies Medications Name Sig Start Date Stop Date Status Note LastModified by Organization Details LastModified Time pulse oximet airial [id number] USE TO CHECK PULSE TWICE DAILY AND NEEDED FOR SHORTNESS OF BREATH. CALL [facility] IF < 95% active Not Available Not Available No t Available nystatin 100,000 unit/mL oral suspension TAKE 5 MILLILITER BY MOUTH 4 TIMES EVERY DAY active Not Available Not Available No t Available prednisone 10 mg tablet TAKE 1 TABLET DAILY active Not Available Not Available No t Available trazodone 50 mg tablet TAKE 1 TABLET BY MOUTH AT BEDTIME active Not Available Not Available No t Available azithromycin 250 mg tablet FOR 250 MG DOSE PACK: TAKE 500 MG TODAY (DAY 1), THEN 250 MG FOR 4 DAYS (DAYS 2-5) active Not Available Not Available N ot Available ibuprofen 800 mg tablet TAKE 1 TABLET BY MOUTH 3 TIMES A DAY WITH FOOD active Not Available Not Available No t Available ondansetron HCl 4 mg tablet TAKE 1 TABLET (4 MG) BY MOUTH EVERY 8 HOURS NEEDED FOR NAUSEA AND VOMITING active Not Available Not Available No t Available prednisone 20 mg tablet TAKE 2 TABLETS (40 MG) BY MOUTH IN THE MORNING FOR 3 DAYS active Not Available Not Available N ot Available alendronate 70 mg tablet TAKE 1 TAB BY MOUTH ONCE A WEEK IN THE MORNING, AT LEAST 30 MIN BEFORE 1ST FOOD/DRINK/ MED OF DAY active Not Available Not Available N ot Available tramadol 50 mg tablet TAKE 1 TO 2 TABLETS BY MOUTH 3 TIMES A DAY NEEDED FOR PAIN active Not Available Not Available No t Available triamcinolon e acetonide 0.1 % topical cream APPLY THIN COAT TO AFFECTED AREA TWICE A DAY active Not Available Not Available No t Available amlodipine 10 mg tablet TAKE 1 TABLET BY MOUTH EVERY DAY IN THE MORNING active Not Available Not Available No t Available benzonatate 100 mg capsule TAKE 1 CAPSULE BY MOUTH THREE TIMES A DAY FOR 10 DAYS active Not Available Not Available Not Available ferrous sulfate 325 mg (65 mg iron) tablet TAKE 1 TABLET BY ORAL ROUTE EVERY OTHER DAY FOR ANEMIA active Not Available Not Available No t Available lidocaine 5 % topical patch APPLY ONE PATCH TO AFFECTED AREA ON FOR 12 HOURS OFF FOR 12 HOURS active Not Available Not Available No t Available omeprazole 20 mg capsule,temi yed release TAKE 1 CAPSULE BY MOUTH EVERY DAY BEFORE A MEAL active Not Available Not Available No t Available montelukast 10 mg tablet TAKE 1 TABLET BY MOUTH EVERYDAY AT BEDTIME active Not Available Not Available No t Available hydroxychlor oquine 200 mg tablet TAKE 1 TABLET BY MOUTH TWICE A DAY active Not Available Not Available No t Available albuterol sulfate HFA 90 mcg/actuatio n aerosol inhaler INHALE 2 PUFFS BY MOUTH EVERY 6 HOURS NEEDED DIRECTED active Not Available Not Available No t Available ondansetron 4 mg disintegrati ng tablet TAKE 1 TABLET BY MOUTH EVERY 6 TO 8 HOURS NEEDED FOR NAUSEA AND VOMITING active Not Available Not Available No t Available loratadine 10 mg tablet TAKE 1 TABLET BY MOUTH EVERY DAY NEEDED FOR ALLERGIES active Not Available Not Available No t Available amoxicillin 875 mg-potassium clavulanate 125 mg tablet TAKE 1 TABLET BY MOUTH TWICE A DAY active Not Available Not Available No t Available oxycodone 5 mg tablet TAKE 1 TABLET (5 MG) BY MOUTH EVERY 6 HOURS NEEDED FOR SEVERE PAIN FOR UP TO 5 DAYS active Not Available Not Available No t Available cyclobenzapr ine 5 mg tablet TAKE 1 TABLET BY MOUTH EVERY DAY AT BEDTIME FOR 10 DAYS active Not Available Not Available No t Available Flovent HFA 110 mcg/actuatio n aerosol inhaler PLEASE SEE ATTACHED FOR DETAILED DIRECTIONS active Not Available Not Available N ot Available calcium 600 mg (as carbonate)-v itamin D3 10 mcg (400 unit) tablet TAKE 1 TABLET BY MOUTH EVERY DAY active Not Available Not Available No t Available Enbrel SureClick 50 mg/mL (1 mL) subcutaneous pen injector active Not Available Not Available Not Available diclofenac 1 % topical gel APPLY 2 G TOPICALLY IF NEEDED IN THE MORNING AND AT BEDTIME (PAIN IN KNEES). active Not Available Not Available No t Available blood pressure test kit-large cuff USE TO CHECK BLOOD PRESSURE TWICE DAILY active Not Available Not Available Not Available Asmanex HFA 100 mcg/actuatio n aerosol inhaler INHALE 2 PUFF BY MOUTH 2 TIMES EVERY DAY IN THE MORNING AND EVENING, RINSE MOUTH AFTER USE active Not Available Not Available No t Available Humira(CF) Pen 40 mg/0.4 mL subcutaneous kit active Not Available Not Available Not Available Paxlovid 300 mg (150 mg x 2)-100 mg tablets in a dose pack Take 1 dose pk by oral route for 5 days. active Not Available Not Available No t Available Vitals Date Recorded Oxygen saturation Oxygen saturation in Arterial blood by Pulse oximetry Respiratory rate Heart rate Body height Body temperature Body weight Systolic blood pressure Diastolic blood pressure Provider Name and Address Organization Details Last Updated DateTime 3 98 % 98 % 18 /min 100 /min 162.56 cm 98 [degF] 02899.8 g 161 mm[Hg] 93 mm[Hg] Not Available [facility] [employer] 3 13:30:45 Date Recorded Body temperature Respiratory rate Body weight Heart rate Oxygen saturation Oxygen saturation in Arterial blood by Pulse oximetry Systolic blood pressure Diastolic blood pressure Provider Name and Address Organization Details Last Updated DateTime 3 97.8 [degF] 18 /min 74249.9 84 g 90 /min 100 % 100 % 182 mm[Hg] 90 mm[Hg] Not Available [facility] 3 10:19:13 Date Recorded Heart rate Oxygen saturation Oxygen saturation in Arterial blood by Pulse oximetry Body temperature Respiratory rate Systolic blood pressure Diastolic blood pressure Provider Name and Address Organization Details Last Updated DateTime 3 86 /min 98 % 98 % 97.5 [degF] 16 /min 196 mm[Hg] 94 mm[Hg] Not Available [facility] 17:01:12 Social History None recorded. Functional Status None recorded. Mental Status None recorded. Family History Nothing Reported. Medical History No medical history recorded. Gynecological HistoryNo gynecological history recorded. Obstetrics History GPAL:G 0 P 0 0 0 0 Past Encounters Encounter ID Performer Location Encounter Start Date Encounter Closed Date Diagnosis/Indication Diagnosis SNOMED-CT Code Diagnosis ICD10 Code [id number] Kristel Mena MD [facility] [address] [place] [id number] 12/08/2022 13:30:43 12/09/2022 10:59:39 Abdominal pain 84128216 R10.9 [id number] Moe Stephens MD Main - [address] [address] 12/26/2022 10:19:09 12/27/2022 15:42:18 COVID-19 [id number] U07.1 [id number] Ricardo Block MD Main - [address] [phone] 02/06/2023 17:01:10 02/07/2023 11:43:33 Essential hypertension 06561220 I10 Health Concerns Section Related Observation LastModified by Organization Detai ls LastModified Time None Recorded Concern Status LastModified by Organization Details LastModified Time None Recorded Advance Directives Directive None Recorded Payers Encounter Date Sequence Insurance Name Policy Number Policy Horne Covered Member ID Horne Member ID Guarantor Name 12/08/2022 1 [facility] [employer] - DOS ON OR AFTER 2022 - DUAL ELIGIBLE - PRISON OPTIONS AND ONE CARE (MEDICARE REPLACEMENT/ADV ANTAGE - HMO) Jose Maravilla [id number] Jose Maravilla 12/26/2022 1 [facility] [employer] - DOS ON OR AFTER 2022 - DUAL ELIGIBLE - PRISON OPTIONS AND ONE CARE (MEDICARE REPLACEMENT/ADV ANTAGE - HMO) Jose Maravilla [id number] Jose Maravilla 02/06/2023 1 [facility] [employer] - DOS ON OR AFTER 2022 - DUAL ELIGIBLE - PRISON OPTIONS AND ONE CARE (MEDICARE REPLACEMENT/ADV ANTAGE - HMO) Jose Maravilla [id number] Jose Maravilla Notes Date Note Type Note Provider Name and Address Organization Details Recorded Time 12/08/2022 text/html [facility] Nursing Assessment: Chief Complaints: Abdominal Pain, Nausea/Vomiting, Pain, Gastroenteritis PMH: Hypertension Allergies: No Known Comments: Member calling in to place a referral, identified via /name. Member with history of colitis in October. Member has been having abdominal pain, nausea and diarrhea since 12a. member took a nausea pill at 8a unsure the name but did not offer much relief, she also tried mylanta. member feels gaseous, denies blood in stool. Denies chest pain or sob, no headache or dizziness, no fever/chills. Member would like to be evaluated. ..................... ..................... ..................... ..................... ..................... ..................... ............... Cheesemaker Note From Jerry Buckner: Pt benedict x3 supine on bed. Pt complains of lower right quadrant abdominal pain x 12 hours states it woke her from sleep last night. Pt describes shooting 10 of 10 pain, radiates to surrounding abdomen. Pt also complains of nausea and vomited once this morning. Pt has been having diarrhea since pain onset last night. Pt states no coffee ground, black or tarry stool. Pt reports normal urinary elimination. Pt denies chest pain, difficulty breathing, weakness or headache . Pt denies other complaints. Pt pink warm and dry, pt guarding right abdomen, in obvious pain. Abdomen soft, tender no masses, hardness or rebound tenderness. No edema, lung sounds clear. Secondary exam unremarkable. advises pt to go to ED for scans and treatment. [facility] orders zofran, administered as noted. [facility] transports pt to ED. ..................... ..................... ..................... ..................... ..................... ..................... ............... Disposition: Fulfilled SEGMD: As above- denies fever- denies hematemesis or uti s/s but patient recently hospitalized for colitis in October. She only vomited once and at 7:30 AM it is currently 1330. She also took Augmentin 1 dose this morning left over from October Kristel Mena MD [address] [place] [address],[address], [place], [phone], [facility] 12/09/2022 11:54:37 12/26/2022 text/html This was a super vised home visit with pneudraulic systems mechanic Leonard Lynch. HPI: Patient with onset of symptoms of cough chills Monday. Tested Home + Covid yesterday x 2. Cough is dry and disrupting rest. No acute SOB or chest pain. Needs cough relief and may be candidate for Paxlovid. ..................... ..................... ..................... ..................... ..................... ..................... ............... CRC Nursing Assessment: Comments: CRC RN DID NOT NEED FURTHER INFO ..................... ..................... ..................... ..................... ..................... ..................... ............... Cheesemaker Note From Leonard Lynch: Pt presents A@Ox4. [place] warm and clammy. Pt c/o tiredness and non productive cough with chills . Pt did test pos for covid yesterdayx2. Pt denies SOB CP vomiting nausea dizziness. baseline vitals assessed and recorded. Pos covid swab. Lungs clear bilaterally . 02 sat 100% RA Neg fever. C contacted and 100mg Benzonatate given PO RX called in for Bensonatate and paxlovid. Pt educated on signs that would indicate the ER. ..................... ..................... ..................... ..................... ..................... ..................... ............... Disposition: Fulfilled Moe Stephens MD [address] [place] [address],[address], [place], [phone], [facility] 12/26/2022 11:26:44 02/06/2023 text/html HPI: Diaz is a 67 yo female with history of Asthma, RA, GERD, Allergic Rhinitis, Osteopenia, Urinary Incontinence, MDD. ANGELES and PTSD. Diaz and Diaz's daughter calling into the CRU dept reporting that Diaz has had high BP today starting in the AM today with BP 191/103, 195/100, then most recent BP 173/10. In addition Diaz states she has a headache 8-9/10 on pain scale. Mbr denies numbness or tingling in exts or face. Mbr denies SOB or Chest Pain. Diaz reports she took her anti-hypertensive medication this morning. Diaz has not taken anything for ORELLANA and is going to take some Motrin after this CRU call per MD orders. Offered [facility] but instructed Diaz to call 911 and go to ER if s/s worsen, BP goes back up and/or develops chest pain, SOB or worsening headache and she agreed to do. Confirmed address and phone number. Contact number for Diaz is [phone]. This CRU RN placed [facility] referral and sent GC activity to CP for any further follow up needed by CP/Care Team. ..................... ..................... ..................... ..................... ..................... ..................... ............... CRC Nursing Assessment: Comments: CRC RN did not require any additional information to process this visit. Ricardo Block MD [address] [place] [address],[address], [place], [phone], [facility] 02/06/2023 17:06:44 OBGyn Episode No OBEpisode recorded.
--- NOTE | 2024-04-25 13:17 | A.OFFVIS_ITS ---
Intake Visit Reasons: Cysto/ Stent Removal Intake Note: Patient is present for Cystoscopy/STENT REMOVAL Urology Medication:PRYIDIUM,NAPROXEN,BACTRIM,TAMSULOSIN Antibiotic Allergy:NONE Blood Thinner:NONE Lot:[id number] Exp:03/18/27 Business Support Required: No Allergies No Known Allergies [No Known Allergies*] Allergy (Verified 04/25/24 13:18) HPI Comments Details: Jose is a pleasant female. She is a patient of Dr. Cortes. She seen for the following urologic conditions - nephrolithiasis Cystoscopy for stent removal Has UTI Treat Levaquin Three-month follow-up imaging Nephrolithiasis Seen at hospital Underwent ureteroscopy for left stone Stone composition - 04/07 calcium oxalate monohydrate 70% PFSH Medical History (Updated 04/25/24 @ 13:53 by Evens Astudillo MD) UTI (urinary tract infection) Kidney stones Asthma Rheumatoid arthritis Neutropenia Surgical History H/O left breast biopsy Family History Sister Arthritis Hypercholesterolemia HTN (hypertension) Brother Pacemaker Colon cancer Family/Other Breast cancer Social History Household Members: Children Housing: House Are you a primary weekend caregiver to a significant other at home: No Do you presently have visiting nurse or 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) Alcohol intake: former Patient Tobacco Use Status: Never used Tobacco Substance Use Type: Marijuana service: No Current occupational status: employed Review of Systems Const Denies chills and Denies fever(s) Card Reports no additional complaints and Denies syncope Resp Denies cough GI Denies abdominal pain and Denies heartburn Reports as per HPI and Denies change in libido Neuro Denies syncope Psych Denies change in libido Endo Denies change in libido Physical Exam Const General: cooperative, healthy appearing, comfortable and no acute distress Orientation/consciousness: patient oriented x3 HEENT Face and sinus: Yes normal facial exam Mouth: moist mucous membranes Neck Neck: Yes normal visual inspection, Yes full ROM and Yes trachea midline Chest Chest palpation & inspection: normal inspection of the chest Resp Effort & Inspection: normal respiratory effort, able to speak in complete sentences and no respiratory distress GI Inspection: Yes normal to inspection Back/Spine/Pelvis Cervical Spine: normal cervical lordosis Thoracic/Lumbar Spine: thoracic and lumbar spine normal to inspection Skin General skin exam: no rashes or lesions noted Neuro General: patient oriented x3, gait normal, tone normal and moves all extremities Extrem General: Yes normal to inspection and Yes capillary refill normal Office Procedures Cystoscopy Consent Discussed risk and benefit or proposed procedure with the patient. Information consent for procedure given to the patient. Discussed technical aspects, risks, benefits and alternatives in full. Addressed all of the patient's questions and concerns regarding the procedure. The patient demonstrated knowledge and understanding. They wish to proceed with this procedure. Preparation The patient was prepped in the usual manner. A home health occupational therapist was present and in the room. Genitalia was prepped with betadine solution in a sterile manner. Lidocaine Jelly 2% was placed into the urethra and 16Fr flexible Olympus cystoscope was inserted into the meatus after adequate lubrication. Procedure A well lubricated 16 Hebrew cystoscope was placed No abnormality noted of urethra during placement Indwelling stent seen within bladder emerging from left ureteric orifices The stent was grasped with a 3 prong grasper and removed without difficulty The patient tolerated the procedure well [id number] with stent removal DISPOSABLE SCOPE URO-G FLEXIBLE SCOPE Procedure code (CPT) selection complete Office Meds lidocaine HCl 2 % mucosal jelly in applicator Performing Provider: Evens Astudillo MD [facility] Administered by: Evens Astudillo MD on 04/25/24 13:56 Dose Route Admin Location Dispensed Lot Number Expiration Date [facility] Student Services Rep 10 mL intra-urethral 10 mL Results AMB Urinalysis, Automated UA Leukoctes 500 Maryuri/uL Last Edit by NAZIA José on 04/25/24 13:32 UA Nitrite Positive Last Edit by NAZIA José on 04/25/24 13:32 UA Urobilinogen 1 mg/dL Last Edit by NAZIA José on 04/25/24 13:32 UA Protein 300 mg/dL Last Edit by NAZIA José on 04/25/24 13:32 UA pH 5.5 Last Edit by NAZIA José on 04/25/24 13:32 UA Blood 200 Glen/uL Last Edit by NAZIA José on 04/25/24 13:32 UA Specific Alexander 1.030 Last Edit by NAZIA José on 04/25/24 13: 32 UA Ketone Positive Last Edit by NAZIA José on 04/25/24 13:32 UA Bilirubin 1 mg/dL Last Edit by NAZIA José on 04/25/24 13:32 UA Glucose 100 mg/dL Last Edit by NAZIA José on 04/25/24 13:32 Results Reviewed Results Reviewed: Laboratory Last Values Urine pH (Auto) 5.5 04/25/24 13:31 Specific Alexander (Auto) 1.030 04/25/24 13:31 Urine Protein (Auto) 300 mg/dL 04/25/24 13:31 Glucose (UA)(Auto) 100 mg/dL 04/25/24 13:31 Urine Ketones (Auto) Positive 04/25/24 13:31 Urine Blood (Auto) 200 Glen/uL 04/25/24 13:31 Urine Nitrite (Auto) Positive 04/25/24 13:31 Urine Bilirubin (Auto) 1 mg/dL 04/25/24 13:31 Urine Urobilinogen (Auto) 1 mg/dL 04/25/24 13:31 Leukocyte Esterase (Auto) 500 Maryuri/uL 04/25/24 13:31 Assessment & Plan Assessment & Plan (1) Kidney stones: Comment: had surgery by Dr Salcido Code(s): N20.0 - Calculus of kidney Category: Medical (2) UTI (urinary tract infection): Code(s): N39.0 - Urinary tract infection, site not specified Category: Medical Plan Treat UTI Three-month follow-up stone imaging Orders: Orders AMB Cystoscopy Today N20.0 - Calculus of kidney US renal BI 3 Months N20.0 - Calculus of kidney AMB Urinalysis Automated Today Z13.9 - Encounter for screening, unspecified Medications: New levofloxacin 500 mg PO DAILY 5 days 5 tabs 0RF N39.0 - Urinary tract infection, site not specified Patient Instructions: Imaging studies, laboratory and physical exam results were discussed and reviewed in detail. No major barriers to patient understanding were identified. An opportunity to ask questions regarding the treatment plan was provided. All questions were answered. The patient expressed understanding and agreement with the above treatment plan. The patient is aware they should contact our office by phone for worsening of their current condition or the appearance of new urologic symptoms. Compliance is encouraged with any medications and followup testing that is ordered. It is a privilege to participate in the urologic care of your patient. If you have any questions or concerns regarding treatment for the above conditions, or other urologic issues, please do not hesitate to contact me. The office telephone contact is [phone]. This note is constructed using voice recognition software. While every effort has been made to ensure accuracy frame opener errors may have been included. Yours sincerely, Dr Evens Astudillo MD, [facility] - Urology Providers of Expert, Compassionate Care for the Genitourinary System Coding Level of Care Code Est Pt Level 4 (73428) Diagnoses Kidney stones N20.0 UTI (urinary tract infection) N39.0 CPT Codes Cystoscopy - CPT: [id number] with stent removal ([id number])
== END 2024-04-25 14:40 | disposition home or self-care (01) ==
PROVIDERS: PCP General Practice; Visit Provider Urology
DX: N20.0 Calculus of kidney (principal); N39.0 Urinary tract infection, site not specified; Z43.5 Encounter for attention to cystostomy; Z13.9 Encounter for screening, unspecified
CPT/HCPCS: 52310; 99214

== ENCOUNTER → 2024-04-25 13:08 | Outpatient (BNVA) | payer OTHER, SELFPAY | PROVIDERS: PCP General Practice; Visit Provider Urology | DX: N20.0 Calculus of kidney (principal); N39.0 Urinary tract infection, site not specified | CPT/HCPCS: 52310; 81003; 99212 ==

== ENCOUNTER 2024-05-23 16:49 | Outpatient (REF) | payer OTHER, SELFPAY ==
--- OUTSIDE RECORDS SUMMARY | 2024-05-23 17:23 | XMS_ITS | Data Portability ---
Author Organization [employer] [place] [employer] Address [address] [place] [phone] Care Team Providers Care Cisco Engineer Name Role Phone [facility] Referring Provider ANDERSON ROMEO Primary Care Provider [phone] Assessment Encounter Date Assessment Date Assessment LastModified by Organization Details LastModified Time 12/08/2022 12/08/2022 I provided real -time medical direction via phone for this encounter, and was available for additional phone based assistance as needed. I have reviewed and agree with the Assessment and Plan as documented by the Planting Material Remover. Patient given the opportunity to ask questions. [email or web address] Not available 12/08/2022 13:38:04 12/26/2022 12/26/2022 I have reviewed and agree with the assessment and plan as documented by the associate store director. I provided real time medical direction for this encounter and was immediately available to provide additional phone based assistance as needed. History as noted by associate store director. Pt with history of asthma, HTN on [...] new symptoms, which are reviewed with her. [email or web address] Not available 12/26/2022 10:38:18 Plan of Treatment Reminders Order Date Submit Date Provider Last Modified By Organization Details Last Modified Time Details Appointments None recorded. Lab None recorded. Referral None recorded. Procedures None recorded. Surgeries None recorded. Imaging None recorded. Medication Orders Paxlovid 300 mg (150 mg x 2)-100 mg tablets in a dose pack 2022 023 [facility]/Pharmacy #[id number], [address] [place], [address], 3 10:28:02 benzonatate 100 mg capsule 2022 023 [facility]/Pharmacy #[id number], [address] [place], [address], 3 10:28:03 benzonatate 100 mg capsule 2022 023 [facility]/Pharmacy #[id number], [address] [place], [address], 3 10:27:56 Patient TargetsNo targets recorded. Patient InstructionsNo instructions recorded. Reason for Referral None Reported. Medical Equipment None Reported. Allergies No known drug allergies Medications Name Sig Start Date Stop Date Status Note LastModified by Organization Details LastModified Time pulse oximet airial [id number] USE TO CHECK PULSE TWICE DAILY AND NEEDED FOR SHORTNESS OF BREATH. CALL [facility] IF < 95% active Not Available [...] /min 100 /min 162.56 cm 98 [degF] 88673.8 g 161 mm[Hg] 93 mm[Hg] Not Available [employer] 3 13:30:45 Date Recorded Body temperature Respiratory rate Body weight Heart rate Oxygen saturation Oxygen saturation in Arterial blood by Pulse oximetry Systolic blood pressure Diastolic blood pressure Provider Name and Address Organization Details Last Updated DateTime 3 97.8 [degF] 18 /min 40234.9 84 g 90 /min 100 % 100 [...] Diagnosis/Indication Diagnosis SNOMED-CT Code Diagnosis ICD10 Code Diagnosis Note [id number] Kristel Mena MD Main - [facility] [address] [place] [phone] 12/08/2022 13:30:43 12/09/2022 10:59:39 Abdominal pain 39465925 R10.9 possible recurrent colitis-pa tient in severe distress /very tender abdomen -do not want to give anything p.o.( ie Tylenol) and ketorolac could be contraindi cated as we do not know what is going on internally -do not have anything else to offer her for pain management /also further work-up beyond [facility] scope but advised the patient she needs to be transferre d to the emergency room for appropriat e work-up including imaging and treatment. She is agreeable[place] [id number] Moe Stephens MD Main - [facility] [address] [place] [phone] 12/26/2022 10:19:09 12/27/2022 15:42:18 COVID-19 [id number] U07.1 [id number] [facility] [address] [place] [phone] 02/06/2023 17:01:10 02/07/2023 11:43:33 Essential hypertension [id number] I10 This 67-year-ol d female with hypertensi on called [facility] because her BP has been elevated recently. Apparently she got her medication s mixed up, so she hasn't been taking her amlodipine for over a week. I advised her to start taking it today. She will follow-up with her PCP. The patient agreed with this plan. Health Concerns Section Related Observation LastModified by Organization Detai ls LastModified Time None Recorded Concern Status LastModified by Organization Details LastModified Time None Recorded Advance Directives Directive None Recorded Payers Encounter Date Sequence Insurance Name Policy Number Policy Horne Covered Member ID Horne Member ID Guarantor Name 12/08/2022 1 [facility] - DOS ON OR AFTER 2022 - DUAL ELIGIBLE - PENITENTIARY OPTIONS AND ONE CARE (MEDICARE REPLACEMENT/ADV ANTAGE - HMO) Jose Maravilla [id number] Jose Maravilla 12/26/2022 1 [facility] - DOS ON OR AFTER 2022 - DUAL ELIGIBLE - PENITENTIARY OPTIONS AND ONE CARE (MEDICARE REPLACEMENT/ADV ANTAGE - HMO) Jose Maravilla [id number] Jose Maravilla 02/06/2023 1 [facility] - DOS ON OR AFTER 2022 - DUAL ELIGIBLE - PENITENTIARY OPTIONS AND ONE CARE (MEDICARE REPLACEMENT/ADV ANTAGE - HMO) Jose Maravilla [id number] Jose Maravilla Notes Date Note Type Note [...] ..................... ..................... ..................... ..................... ..................... ..................... ............... Planting Material Remover Note From Jerry Buckner: Pt benedict x3 [...] go to ED for scans and treatment. [facility] orders zofran, administered as noted. [facility] transports pt to ED. ..................... ..................... ..................... ..................... ..................... ..................... ............... Disposition: Fulfilled SEGMD: As above- denies fever- denies hematemesis or uti s/s but patient recently hospitalized for colitis in October. She only vomited once and at 7:30 AM it is currently 1330. She also took Augmentin 1 dose this morning left over from October Kristel Mena MD [address] [facility],[address], [place], [address], [employer] 12/09/2022 11:54:37 12/26/2022 text/html This was a super vised home visit with associate store director Leonard Lynch. HPI: Patient with onset of [...] ..................... ..................... ..................... ..................... ..................... ..................... ............... Planting Material Remover Note From Leonard Lynch: Pt presents A@Ox4. [employer] warm and clammy. Pt c/o tiredness and non productive cough with chills . Pt did test pos for covid yesterdayx2. Pt denies SOB CP vomiting nausea dizziness. baseline vitals assessed and recorded. Pos covid swab. Lungs clear bilaterally . 02 sat 100% RA Neg fever. [facility] contacted and 100mg Benzonatate given PO RX called in for Bensonatate and paxlovid. Pt educated on signs that would indicate the ER. ..................... ..................... ..................... ..................... ..................... ..................... ............... Disposition: Jimmie Moe Stephens MD [address] [facility],[address], [place], [address], [employer] 12/26/2022 11:26:44 02/06/2023 text/html HPI: Diaz is [...] has a headache 8-9/10 on pain scale. Diaz denies numbness or tingling in exts or face. Diaz denies SOB or Chest Pain. Diaz reports she took her anti-hypertensive medication this morning. Diaz has not taken anything for ORELLANA and is going to take some Motrin after this CRU call per MD orders. Offered [facility] INSTED HV but instructed Diaz to call 911 and go to ER if s/s worsen, BP goes back up and/or develops chest pain, SOB or worsening headache and she agreed to do. Confirmed address and phone number. Contact number for Diaz is [phone]. This CRU RN placed INSTED referral and sent GC activity to CP for any further follow up needed by CP/Care Team. ..................... ..................... ..................... ..................... ..................... ..................... ............... CRC Nursing Assessment: Comments: CRC RN did not require any additional information to process this visit. Ricardo Block MD [address] [facility],[address], [place], [address], [employer] 02/06/2023 17:06:44 OBGyn Episode No OBEpisode recorded.
[2024-05-24 09:18] LABS: HPV 16,18/45 See PAP report
== END 2024-05-23 16:50 | disposition home or self-care (01) ==
LOC: HO.HHCLNP 16:49
PROVIDERS: Visit Provider Advanced Practice Midwife
DX: Z12.4 Encounter for screening for malignant neoplasm of cervix (principal); R87.610 Atypical squamous cells of undetermined significance on cytologic smear of cervix (ASC-US)
CPT/HCPCS: 87626; 88175

== ENCOUNTER 2024-05-24 14:10 | Outpatient (REF) | payer OTHER, SELFPAY ==
--- NOTE | ~2024-05-24 | US_ITS ---
EXAMINATION: US PELVIS TRANSABDOMINAL AND TRANSVAGINAL HISTORY: LLQ fullness, pelvic pain COMPARISON: Correlation is made with a CT of the pelvis dated 04/12/2024. TECHNIQUE: Transabdominal and endovaginal real-time 2D pacheco-scale ultrasound was performed. Color Doppler was also performed. FINDINGS: Uterus: The uterus is normal in size, measuring 5.9 x 2.1 x 4.1 cm. Myometrium has a normal echotexture. There is a 1.6 x 1.4 x 1.4 cm calcified posterior fibroid. An additional 1.0 x 0.5 x 1.0 cm fibroid is seen in the lower uterine segment on the right. Endometrium: The endometrial stripe measures 2 mm in thickness. There is fluid in the endometrial canal. Right ovary: The right ovary measures 2.0 x 1.0 x 1.2 cm. The right ovary is normal in size and echotexture. Left ovary: The left ovary measures 1.9 x 0.9 x 0.9 cm. The left ovary is normal in size and echotexture. Color Doppler analysis of the bilateral ovarian arteries and veins are normal. Pelvic fluid: none. US/US pelvic and transvaginal IMPRESSION: Fluid in the endometrial canal. Uterine fibroids as described. Electronically signed by: Dimitri Grullon MD 05/24/2024 03:14 PM [facility]
== END 2024-05-24 14:11 | disposition home or self-care (01) ==
LOC: HO.US 14:10
PROVIDERS: PCP General Practice; Visit Provider Advanced Practice Midwife
DX: R10.2 Pelvic and perineal pain (principal); R19.8 Other specified symptoms and signs involving the digestive system and abdomen
CPT/HCPCS: 76830; 76856

== ENCOUNTER → 2024-05-24 14:12 | Outpatient (BNV) | payer OTHER, SELFPAY | PROVIDERS: PCP General Practice; Visit Provider Radiology Diagnostic Radiology | DX: R10.2 Pelvic and perineal pain (principal) | CPT/HCPCS: 76830; 76856 ==

== ENCOUNTER 2024-05-29 12:05 | Outpatient (REF) | payer OTHER, SELFPAY ==
--- OUTSIDE RECORDS SUMMARY | 2024-05-29 14:29 | XMS_ITS | Data Portability ---
Author Organization [employer] Address [address] [place] [phone] Care Team Providers Care Salesperson Jewelry Name Role Phone [facility] Referring Provider ANDERSON ROMEO Primary Care Provider Assessment Encounter Date Assessment Date Assessment LastModified by Organization Details LastModified Time 12/08/2022 12/08/2022 I provided real -time medical direction via phone for this encounter, and was available for additional phone based assistance as needed. I have reviewed and agree with the Assessment and Plan as documented by the Actuarial Intern. Patient given the opportunity to ask questions. [email or web address] Not available 12/08/2022 13:38:04 12/26/2022 12/26/2022 I have reviewed and agree with the assessment and plan as documented by the summer counselor. I provided real time medical direction for this encounter and was immediately available to provide additional phone based assistance as needed. History as noted by summer counselor. Pt with history of asthma, HTN on [...] new symptoms, which are reviewed with [facility]. [email or web address] Not [facility] 12/26/2022 10:38:18 Plan of Treatment Reminders Order Date Submit Date Provider Last Modified By Organization Details Last Modified Time Details Appointments None recorded. Lab None recorded. Referral None recorded. Procedures None recorded. Surgeries None recorded. Imaging None recorded. Medication Orders Paxlovid 300 mg (150 mg x 2)-100 mg tablets in a dose pack 2022 023 [facility]/Pharmacy #[id number], [address] [place], [address], 3 10:28:02 benzonatate 100 mg capsule 2022 023 [facility]/Pharmacy #[id number], [address] [place], [address], 3 10:28:03 benzonatate 100 mg capsule 2022 023 [facility]/Pharmacy #[id number], [address] [place], [address], 3 10:27:56 Patient TargetsNo targets recorded. Patient InstructionsNo instructions recorded. Reason for Referral None Reported. Medical Equipment None Reported. Allergies No known drug allergies Medications Name Sig Start Date Stop Date Status Note LastModified by Organization Details LastModified Time pulse oximet airial [id number] USE TO CHECK PULSE TWICE DAILY AND NEEDED FOR SHORTNESS OF BREATH. CALL [facility] IF < 95% active Not Available [...] /min 100 /min 162.56 cm 98 [degF] 19989.8 g 161 mm[Hg] 93 mm[Hg] Not Available [employer] [facility] [employer] 3 13:30:45 Date Recorded Body temperature Respiratory rate Body weight Heart rate Oxygen saturation Oxygen saturation in Arterial blood by Pulse oximetry Systolic blood pressure Diastolic blood pressure Provider Name and Address Organization Details Last Updated DateTime 3 97.8 [degF] 18 /min 66877.9 84 g 90 /min 100 % 100 [...] SNOMED-CT Code Diagnosis ICD10 Code Diagnosis Note [id number] Kristel Mena MD Main - [facility] [address] [place] [phone] 12/08/2022 13:30:43 12/09/2022 10:59:39 Abdominal pain 06720022 R10.9 possible recurrent colitis-pa tient in severe distress /very tender abdomen -do not want to give anything p.o.( ie Tylenol) and ketorolac could be contraindi cated as we do not know what is going on internally -do not have anything else to offer her for pain management /also further work-up beyond [facility] scope but advised the patient she needs to be transferre d to the emergency room for appropriat e work-up including imaging and treatment. She is agreeable[place] [id number] Moe Stephens MD Main - [facility] [address] [place] [phone] 12/26/2022 10:19:09 12/27/2022 15:42:18 COVID-19 [id number] U07.1 [id number] [facility] [address] [place] [phone] 02/06/2023 17:01:10 02/07/2023 11:43:33 Essential hypertension 66796392 I10 This 67-year-ol d female with hypertensi [...] Horne Member ID Guarantor Name 12/08/2022 1 [facility] - DOS ON OR AFTER 2022 - DUAL ELIGIBLE - GROUP HOME OPTIONS AND ONE CARE (MEDICARE REPLACEMENT/ADV ANTAGE - HMO) Jose Maravilla [id number] Jose Maravilla 12/26/2022 1 [facility] - DOS ON OR AFTER 2022 - DUAL ELIGIBLE - GROUP HOME OPTIONS AND ONE CARE (MEDICARE REPLACEMENT/ADV ANTAGE - HMO) Jose Maravilla [id number] Jose Maravilla 02/06/2023 1 [facility] - DOS ON OR AFTER 2022 - DUAL ELIGIBLE - GROUP HOME OPTIONS AND ONE CARE (MEDICARE REPLACEMENT/ADV ANTAGE - HMO) Jose Maravilla [id number] Jose Maravilla Notes Date Note Type Note [...] ..................... ..................... ..................... ..................... ..................... ..................... ............... Actuarial Intern Note From Jerry Buckner: Pt benedict x3 [...] go to ED for scans and treatment. [facility] [place] zofran, administered as noted. [facility] transports pt to ED. ..................... ..................... ..................... ..................... ..................... ..................... ............... Disposition: Fulfilled SEGMD: As above- denies fever- denies hematemesis or uti s/s but patient recently hospitalized for colitis in October. She only vomited once and at 7:30 AM it is currently 1330. She also took Augmentin 1 dose this morning left over from October Kristel Mena MD [address] [facility],[address], [place], [address], [employer] 12/09/2022 11:54:37 12/26/2022 text/html This was a super vised home visit with summer counselor Leonard Lynch. HPI: Patient with onset of [...] ..................... ..................... ..................... ..................... ..................... ..................... ............... Actuarial Intern Note From Leonard Lynch: Pt presents A@Ox4. [place] [employer] warm and clammy. Pt c/o tiredness and non productive cough with chills . Pt did test pos for covid yesterdayx2. Pt denies SOB CP vomiting nausea dizziness. baseline vitals assessed and recorded. Pos covid swab. Lungs clear bilaterally . 02 sat 100% RA Neg fever. [facility] contacted and 100mg Benzonatate given PO RX called in for Bensonatate and paxlovid. Pt educated on signs that would indicate the ER. ..................... ..................... ..................... ..................... ..................... ..................... ............... Disposition: Jimmie Moe Stephens MD [address] [facility],[address], [place], [address], [employer] 12/26/2022 11:26:44 02/06/2023 text/html HPI: Diaz is [...] this CRU call per MD orders. Offered [facility] INSTED HV but instructed Diaz to call 911 and go to ER if s/s worsen, BP goes back up and/or develops chest pain, SOB or worsening headache and she agreed to do. Confirmed address and phone number. Contact number for Diaz is [phone]. This CRU RN placed INSTED referral and sent GC activity to CP for any further follow up needed by CP/Care Team. ..................... ..................... ..................... ..................... ..................... ..................... ............... CRC Nursing Assessment: Comments: CRC RN did not require any additional information to process this visit. Ricardo Block MD [address] [facility],[address], [place], [address], [employer], [employer] 02/06/2023 17:06:44 OBGyn Episode No OBEpisode recorded.
== END 2024-05-29 12:06 | disposition home or self-care (01) ==
LOC: HO.MAMMO 12:05
PROVIDERS: PCP General Practice; Visit Provider General Practice
DX: Z12.31 Encounter for screening mammogram for malignant neoplasm of breast (principal)
CPT/HCPCS: 77063; 77067

== ENCOUNTER → 2024-05-29 12:30 | Outpatient (BNV) | payer OTHER, SELFPAY | PROVIDERS: PCP General Practice; Visit Provider Internal Medicine | DX: Z12.31 Encounter for screening mammogram for malignant neoplasm of breast (principal) | CPT/HCPCS: 77063; 77067 ==

== ENCOUNTER 2024-11-26 10:48 | Outpatient (REF) | payer OTHER, SELFPAY ==
--- OUTSIDE RECORDS SUMMARY | 2024-11-26 12:10 | XMS_ITS | Clinical Summary ---
Author Organization [facility], Address [address] [place] [address] [place] [address] Phone Care Team Providers Care Metal Painter Name Role Phone Stefany Seth RN Primary Care Provider Unav[employer]a ble Allergies No known active allergies Medications alendronate (FOSAMAX) 70 MG tablet Take 70 mg by mouth every 7 (seven) days Take in the morning with a full glass of water, on an empty stomach, and do not take anything else by mouth or lie down for the next 30 min. Active Mometasone Furoate 100 MCG/ACT aerosol Inhale 2 puffs 2 (two) times a day Active Calcium Carbonate-Vitam in D (CALCIUM 600+D PO) Take 1 tablet by mouth 1 (one) time each day Active etanercept (ENBREL) 50 MG/ML injection Inject 1 mL under the skin per week Active hydroxychloroqu ine (PLAQUENIL) 200 MG tablet Take 200 mg by mouth in the morning and 200 mg in the evening. Active ibuprofen (ADVIL,MOTRIN) 800 MG tablet Take 800 mg by mouth in the morning and 800 mg at noon and 800 mg in the evening. Active loratadine (CLARITIN) 10 MG tablet Take 10 mg by mouth 1 (one) time each day Active omeprazole (PriLOSEC) [address] capsule Take 20 mg by mouth 1 (one) time each day Do not crush or chew. Active montelukast (SINGULAIR) 10 MG tablet Take 10 mg by mouth every night Active albuterol HFA (PROVENTIL HFA;VENTOLIN HFA) 108 (90 Base) MCG/ACT inhaler Inhale 2 puffs every 6 (six) hours if needed Active traMADol (ULTRAM) 50 MG tablet TAKE 1 OR 2 TABLETS BY MOUTH 3 TIMES A DAY NEEDED FOR PAIN 04/08/2022 Active Calcium + Vitamin D3 600-10 MG-MCG tablet Take 1 tablet by mouth 1 (one) time each day 03/09/2022 Active Active Problems Problem Noted Date Diagnosed Date Stage 1 chronic kidney disease 04/12/2022 Complex renal cyst 04/11/2022 Iron deficiency anemia 04/11/2022 Nephrolithiasis 04/11/2022 Neutropenia 04/11/2022 Social History Tobacco Use Types Packs/Day Years Used Date Smoking Tobacco: Never Comments Unknown Sex and Gender Information Value Date Recorded Sex Assigned at Not on file Legal Sex Female 11:22 AM EDT Gender Identity Not on file Sexual Orientation Not on file Plan of Treatment Health Maintenance Due Date Last Done Comments Breast Cancer Screening 1955 Pneumococcal Vaccine: 50+ Ye ars (1 of 2 - PCV) 1976 Colorectal Cancer Screening: Annual FOBT 2006 Colorectal Cancer Screening: Colonoscopy 2006 Colorectal Cancer Screening: Sigmoidoscopy 2006 Influenza Vaccine (#1) 2025 Hepatitis B Vaccine Aged Out No longe r eligible based on patient's age to complete this topic Insurance Medicaid [place] Care Teams Metal Painter Relationship Specialty Start Date End Date Stefany Seth RN PCP - General Family Medicine 12/31/21
--- OUTSIDE RECORDS SUMMARY | 2024-11-26 12:10 | XMS_ITS | Encounter Summary ---
Author Organization [employer] Address [address] [place] [address] [address] [place] [address] Care Team Providers Care Focusing Machine Operator Name Role Phone Donna Landa MD Primary Care Provider [phone] Encounter Details Date Type Department Care Team (Late st Contact Info) Description 08/03/2022 Orders Only [facility] [address] [place], [place] [phone] Donna Landa MD [address], [place] [phone] Neutropenia, unspecified type (CMS/HCC) (Primary Dx) Social History Tobacco Use Types Packs/Day Years Used Date Smoking Tobacco: Never Smokeless Tobacco: Never Alcohol Use Standard Drinks/Week Comments Never 0 (1 standard drink = 0.6 oz pur e alcohol) Comments Unknown Sex and Gender Information Value Date Recorded Sex Assigned at Female 03/14/2022 10:14 AM EDT Legal Sex Female 10:14 AM EDT Gender Identity Female 03/14/2022 10:14 AM EDT Sexual Orientation Straight 03/14/2022 10 :14 AM EDT documented as of this encounter Plan of Treatment Not on file documented as of this encounter Procedures Procedure Name Priority Date/Time Associated Diagnosis Comments LACTIC ACID LAB USE ONLY Routine 08/09/2022 6:07 PM EDT Neutropenia, unspecified type (CMS/HCC) LACTIC ACID Routine 08/09/2022 3:30 PM EDT Neutropenia, unspecified type (CMS/HCC) SARS COV2/INFLUENZA A/B AND RSV RNA QL NAAT Routine 08/09/2022 1:05 PM EDT Neutropenia, unspecified type (CMS/HCC) CBC WITH AUTO DIFFERENTIAL Routine 08/09/2022 1:05 PM EDT Neutropenia, unspecified type (CMS/HCC) PROTHROMBIN TIME-INR Routine 08/09/2022 1:05 PM EDT Neutropenia, unspecified type (CMS/HCC) MAGNESIUM Routine 08/09/2022 1:05 PM EDT Neutropenia, unspecified type (CMS/HCC) LIPASE Routine 08/09/2022 1:05 PM EDT Neutropenia, unspecified type (CMS/HCC) COMPREHENSIVE METABOLIC PANEL Routine 08/09/2022 1:05 PM EDT Neutropenia, unspecified type (CMS/HCC) documented in this encounter Results * Lactic Acid (08/09/2022 6:07 PM EDT) Lactic Acid 1.0 0.5 - 2.0 mmol/L [facility] 08/09/2022 6:07 PM EDT 08/09/2022 6:16 PM EDT [facility] External Provider LAB BLO OD ORDERABLES Final Result [facility] [address] [place] [phone] * (ABNORMAL) Lactic Acid (08/09/2022 3:30 PM EDT) Lactic Acid 3.8(HH) 0.5 - 2.0 mmol/L [facility] Comment:Critical value for t est(s): LACTA Results called to hamilton back by: JE Person calling: TEE Date: 08/09/22 Time:1558 08/09/2022 3:30 PM EDT 08/09/2022 3:33 PM EDT [facility] External Provider LAB BLO OD ORDERABLES Final Result [facility] [address], [place] [phone] * (ABNORMAL) CBC auto differential (08/09/2022 1:05 PM EDT) White Blood Count 5.0 4.8 - 10.8 X10*3/uL [facility] Red Blood Count 6.46(H) 4.20 - 5.50 X10*6/uL [facility] Hemoglobin 15.3 12.0 - 16.0 g/dl [facility] Hematocrit 48.5(H) 37.0 - 47.0 % [facility] Mean Corpuscular Volume 75.1(L) 80.0 - 98.0 fL [facility] Mean Corpuscular Hemoglobin 23.7(L) 27.0 - 33.0 pg [facility] Mean Corpuscular HGB Conc 31.5 31.0 - 35.0 g/dl [facility] Red Cell Distribution Width 19.7(H) 11.0 - 16.0 % [facility] Platelet Count 276 160 - 400 X10*3/uL [facility] Mean Platelet Volume 8.3(L) 9.4 - 12.3 fL [facility] Neutrophils Percent Auto 61.4 45 - 73 % [facility] Imm Gran Pct Auto 0.2 0.0 - 0.4 % [facility] Lymphocytes Percent Auto 28.1 20 - 40 % [facility] Monocytes Percent Auto 9.7 2 - 11 % [facility] Eosinophils Percent Auto 0.2 0 - 4 % [facility] Basophils Percent Auto 0.4 0 - 2 % [facility] NRBC Pct Auto 0.0 0.0 - 0.2 /100WBC [facility] Neutrophils Absolute Auto 3.0 2.0 - 8.3 x10*3/uL [facility] Imm Gran Abs Auto 0.01 0.00 - 0.03 X10*3/uL [facility] Lymphocytes Absolute Auto 1.4 1.2 - 4.9 X10*3/uL [facility] Monocytes Absolute Auto 0.5 0.1 - 1.2 X10*3/uL [facility] Eosinophils Absolute Auto 0.0 0.0 - 0.4 X10*3/uL [facility] Basophils Absolute Auto 0.0 0.0 - 0.2 X10*3/uL [facility] NRBC Abs Auto 0.000 0.0 - 0.012 X10*3/uL [facility] 08/09/2022 1:05 PM EDT 08/09/2022 1:08 PM EDT [facility] External Provider LAB BLO OD ORDERABLES Final Result Performing Organization Address [facility]/ZIP Co de Phone Number [facility] [address] [place] [phone] * Lipase (08/09/2022 1:05 PM EDT) Lipase 26 8 - 78 U/L [facility] 08/09/2022 1:05 PM EDT 08/09/2022 1:08 PM EDT [facility] External Provider LAB BLO OD ORDERABLES Final Result Performing Organization Address City/[facility]/ZIP Co de Phone Number [facility] [address] [place] [phone] * Magnesium (08/09/2022 1:05 PM EDT) Magnesium 2.1 1.6 - 2.6 mg/dL [facility] 08/09/2022 1:05 PM EDT 08/09/2022 1:08 PM EDT [facility] External Provider LAB BLO OD ORDERABLES Final Result Performing Organization Address City/[facility]/ZIP Co de Phone Number [facility] [address] [place] [phone] * (ABNORMAL) Comprehensive Metabolic Panel (08/09/2022 1:05 PM EDT) Sodium 143 135 - 145 mmol/L [facility] Potassium 3.8 3.3 - 5.1 mmol/L [facility] Chloride 105 96 - 108 mmol/L [facility] Carbon Dioxide 26 22 - 29 mmol/L [facility] Anion Gap 16 12 - 20 [facility] Urea Nitrogen (BUN) 18(H) 9 - 16 mg/dL [facility] Creatinine, Serum 0.90 0.5 - 1.4 mg/dL [facility] Creatinine Clr Calc Pharmacy 59.0 [facility] Comment:Provided height and weight: 162.56 cm,68.039 kg.eGFR (calculated from the MDRD study equation) and eCrCl(calculated from the Cockcroft-Gault equation) are based ondifferent parameters and may not yield comparable results.If eCrCl result is absurd, please check patient'sheight/weight. Estimated Glomerular Filt Rate >60 [facility] Comment:NOTE: For -Am erican individuals, multiply the result by 1.210.Chronic Kidney Disease: Estimated GFR < 60 mL/min/1.93f8Loszpq Kidney Disease: Estimated GFR < 15 mL/min/1.73m2 Glucose 122(H) 60 - 115 mg/dL [facility] Calcium 10.4(H) 8.4 - 10.2 mg/dL [facility] Bilirubin, Total 1.1(H) 0.0 - 1.0 mg/dL [facility] Aspartate Amino Transferase 38(H) 5 - 31 U/L [facility] Alanine Aminotransferase 31 0 - 31 U/L [facility] Total Protein 10.4(H) 6.5 - 8.0 g/dL [facility] Albumin Level 4.2 3.5 - 5.0 g/dL [facility] Alkaline Phosphatase 142(H) 39 - 117 U/L [facility] 08/09/2022 1:05 PM EDT 08/09/2022 1:08 PM EDT [facility] External Provider LAB BLO OD ORDERABLES Final Result Performing Organization Address [facility] Co de Phone Number [facility] [address] [place] [phone] * Prothrombin Time-INR (08/09/2022 1:05 PM EDT) Prothrombin Time 10.3 10.0 - 13.1 SEC [facility] INTERNATIONAL NORM RATIO 0.9 0.9 - 1.1 [facility] Comment:INTERNATIONAL NORMAL IZED RATIO (INR) REFERENCE RANGES Reference RangeFor patients not on anticoagulant therapy: 0.9 - 1.1INR ranges for oral anticoagulanttherapy:For prevention and treatment of venous thrombosis and pulmonary embolism: 2.0 - 3.0For acute myocardial infarction with aspirin therapy: 2.0 - 3.0For acute myocardial infarction without aspirin therapy: 3.0 - 4.0For patients with mechanical prosthetic heart valves: 2.5 - 3.5 08/09/2022 1:05 PM EDT 08/09/2022 1:08 PM EDT [facility] External Provider LAB BLO OD ORDERABLES Final Result Performing Organization Address [facility] de Phone Number [facility] [address] [place] [phone] * SARS-CoV-2 RNA, Influenza A/B, and RSV RNA, Ql NAAT (08/09/2022 1:05 PM EDT) Influenza A PCR NEGATIVE Negative [facility] Influenza B PCR NEGATIVE Negative [facility] Resp Syncy Virus RNA Qual PCR NEGATIVE Negative [facility] SARS COV2 PCR NEGATIVE Negative [facility] SARS/Flu/RSV Note See Note [facility] Comment:All test results mus t be correlated with clinical findings.Negative results do not preclude SARS-CoV2, influenza Avirus, influenza B virus and/or RSV infectionand should not be used as the sole basis for treatment orother patient management decisions. Negative results must becombined with clinical observations, patient history, andepidemiological information.This test has not been evaluated for monitoring treatment ofinfection.This test has been authorized by the FDA under an EmergencyUse Authorization (EUA) for use by authorized laboratories.Testing performed on the [employer] GeneXpert utilizingreal-time RT-PCR.All SARS CoV2 and positive influenza A/B results arereported to [facility]. 08/09/2022 1:05 PM EDT 08/09/2022 1:08 PM EDT [facility] Exter nal Provider LAB MICROBIOLOGY - GENERAL ORDERABLES Final Result [facility] [address] [place] [phone] documented in this encounter Visit Diagnoses Diagnosis Neutropenia, unspecified type (CMS/HCC)- Primary documented in this encounter Care Teams Focusing Machine Operator Relationship Specialty Start Date End Date Donna Landa MD [address] [place] [address] PCP - General Family Medicine 01/08/22 documented as of this encounter
--- OUTSIDE RECORDS SUMMARY | 2024-11-26 12:10 | XMS_ITS | Data Portability ---
Author Organization [employer] [facility], [facility] Address [address] [place] [address] Care Team Providers Care Alum Plant Supervisor Name Role Phone [facility] Referring Provider ANDERSON ROMEO Primary Care Provider [phone] Assessment Encounter Date Assessment Date Assessment LastModified by Organization Details LastModified Time 12/08/2022 12/08/2022 I provided real -time medical direction via phone for this encounter, and was available for additional phone based assistance as needed. I have reviewed and agree with the Assessment and Plan as documented by the Certified Ethical Hacker. Patient given the opportunity to ask questions. [email or web address] Not available 12/08/2022 13:38:04 12/26/2022 12/26/2022 I have reviewed and agree with the assessment and plan as documented by the sample display preparer. I provided real time medical direction for this encounter and was immediately available to provide additional phone based assistance as needed. History as noted by sample display preparer. Pt with history of asthma, HTN on [...] new symptoms, which are reviewed with her. [email or web address] Not available 12/26/2022 10:38:18 Plan of Treatment Reminders Order Date Submit Date Provider Last Modified By Organization Details Last Modified Time Details Appointments None recorded. Lab None recorded. Referral None recorded. Procedures None recorded. Surgeries None recorded. Imaging None recorded. Medication Orders Paxlovid 300 mg (150 mg x 2)-100 mg tablets in a dose pack 2022 023 [id number] [address] [place], [address], 3 10:28:02 benzonatate 100 mg capsule 2022 023 [id number], [address] [place], [address], 3 10:28:03 benzonatate 100 mg capsule 2022 023 [id number] [address] [place], [address], 3 10:27:56 Patient TargetsNo targets recorded. Patient InstructionsNo instructions recorded. Reason for Referral None Reported. Medical Equipment None Reported. Allergies No known drug allergies Medications Name Sig Start Date Stop Date Status Note LastModified by Organization Details LastModified Time pulse oximet airial [id number] USE TO CHECK PULSE TWICE DAILY AND NEEDED FOR SHORTNESS OF BREATH. CALL [facility] IF < 95% active Not Available [...] Body height Body temperature Body weight Systolic And Diastolic Provider Name and Address Organization Details Last Updated DateTime 3 98 % 98 % 18 /min 100 /min 162.56 cm 98 [degF] 47899.8 g 161/93 mm[Hg] Not Available [facility] [employer] 3 13:30:45 Date Recorded Body temperature Respiratory rate Body weight Heart rate Oxygen saturation Oxygen saturation in Arterial blood by Pulse oximetry Systolic And Diastolic Provider Name and Address Organization Details Last Updated DateTime 3 97.8 [degF] 18 /min 83262.9 84 g 90 /min 100 % 100 % 182/90 mm[Hg] Not Available [facility] [employer] 3 10:19:13 Date Recorded Heart rate Oxygen saturation Oxygen saturation in Arterial blood by Pulse oximetry Body temperature Respiratory rate Systolic And Diastolic Provider Name and Address Organization Details Last Updated DateTime 3 86 /min 98 % 98 % 97.5 [degF] 16 /min 196/94 mm[Hg] Not Available [facility] 17:01:12 [...] SNOMED-CT Code Diagnosis ICD10 Code Diagnosis Note [id number] [facility] [address] [place] [phone] 12/08/2022 13:30:43 12/09/2022 10:59:39 Abdominal pain [id number] R10.9 possible recurrent colitis-pa tient in severe distress /very tender abdomen -do not want to give anything p.o.( ie Tylenol) and ketorolac could be contraindi cated as we do not know what is going on internally -do not have anything else to offer her for pain management /also further work-up beyond [facility] scope but advised the patient she needs to be transferre d to the emergency room for appropriat e work-up including imaging and treatment. She is agreeable. Report called [place] [facility] [id number] Moe Stephens MD Main - [address] [phone] 12/26/2022 10:19:09 12/27/2022 15:42:18 COVID-19 [id number] U07.1 [id number] [facility] [address] [phone] 02/06/2023 17:01:10 02/07/2023 11:43:33 Essential hypertension [id number] I10 This 67-year-ol d female with hypertensi on called [facility] because her BP has been elevated recently. [...] Recorded Advance Directives Directive None Recorded Payers Insurance Date Sequence Insurance Name Policy Number Policy Horne Covered Member ID Horne Member ID Guarantor Name 07/11/2023 1 [facility] - DOS ON OR AFTER 2022 - DUAL ELIGIBLE - INTERMEDIATE OPTIONS AND ONE CARE (MEDICARE REPLACEMENT/ADV ANTAGE - HMO) Jose Maravilla [id number] Jose Maravilla Notes Date Note Type Note [...] ..................... ..................... ..................... ..................... ..................... ..................... ............... Certified Ethical Hacker Note From Jerry Buckner: Pt benedict x3 [...] go to ED for scans and treatment. [facility] orders zofran, administered as noted. [facility] transports pt to ED. ..................... ..................... ..................... ..................... ..................... ..................... ............... Disposition: Fulfilled SEGMD: As above- denies fever- denies hematemesis or uti s/s but patient recently hospitalized for colitis in October. She only vomited once and at 7:30 AM it is currently 1330. She also took Augmentin 1 dose this morning left over from October Kristel Mena MD [address] [place] [address],[address], [place], [phone], [employer] 12/09/2022 11:54:37 12/26/2022 text/html This was a super vised home visit with sample display preparer Leonard Lynch. HPI: Patient with onset of [...] ..................... ..................... ..................... ..................... ..................... ..................... ............... Certified Ethical Hacker Note From Leonard Lynch: Pt presents A@Ox4. [place] warm and clammy. Pt c/o tiredness and [...] ..................... ............... Disposition: Fulfilled Moe Stephens MD [address] [facility],[address], [place], [phone], [employer] 12/26/2022 11:26:44 02/06/2023 text/html HPI: Diaz is [...] this CRU call per MD orders. Offered [facility] INSTED HV but instructed Diaz to call 911 and go to ER if s/s worsen, BP goes back up and/or develops chest pain, SOB or worsening headache and she agreed to do. Confirmed address and phone number. Contact number for Diaz is [phone]. This CRU RN placed INSTED referral and sent GC activity to CP for any further follow up needed by CP/Care Team. ..................... ..................... ..................... ..................... ..................... ..................... ............... CRC Nursing Assessment: Comments: CRC RN did not require any additional information to process this visit. Ricardo Block MD [address] [facility],[address], [place], [phone], [employer] 02/06/2023 17:06:44 OBGyn Episode No OBEpisode recorded.
[2024-11-26 13:51] LABS: MANUAL DIFF FLAG NO
[2024-11-26 14:03] LABS: Hematocrit 40.6 % (37.0-47.0); Hemoglobin 13.6 g/dl (12.0-16.0); Imm Gran Abs Auto 0.01 X10*3/uL (0.00-0.03); Imm Gran Pct Auto 0.3 % (0.0-0.4); Lymphocytes Absolute Auto 1.8 X10*3/uL (1.2-4.9); Mean Corpuscular HGB Conc 33.5 g/dl (31.0-35.0); Mean Corpuscular Hemoglobin 27.3 pg (27.0-33.0); Mean Corpuscular Volume 81.4 fL (80.0-98.0); NRBC Abs Auto 0.000 X10*3/uL (0.0-0.012); NRBC Pct Auto 0.0 /100WBC (0.0-0.2); Platelet Count 169 X10*3/uL (160-400); Red Blood Count 4.99 X10*6/uL (4.20-5.50); White Blood Count 3.6 X10*3/uL (4.8-10.8)
[2024-11-26 14:17] LABS: Alanine Aminotransferase 39 U/L (0-31); Albumin Level 4.3 g/dL (3.5-5.0); Alkaline Phosphatase 106 U/L (39-117); Aspartate Amino Transferase 40 U/L (5-31); Cholesterol 193 mg/dL (<200); HDL Cholesterol 35 mg/dL (>40); Total Protein 8.0 g/dL (6.5-8.0); Triglycerides 242 mg/dL (<150)
[2024-11-26 14:47] LABS: Folate 14.4 ng/mL (> or = 4.0); Vitamin B12 525 pg/mL (200-900)
== END 2024-11-26 10:49 | disposition home or self-care (01) ==
LOC: HO.HHCL 10:48
PROVIDERS: PCP General Practice; Visit Provider General Practice
DX: Z00.00 Encounter for general adult medical examination without abnormal findings (principal); R42 Dizziness and giddiness; G62.9 Polyneuropathy, unspecified
CPT/HCPCS: 36415; 80061; 80076; 82607; 82746; 84443; 85025; 86592

== ENCOUNTER 2025-04-11 13:07 | Emergency (ER) | payer OTHER, SELFPAY ==
--- NOTE | 2025-04-11 13:13 | ED.GENADULT ---
HPI - General Adult General Chief complaint: Eye Problems Stated complaint: eye issue sent from urgent care Time Seen by Provider: 04/11/25 16:25 Source: patient Mode of arrival: ambulatory Limitations: no limitations History of Present Illness ED Provider: Dr. Dickinson [facility] narrative: This is a 62-year-old female presented hospital today for 3 days of right eye pain. Patient went to urgent care. Was sent in for we will lamp examination for possible corneal abrasion. Patient does wear contact lenses. The patient stated that she removed on 3 days ago. She stated that the whole contact lens was removed. However her eyes continue to be irritated and draining. Related Data Home Medications ?Medication ?Instructions ?Recorded ?Confirmed albuterol sulfate 90 mcg/actuation 2 puff inhalation Q6H PRN Wheezing 02/14/22 04/12/24 aerosol inhaler ferrous sulfate 325 mg (65 mg 1 tab PO DAILY anemia 02/14/22 04/12/24 iron) tablet montelukast 10 mg tablet 1 tab PO BEDTIME 02/14/22 04/12/24 omeprazole 20 mg capsule,delayed 1 cap PO DAILY PRN Acid Reflux 02/14/22 04/12/24 release tramadol 50 mg tablet 100 mg PO BID PRN pain 02/14/22 04/12/24 triamcinolone acetonide 0.1 % 1 appl topical BID PRN Rash 02/14/22 04/12/24 topical cream loratadine 10 mg tablet 1 tab PO DAILY 03/04/22 04/12/24 prednisone 10 mg tablet 10 mg PO DAILY@0800 06/21/22 04/12/24 ondansetron HCl 4 mg tablet 4 mg PO Q8H PRN nausea/vomiting 08/09/22 04/12/24 diphenhydramine HCl 25 mg tablet 25 mg PO BEDTIME PRN itch 04/12/24 04/12/24 (Marilynn-Dryl) ibuprofen 800 mg tablet 800 mg PO TID PRN pain 04/12/24 04/12/24 tocilizumab 162 mg/0.9 mL 162 mg subcut TH 04/12/24 04/12/24 subcutaneous pen injector (Actemra ACTPen) Previous Rx's ?Medication ?Instructions ?Recorded naproxen 500 mg tablet 500 mg PO BID PRN pain 7 days #14 04/13/24 tabs phenazopyridine 100 mg tablet 100 mg PO TID PRN Spasm 4 days #12 04/13/24 (Pyridium) tabs sulfamethoxazole 800 1 tab PO BID 5 days #10 tabs 04/13/24 mg-trimethoprim 160 mg tablet (Bactrim DS) tamsulosin 0.4 mg capsule 0.4 mg PO BEDTIME 14 days #14 caps 04/13/24 oxycodone 5 mg tablet 5 mg PO Q6H PRN Pain, 04/14/24 Moderate(Pain Scale 4-6) #20 tabs levofloxacin 500 mg tablet 500 mg PO DAILY 5 days #5 tabs 04/25/24 ofloxacin 0.3 % eye drops 1 drp ophthalmic-Right QID #5 mL 04/11/25 Allergies Allergy/AdvReac Type Severity Reaction Status Date / Time No Known Allergies (No Known Allergy Verified 04/11/25 13:18 Allergies*) Review of Systems Review of Systems: Pertinent review of systems as mentioned in HPI. All other system otherwise negative. [facility] Past Medical History [facility] Narrative: Medical history as mentioned in HPI Medical History (Updated 04/11/25 @ 17:48 by Magda Dickinson DO) UTI (urinary tract infection) Kidney stones Asthma Rheumatoid arthritis Neutropenia Surgical History H/O left breast biopsy Family History Family History Sister Arthritis Hypercholesterolemia HTN (hypertension) Brother Pacemaker Colon cancer Family/Other Breast cancer Social History Social History Household Members: Children Housing: House Are you a primary outdoor emergency care technician to a significant other at home: No Do you presently have visiting nurse or other home services: Yes (intelligence analyst daily) Alcohol intake: former Patient Tobacco Use Status: Never used Tobacco Substance Use Type: Marijuana Advance Directives: No Advance Directives Information Provided: No service: No Current occupational status: employed Physical Exam ED Exam Exam: General: Pleasant, no distress, interacting appropriately Head: Normacephalic, atraumatic ENT: Conjunctivitis of right eye. Does look irritated. Skin: Warm and dry Psychiatric: Appropriate mood and thoughts Vital Signs: Vital Signs - 24 hr 04/11/25 13:15 04/11/25 16:01 Temperature 96.9 F 98.6 F Pulse Rate 84 92 Respiratory Rate 16 16 Blood Pressure 206/97 H 187/98 H Pulse Oximetry 98 98 Oxygen Delivery Method Room Air Room Air BMI result Body Mass Index 28.6 Course Course Course Narrative: Rapid medical examination performed in triage by Morena Lawson PA-C: Patient is a 70 year old assigned female at presenting to the emergency department with right eye pain + burning. Patient states that she was seen at the urgent care and they were worried about something being stuck in the eye so they sent her here. Detailed physical exam and review of systems are deferred to the clinical technologist. Patient placed back in the waiting room pending room availability. Medications Administered Discontinued Medications Generic Name Dose Route Start Last Admin Trade Name Freq PRN Reason Stop Dose Admin Fluorescein Sodium 1 strip 04/11/25 16:59 04/11/25 17:23 Fluorescein Sodium Strip EYE-RIGHT 04/11/25 17:00 1 strip ONCE ONE Administration Tetracaine HCl 1 drop 04/11/25 17:15 04/11/25 17:23 Tetracaine Hcl/Pf 0.5% Oph Janet 4 Ml Drops EYE-RIGHT 04/11/25 17:16 1 drop ONCE ONE Administration Procedures Procedure Narrative Procedure Narrative: Wood lamp Exam Tetracaine was used. Fluorescin dye used. Corneal ulcer identified. No joao sign Medical Decision Making Medical Decision Making MDM Narrative: 70-year-old female presented hospital today for right eye pain. An irritation of the right eye. Sent in from urgent care for we will lamp examination. We will assess her signs of, corneal abrasion, corneal ulcers. I suspect this is likely corneal ulcer in nature due to the patient's use of contact lenses. Pupils is reactive on exam. No sign of mid dilation of the pupil. Patient denies any trauma to the right eye. Fluorescein and tetracaine will be ordered. We will lamp exam shows a right corneal ulcer. Likely secondary to her contact lens use. We will order ofloxacin for Pseudomonas coverage. Follow up to eye doctor will be provided the patient. I do not think patient has glaucoma. Pupils reactive. Visual acuity is intact Differential Diagnosis Differential Diagnoses: The differential diagnosis associated with the presentation includes Corneal ulcer, corneal abrasion, glaucoma, ruptured globe Discharge Plan Discharge Clinical Impression: Corneal ulcer Qualifiers: Laterality: right Qualified Code(s): H16.001 - Unspecified corneal ulcer, right eye Patient Disposition: Home, Self-Care Instructions: Corneal Ulcer (ED) Prescriptions: New ofloxacin 0.3 % drops 1 drp ophthalmic-Right QID Qty: 5 0RF No Action tramadol 50 mg tablet 100 mg PO BID PRN (Reason: pain) triamcinolone acetonide 0.1 % cream 1 appl topical BID PRN (Reason: Rash) ferrous sulfate 325 mg (65 mg iron) tablet 1 tab PO DAILY omeprazole 20 mg capsule,delayed release(DR/EC) 1 cap PO DAILY PRN (Reason: Acid Reflux) montelukast 10 mg tablet 1 tab PO BEDTIME albuterol sulfate 90 mcg/actuation HFA aerosol inhaler 2 puff INHALATION Q6H PRN (Reason: Wheezing) loratadine 10 mg tablet 1 tab PO DAILY prednisone 10 mg tablet 10 mg PO DAILY@0800 ondansetron HCl 4 mg tablet 4 mg PO Q8H PRN (Reason: nausea/vomiting) ibuprofen 800 mg tablet 800 mg PO TID PRN (Reason: pain) diphenhydramine HCl [Marilynn-Dryl] 25 mg tablet 25 mg PO BEDTIME PRN (Reason: itch) Actemra ACTPen 162 mg/0.9 mL pen injector 162 mg subcut TH sulfamethoxazole-trimethoprim [Bactrim DS] 800-160 mg tablet 1 tab PO BID 5 Days Qty: 10 0RF tamsulosin 0.4 mg capsule 0.4 mg PO BEDTIME 14 Days Qty: 14 0RF phenazopyridine [Pyridium] 100 mg tablet 100 mg PO TID PRN (Reason: Spasm) 4 Days Qty: 12 0RF naproxen 500 mg tablet 500 mg PO BID PRN (Reason: pain) 7 Days Qty: 14 0RF oxycodone 5 mg Tablet 5 mg PO Q6H PRN (Reason: Pain, Moderate(Pain Scale 4-6)) Qty: 20 0RF Rx Instructions: Partial Fill upon patient request. levofloxacin 500 mg tablet 500 mg PO DAILY 5 Days Qty: 5 0RF Referrals: Donnie Lew [Physician, Ophthalmology] Print Language: Trinidadian
[2025-04-11 13:15] VITALS: BP 206/97; PULSE 84; RESP 16; TEMP 36.1; O2SAT 98; BMI 28.6
[2025-04-11 16:01] VITALS: BP 187/98; PULSE 92; RESP 16; TEMP 37; O2SAT 98
--- OUTSIDE RECORDS SUMMARY | 2025-04-11 16:09 | XMS_ITS | Encounter Summary ---
Author Organization [employer] Address [address] [facility] [address] [place] [address] Care Team Providers Care Rabbet Operator Name Role Phone Donna Landa MD Primary Care Provider [phone] Encounter Details Date Type Department Care Team (Late st Contact Info) Description 05/11/2023 Abstract [facility] MEDICINE [address] [place], [place] [phone] Donna Landa MD [address] [place], [place] [phone] Social History Tobacco Use Types Packs/Day Years Used Date Smoking Tobacco: Never Passive Smoke Exposure: Never Smokeless Tobacco: Never Alcohol Use Standard Drinks/Week Comments Not Currently 0 (1 standard drink = 0.6 oz pur e alcohol) oca Depression Answer Date Recorded Patient Health Questionnaire-9 Score 3 08/22/2022 Housing Stability Answer Date Recorded What is your housing situation today? I have alejandraevelyn baez 02/27/[address] you li ve. Do you have problems with any of the following? None of the above 02/27/2023 Food Insecurity Answer Date Recorded Within the past 12 months, y ou worried that your food would run out before you got money to buy more: Never True 02/27/2023 Within the past 12 months,th e food you bought just didn't last and you didn't have enough money to get more: Never True Transportation Answer Date Recorded In the past 12 months, has l ack of transportation kept you from medical appts, meetings, work or from getting things needed for daily living? No 02/27/2023 Utilities Answer Date Recorded In the past 12 months, has t he electric, gas, oil or water company threatened to shut off services in your home? No 02/27/2023 Depression Answer Date Recorded Patient Health Questionnaire-2 Score 1 08/22/2022 Comments No Sex and Gender Information Value Date Recorded Sex Assigned at Female 03/14/2022 10:14 AM EDT Legal Sex Female 10:14 AM EDT Gender Identity Female 03/14/2022 10:14 AM EDT Sexual Orientation Straight 03/14/2022 10 :14 AM EDT documented as of this encounter Plan of Treatment Upcoming Encounters Date Type Department Care Team (Late st Contact Info) Description 05/27/2025 9:30 AM EST Procedure Visit [facility] MEDICINE [address] [place] [address] [phone] Yasmin Boyle CNM [address] [place] [address] 06/16/2025 2:00 PM EST Office Visit [address] [id number] Donna Landa MD [address] [place] [address] documented as of this encounter Visit Diagnoses Not on filedocumented in this encounter Additional Health Concerns Assessment Noted Time PHQ-9 Depression Total Score: 3 08/23/19 23 10:55 AM EDT documented as of this encounter Care Teams Rabbet Operator Relationship Specialty Start Date End Date Donna Landa MD [address] [place] [address] [phone] PCP - General Family Medicine 01/08/22 documented as of this encounter
--- OUTSIDE RECORDS SUMMARY | 2025-04-11 16:09 | XMS_ITS | Encounter Summary ---
Author Organization [employer] Address [address] [facility] [address] [place] [address] Care Team Providers Care Enterprise Architect Name Role Phone Donna Landa MD Primary Care Provider [phone] Reason for Visit * Reason Comments Med Refill Encounter Details Date Type Department Care Team ([facility] st Contact Info) Description 06/15/2024 Refill [facility] [address] [place], [place] [phone] Roseanne Franco DO [address] [place], [place] [phone] Viral upper respiratory illness; Essential (primary) hypertension Social History Tobacco Use Types Packs/Day Years Used Date Smoking Tobacco: Never Passive Smoke Exposure: Never Smokeless Tobacco: Never Alcohol Use Standard Drinks/Week Comments Not Currently 0 (1 standard drink = 0.6 oz pur e alcohol) oca Depression Answer Date Recorded Patient Health Questionnaire-9 Score 0 02/05/2024 Patient Health Questionnaire-9 Score 0 02/05/2024 Last PHQ-9: Questionnaire Data Not on file 0 02/05/2024 Housing Stability Answer Date Recorded What is your housing situation today? I have alejanrda baez 02/05/[address] you li ve. Do you have problems with any of the following? None of the above 02/05/2024 Food Insecurity Answer Date Recorded Within the past 12 months, y ou worried that your food would run out before you got money to buy more: Never True 02/05/2024 Within the past 12 months,th e food you bought just didn't last and you didn't have enough money to get more: Never True Transportation Answer Date Recorded In the past 12 months, has l ack of transportation kept you from medical appts, meetings, work or from getting things needed for daily living? No 02/05/2024 Utilities Answer Date Recorded In the past 12 months, has t he electric, gas, oil or water company threatened to shut off services in your home? No 02/05/2024 Depression Answer Date Recorded Patient Health Questionnaire-2 Score 0 02/05/2024 Internet Access Answer Date Recorded Internet Access Q1 Yes 02/05/2024 Internet Access Q2 Not on file 02/05/2024 Comments No Sex and Gender Information Value [...] Description 05/27/2025 9:30 AM EST Procedure Visit [facility] [address] [place] [phone] Yasmin Boyle CNM [address] [place] [address] 06/16/2025 2:00 PM EST Office Visit [facility] [address] [place] [phone] Donna Landa MD [address] [place] [phone] documented as of this encounter Visit Diagnoses Diagnosis Viral upper respiratory illness Essential (primary) hypertension Unspecified essential hypertension documented in this encounter Additional Health Concerns Assessment Noted Time PHQ-9 Depression Total Score: 0 02/05/20 24 2:55 PM EDT documented as of this encounter Care Teams Enterprise Architect Relationship Specialty Start Date End Date Donna Landa MD [address] [place] [phone] PCP - General Family Medicine 01/08/22 documented as of this encounter
--- OUTSIDE RECORDS SUMMARY | 2025-04-11 16:09 | XMS_ITS | Encounter Summary ---
Author Organization [employer] Address [address] [facility] 7[address] [place] [address] Care Team Providers Care Crystal Flat Grinder Name Role Phone Donna Landa MD Primary Care Provider [phone] Reason for Visit * Reason Comments Med Refill Encounter Details Date Type Department Care Team ([facility] st Contact Info) Description 02/07/2024 Refill [facility] MEDICINE [address] [place], [place] [phone] Donna Landa MD [address] [place], [place] [phone] Social History Tobacco Use Types Packs/Day Years [...] is your housing situation today? I have alejandra baez 02/05/[address] you [...] Description 05/27/2025 9:30 AM EST Procedure Visit [facility] MEDICINE [address] [place] [phone] Yasmin Boyle CNM [address] [place] [address] 06/16/2025 2:00 PM EST Office Visit [address] [address] Donna Landa MD [address] [place] [phone] documented as of this encounter Visit Diagnoses Not on filedocumented in this encounter Additional Health Concerns Assessment Noted Time PHQ-9 Depression Total Score: 0 02/05/20 24 2:55 PM EDT documented as of this encounter Care Teams Crystal Flat Grinder Relationship Specialty Start Date End Date Donna Landa MD [address] [place] [address] [phone] PCP - General Family Medicine 01/08/22 documented as of this encounter
--- OUTSIDE RECORDS SUMMARY | 2025-04-11 16:09 | XMS_ITS | Encounter Summary ---
Author Organization [employer] Address [address] [place] [address] 7t [place] [address] Care Team Providers Care Filtrose Crusher Name Role Phone Donna Landa MD Primary Care Provider [phone] Encounter Details Date Type Department Care Team (Late st Contact Info) Description 08/03/2022 Orders Only [facility] MEDICINE [address] [place] [address] [phone] Donna Lanad MD [address] [place] [address] [phone] Neutropenia, unspecified type (CMS/HCC) (Primary Dx) Social [...] Description 05/27/2025 9:30 AM EST Procedure Visit [facility] MEDICINE [address] [place] [address] [phone] Yasmin Boyle CNM [address] [place], [place] [phone] 06/16/2025 2:00 PM EST Office Visit [facility] MEDICINE [address] [place] [address] [phone] Donna Landa MD [address] [place] [address] [place] [address] documented as of this encounter Procedures Procedure [...] Lactic Acid 1.0 0.5 - 2.0 mmol/L [facility] 08/09/2022 6:07 PM EDT 08/09/2022 6:16 PM EDT us [facility] External Provider LAB BLO OD ORDERABLES Final Result [facility] [address] [place] [phone] * (ABNORMAL) Lactic Acid (08/09/2022 3:30 PM EDT) [facility] Lactic Acid 3.8(HH) 0.5 - 2.0 mmol/L [facility] Comment:Critical value for t est(s): LACTA Results called to hamilton back by: JE Person calling: LEAT Date: 08/09/22 Time:1558 08/09/2022 3:30 PM EDT 08/09/2022 3:33 PM EDT us [facility] External Provider LAB BLO OD ORDERABLES Final Result [facility] [address] [place] [address] [phone] * (ABNORMAL) CBC auto differential (08/09/2022 1:05 PM EDT) [facility] White Blood Count 5.0 4.8 - 10.8 X10*3/uL [facility] Red Blood Count 6.46(H) 4.20 - 5.50 X10*6/uL [facility] Hemoglobin 15.3 12.0 - 16.0 g/dl [facility] Hematocrit 48.5(H) 37.0 - 47.0 % [facility] Mean Corpuscular Volume 75.1(L) 80.0 - 98.0 fL [facility] Mean Corpuscular Hemoglobin 23.7(L) 27.0 - 33.0 pg [facility] Mean Corpuscular HGB Conc 31.5 31.0 - 35.0 g/dl [facility] Red Cell Distribution Width 19.7(H) 11.0 - 16.0 % [facility] Platelet Count 276 160 - 400 X10*3/uL [facility] Mean Platelet Volume 8.3(L) 9.4 - 12.3 fL [facility] Neutrophils Percent Auto 61.4 45 - 73 % [facility] Imm Gran Pct Auto 0.2 0.0 - 0.4 % [facility] Lymphocytes Percent Auto 28.1 20 - 40 % [facility] Monocytes Percent Auto 9.7 2 - 11 % [facility] Eosinophils Percent Auto 0.2 0 - 4 % [facility] Basophils Percent Auto 0.4 0 - 2 % [facility] NRBC Pct Auto 0.0 0.0 - 0.2 /100WBC [facility] Neutrophils Absolute Auto 3.0 2.0 - 8.3 x10*3/uL [facility] Imm Gran Abs Auto 0.01 0.00 - 0.03 X10*3/uL [facility] Lymphocytes Absolute Auto 1.4 1.2 - 4.9 X10*3/uL [facility] Monocytes Absolute Auto 0.5 0.1 - 1.2 X10*3/uL [facility] Eosinophils Absolute Auto 0.0 0.0 - 0.4 X10*3/uL [facility] Basophils Absolute Auto 0.0 0.0 - 0.2 X10*3/uL [facility] NRBC Abs Auto 0.000 0.0 - 0.012 X10*3/uL [facility] 08/09/2022 1:05 PM EDT 08/09/2022 1:08 PM EDT [facility] External Provider LAB BLO OD ORDERABLES Final Result Performing Organization Address City/[facility]/ZIP Co de Phone Number [facility] [address] [place] [phone] * Lipase (08/09/2022 1:05 PM EDT) Lipase 26 8 - 78 U/L [facility] 08/09/2022 1:05 PM EDT 08/09/2022 1:08 PM EDT [facility] External Provider LAB BLO OD ORDERABLES Final Result Performing Organization Address City/[facility]/ZIP Co de Phone Number [facility] [address] [place] [address] [phone] * Magnesium (08/09/2022 1:05 PM EDT) Magnesium 2.1 1.6 - 2.6 mg/dL [facility] 08/09/2022 1:05 PM EDT 08/09/2022 1:08 PM EDT [facility] External Provider LAB BLO OD ORDERABLES Final Result [facility] [address] [place] [address] [phone] * (ABNORMAL) Comprehensive Metabolic Panel (08/09/2022 1:05 PM EDT) Sodium 143 135 - 145 mmol/L [facility] Potassium 3.8 3.3 - 5.1 mmol/L [facility] Chloride 105 96 - 108 mmol/L [facility] Carbon Dioxide 26 22 - 29 mmol/L [facility] Anion Gap 16 12 - 20 [facility] Urea Nitrogen (BUN) 18(H) 9 - 16 mg/dL [facility] Creatinine, Serum 0.90 0.5 - 1.4 mg/dL [facility] Creatinine Clr Calc Pharmacy 59.0 [facility] Comment:Provided height and weight: 162.56 cm,68.039 kg.eGFR (calculated from the MDRD study equation) and eCrCl(calculated from the Cockcroft-Gault equation) are based ondifferent parameters and may not yield comparable results.If eCrCl result is absurd, please check patient'sheight/weight. Estimated Glomerular Filt Rate >60 [facility] Comment:NOTE: For -Am erican individuals, multiply the result by 1.210.Chronic Kidney Disease: Estimated GFR < 60 mL/min/1.59t9Jszlfv Kidney Disease: Estimated GFR < 15 mL/min/1.73m2 Glucose 122(H) 60 - 115 mg/dL [facility] Calcium 10.4(H) 8.4 - 10.2 mg/dL [facility] Bilirubin, Total 1.1(H) 0.0 - 1.0 mg/dL [facility] Aspartate Amino Transferase 38(H) 5 - 31 U/L [facility] Alanine Aminotransferase 31 0 - 31 U/L [facility] Total Protein 10.4(H) 6.5 - 8.0 g/dL [facility] Albumin Level 4.2 3.5 - 5.0 g/dL [facility] Alkaline Phosphatase 142(H) 39 - 117 U/L [facility] 08/09/2022 1:05 PM EDT 08/09/2022 1:08 PM EDT [facility] External Provider LAB BLO OD ORDERABLES Final Result Performing Organization Address [facility] de Phone Number [facility] [address] [place] [phone] * Prothrombin Time-INR (08/09/2022 1:05 PM EDT) Prothrombin Time 10.3 10.0 - 13.1 SEC [facility] INTERNATIONAL NORM RATIO 0.9 0.9 - 1.1 [facility] Comment:INTERNATIONAL NORMAL IZED RATIO (INR) [...] 1:05 PM EDT 08/09/2022 1:08 PM EDT [facility] External Provider LAB BLO OD ORDERABLES Final Result Performing Organization Address [facility] de Phone Number [facility] [address] [place] [address] [phone] * SARS-CoV-2 RNA, Influenza A/B, and RSV RNA, Ql NAAT (08/09/2022 1:05 PM EDT) Influenza A PCR NEGATIVE Negative [facility] Influenza B PCR NEGATIVE Negative [facility] Resp Syncy Virus RNA Qual PCR NEGATIVE Negative [facility] SARS COV2 PCR NEGATIVE Negative [facility] SARS/Flu/RSV Note See Note [facility] Comment:All test results mus t [...] use by authorized laboratories.Testing performed on the [employer] GeneXpert utilizingreal-time RT-PCR.All SARS CoV2 and positive influenza A/B results arereported to [facility]. 08/09/2022 1:05 PM EDT 08/09/2022 1:08 PM EDT [facility] Exter nal Provider LAB MICROBIOLOGY - GENERAL ORDERABLES Final Result [facility] [address] [place] [address] [phone] documented in this encounter Visit Diagnoses Diagnosis Neutropenia, unspecified type (CMS/HCC)- Primary documented in this encounter Care Teams Filtrose Crusher Relationship Specialty Start Date End Date Donna Landa MD [address] [place] [address] PCP - General Family Medicine 01/08/22 documented as of this encounter
--- OUTSIDE RECORDS SUMMARY | 2025-04-11 16:09 | XMS_ITS | Encounter Summary ---
Author Organization [employer] Address [address] [facility] 7t [place] [address] Care Team Providers Care Prune Washer Name Role Phone Donna Landa MD Primary Care Provider [phone] Reason for Visit * Reason Comments Med Refill Encounter Details Date Type Department Care Team ([facility] st Contact Info) Description 04/25/2024 Refill [facility] [address] [place], [place] [phone] Milagros De Leon MD [address] [place], [place] [phone] Viral upper respiratory illness; Rash Social History Tobacco Use Types Packs/Day Years [...] Description 05/27/2025 9:30 AM EST Procedure Visit [facility] [address] [place] [phone] Yasmin Boyle CNM [address] [place] [phone] 06/16/2025 2:00 PM EST Office Visit [facility] MED[facility] [address] [place] [phone] Donna Landa MD [address] [place] [phone] documented as of this encounter Visit Diagnoses Diagnosis Viral upper respiratory illness Rash Rash and other nonspecific skin eruption documented in this encounter Additional Health Concerns Assessment Noted Time PHQ-9 Depression Total Score: 0 02/05/20 24 2:55 PM EDT documented as of this encounter Care Teams Prune Washer Relationship Specialty Start Date End Date Donna Landa MD [address] [place] [address] [phone] PCP - General Family Medicine 01/08/22 documented as of this encounter
--- OUTSIDE RECORDS SUMMARY | 2025-04-11 16:09 | XMS_ITS | Encounter Summary ---
Author Organization [employer] Address [address] [facility] 7t [place] [address] Care Team Providers Care Microwave Supervisor Name Role Phone Donna Landa MD Primary Care Provider [phone] Encounter Details Date Type Department Care Team (Late st Contact Info) Description 10/18/2022 Orders Only [facility] MEDICINE [address] [place] [address] [phone] Donna Landa MD [address] [place], [place] [phone] Social History Tobacco Use Types Packs/Day Years Used Date Smoking Tobacco: Never Passive Smoke Exposure: Never Smokeless Tobacco: Never Alcohol Use Standard Drinks/Week Comments Never 0 (1 standard drink = 0.6 oz pur e alcohol) Depression Answer Date Recorded Patient Health Questionnaire-9 Score 3 08/22/2022 Depression Answer Date Recorded Patient Health Questionnaire-2 Score 1 08/22/2022 Comments Unknown Sex and Gender Information Value Date Recorded Sex Assigned at Female 03/14/2022 10:14 AM EDT Legal Sex Female 10:14 AM EDT Gender Identity Female 03/14/2022 10:14 AM EDT Sexual Orientation Straight 03/14/2022 10 :14 AM EDT COVID-19 Exposure Response Date Recorded In the last 10 days, have yo u been in contact with someone who was confirmed or suspected to have Coronavirus/COVID-19? No / Unsure 10/05/2022 11:07 AM EDT documented as of this encounter Plan of Treatment Upcoming Encounters Date Type Department Care Team (Late st Contact Info) Description 05/27/2025 9:30 AM EST Procedure Visit [facility] MEDICINE [address] [place] [address] [phone] Yasmin Boyle CNM [address] [place], [place] [phone] 06/16/2025 2:00 PM EST Office Visit [facility] MEDICINE [address] [place], [place] [phone] Donna Landa MD [address] [place] [address] documented as of this encounter Visit Diagnoses Not on filedocumented in this encounter Additional Health Concerns Assessment Noted Time PHQ-9 Depression Total Score: 3 08/23/19 23 10:55 AM EDT documented as of this encounter Care Teams Microwave Supervisor Relationship Specialty Start Date End Date Donna Landa MD [address] [place], [place] [phone] PCP - General Family Medicine 01/08/22 documented as of this encounter
--- OUTSIDE RECORDS SUMMARY | 2025-04-11 16:09 | XMS_ITS | Encounter Summary ---
Author Organization [employer] Address [address] [facility] 7t [place] [address] Care Team Providers Care Flash Ranging Crewmember Name Role Phone Donna Landa MD Primary Care Provider [phone] Encounter Details Date Type Department Care Team (Late st Contact Info) Description 08/01/[address] [facility] MED[facility] [address] [place], [place] [phone] Donna Landa MD [address] [place], [place] [phone] Social History Tobacco Use Types Packs/Day Years [...] AM EST Procedure Visit [facility] [address] [place] [address] [phone] Yasmin Boyle CNM [address] [place] [address] 06/16/2025 2:00 PM EST Office Visit [address] [address] Donna Landa MD [address] [place] [address] documented as of this encounter Visit Diagnoses Not on filedocumented in this encounter Additional Health Concerns Assessment Noted Time PHQ-9 Depression Total Score: 3 08/23/19 23 10:55 AM EDT documented as of this encounter Care Teams Flash Ranging Crewmember Relationship Specialty Start Date End Date Donna Landa MD [address] [place] [address] [phone] PCP - General Family Medicine 01/08/22 documented as of this encounter
--- OUTSIDE RECORDS SUMMARY | 2025-04-11 16:09 | XMS_ITS | Encounter Summary ---
Author Organization [employer] Address [address] [facility] 7t [place] [address] Care Team Providers Care Publications Inspector Name Role Phone Donna Landa MD Primary Care Provider [phone] Reason for Visit * Reason Comments Med Refill Encounter Details Date Type Department Care Team ([facility] st Contact Info) Description 02/06/2024 Refill [facility] [address] [place], [place] [phone] Donna Landa MD [address] [place], [place] [phone] Social History Tobacco Use Types Packs/Day Years [...] Description 05/27/2025 9:30 AM EST Procedure Visit [facility] [address] [place] [phone] Yasmin Boyle CNM [address] [place] [address] 06/16/2025 2:00 PM EST Office Visit [address] [address] Donna Landa MD [address] [place] [phone] documented as of this encounter Visit Diagnoses Not on filedocumented in this encounter Additional Health Concerns Assessment Noted Time PHQ-9 Depression Total Score: 0 02/05/20 24 2:55 PM EDT documented as of this encounter Care Teams Publications Inspector Relationship Specialty Start Date End Date Donna Landa MD [address] [place] [address] [phone] PCP - General Family Medicine 01/08/22 documented as of this encounter
--- OUTSIDE RECORDS SUMMARY | 2025-04-11 16:09 | XMS_ITS | Data Portability ---
Author Organization [employer] [facility], [facility] Address [address] [place] [address] Care Team Providers Care Regional Sales Executive Name Role Phone Unavailable Referring Provider ANDERSON ROMEO Primary Care Provider Assessment Encounter Date Assessment Date Assessment LastModified by Organization Details LastModified Time 12/08/2022 12/08/2022 I provided real -time medical direction via phone for this encounter, and was available for additional phone based assistance as needed. I have reviewed and agree with the Assessment and Plan as documented by the Unit Manager [employer]. Patient given the opportunity to ask questions. [email or web address] Not available 12/08/2022 13:38:04 12/26/2022 12/26/2022 I have reviewed and agree with the assessment and plan as documented by the equipment man. I provided real time medical direction for this encounter and was immediately available to provide additional phone based assistance as needed. History as noted by equipment man. Pt with history of asthma, HTN on [...] tablets in a dose pack [address] [facility] #[id number], [address] [place], [address], 3 10:28:02 benzonatate 100 mg capsule [address] [facility] #[id number], [address] [place], [address], 3 10:28:03 benzonatate 100 mg capsule 2022 023 [facility]/Pharmacy #[id number], [address] [place], [address], 3 10:27:56 Patient TargetsNo targets recorded. Patient InstructionsNo instructions recorded. Reason for Referral None Reported. Medical Equipment None Reported. Allergies No known drug allergies Medications Name Sig Start Date Stop Date Status Note LastModified by Organization Details LastModified Time pulse oximet airial [id number] USE TO CHECK PULSE TWICE DAILY AND NEEDED FOR SHORTNESS OF BREATH. CALL [facility] IF < 95% active Not [...] t Available Vitals Date Recorded Oxygen saturation Respiratory rate Heart rate Body height Body temperature Body weight Systolic And Diastolic Provider Name and Address Organization Details Last Updated DateTime 3 98 % 18 /min 100 /min 162.56 cm 98 [degF] 47602.8 g 161/93 mm[Hg] Not Available [employer] 3 13:30:45 Date Recorded Body temperature Respiratory rate Body weight Heart rate Oxygen saturation Systolic And Diastolic Provider Name and Address Organization Details Last Updated DateTime 3 97.8 [degF] 18 /min 83127.9 84 g 90 /min 100 % 182/90 mm[Hg] Not Available [employer] 3 10:19:13 Date Recorded Heart rate Oxygen saturation Body temperature Respiratory rate Systolic And Diastolic Provider Name and Address Organization Details Last Updated DateTime 3 86 /min 98 % 97.5 [degF] 16 /min 196/94 mm[Hg] Not Available [employer] 3 17:01:12 Social History None recorded. Functional Status None recorded. Mental Status None recorded. Family History Nothing Reported. Medical History No medical history recorded. Gynecological HistoryNo gynecological history recorded. Obstetrics History GPAL:G 0 P 0 0 0 0 Past Encounters Encounter ID Performer Location Encounter Start Date Encounter Closed Date Diagnosis/Indication Diagnosis SNOMED-CT Code Diagnosis ICD10 Code Diagnosis IMO Codes Diagnosis Note [id number] Kristel Mena MD [facility] [address] [place] [address] [phone] 12/08/2022 13:30:43 12/09/2022 10:59:39 Abdominal pain 37463682 R10.9 possible recurrent colitis-pa tient in severe distress /very tender abdomen -do not want to give anything p.o.( ie Tylenol) and ketorolac could be contraindi cated as we do not know what is going on internally -do not have anything else to offer her for pain management /also further work-up beyond [facility] scope but advised the patient she needs to be transferre d to the emergency room for appropriat e work-up including imaging and treatment. She is agreeable. [place] [id number] Moe Stephens MD [facility] [address] [place] [address] [phone] 12/26/2022 10:19:09 12/27/2022 15:42:18 COVID-19 997095240 U07.1 [id number] Ricardo Block MD [facility] [address] [place] [address] [phone] 02/06/2023 17:01:10 02/07/2023 11:43:33 Essential hypertension [id number] I10 This 67-year-ol d female with hypertensi [...] Horne Member ID Guarantor Name 07/11/2023 1 [facility] - DOS ON OR AFTER 2022 - DUAL ELIGIBLE - SNF OPTIONS AND ONE CARE (MEDICARE REPLACEMENT/ADV ANTAGE - HMO) Jose Maravilla [id number] Jose Maravilla Notes Date Note Type Note Provider Name and Address Organization Details Recorded Time 12/08/2022 text/html ROS as noted in the HPI CRC Nursing Assessment: Chief Complaints: Abdominal Pain, Nausea/Vomiting, Pain, Gastroenteritis PMH: Hypertension Allergies: No Known Comments: Member calling in to place a referral, identified via /name. Member with history of colitis in October. Member has been having abdominal pain, nausea and diarrhea since a. member took a nausea pill at 8a unsure the name but did not offer much relief, she also tried mylanta. member feels gaseous, denies blood in stool. Denies chest pain or sob, no headache or dizziness, no fever/chills. Member would like to be evaluated. ..................... ..................... ..................... ..................... ..................... ..................... ............... Unit Manager [employer] Note From Jerry Buckner: Pt benedict x3 [...] go to ED for scans and treatment. [facility] orders zofran, administered as noted. [facility] transports pt to ED. ..................... ..................... ..................... ..................... ..................... ..................... ............... Disposition: Fulfilled SEGMD: As above- denies fever- denies hematemesis or uti s/s but patient recently hospitalized for colitis in October. She only vomited once and at 7:30 AM it is currently 1330. She also took Augmentin 1 dose this morning left over from October Kristel Mena MD [address] [place] [address],[address], [place], [phone], [address] 12/09/2022 11:54:37 12/26/2022 text/html ROS as noted in the HPI This was a supervised home visit with equipment man Leonard Lynch. HPI: Patient with onset of [...] ..................... ..................... ..................... ..................... ..................... ..................... ............... Unit Manager [employer] Note From Leonard Lynch: Pt presents A@Ox4. Vesper warm and clammy. Pt c/o tiredness and non productive cough with chills . Pt did test pos for covid yesterdayx2. Pt denies SOB CP vomiting nausea dizziness. baseline vitals assessed and recorded. Pos covid swab. Lungs clear bilaterally . 02 sat 100% RA Neg fever. [facility] contacted and 100mg Benzonatate given PO RX called in for Bensonatate and paxlovid. Pt educated on signs that would indicate the ER. ..................... ..................... ..................... ..................... ..................... ..................... ............... Disposition: Fulfilled Moe Stephens MD [address] [facility],[address], [place], [phone], [employer] - 5 Minutes 12/26/2022 11:26:44 02/06/2023 text/html ROS as noted in the HPI HPI: Diaz is a 67 yo female [...] this CRU call per MD orders. Offered [facility] INSTED HV but instructed Diaz to call 911 and go to ER if s/s worsen, BP goes back up and/or develops chest pain, SOB or worsening headache and she agreed to do. Confirmed address and phone number. Contact number for Diaz is [phone]. This CRU RN placed INSTED referral and sent GC activity to CP for any further follow up needed by CP/Care Team. ..................... ..................... ..................... ..................... ..................... ..................... ............... CRC Nursing Assessment: Comments: CRC RN did not require any additional information to process this visit. Ricardo Block MD [address] [facility],[address], [place], [phone], [employer] - 5 Minutes 02/06/2023 17:06:44 OBGyn Episode No OBEpisode recorded.
--- OUTSIDE RECORDS SUMMARY | 2025-04-11 16:09 | XMS_ITS | Encounter Summary ---
Author Organization [employer] Address 75 [facility] 7t [place] [address] Care Team Providers Care Cardiovascular Technologist Name Role Phone Donna Landa MD Primary Care Provider Encounter Details Date Type Department Care Team (Late st Contact Info) Description 04/24/2023 Telephone [facility] 230 [place], [place] [phone] Donna Landa MD 230 [place], [place] [phone] Social History Tobacco Use Types Packs/Day Years [...] Description 05/27/2025 9:30 AM EST Procedure Visit [facility] [address] [place] [address] [phone] Yasmin Boyle CNM 230 [place] [address] 06/16/2025 2:00 PM EST Office Visit [address] [address] Donna Landa MD 230 [place] [address] documented as of this encounter Visit Diagnoses Not on filedocumented in this encounter Additional Health Concerns Assessment Noted Time PHQ-9 Depression Total Score: 3 08/23/19 23 10:55 AM EDT documented as of this encounter Care Teams Cardiovascular Technologist Relationship Specialty Start Date End Date Donna Landa MD [address] [place] [address] [phone] PCP - General Family Medicine 01/08/22 documented as of this encounter
--- OUTSIDE RECORDS SUMMARY | 2025-04-11 16:09 | XMS_ITS | Encounter Summary ---
Author Organization [employer] Address 75 [facility] 7t [place] [address] Care Team Providers Care Diagnostic Technologist Name Role Phone Donna Landa MD Primary Care Provider [phone] Reason for Visit * Reason Comments Med Refill Encounter Details Date Type Department Care Team ([facility] st Contact Info) Description 01/11/2025 Refill [facility] 230 [place], [place] [phone] Donna Landa MD 230 [place], [place] [phone] Moderate persistent asthma, unspecified whether complicated Social History Tobacco Use Types Packs/Day Years [...] 05/27/2025 9:30 AM EST Procedure Visit [facility] [address] [place] [address] Yasmin Boyle CNM [address] [place] [address] 06/16/2025 2:00 PM EST Office Visit [address] [address] Donna Landa MD [address] [place] [address] documented as of this encounter Visit Diagnoses Diagnosis Moderate persistent asthma, unspecified whether complicated documented in this encounter Additional Health Concerns Assessment Noted Time PHQ-9 Depression Total Score: 0 02/05/20 24 2:55 PM EDT documented as of this encounter Care Teams Diagnostic Technologist Relationship Specialty Start Date End Date Donna Landa MD [address] [place] [phone] PCP - General Family Medicine 01/08/22 documented as of this encounter
--- OUTSIDE RECORDS SUMMARY | 2025-04-11 16:09 | XMS_ITS | Encounter Summary ---
Author Organization [employer] Address 75 [facility] 7t [place] [address] Care Team Providers Care Survey Worker Name Role Phone Donna Landa MD Primary Care Provider [phone] Reason for Visit * Reason Comments Med Refill Encounter Details Date Type Department Care Team ([facility] st Contact Info) Description 03/01/2023 Refill [facility] 230 [place], [place] [phone] Donna Landa MD 230 [place], [place] [phone] Social History Tobacco Use Types Packs/Day Years Used Date Smoking Tobacco: Never Passive Smoke Exposure: Never Smokeless Tobacco: Never Alcohol Use Standard Drinks/Week Comments Never 0 (1 standard drink = 0.6 oz pur e alcohol) Depression Answer Date Recorded Patient Health Questionnaire-9 Score 3 08/22/2022 Housing Stability Answer Date Recorded What is your housing situation today? I have alejandra baez 02/27/[address] you [...] Description 05/27/2025 9:30 AM EST Procedure Visit [facility] [address] [place] [address] Yasmin Boyle CNM 230 [place] [address] 06/16/2025 2:00 PM EST Office Visit [address] [address] Donna Landa MD 230 [place] [address] documented as of this encounter Visit Diagnoses Not on filedocumented in this encounter Additional Health Concerns Assessment Noted Time PHQ-9 Depression Total Score: 3 08/23/19 23 10:55 AM EDT documented as of this encounter Care Teams Survey Worker Relationship Specialty Start Date End Date Donna Landa MD [address] [place] [phone] PCP - General Family Medicine 01/08/22 documented as of this encounter
--- OUTSIDE RECORDS SUMMARY | 2025-04-11 16:09 | XMS_ITS | Encounter Summary ---
Author Organization [employer] Address 75 [facility] 7t [place] [address] Care Team Providers Care Undergraduate Intern Name Role Phone Donna Landa MD Primary Care Provider [phone] Reason for Visit * Reason Comments Med Refill Encounter Details Date Type Department Care Team ([facility] st Contact Info) Description 02/04/2024 Refill [facility] 230 [place], [place] [phone] [facility] 230 [place], [place] [phone] Viral upper respiratory illness Social History Tobacco Use Types Packs/Day Years [...] AM EDT documented as of this encounter Functional Status * Over the past 2 weeks, how often have you been bothered by any of the following problems? Question Answer Date of Assessment Author Patient Health Questionnaire-2 Score 0 02/05/2024 2:55 PM EDT Sandra Cueva [place] * Over the past 2 weeks, how often have you been bothered by any of the following problems? Question Answer Date of Assessment Author Little interest or pleasure in doing things Not at all 02/05/2024 2:55 PM EDT Sandra Cueva [place] Feeling down, depressed, or hopeless Not at all 02/05/2024 2:55 PM EDT Sandra Cueva [place] Trouble falling or staying asleep, or sleeping too much Not at all 02/05/2024 2:55 PM EDT Sandra Lozano MA Feeling tired or having little energy Not at all 02/05/2024 2:55 PM EDT Sandra Cueva MA Poor appetite or overeating Not at all 02/05/2024 2: 55 PM EDT Sandra Cueva MA Feeling bad about yourself - or that you are a failure or have let yourself or your family down Not at all 02/05/2024 2:55 PM EDT Sandra Cueva MA Trouble concentrating on things, such as reading the newspaper or watching television Not at all 02/05/2024 2:55 PM EDT Sandra Cuvea MA Moving or speaking so slowly that other people could have noticed? Or the opposite - being so fidgety or restless that you have been moving around a lot more than usual. Not at all 02/05/2024 2:55 PM EDT Sandra Bautista MA Thoughts that you would be better off or hurting yourself in some way Not at all 02/05/2024 2:55 PM EDT Sandra Cueva MA Patient Health Questionnaire-9 Score 0 02/05/2024 2:55 PM EDT Sandra Cueva [place] documented as of this encounter Plan of Treatment Upcoming Encounters Date Type Department Care Team (Late st Contact Info) Description 05/27/2025 9:30 AM EST Procedure Visit [facility] [address] [place] [phone] Yasmin Boyle CNM 230 [place] [address] 06/16/2025 2:00 PM EST Office Visit [address] [address] Donna Landa MD [address] [place] [address] documented as of this encounter Visit Diagnoses Diagnosis Viral upper respiratory illness documented in this encounter Additional Health Concerns Assessment Noted Time PHQ-9 Depression Total Score: 3 08/23/19 10:55 AM EDT documented as of this encounter Care Teams Undergraduate Intern Relationship Specialty Start Date End Date Donna Landa MD 230 [place], [place] [phone] PCP - General Family Medicine 01/08/22 documented as of this encounter
--- OUTSIDE RECORDS SUMMARY | 2025-04-11 16:09 | XMS_ITS | Encounter Summary ---
Author Organization [employer] Address 75 [facility] 7t [place] [address] Care Team Providers Care Bander And Cellophaner Machine Name Role Phone Donna Landa MD Primary Care Provider [phone] Reason for Visit * Reason Comments Med Change Request Encounter Details Date Type Department Care Team (Late Contact Info) Description 10/18/2022 Refill [facility] [address] [place] [address] [phone] Donna Landa MD [address] [place] [address] [phone] Social History Tobacco Use Types Packs/Day Years [...] Encounters Date Type Department Care Team (Late Contact Info) Description 05/27/2025 9:30 AM EST Procedure Visit [facility] [address] [place] [address] [phone] Yasmin Boyle CNM 230 [place], [place] [phone] 06/16/2025 2:00 PM EST Office Visit [facility] [address] [place] [address] [phone] Donna Landa MD [address] [place] [phone] documented as of this encounter Visit Diagnoses Not on filedocumented in this encounter Additional Health Concerns Assessment Noted Time PHQ-9 Depression Total Score: 3 08/23/19 23 10:55 AM EDT documented as of this encounter Care Teams Bander And Cellophaner Machine Relationship Specialty Start Date End Date Donna Landa MD [address] [place] [address] [phone] PCP - General Family Medicine 01/08/22 documented as of this encounter
--- OUTSIDE RECORDS SUMMARY | 2025-04-11 16:09 | XMS_ITS | Encounter Summary ---
Author Organization [employer] Address 75 [facility] 7t [place] [address] Care Team Providers Care Helium Arc Welder Name Role Phone Donna Landa MD Primary Care Provider [phone] Encounter Details Date Type Department Care Team (Late st Contact Info) Description 03/21/2025 Telephone [facility] 230 [place], [place] [phone] Donna Landa MD 230 [place], [place] [phone] Social History Tobacco Use Types Packs/Day Years [...] Description 05/27/2025 9:30 AM EST Procedure Visit [facility] [address] [place] [phone] Yasmin Boyle CNM [address] [place] [phone] 06/16/2025 2:00 PM EST Office Visit [address] [address] Donna Landa MD [address] [place] [phone] documented as of this encounter Visit Diagnoses Not on filedocumented in this encounter Additional Health Concerns Assessment Noted Time PHQ-9 Depression Total Score: 0 02/05/20 24 2:55 PM EDT documented as of this encounter Care Teams Helium Arc Welder Relationship Specialty Start Date End Date Donna Lanad MD [address] [place] [phone] PCP - General Family Medicine 01/08/22 documented as of this encounter
--- OUTSIDE RECORDS SUMMARY | 2025-04-11 16:09 | XMS_ITS | Encounter Summary ---
Author Organization [employer] Address 75 [facility] 7t [place] [address] Care Team Providers Care Healthcare Administration Intern Name Role Phone Donna Landa MD Primary Care Provider [phone] Reason for Visit * Reason Comments Med Refill Encounter Details Date Type Department Care Team ([facility] st Contact Info) Description 11/03/2024 Refill [facility] 230 [place], [place] [phone] Donna Landa MD 230 [place], [place] [phone] Essential (primary) hypertension; Viral upper respiratory illness Social History Tobacco [...] 9:30 AM EST Procedure Visit [facility] [address] [place] [address] Yasmin Boyle CNM [address] [place] [address] 06/16/2025 2:00 PM EST Office Visit [address] [address] Donna Landa MD [address] [place] [address] documented as of this encounter Visit Diagnoses Diagnosis Essential (primary) hypertension Unspecified essential hypertension Viral upper respiratory illness documented in this encounter Additional Health Concerns Assessment Noted Time PHQ-9 Depression Total Score: 0 02/05/20 24 2:55 PM EDT documented as of this encounter Care Teams Healthcare Administration Intern Relationship Specialty Start Date End Date Donna Landa MD [address] [place] [address] PCP - General Family Medicine 01/08/22 documented as of this encounter
--- OUTSIDE RECORDS SUMMARY | 2025-04-11 16:09 | XMS_ITS | Encounter Summary ---
Author Organization [employer] Address 75 [facility] 7t [place] [address] Care Team Providers Care Tobacco Drummer Name Role Phone Donna Landa MD Primary Care Provider [phone] Reason for Visit * Reason Comments Med Refill Encounter Details Date Type Department Care Team ([facility] st Contact Info) Description 04/25/[address] [facility] 230 [place], [place] [phone] Donna Lnada MD 230 [place], [place] [phone] Social History Tobacco Use Types Packs/Day Years [...] Description 05/27/2025 9:30 AM EST Procedure Visit [facility] [address] [place] [address] Yasmin Boyle CNM 230 [place] [address] 06/16/2025 2:00 PM EST Office Visit [address] [address] Donna Landa MD [address] [place] [address] documented as of this encounter Visit Diagnoses Not on filedocumented in this encounter Additional Health Concerns Assessment Noted Time PHQ-9 Depression Total Score: 0 02/05/20 24 2:55 PM EDT documented as of this encounter Care Teams Tobacco Drummer Relationship Specialty Start Date End Date Donna Landa MD [address] [place] [address] [phone] PCP - General Family Medicine 01/08/22 documented as of this encounter
--- OUTSIDE RECORDS SUMMARY | 2025-04-11 16:09 | XMS_ITS | Encounter Summary ---
Author Organization [employer] Address 75 [facility] 7t [place] [address] Care Team Providers Care Development And Housing Director Name Role Phone Donna Landa MD Primary Care Provider [phone] Reason for Visit * Reason Onset Date Comments recall 06/15/2024 Encounter Details Date Type Department Care Team ([facility] st Contact Info) Description 06/15/2024 Refill [facility]INE 230 [place], [place] [phone] Milagros De Leon MD 230 [place] [address] Social History Tobacco Use Types Packs/Day Years [...] AM EDT documented as of this encounter Miscellaneous Notes * Telephone Encounter - Silvia Ibarra MA - 06/18/2024 11:16 AM EST T/C placed to pt to schedule pe . Lvm for pt to cb & schedule appt. Sent RCL documented in this encounter Plan of Treatment Upcoming Encounters Date Type Department Care Team (Late st Contact Info) Description 05/27/2025 9:30 AM EST Procedure Visit [facility] [address] [place] [phone] Yasmin Boyle CNM [address] [place] [address] 06/16/2025 2:00 PM EST Office Visit [facility] [address] [place] [address] Donna Landa MD [address] [place] [address] documented as of this encounter Visit Diagnoses Not on filedocumented in this encounter Additional Health Concerns Assessment Noted Time PHQ-9 Depression Total Score: 0 02/05/20 24 2:55 PM EDT documented as of this encounter Care Teams Development And Housing Director Relationship Specialty Start Date End Date Donna Landa MD [address] [place] [phone] PCP - General Family Medicine 01/08/22 documented as of this encounter
--- OUTSIDE RECORDS SUMMARY | 2025-04-11 16:10 | XMS_ITS | Clinical Summary ---
Author Organization [employer] Address [address] [place] [address] Care Team Providers Care Tenterer Name Role Phone Donna Landa MD Primary Care Provider [phone] Allergies No known active allergies Medications Calcium Carb-Cholecalcif harika 600-10 MG-MCG tablet Take 1 tablet by mouth 1 (one) time each day. take 1 Tablet by Oral route every day 2 Active traMADol (Ultram) 50 MG tablet TAKE 1-2 TABLETS BY MOUTH 3 TIMES A DAY NEEDED FOR PAIN 2 Active Blood Pressure Monitor kitIndications:E ssential (primary) hypertension 1 each 2 times daily. 1 kit 3 Active ibuprofen 800 MG tablet 3 Active alendronate (Fosamax) 70 MG tablet TAKE 1 TAB BY MOUTH ONCE A WEEK IN THE MORNING, AT LEAST 30 MIN BEFORE 1ST FOOD/DRINK/MED OF DAY Active cyclobenzaprine (Flexeril) 5 MG tabletIndication s:Rheumatoid arthritis with rheumatoid factor of right hand without organ or systems involvement (CMS/HCC) ([facility]) TAKE 1 TABLET BY MOUTH EVERY DAY AT BEDTIME FOR 10 DAYS 30 tablet 3 3 Active predniSONE (Deltasone) 10 MG tablet 3 Active Actemra ACTPen 162 MG/0.9ML solution auto-injector 4 Active Spacer/Aero-Hold ing Chambers deviceIndication s:Viral upper respiratory illness For use with albuterol inhaler 1 each 4 Active Nebulizer misc every 6 (six) hours if needed. The patient was prescribed a nebulizer from the [facility] vendor [employer]. Instructions on how to use the nebulizer were provided. Nebulizer dispensed to Patient. Active ferrous gluconate (Fergon) 324 (38 Fe) MG tablet TAKE 1 TABLET (324 MG) BY MOUTH WITH BREAKFAST. 90 tablet 1 4 Active albuterol 108 (90 Base) MCG/ACT inhalerIndicatio ns:Viral upper respiratory illness Inhale 2 puffs every 6 (six) hours if needed for wheezing. 18 g 11 4 Active albuterol (2.5 MG/3ML) 0.083% nebulizer solution INHALE 3 ML(2.5 MG) BY NEBULIZER EVERY 6 HOURS NEEDED FOR SHORTNESS OF BREATH OR WHEEZING 75 mL 1 5 Active omeprazole (PriLOSEC) [address] capsule TAKE 1 CAPSULE BY MOUTH EVERY DAY BEFORE A MEAL 90 capsule 3 5 Active lisinopril-hydro CHLOROthiazide 20-25 MG tablet TAKE 1 TABLET BY MOUTH EVERY DAY 90 tablet 3 5 Active fluticasone furoate (Arnuity Ellipta) 100 MCG/ACT inhaler Inhale 1 puff Once per day. 1 each 5 026 Active Diclofenac Sodium 1 % gel APPLY 2 G TOPICALLY IF NEEDED IN THE MORNING AND AT BEDTIME (PAIN IN KNEES). 100 g 1 5 Active leflunomide (Arava) 10 MG tablet Take 10 mg by mouth Once per day. 5 Active urea (Urea 10 Hydrating) 10 % cream Apply topically if needed for dry skin (apply to feet). 85 g 2 5 026 Active traZODone (Desyrel) 50 MG tablet Take 1 tablet (50 mg) by mouth at bedtime. 30 tablet 3 5 Active fluticasone (Flonase) 50 MCG/ACT nasal sprayIndications :Viral upper respiratory illness INHALE 1 TO 2 PUFFS INTO EACH NOSTRIL ONCE A DAY IN THE MORNING 48 mL 3 5 Active montelukast (Singulair) 10 MG tabletIndication s:Moderate persistent asthma, unspecified whether complicated TAKE 1 TABLET BY MOUTH EVERYDAY AT BEDTIME 90 tablet 3 5 Active loratadine (Claritin) 10 MG tablet TAKE 1 TABLET BY MOUTH EVERY DAY NEEDED FOR ALLERGIES 90 tablet 3 5 Active amLODIPine (Norvasc) 10 MG tabletIndication s:Essential (primary) hypertension TAKE 1 TABLET BY MOUTH EVERY DAY IN THE MORNING 90 tablet 3 5 Active triamcinolone (Kenalog) 0.1 % creamIndications :Rash APPLY THIN COAT TO AFFECTED AREA TWICE A DAY 60 g 1 5 Active Active Problems Problem Noted Date Diagnosed Date Encounter for colorectal cancer screening 2023 Assessment & Plan (06/19/2023 5:22 PM EST): Declined colonoscopy referral, agreed for cologuard. Erythroderma 06/19/2023 Assessment & Plan (02/08/2024 9:51 AM EDT): Benign per derm Mixed stress and urge urinary incontinence 06/07 Rheumatoid arthritis flare (CMS/HCC) 04/13/2023 Assessment & Plan (02/08/2024 9:51 AM EDT): Seeing Dr Francois frequently to adjust dosing of DMARDs and to receive steroid injections Assessment & Plan (04/13/2023 3:50 PM EST): Acute, for the past week DC Ibuprofen and tramadol, start Prednisone 10mg /daily and FU with corsetier if Sx do not improve Screening for colon cancer 03/16/2023 Essential (primary) hypertension 12/06/2022 Assessment & Plan (12/01/2024 6:50 PM EDT): At goal at home and at her day program Continue Amlodipine 10mg and hydrochlorothiazide 12.5mg Will increase hydrochlorothiazide if BP persistently greater than 150/90 Take medication daily and monitor her BPs Assessment & Plan (02/08/2024 9:52 AM EDT): At goal at home and at her day program Continue Amlodipine 10mg and hydrochlorothiazide 12.5mg Will increase hydrochlorothiazide if BP persistently greater than 150/90 Take medication daily and monitor her BPs Assessment & Plan (04/13/2023 1:19 PM EST): BP at the end of visit was 190/105 Pt will FU w/ RN next week See above Assessment & Plan (03/16/2023 10:10 AM EDT): Not at goal Continue Amlodipine 10mg, ADD hydrochlorothiazide 12.5mg Take medication daily and monitor her BPs Assessment & Plan (12/06/2022 8:41 PM EDT): Amlodipine 10mg refilled Take medication daily and monitor her BPs 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 Encouraged her to ask Rheum for their thoughts, would then need methotrexate or mycophenolate Cerave prescribed for comfort Assessment & Plan (12/06/2022 8:42 PM EDT): Benign nature of disease Assessment & Plan (10/28/2022 9:23 AM EDT): Discussed the nature of the condition with the patient. Reassured patient this is a benign condition. 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 Has safety measures in home Assessment & Plan (05/26/2022 8:24 PM EST): IN 02/2022 due to urinary origin Repeat CBC and inflammatory markers Encourage slow progress of exercise, diet Order grab bars, shower chair, walker for safety in her home Iron deficiency anemia 04/11/2022 Assessment & Plan (03/16/2023 10:12 AM EDT): Restart iron supplement daily Neutropenia 04/11/2022 Assessment & Plan (02/08/2024 9:51 AM EDT): Cell lines have largely returned to normal Assessment & Plan (03/16/2023 10:14 AM EDT): Post-infectious at beginning of 2022, coming up from [facility] Lab Results Component Value Date WBC 3.6 (L) 12/08/2022 Lab Results Component Value Date RBC 4.48 12/08/2022 Lab Results Component Value Date PLT 153 (L) 12/08/2022 Assessment & Plan (05/26/2022 8:25 PM EST): WBC 2.5- 2.7 after urosepsis Will recheck now Nephrolithiasis 03/09/2022 Osteoporosis 12/23/2021 Assessment & Plan (12/01/2024 6:50 PM EDT): Take Alendronate weekly Vit D/Ca daily Weight bearing exercise, walking multiple times a week Goiter 05/11/2017 Assessment & Plan (05/26/2022 8:22 PM EST): Check TSH Acute meniscal tear of left knee 02/01/2016 Allergic rhinitis 12/19/2014 Gastroesophageal reflux disease 12/19/2014 Asthma 02/13/2012 Assessment & Plan (03/16/2023 10:10 AM EDT): Well controlled currently BECCA prn Rheumatoid arthritis ([facility]) 02/13/2012 Assessment & Plan (02/08/2024 9:52 AM EDT): Follows with Dr Francois at [facility] Continue Humira and hydroyxchloroquine and prednisone Joint disease in hands, wrists, knees is active now Has knee brace and arthritis gloves to help with symptoms PHOTO OPT[employer] TECHNICIAN hours should continue for help with ADLs Assessment & Plan (03/16/2023 10:15 AM EDT): Follows with Dr Francois at [facility] Continue Humira and hydroyxchloroquine and prednisone Joint disease in hands, wrists, knees is active now Will order R knee brace and arthritis gloves to help with symptoms Assessment & Plan (12/06/2022 8:42 PM EDT): Follows with Dr Francois at [facility] Call to request Embrel and hydroyxchloroquine On 10mg of prednisone daily Joint disease in hands, wrist, shoulders is active now Assessment & Plan (08/24/2022 7:49 AM EDT): Follows with Dr Francois at [facility] [place] Call to request Embrel and hydroyxchloroquine She just finished a course of prednisone, not very helpful so will not repeat Joint disease in hands, wrist, shoulders is active now Will prescribe short course of oxycodone 5mg three times a day, do not take this while taking Tramadol, do not drive on this medication Assessment & Plan (05/26/2022 8:23 PM EST): [facility] Joint disease appears active now Request shoulder injection as well Resolved Problems Problem Noted Date Diagnosed Date Resolved Date Encounter for preventive health examination 06/19/2023 11/26/2024 Assessment & Plan (06/19/2023 5:30 PM EST): Discussed with patient re increase fresh fruit and vegetable intake. Counseled re moderate exercise as tolerated, up to 20min/d Patient feels safe at home. PAP smear: UTD, next one is due on 03/2024 as she's on immune modulator agents. Mammogram: UTD, next one due on 05/2024 Bone density test: TBO, she's off fosamax probably. Eye exam: UTD, next one due on 11/2024 CRC screen: Declined colonoscopy, I will order cologuard. Lipids/FBS: UTD, fu with PCP Vaccinations: Advised to have covid booster and PCV 20 once BP is better controlled, fu with PCP in 1mo Dental visit: UTD, fu with dentist on 2024 to check dentures. Petechiae 06/19/2023 11/26/2024 Assessment & Plan (06/19/2023 5:26 PM EST): Platelets are normal, it may be related to RA, she's being fu by rheum and w/u for ITP is NEG. Re consult prn if she develops extensive lesions or bleeding. Hypertensive urgency 04/13/2023 025 Assessment & Plan (06/19/2023 5:21 PM EST): Patient is largely asymptomatic today, labs are normal. Increase lisinopril/hctz to 20/25mg per day and fu BP with RN in 2w then with PCP in 4-5w. Patient should go to ED if she develops new onset of CP, GIFFORD, dizziness, weakness or ORELLANA. Counseled re low salt diet/increase moderate physical activity. Check home BP BIW and prn CP/ORELLANA/GIFFORD. Counseled to fu closely with rheumatology for pain control Non smoking patient. Assessment & Plan (04/13/2023 1:19 PM EST): Pt is asymptomatic today, EKG does not show evidence of ischemia and there are no neurological deficits Check BMP to r/o JOVAN DC hydrochlorothiazide and switch to Lisinopril 10/hydrochlorothiazide 12.5mg and FU BP w/ RN in 4-5 days. Continue amlodipine. Counseled to go home and rest for the day, she will go to ED if she develops chest pain, GIFFORD, severe headache, dizziness, blurred vision, neurological deficits. Counseled regarding proper pain treatment, DC Ibuprofen Weight loss of more than 10% body weight 05/26/2022 03/15/2023 Assessment & Plan (05/26/2022 8:23 PM EST): Continue Boost supplementation She is re-gaining weight slowly, from 150 normal to 120 cori, today 127 Cellulitis 04/26/2022 11/26/2024 Elevated blood pressure reading 04/26/2022 09/21/2022 Assessment & Plan (08/24/2022 7:48 AM EDT): Possibly due to pain Will monitor at home Call if >140/90, start Amlodipine Stage 1 chronic kidney disease 04/12/2022 11/26/2024 Pain in throat 05/11/2017 07/25/2022 Encounters Date Type Department Care Team Description 03/21/2025 Telephone [facility] [address] [place] [address] [phone] Donna Landa MD 03/21/2025 Telephone [facility] [address] [place] [address] [phone] Sarah Dennison [place] 02/12/2025 Refill [facility] [address] [place] [address] [phone] Donna Landa MD Rash 02/10/2025 Refill [facility] [address] [place] [address] [phone] Donna Landa MD Viral upper respiratory illness; Moderate persistent asthma, unspecified whether complicated; Essential (primary) hypertension 01/11/2025 Refill [facility] [address] [place] [address] Donna Landa MD Moderate persistent asthma, unspecified whether complicated from Last 3 Months Immunizations Immunization Administration Dates Next Due DTP 09/16/1996 INFLUENZA INJECTABLE QUADRIV ALANT CCIIV4 MDCK Multi-dose vial 05/03/2021,03/20/2018 Influenza Quadrivalent Adjuvanted 02/04/2023 Influenza injectable quadriv alent preservative free 02/15/2022,01/24/2020,03/12/2019,07/28 Influenza, High Dose Seasona l, Preservative Free 01/20/2024 Moderna Covid-19 Vaccine 12+ 06/24/2021,09/06/19 21,08/08/2020 Pfizer Covid-19 Vaccine 12+ 02/05/2024 Pneumococcal Conjugate PCV 20 01/08/2024 Pneumococcal Polysaccharide PPSV23 02/01/2007 TD (adult), 2 Lf tetanus tox oid, preservative free, adsorbed 06/27/2005 Td (adult), 5 Lf tetanus tox oid, preservative free, adsorbed 12/31/2015 Tdap 07/27/2017 Zoster, Recombinant 11/02/2022,08/31/2022 Family History Medical History Relation Name Comments Breast cancer Niece 1 Lupus Niece 2 not niece with breast cancer Hypertension Sister Relation Name Status Comments Niece 1 Niece 2 Sister Social History Tobacco Use Types Packs/Day Years Used Date Smoking Tobacco: Never Passive Smoke Exposure: Never Smokeless Tobacco: Never Tobacco Cessation:Counseling Given: Not Answered Alcohol Use Standard Drinks/Week Comments Not Currently [...] Orientation Straight 03/14/2022 10 :14 AM EDT Last Filed Vital Signs Vital Sign Reading Time Taken Comments Blood Pressure 159/89 11/26/2024 10:13 AM EDT Pulse 81 11/26/2024 10:13 AM EDT Temperature 36.7 C (98 F) 11/26/2024 10:13 AM EDT Respiratory Rate 18 11/26/2024 10:13 AM EDT Oxygen Saturation 97% 11/26/2024 10:13 AM EDT Inhaled Oxygen Concentration - - Weight 76.2 kg (168 lb) 11/26/2024 10:13 AM EDT Height 162.6 cm (5' 4 ) 11/26/2024 10:13 AM EDT Body Mass Index 28.84 11/26/2024 10:13 AM EDT Plan of Treatment Upcoming Encounters Date Type Department Care Team (Late st Contact Info) Description 05/27/2025 9:30 AM EST Procedure Visit [address] [address] Erik Lauren CNM [address] [place] [address] 06/16/2025 2:00 PM EST Office Visit [facility] [address] [place] [phone] Donna Landa MD [address] [place], [place] [phone] Health Maintenance Due Date Last Done Comments CT Colonography 1955 Colonoscopy 1955 Colorectal Cancer Screening 1955 FIT DNA/Cologuard 1955 FIT 1955 FOBT 1955 Sigmoidoscopy 1955 COVID-19 Vaccine ( season) 2025 02/05/2024, 06/24/2021, 09/05/2020, Additional history exists Depression Screening 02/04/2025 02/05/2024, 02/05/20 24 SDOH Screening 02/04/2025 02/05/2024 HPV/Cotest 05/23/2025 04/13/2023 Pap Smear 05/23/2025 05/23/2024, 04/13/2023 Mammogram 05/29/2025 05/29/2024, 05/15, 12/07/2021, Additional history exists Alcohol/Substance Use Screening 11/26/2025 11/26/2024 Tobacco Screening 11/26/2025 11/26/2024 DTaP/Tdap/Td Vaccines (5 - Td or Tdap) 07/28/2027 07/27/2017, 12/31/2015, 06/27/2005, Additional history exists Lipid Panel 11/26/2029 11/26/2024, 09/14/2021 Hepatitis C Screening Completed 02/28/2022 , 12/31/2021, 12/23/2021, Additional history exists Zoster Vaccines Completed 11/02/2022, 08/31/2022 Pneumococcal Vaccine: 50+ Years Completed 01/08/2024, 02/01/2007 Influenza Vaccine Completed 01/05/2025, , 02/04/2023, Additional history exists RSV Patients and Patients Aged 60 years or older Completed 01/05/2025 HIB Vaccines Aged Out No longer eligi ble based on patient's age to complete this topic HPV Vaccines Aged Out No longer eligi ble based on patient's age to complete this topic Hepatitis A Vaccines Aged Out No long er eligible based on patient's age to complete this topic Hepatitis B Vaccines Aged Out No long er eligible based on patient's age to complete this topic IPV Vaccines Aged Out No longer eligi ble based on patient's age to complete this topic Meningococcal B Vaccine Aged Out No l onger eligible based on patient's age to complete this topic Meningococcal Vaccine Aged Out No lucila cassie eligible based on patient's age to complete this topic RSV under 20 months Aged Out No longe r eligible based on patient's age to complete this topic Rotavirus Vaccines Aged Out No longer eligible based on patient's age to complete this topic Procedures Procedure Name Priority Date/Time Associated Diagnosis Comments LIPID PANEL, STANDARD Routine 11/26/2024 10:52 AM EDT BI MAMMOGRAM SCREENING TOMOSYNTHESIS BILATERAL Routine 05/29/2024 12:10 PM EST PAP SMEAR Routine 05/23/2024 12:00 AM EST Cervical cancer screening HPV MRNA E6/E7 REFLEX TO HPV 16, 18/45 Routine 04/13/2023 11:09 AM EST ZZZ HISTORICAL HEPATITIS C AB W/REFL TO HCV RNA, QN, PCR Routine 02/28/2022 10:37 AM EDT from Last 3 Months or Most Recently Relevant to Health Maintenance Results * (ABNORMAL) Lipid Panel, Standard (11/26/2024 10:52 AM EDT) Triglycerides 242(H) <150 mg/dL [facility] Comment:Desirable Triglyceri de: less than 150 mg/dLBorderline High Triglyceride 150-199 mg/dLHigh Triglyceride: 200-499 mg/dLVery High Triglyceride: greater than or equal to 5OO mg/dL Cholesterol 193 <200 mg/dL [facility] Comment:Desirable Cholestero l: less than 200 mg/dLBorderline High Cholesterol: 200-239 mg/dLHigh Cholesterol: greater than 239 mg/dL LDL Cholesterol Calculated 110(H) <100 mg/dL [facility] Comment:Desirable LDL: less than 100 mg/dLNear Optimal/Above Optimal LDL: 110- 129 mg/dLBorderline High LDL: 130-159 mg/dLHigh LDL: 160-189 mg/dLVery High LDL: greater than or equal to 190 mg/dL HDL Cholesterol 35(L) >40 mg/dL [facility] Comment:Desirable HDL: great er than 40 mg/dL Note: This HDL assay may give artificially low results in patients with liver disease. 11/26/2024 10:5 2 AM EDT 11/26/2024 1:40 PM EDT us Donna Landa MD LAB BLOOD ORDERABLES Final Res ult [facility] [address] [place] [phone] * BI Mammogram Screening Tomosynthesis Bilateral (05/29/2024 12:10 PM EST) Anatomical Region Laterality Modality Breast Bilateral Mammography 05/29/2024 12:1 0 PM EST Narrative 06/09/2024 10:07 AM EST [address] [place] [address] Mammography Report Signed Patient: Jose Maravilla MR#: [id number] : 1955 Acct:[id number] Age/Sex: 69 / F ADM Date: 05/29/24 Loc: HO.MAMMO Attending Dr: Donna Landa MD Ordering Physician: Donna Landa Results: 1Negative Date of Service: 05/29/24 Follow Up: 1 Year From Orig inal Mammogram Procedure(s): MM tomosynthesis screening BI Accession Number(s): [id number] cc: Donna Landa EXAMINATION: MM SCREENING DIGITAL BREAST TOMOSYNTHESIS, BILATERAL CLINICAL INFORMATION: Screening. Asymptomatic. COMPARISON: Mammography: Comparison is made with available priors TECHNIQUE: Digital breast mammography with tomosynthesis is performed in both the craniocaudal and mediolateral oblique views along with computer-aided detection (CAD). FINDINGS: The breasts are heterogeneously dense, which may obscure small masses (ACR BI-RADS breast composition Category c). There are no significant masses, abnormal calcifications, or other abnormalities. MM/MM tomosynthesis screening BI IMPRESSION: No mammographic evidence of malignancy. ASSESSMENT: BI-RADS BI-RADS 1 - Negative RECOMMENDATION: Routine annual mammography screening. 1 year F/U This examination should not preclude the clinical evaluation of a suspicious palpable abnormality. This patient's information was entered into a reminder system with a target due date for their next mammogram. Electronically signed by: Cherelle Goff DO 06/09/2024 10:04 AM EST Dictated By: Cherelle Goff DO Signed By: <Electronically signed by Cherelle Goff DO in OV> 06/09/24 1004 DD/ 1210 TD/TT: 05/29/24 1220 Church Worker: Procedure Note Donotuseinterpreter, Image - 06/09/[address] [place] [address] Mammography Report Signed Patient: Jose Maravilla GMR#: [id number] : 7Acct:[id number] Age/Sex: 69 / FADM Date: 05/29/24 Loc: HO.MAMMO Attending Dr: Donna Landa MD Ordering Physician: Kenny Landaults: 1Negative Date of Service: 05/29/24Follow Up: 1 Year From Orig inal Mammogram Procedure(s): MM tomosynthesis screening BI Accession Number(s): [id number] cc: Donna Landa EXAMINATION: MM SCREENING DIGITAL BREAST TOMOSYNTHESIS, BILATERAL CLINICAL INFORMATION: Screening. Asymptomatic. COMPARISON: Mammography: Comparison is made with available priors TECHNIQUE: Digital breast mammography with tomosynthesis is performed in both the craniocaudal and mediolateral oblique views along with computer-aided detection (CAD). FINDINGS: The breasts are heterogeneously dense, which may obscure small masses (ACR BI-RADS breast composition Category c). There are no significant masses, abnormal calcifications, or other abnormalities. MM/MM tomosynthesis screening BI IMPRESSION: No mammographic evidence of malignancy. ASSESSMENT: BI-RADS BI-RADS 1 - Negative RECOMMENDATION: Routine annual mammography screening. 1 year F/U This examination should not preclude the clinical evaluation of a suspicious palpable abnormality. This patient's information was entered into a reminder system with a target due date for their next mammogram. Electronically signed by: Cherelle Goff DO 06/09/2024 10:04 AM EST Dictated By: Cherelle Goff DO Signed By: <Electronically signed by Cherelle Goff DO in OV> 06/09/24 1004 DD/ 1210 TD/TT: 05/29/24 1220 Church Worker: Donna Landa MD [facility] BI PROCEDURES Edited Resul t - Final * Pap Smear (05/23/2024 12:00 AM EST) Swab Cervix uteri structure / Unknown 05/23/2024 05/24/2024 8:50 AM EST [facility] - 06/03/2024 3:57 PM EST ----- ------- Name: Jose Maravilla Age/Sex: 69/F : 1955 Unit#: [id number] Attend Dr: ERIK LAUREN [facility] Re05/23/24 Status: [facility] REF Location: [facility] Disch: ----- ------- SPEC : [id number] RECD: 05/24/24 STATUS: BON LUIS ANTONIO NUM: [id number] MARIBELL: 05/23/24-[address]: ERIK LAUREN [facility] ENTERED: 05/24/24 SP TYPE: Pap Smr OTHR DR: ORDERED: Pap Smear, PAP path review Interpretation General Category: Epithelial cell abnormality. Adequacy: Endocervical component present. Interpretation: Atypical squamous cells of undetermined significance. Atrophic changes and abundant acute inflammation. HPV High Risk: Negative HPV Genotyping 16: Negative HPV Genotyping 18: Negative Clinical Information LMP: Post menopausal Previous PAP test:NIL/HPV pos 2022 Other surgery: Other history: Material Received ThinPrep-cervical ----- ------- Signed (signature on file) Mallika Bell 06/03/24 1557 ----- ------- END OF REPORT us Erik Lauren [facility] CYTOLOGY ORDERABLES F inal Result [facility] [address] [place] [address] [phone] * (ABNORMAL) HPV mRNA E6/E7 w/Reflex to HPV Genotypes 16, 18/45 (04/13/2023 11:09 AM EST) HPV nRNA E6/E7 Detected(A ) Not Detected [facility] Comment:Methodology: Transcr iption-Mediated AmplificationThis assay detects E6/E7 viral messenger RNA (mRNA) from 14high-risk HPV types (16,18,31,33,35,39,45,51,52,56,58,59,66,68).Cervical sources are required for HPV testing.If a vaginal source from a patient who has had atotal hysterectomy with removal of cervix wassubmitted, please contact the testing laboratoryfor alternative testing options.For additional information, please refer tohttp://education.[employer]faq/OHS810m5(This link if provided for information/educational purposes only.)THIS TEST WAS PERFORMED AT:[facility] [employer] [phone] IRWIN MD HPV 16 RNA NOT DETECTED NOT DETECTED [facility] HPV 18/45 RNA NOT DETECTED NOT DETECTED [facility] Comment:Methodology: Transcr iption Mediated AmplificationCervical sources are required for HPV testing.If a vaginal source from a patient who has had atotal hysterectomy with removal of cervix wassubmitted, please contact the testing laboratoryfor alternative testing options.THIS TEST WAS PERFORMED AT:[facility] [place] [id number] IRWIN MD 04/13/2023 11:0 9 AM EST 04/14/2023 8:15 AM EST Erik Lauren CN LAB CYTOLOGY ORDERABLES F inal Result Performing Organization Address [facility] Co de Phone Number [facility] [address] [place] [address] [phone] * HEPATITIS C AB W/REFL TO HCV RNA, QN, PCR (02/28/2022 10:37 AM EDT) HEPATITIS C ANTIBODY NON-REACTI VE NON-REACT JUNITO [facility] INDEX 0.33 <1.00 [facility] Comment: HCV antibody was non-reactive. There is no laboratory evidence of HCV infection. In most cases, no further action is required. However, if recent HCV exposure is suspected, a test for HCV RNA (test code 05616) is suggested. 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
[2025-04-11] MEDS: Tetracaine HCl/PF 0.5% Oph Sol 4 ML DROPS 1 DROP EYE-RIGHT (17:23)
[2025-04-11] MEDS: Fluorescein Sodium STRIP 1 STRIP EYE-RIGHT (17:23)
[2025-04-11 18:11] VITALS: BP 187/98; PULSE 92; RESP 16; TEMP 37; O2SAT 98
== END 2025-04-11 18:11 | disposition home or self-care (01) ==
PROVIDERS: Emergency Provider Student in an Organized Health Care Education/Training Program; PCP General Practice
DX: H16.001 Unspecified corneal ulcer, right eye (principal); H57.11 Ocular pain, right eye
CPT/HCPCS: 99282; 99283